=== PATIENT | female | born 1965 | race Caucasian/White ===

== ENCOUNTER → 2017-07-20 16:49 | Outpatient (CLI) | payer SELFPAY | PROVIDERS: Visit Provider Nurse Practitioner Gerontology | DX: K13.79 Other lesions of oral mucosa (principal) | CPT/HCPCS: 87070 ==

== ENCOUNTER → 2017-10-27 15:59 | Outpatient (CLI) | payer SELFPAY ==
[2017-10-27 17:48] LABS: Absolute Lymphocyte Count 2.68 X10^3/ul (0.83-4.51); Absolute Neutrophil Count 4.7 X10^3/uL (2.0-7.7); Basophil# 0.03 X10^3/uL; Basophil% 0.4 % (0-1); Eosinophil# 0.07 X10^3/uL; Eosinophils% 0.9 % (0-5); Hematocrit 38.4 % (37-47); Hemoglobin 11.6 g/dl (12.0-15.0); Lymphocyte # 2.68 X10^3/ul (4.0); Lymphocyte % 33.8 % (19-41); Mean Corp Hgb Conc 30.2 g/gl (32-36); Mean Corpuscular Hgb 23.1 pg (27.0-32.0); Mean Corpuscular Volume 76.5 fL (81-99); Mean Platelet Vol. 9.1 fl (6.2-12.0); Monocyte# 0.47 X10^3/uL; Monocyte% 5.9 % (0-10); Neutrophil # 4.66 X10^3/uL (2.7-7.7); Neutrophil % 58.9 % (47-70); Platelet Count 391 K/mm3 (150-450); RBC Distribution Width CV 15.9 % (11.6-14.6); Red Blood Count 5.02 M/mm3 (4.2-5.4); White Blood Count 7.9 K/mm3 (4.4-11.0)
[2017-10-27 17:50] LABS: POSITIVE COUNT NO; POSITIVE DIFFERENTIAL NO; POSITIVE MORPHOLOGY NO
[2017-10-27 18:02] LABS: Erythrocyte Sedimentation Rate 30 mm/hr (0-30)
[2017-10-27 18:10] LABS: AST(SGOT) 24 U/L (15-37); Alanine Aminotransfer ALT/SGPT 44 U/L (13-56); Albumin, Serum 3.9 g/dL (3.2-5.0); Alkaline Phosphatase 96 U/L (45-117); Anion Gap 8 (5-15); BUN 7 mg/dL (7-18); BUN/Creat Ratio 8.5 RATIO (10-20); CRP 8.61 mg/L (0.0-3.0); Chloride 104 mmol/L (98-107); Creatinine, Serum 0.82 mg/dL (0.55-1.02); EST Glomerular Filtration Rate 78 mL/min (>60); Est Glom Filt Rate - Afr Amer 94 mL/min (>60); Globulin 3.8 g/dL (2.2-4.2); Glucose 89 mg/dL (74-106); Potassium 3.6 mmol/L (3.5-5.1); Protein, Total 7.7 g/dL (6.4-8.2); Rheumatoid Factor < 10.0 IU/mL (<15); Sodium Level 142 mmol/L (136-145)
[2017-11-04 08:09] LABS: QNTFERON TB Ag Minus Nil Value 0.04 IU/mL (.); QNTFERON TB Ag Value 0.08 IU/mL (.); QNTFERON TB Mitogen Value > 10.00 IU/mL (.); QNTFERON TB Nil Value 0.04 IU/mL (.)
[2017-11-06 12:28] LABS: CCP IgG Antibodies 8 units (0-19); QNTIFERON TB Gold Negative (Negative)
== END ==
PROVIDERS: Family Provider Nurse Practitioner; PCP Nurse Practitioner; Visit Provider Internal Medicine Rheumatology
DX: M06.09 Rheumatoid arthritis without rheumatoid factor, multiple sites (principal); Z79.899 Other long term (current) drug therapy; M79.7 Fibromyalgia; K76.0 Fatty (change of) liver, not elsewhere classified; E83.119 Hemochromatosis, unspecified; Q66.7 Congenital pes cavus
CPT/HCPCS: 36415; 80053; 85025; 85652; 86140; 86200; 86431; 86480

== ENCOUNTER → 2018-01-19 07:45 | Outpatient (CLI) | payer BC, SELFPAY ==
--- NOTE | 2018-01-19 07:48 | US_ITS ---
STUDY: THYROID ULTRASOUND REASON FOR EXAM: Female, 52 years old. Follow-up nodules TECHNIQUE: Transverse and longitudinal ultrasound evaluation of the thyroid was performed with real-time and static stratton-scale imaging. COMPARISON: November 30, 2016 FINDINGS: RIGHT LOBE: The right lobe of the thyroid gland measures 5.8 x 2.0 x 2.0 cm. There is a heterogeneous echotexture. Cystic nodules are again seen in the right lobe. A heterogeneous mass is again seen in the lower pole measuring 15.5 x 14.5 x 17.0 mm. This previously measured 16.3 x 14.9 x 16.5 mm. LEFT LOBE: The left lobe of the thyroid gland measures 5.2 x 1.4 x 1.6 cm. There is a heterogeneous echotexture. Cystic nodules are again seen in the left lobe. The largest is seen in the lower pole measuring 10.1 x 7.6 x 7.8 mm. This previously measured 10.2 x 6.6 x 9.1 mm. ISTHMUS: The isthmus measures 4.0 mm. There is a small cystic nodule in the isthmus measuring 4.5 x 2.5 x 4.4 mm. The regional lymph nodes are unremarkable. US/Thyroid IMPRESSION: Bilateral thyroid nodules are again seen and are unchanged in appearance. Electronically Signed: Salena Chan MD at 22:58 EDT Tel Direct: [phone], Service support ,
== END ==
PROVIDERS: Family Provider Nurse Practitioner; PCP Nurse Practitioner; Referring Provider Nurse Practitioner; Visit Provider Nurse Practitioner
DX: E04.1 Nontoxic single thyroid nodule (principal)
CPT/HCPCS: 76536

== ENCOUNTER → 2018-01-31 16:41 | Outpatient (CLI) | payer BC, SELFPAY ==
[2018-01-31 17:39] LABS: Absolute Lymphocyte Count 3.95 X10^3/ul (0.83-4.51); Absolute Neutrophil Count 4.9 X10^3/uL (2.0-7.7); Basophil# 0.03 X10^3/uL; Basophil% 0.5 % (0-1); Eosinophil# 0.05 X10^3/uL; Eosinophils% 0.9 % (0-5); Hematocrit 36.4 % (37-47); Hemoglobin 11.1 g/dl (12.0-15.0); Lymphocyte # 3.95 X10^3/ul (4.0); Lymphocyte % 40.2 % (19-41); Mean Corp Hgb Conc 30.5 g/gl (32-36); Mean Corpuscular Hgb 22.2 pg (27.0-32.0); Mean Corpuscular Volume 73.9 fL (81-99); Mean Platelet Vol. 9.1 fl (6.2-12.0); Monocyte# 0.71 X10^3/uL; Monocyte% 9.5 % (0-10); Neutrophil % 49.5 % (47-70); Platelet Count 425 K/mm3 (150-450); RBC Distribution Width CV 15.6 % (11.6-14.6); Red Blood Count 4.91 M/mm3 (4.2-5.4); White Blood Count 9.9 K/mm3 (4.4-11.0)
[2018-01-31 17:40] LABS: Differential Indicated SCAN CRITERIA MET; POSITIVE COUNT NO; POSITIVE DIFFERENTIAL NO; POSITIVE MORPHOLOGY YES
[2018-01-31 17:50] LABS: ALB/GLOB Ratio 1.1 RATIO (0.9-2.4); AST(SGOT) 30 U/L (15-37); Alanine Aminotransfer ALT/SGPT 54 U/L (13-56); Alkaline Phosphatase 99 U/L (45-117); Anion Gap 8 (5-15); BUN 10 mg/dL (7-18); Calcium,Total 9.1 mg/dL (8.5-10.1); Chloride 102 mmol/L (98-107); Creatinine, Serum 0.91 mg/dL (0.55-1.02); EST Glomerular Filtration Rate 69 mL/min (>60); Est Glom Filt Rate - Afr Amer 84 mL/min (>60); Globulin 3.7 g/dL (2.2-4.2); Glucose 88 mg/dL (74-106); Protein, Total 7.7 g/dL (6.4-8.2); Sodium Level 139 mmol/L (136-145)
[2018-01-31 18:13] LABS: Platelet Estimate A (ADEQ); Red Cell Morphology N CHROM NORMAL (NORM C&C)
[2018-01-31 18:14] LABS: Anisocytosis 1+
== END ==
PROVIDERS: Family Provider Nurse Practitioner; PCP Nurse Practitioner; Referring Provider Internal Medicine Rheumatology; Visit Provider Internal Medicine Rheumatology
DX: M06.09 Rheumatoid arthritis without rheumatoid factor, multiple sites (principal); Z79.899 Other long term (current) drug therapy; M79.7 Fibromyalgia; K76.0 Fatty (change of) liver, not elsewhere classified; E83.119 Hemochromatosis, unspecified; Q66.7 Congenital pes cavus; K21.9 Gastro-esophageal reflux disease without esophagitis; I10 Essential (primary) hypertension; G43.909 Migraine, unspecified, not intractable, without status migrainosus; N80.9 Endometriosis, unspecified; I26.99 Other pulmonary embolism without acute cor pulmonale
CPT/HCPCS: 36415; 80053; 85025

== ENCOUNTER → 2018-02-28 13:49 | Outpatient (CLI) | payer BC, SELFPAY | PROVIDERS: Family Provider Nurse Practitioner; PCP Nurse Practitioner; Referring Provider Nurse Practitioner; Visit Provider Nurse Practitioner | DX: R00.2 Palpitations (principal) | CPT/HCPCS: 93225; 93226 ==

== ENCOUNTER 2018-06-01 16:30 | Outpatient (RCR) | payer BC, SELFPAY ==
[2018-06-01 18:09] LABS: AST(SGOT) 29 U/L (15-37); Alanine Aminotransfer ALT/SGPT 57 U/L (13-56); Alkaline Phosphatase 96 U/L (45-117); Bilirubin, Direct 0.07 mg/dL (0.00-0.30); Globulin 3.5 g/dL (2.2-4.2); Protein, Total 7.5 g/dL (6.4-8.2)
== END 2018-06-14 15:06 | disposition home or self-care (01) ==
LOC: MTLAB 16:30
PROVIDERS: Family Provider Nurse Practitioner; PCP Nurse Practitioner; Referring Provider Nurse Practitioner; Visit Provider Nurse Practitioner
DX: B35.1 Tinea unguium (principal)
CPT/HCPCS: 36415; 80076

== ENCOUNTER → 2018-07-27 10:59 | Outpatient (CLI) | payer BC, SELFPAY ==
[2018-07-27 12:25] LABS: Absolute Lymphocyte Count 2.76 X10^3/ul (0.83-4.51); Absolute Neutrophil Count 2.5 X10^3/uL (2.0-7.7); Basophil# 0.03 X10^3/uL; Basophil% 0.5 % (0-1); Eosinophil# 0.04 X10^3/uL; Eosinophils% 0.7 % (0-5); Hematocrit 38.1 % (37-47); Hemoglobin 11.5 g/dl (12.0-15.0); Lymphocyte # 2.76 X10^3/ul (4.0); Lymphocyte % 48.3 % (19-41); Mean Corp Hgb Conc 30.2 g/gl (32-36); Mean Corpuscular Hgb 22.4 pg (27.0-32.0); Mean Corpuscular Volume 74.1 fL (81-99); Mean Platelet Vol. 9.2 fl (6.2-12.0); Monocyte# 0.38 X10^3/uL; Monocyte% 6.7 % (0-10); Neutrophil % 43.8 % (47-70); Platelet Count 412 K/mm3 (150-450); RBC Distribution Width CV 16.5 % (11.6-14.6); Red Blood Count 5.14 M/mm3 (4.2-5.4); White Blood Count 5.7 K/mm3 (4.4-11.0)
[2018-07-27 12:30] LABS: ALB/GLOB Ratio 1.1 RATIO (0.9-2.4); AST(SGOT) 25 U/L (15-37); Alanine Aminotransfer ALT/SGPT 43 U/L (13-56); Albumin, Serum 4.1 g/dL (3.2-5.0); Alkaline Phosphatase 84 U/L (45-117); Anion Gap 5 (5-15); BUN 8 mg/dL (7-18); BUN/Creat Ratio 8.7 RATIO (10-20); Calcium,Total 9.1 mg/dL (8.5-10.1); Chloride 106 mmol/L (98-107); Creatinine, Serum 0.92 mg/dL (0.55-1.02); EST Glomerular Filtration Rate 69 mL/min (>60); Est Glom Filt Rate - Afr Amer 83 mL/min (>60); Globulin 3.6 g/dL (2.2-4.2); Glucose 88 mg/dL (74-106); Potassium 3.6 mmol/L (3.5-5.1); Protein, Total 7.7 g/dL (6.4-8.2); Sodium Level 139 mmol/L (136-145)
[2018-07-27 12:33] LABS: Differential Indicated SCAN CRITERIA MET; POSITIVE COUNT NO; POSITIVE DIFFERENTIAL NO; POSITIVE MORPHOLOGY YES
== END ==
PROVIDERS: Family Provider Nurse Practitioner; PCP Nurse Practitioner; Referring Provider Internal Medicine Rheumatology; Visit Provider Internal Medicine Rheumatology
DX: M06.09 Rheumatoid arthritis without rheumatoid factor, multiple sites (principal); M79.7 Fibromyalgia; K76.0 Fatty (change of) liver, not elsewhere classified; E83.119 Hemochromatosis, unspecified; Q66.7 Congenital pes cavus; K21.9 Gastro-esophageal reflux disease without esophagitis; I10 Essential (primary) hypertension; G43.909 Migraine, unspecified, not intractable, without status migrainosus; N80.9 Endometriosis, unspecified; I26.99 Other pulmonary embolism without acute cor pulmonale; Z79.899 Other long term (current) drug therapy
CPT/HCPCS: 36415; 80053; 85025

== ENCOUNTER → 2018-08-31 | Outpatient (CLI) | payer BC, SELFPAY ==
--- NOTE | 2018-08-31 12:03 | CT_ITS ---
STUDY: CT ABDOMEN AND PELVIS WITH CONTRAST REASON FOR EXAM: Female, 52 years old. Right upper quadrant pain. RADIATION DOSAGE (If Supplied By Facility): CTDIvol = ( 16.45 ) mGy, DLP = ( 1188.53 ) mGycm TECHNIQUE: Transaxial images were obtained from the dome of the diaphragm to the symphysis pubis with oral contrast. 100 IV/Oral Isovue 300 was administered. Sagittal and coronal images were reconstructed. Individualized dose optimization techniques were used for this CT. COMPARISON: None. FINDINGS: The visualized lung bases are unremarkable. The visualized portions of the heart are within normal limits. There is decreased attenuation of the liver consistent with steatosis. There are surgical clips in the gallbladder fossa consistent with a prior cholecystectomy. Normal spleen. Normal pancreas. Normal bilateral adrenal glands. There is a 3.2 cm x 2.1 cm x 2.7 cm complex cyst in the anterior lower aspect of the right kidney. Dense peripheral calcification is seen. A 6 month follow-up examination is suggested for further evaluation. Normal left kidney. There is a small hiatal hernia. Normal small intestine. Normal colon. The appendix is visualized and appears normal. Normal abdominal aorta. Normal inferior vena cava. Normal retroperitoneum. Normal urinary bladder. There is absence of the uterus consistent with a prior hysterectomy. Small benign-appearing bilateral inguinal lymph nodes. Normal abdominal wall. Moderate degree of disc space narrowing and disc degeneration at the L5-S1 level. CT/Abdomen/Pelvis WITH Contrast IMPRESSION: Fatty infiltration of the liver. Complex right renal cyst as described. A 6 month follow-up examination is recommended. Electronically Signed: Mario Alberto Sesay, at 14:40 EDT , Service support ,
[2018-08-31 12:32] LABS: Absolute Lymphocyte Count 2.62 X10^3/ul (0.83-4.51); Absolute Neutrophil Count 3.6 X10^3/uL (2.0-7.7); Basophil# 0.03 X10^3/uL; Basophil% 0.4 % (0-1); Eosinophil# 0.04 X10^3/uL; Eosinophils% 0.6 % (0-5); Hematocrit 35.8 % (37-47); Hemoglobin 11.1 g/dl (12.0-15.0); Lymphocyte # 2.62 X10^3/ul (4.0); Mean Corpuscular Hgb 22.7 pg (27.0-32.0); Mean Corpuscular Volume 73.2 fL (81-99); Mean Platelet Vol. 9.3 fl (6.2-12.0); Monocyte# 0.56 X10^3/uL; Monocyte% 8.1 % (0-10); Neutrophil # 3.64 X10^3/uL (2.7-7.7); Neutrophil % 52.8 % (47-70); Platelet Count 384 K/mm3 (150-450); RBC Distribution Width CV 17.1 % (11.6-14.6); RBC Distribution Width SD 45.8 fl (35.1-43.9); Red Blood Count 4.89 M/mm3 (4.2-5.4); White Blood Count 6.9 K/mm3 (4.4-11.0)
[2018-08-31 12:34] LABS: POSITIVE COUNT NO; POSITIVE DIFFERENTIAL NO; POSITIVE MORPHOLOGY NO
[2018-08-31 12:46] LABS: ALB/GLOB Ratio 1.3 RATIO (0.9-2.4); AST(SGOT) 19 U/L (15-37); Alanine Aminotransfer ALT/SGPT 29 U/L (13-56); Alkaline Phosphatase 88 U/L (45-117); Anion Gap 6 (5-15); BUN 13 mg/dL (7-18); BUN/Creat Ratio 17.2 RATIO (10-20); Calcium,Total 9.1 mg/dL (8.5-10.1); Chloride 107 mmol/L (98-107); Creatinine, Serum 0.76 mg/dL (0.55-1.02); EST Glomerular Filtration Rate 86 mL/min (>60); Est Glom Filt Rate - Afr Amer 104 mL/min (>60); Globulin 3.1 g/dL (2.2-4.2); Glucose 85 mg/dL (74-106); Potassium 3.9 mmol/L (3.5-5.1); Protein, Total 7.1 g/dL (6.4-8.2); Sodium Level 140 mmol/L (136-145)
== END | disposition home or self-care (01) ==
PROVIDERS: Family Provider Nurse Practitioner; PCP Nurse Practitioner; Referring Provider Nurse Practitioner; Visit Provider Nurse Practitioner
DX: K62.5 Hemorrhage of anus and rectum (principal); R10.84 Generalized abdominal pain
CPT/HCPCS: 74177; 80053; 85025; Q9967

== ENCOUNTER → 2018-09-01 | Outpatient (CLI) | payer BC, SELFPAY ==
--- NOTE | 2018-09-01 07:59 | BI_ITS ---
MAMMOGRAPHY - BILATERAL SCREENING REASON FOR EXAM: Female, 52 years old. Routine annual screening examination. PERTINENT HISTORY: Non-contributory. TECHNIQUE: Digital bilateral breast cheli (3D mammographic acquisition) in the CC and MLO projections. 2-D mediolateral oblique (MLO) and craniocaudad (CC) views of both breasts were obtained. CAD: Full Field Digital Mammography with Computer Added Detection was performed. COMPARISON: Comparison is made with prior study dated December 05, 2016. FINDINGS: Breast Composition: There are scattered areas of fibroglandular density. There are no dominant masses or suspicious calcifications. Stable appearance of the small bilateral axillary lymph nodes. No other significant abnormalities are identified. There has been no significant change since the prior study. BI/SCREENING MAMM (CAD), BILAT IMPRESSION: Stable bilateral screening mammogram. Yearly follow-up mammogram recommended. (A) ASSESSMENT CATEGORY: BIRADS Category 2: Benign. A letter regarding these results will be sent to the patient by the facility within 30 days. Approximately 10% of breast cancers are not detected by mammography. A normal mammogram should not delay biopsy of a clinically suspicious abnormality. [id number] Electronically Signed: Mario Alberto Sesay, at 8:34 EDT , Service support ,
== END | disposition home or self-care (01) ==
LOC: OPBI 07:58
PROVIDERS: Family Provider Nurse Practitioner; PCP Nurse Practitioner; Referring Provider Nurse Practitioner; Visit Provider Nurse Practitioner
DX: Z12.31 Encounter for screening mammogram for malignant neoplasm of breast (principal)
CPT/HCPCS: 77063; 77067

== ENCOUNTER → 2018-10-30 | Outpatient (CLI) | payer BC, SELFPAY ==
[2018-10-30 11:01] LABS: AST(SGOT) 17 U/L (15-37); Alanine Aminotransfer ALT/SGPT 23 U/L (13-56); Albumin, Serum 3.9 g/dL (3.2-5.0); Alkaline Phosphatase 90 U/L (45-117); Bilirubin, Direct < 0.05 mg/dL (0.00-0.30); Globulin 3.6 g/dL (2.2-4.2); Protein, Total 7.5 g/dL (6.4-8.2)
== END | disposition home or self-care (01) ==
LOC: MTLAB 09:20
PROVIDERS: Family Provider Nurse Practitioner; PCP Nurse Practitioner; Referring Provider Nurse Practitioner; Visit Provider Nurse Practitioner
DX: N28.1 Cyst of kidney, acquired (principal)
CPT/HCPCS: 36415; 80076

== ENCOUNTER → 2018-11-06 | Outpatient (CLI) | payer BC, SELFPAY ==
--- NOTE | 2018-11-06 08:47 | RAD_ITS ---
STUDY: BARIUM ESOPHAGRAM REASON FOR EXAM: Female, 53 years old. Dysphagia RADIATION DOSAGE (If Supplied By Facility): CTDIvol = ( ) mGy, DLP = ( ) mGycm. Individualized dose optimization techniques were used for this CT.? FLUOROSCOPY TIME (if supplied): (1:00) minutes/seconds TECHNIQUE: Air-contrast COMPARISON: None. FINDINGS: Swallowing was initiated normally. No nasopharyngeal reflux or aspiration. No Zenker's diverticulum noted. There is however prominent anterior spurring at C5-6 which is impinging upon the posterior esophagus and may be a cause of things getting stuck in patient's throat. Normal peristaltic activity noted in the proximal and mid esophagus. Tertiary contractions noted in the distal esophagus consistent with presbyesophagus. No evidence of intraesophageal reflux or GE reflux. A 13 mm barium pill passed through the esophagus without difficulty RAD/Esophagus Only IMPRESSION: Presbyesophagus Prominent anterior spurring at C5-6 which is impinging upon the posterior esophagus and could be responsible for the patient's sensation of choking or things getting stuck in throat. Electronically Signed: Philipp Antonio MD at 9:30 EDT , Service support ,
[2018-11-06 10:10] LABS: Absolute Lymphocyte Count 2.51 X10^3/uL (0.83-4.51); Absolute Neutrophil Count 3.7 X10^3/uL (2.0-7.7); Basophil# 0.04 X10^3/uL; Basophil% 0.6 % (0-1); Eosinophil# 0.08 X10^3/uL; Eosinophils% 1.2 % (0-5); Hematocrit 37.5 % (37-47); Hemoglobin 11.3 g/dL (12.0-15.0); Lymphocyte # 2.51 X10^3/ul (4.0); Lymphocyte % 36.3 % (19-41); Mean Corp Hgb Conc 30.1 g/dL (32-36); Mean Corpuscular Hgb 23.1 pg (27.0-32.0); Mean Corpuscular Volume 76.7 fL (81-99); Mean Platelet Vol. 8.9 fl (6.2-12.0); Monocyte# 0.62 X10^3/uL; NRBC Flagged by Analyzer 0 % (0-5); Neutrophil # 3.66 X10^3/uL (2.7-7.7); Neutrophil % 52.8 % (47-70); Platelet Count 411 K/mm3 (150-450); RBC Distribution Width CV 18.8 % (11.6-14.6); RBC Distribution Width SD 51.9 fl (35.1-43.9); Red Blood Count 4.89 M/mm3 (4.2-5.4); White Blood Count 6.9 K/mm3 (4.4-11.0)
[2018-11-06 10:21] LABS: ALB/GLOB Ratio 1.1 RATIO (0.9-2.4); AST(SGOT) 15 U/L (15-37); Alanine Aminotransfer ALT/SGPT 26 U/L (13-56); Albumin, Serum 3.9 g/dL (3.2-5.0); Alkaline Phosphatase 93 U/L (45-117); Anion Gap 4 (5-15); BUN 10 mg/dL (7-18); Calcium,Total 8.9 mg/dL (8.5-10.1); Chloride 105 mmol/L (98-107); Creatinine, Serum 0.83 mg/dL (0.55-1.02); EST Glomerular Filtration Rate 77 mL/min (>60); Est Glom Filt Rate - Afr Amer 93 mL/min (>60); Globulin 3.6 g/dL (2.2-4.2); Glucose 90 mg/dL (74-106); Potassium 3.8 mmol/L (3.5-5.1); Protein, Total 7.5 g/dL (6.4-8.2); Sodium Level 138 mmol/L (136-145)
== END | disposition home or self-care (01) ==
PROVIDERS: Internal Medicine Rheumatology; Family Provider Nurse Practitioner; PCP Nurse Practitioner; Referring Provider Nurse Practitioner; Visit Provider Nurse Practitioner
DX: M06.09 Rheumatoid arthritis without rheumatoid factor, multiple sites (principal); Z79.899 Other long term (current) drug therapy; M79.7 Fibromyalgia; K76.0 Fatty (change of) liver, not elsewhere classified; E83.119 Hemochromatosis, unspecified; Q66.7 Congenital pes cavus; K21.9 Gastro-esophageal reflux disease without esophagitis; I10 Essential (primary) hypertension; G43.909 Migraine, unspecified, not intractable, without status migrainosus; N80.9 Endometriosis, unspecified; I26.99 Other pulmonary embolism without acute cor pulmonale
CPT/HCPCS: 36415; 74220; 80053; 85025

== ENCOUNTER → 2018-11-07 | Outpatient (CLI) | payer BC, SELFPAY ==
--- NOTE | 2018-11-07 15:53 | RAD_ITS ---
STUDY: X-RAY - RIGHT HAND REASON FOR EXAM: Female, 53 years old. Pain. TECHNIQUE: 3 view(s) of the hand. COMPARISON: None. FINDINGS: Normal radiocarpal articulation. Normal distal radioulnar joint. Normal visualized carpal bones. Normal carpal articulations Normal carpometacarpal articulation of the thumb. Normal second through fifth carpometacarpal joints. Normal metacarpi. Normal metacarpophalangeal joint of the thumb. Normal interphalangeal joint of the thumb. Normal proximal and distal phalanges of the thumb. Normal metacarpophalangeal joints of the second through fifth fingers. Normal proximal and distal interphalangeal joints of the second through fifth fingers. Normal phalanges of the second through fifth fingers. The soft tissue structures are unremarkable. RAD/Hand Min 3 Views IMPRESSION: Normal x-ray examination of the hand. Electronically Signed: Joe Calderón MD at 16:24 EDT , Service support ,
--- NOTE | 2018-11-07 15:53 | RAD_ITS ---
STUDY: X-RAY - LEFT HAND REASON FOR EXAM: Female, 53 years old. Pain. TECHNIQUE: 3 view(s) of the hand. COMPARISON: None. FINDINGS: Normal radiocarpal articulation. Normal distal radioulnar joint. Normal visualized carpal bones. Normal carpal articulations Normal carpometacarpal articulation of the thumb. Normal second through fifth carpometacarpal joints. Normal metacarpi. Normal metacarpophalangeal joint of the thumb. Normal interphalangeal joint of the thumb. Normal proximal and distal phalanges of the thumb. Normal metacarpophalangeal joints of the second through fifth fingers. Normal proximal and distal interphalangeal joints of the second through fifth fingers. Normal phalanges of the second through fifth fingers. The soft tissue structures are unremarkable. RAD/Hand Min 3 Views IMPRESSION: Normal x-ray examination of the hand. Electronically Signed: Joe Calderón MD at 16:11 EDT , Service support ,
== END | disposition home or self-care (01) ==
LOC: HPRAD 15:49
PROVIDERS: Family Provider Nurse Practitioner; PCP Nurse Practitioner; Referring Provider Nurse Practitioner; Visit Provider Nurse Practitioner
DX: M79.641 Pain in right hand (principal); M79.642 Pain in left hand
CPT/HCPCS: 73130

== ENCOUNTER 2018-11-14 19:41 | Emergency (ER) | payer BC, SELFPAY ==
[2018-11-14 19:42] VITALS: BP 150/73; BP 150/79; PULSE 80; PULSE 81; RESP 19; TEMP 36.4; O2SAT 99; BMI 34.4
[2018-11-14 21:07] LABS: Bacteria 0 SEEN /hpf (None Seen); Mucous, Urine 0 SEEN /hpf (<or=2+); Red Blood Cells-Urine 0 SEEN /hpf (0-5)
[2018-11-14] MEDS: Morphine 4 MG/ML Syringe IV (21:10)
[2018-11-14] MEDS: Ondansetron 4 MG/2 ML Vial IV (21:10)
[2018-11-14] MEDS: 0.9% Normal Saline 1,000 ML 1000 ML IV (21:10)
[2018-11-14 21:16] LABS: Absolute Lymphocyte Count 3.72 X10^3/uL (0.83-4.51); Absolute Neutrophil Count 6.3 X10^3/uL (2.0-7.7); Basophil# 0.06 X10^3/uL; Basophil% 0.5 % (0-1); Eosinophil# 0.09 X10^3/uL; Eosinophils% 0.8 % (0-5); Hematocrit 34.9 % (37-47); Hemoglobin 10.9 g/dL (12.0-15.0); Lymphocyte # 3.72 X10^3/ul (4.0); Mean Corp Hgb Conc 31.2 g/dL (32-36); Mean Corpuscular Hgb 23.6 pg (27.0-32.0); Mean Corpuscular Volume 75.7 fL (81-99); Mean Platelet Vol. 8.7 fl (6.2-12.0); Monocyte# 1.07 X10^3/uL; Monocyte% 9.5 % (0-10); NRBC Flagged by Analyzer 0 % (0-5); Neutrophil # 6.32 X10^3/uL (2.7-7.7); Platelet Count 359 K/mm3 (150-450); RBC Distribution Width CV 18.6 % (11.6-14.6); RBC Distribution Width SD 50.6 fl (35.1-43.9); Red Blood Count 4.61 M/mm3 (4.2-5.4); White Blood Count 11.3 K/mm3 (4.4-11.0)
[2018-11-14 21:19] LABS: Color, Urine Yellow (Yellow); Glucose, Dipstick Normal (Normal); Ketone-Dipstick Negative (Negative); Leukocyte Esterase-Dipstick 100 /ul (Negative); Nitrite-Dipstick Negative (Negative); Occult Blood-Urine Negative /ul (Negative); Protein-Dipstick Negative (Negative); Specific Gravity, Urine 1.005 (1.002-1.030); Urine Bilirubin Dipstick Negative (Negative); Urine Clarity Sl. Cloudy (Clear); Urine Urobilinogen Normal (Normal); Urine pH 6.5 (5.0 - 8.0)
[2018-11-14 21:25] LABS: Squamous Epithelial Cells - UA 0-5 SEEN /hpf (5-10); White Blood Cells 5-10 SEEN /hpf (0-5)
[2018-11-14 21:27] LABS: International Normalized Ratio 1.1; Partial Thromboplast Time 33.3 Seconds (24.1-36.2); Prothrombin Time (Protime)PT. 14.2 SECONDS (11.7-14.9)
[2018-11-14 21:30] LABS: D-Dimer Quantitative (DVT/PE) < 0.27 FEU/ug/m (0.27-0.49)
[2018-11-14 21:39] LABS: ALB/GLOB Ratio 1.1 RATIO (0.9-2.4); AST(SGOT) 16 U/L (15-37); Alanine Aminotransfer ALT/SGPT 22 U/L (13-56); Albumin, Serum 3.8 g/dL (3.2-5.0); Alkaline Phosphatase 86 U/L (45-117); Anion Gap 2 (5-15); BUN 12 mg/dL (7-18); BUN/Creat Ratio 15.5 RATIO (10-20); Calcium,Total 8.9 mg/dL (8.5-10.1); Chloride 105 mmol/L (98-107); Creatinine, Serum 0.77 mg/dL (0.55-1.02); EST Glomerular Filtration Rate 84 mL/min (>60); Est Glom Filt Rate - Afr Amer 101 mL/min (>60); Estimated Creatinine Clearance 80.92 ml/min; Globulin 3.6 g/dL (2.2-4.2); Glucose 77 mg/dL (74-106); Lipase 143 U/L (73-393); Potassium 3.3 mmol/L (3.5-5.1); Protein, Total 7.4 g/dL (6.4-8.2); Sodium Level 138 mmol/L (136-145)
[2018-11-14 21:53] VITALS: RESP 16
--- NOTE | 2018-11-14 22:25 | ED.VISSUMM ---
- ER Visit Summary Date of Service: 11/14/18 Chief Complaint: Abdominal pain History of Present Illness: The patient is a 53 F who presents with abdominal pain that has been getting worse over the past month. Patient describes it as aching and stabbing. Patient states the pain is over the right upper quadrant. Patient states she has had similar episodes in the past and has never been diagnosed with anything definitive. Patient states she has a fatty liver. Patient admits to some nausea but denies any vomiting. Patient admits to some diarrhea but denies any melena or hematochezia. Patient denies any urinary complaints. Patient does admit to some subjective chills. Physical Examination: Vital signs are stable. Patient is afebrile. Patient is in no acute distress. Oral mucosa is pink and moist. Neck is supple. Trachea is midline. There is no JVD noted. Heart was regular rate and rhythm. Lungs are clear and equal bilaterally. Abdomen is soft. Bowel sounds are normal. There is right upper quadrant tenderness. There is no rebound or guarding noted. There is no Kellogg sign noted. Cranial nerves II through XII are intact. There are no focal motor or sensory deficits noted. Test Results: CBC shows a mild leukocytosis of 11.3. Hemoglobin is 10.9 hematocrit 34.9. Conference of metabolic profile showed a mild hypokalemia 3.3. Anion gap was normal. Lipase was normal. INR is 1.1. PTT was 33.3. Urinalysis shows leukocyte esterase of 100 with 5-10 white blood cells. D-dimer was normal. Emergency Department Course and Treatment: Patient was given IV fluids, morphine, and Zofran. Patient feeling better on reevaluation. Patient was instructed to follow-up with her primary care physician in 5 to 7 days. Patient states she has also seen Dr. Vargas in the past and would like to follow-up with him for further evaluation of her fatty liver. Patient understood and was agreeable with the plan. All questions were answered. Disposition: Discharge home Impression: Right upper quadrant abdominal pain This note was generated with [employer] dictation software. It may contain incorrect words, spelling, and punctuation that were not noted in review of the chart prior to signing ED Disposition - Plan for ED Patient: Disposition: Home or Assisted Living Diagnosis: Right upper quadrant abdominal pain of unknown etiology Instructions: ABDOMINAL PAIN, Unknown Cause, (Female) Referrals: Aissatou Cm, PHONE COUNSELOR-C [Primary Care Provider] - 5-7 Days
[2018-11-14 22:42] VITALS: BP 129/59; PULSE 79; RESP 16; O2SAT 100
== END 2018-11-14 22:43 | disposition home or self-care (01) ==
PROVIDERS: Emergency Provider Emergency Medicine; Family Provider Nurse Practitioner; PCP Nurse Practitioner
DX: R10.11 Right upper quadrant pain (principal); R11.0 Nausea; R19.7 Diarrhea, unspecified; R68.83 Chills (without fever); E87.6 Hypokalemia; M54.2 Cervicalgia; G89.29 Other chronic pain; M54.9 Dorsalgia, unspecified; R51 Headache; K76.0 Fatty (change of) liver, not elsewhere classified; Z90.49 Acquired absence of other specified parts of digestive tract; Z79.01 Long term (current) use of anticoagulants; Z79.899 Other long term (current) drug therapy
CPT/HCPCS: 80053; 81001; 83690; 85025; 85379; 85610; 85730; 96361; 96374; 96375; 99284; J7030; J2405

== ENCOUNTER 2018-11-16 17:08 | Inpatient (IN) | payer BC, SELFPAY ==
[2018-11-16 17:09] VITALS: BP 142/64; PULSE 98; RESP 16; TEMP 36.7; O2SAT 99; BMI 34.3
--- NOTE | 2018-11-16 18:05 | EKG12_ITS ---
Test Reason : Blood Pressure : / mmHG Vent. Rate : 087 BPM Atrial Rate : 087 BPM P-R Int : 132 ms QRS Dur : 074 ms QT Int : 356 ms P-R-T Axes : 073 019 049 degrees QTc Int : 428 ms Normal sinus rhythm Possible Left atrial enlargement Borderline ECG Confirmed by ANTHONY FRIAS, MAHESH ([id number]), assistant film editor ALLYN HOWELL ([id number]) on 11/19/2018 11:48:11 AM Referred By: Humberto Hinson Confirmed By:MAHESH CRUZ MD
--- NOTE | 2018-11-16 18:05 | CT_ITS ---
STUDY: CT ABDOMEN AND PELVIS WITH CONTRAST REASON FOR EXAM: Female, 53 years old. Pain RADIATION DOSAGE (If Supplied By Facility): DLP = ( 1794.49 ) mGycm TECHNIQUE: Transaxial images were obtained from the dome of the diaphragm to the symphysis pubis with oral contrast. 100 ml of Isovue 370 contrast was administered. Sagittal and coronal images were reconstructed. Individualized dose optimization techniques were used for this CT. COMPARISON: CT abdomen and pelvis August 31, 2018 FINDINGS: The visualized lung bases are clear. The visualized portions of the heart and pericardium are within normal limits. The gallbladder has been removed. The liver is within normal limits. There are no suspicious hepatic lesions. The spleen is normal in size. The pancreas is within normal limits. The adrenal glands are within normal limits. There are no obstructing renal stones. There is no hydronephrosis. There is a stable right renal midpole 3.8 x 1.8 cm septated cyst with calcification. The kidneys are otherwise unremarkable in appearance. Normal visualized stomach. There is no bowel obstruction or inflammation. The appendix is normal. The aorta is normal in caliber. There is no abdominal or pelvic free air, free fluid, fluid collection or lymphadenopathy. There are no destructive osseous lesions. CT/Abdomen/Pelvis W IV Cont ONLY IMPRESSION: No acute abdominal or pelvic pathology. Stable right renal lower pole septated cyst with calcification. Electronically Signed: Nj Martinez, at 19:44 EDT Tel , Service support ,
--- NOTE | 2018-11-16 18:06 | CT_ITS ---
STUDY: CTA CHEST REASON FOR EXAM: Female, [address] chest November 28, 2016 RADIATION DOSAGE (If Supplied By Facility): CTDIvol = ( 16.41 ) mGy, DLP = ( 1794.49 ) mGycm TECHNIQUE: The examination was performed with the intravenous administration of 100 IV Isovue 370. Post-processing of the angiographic images was performed, with multiplanar reformation and 3D reconstruction. Individualized dose optimization techniques were used for this CT. COMPARISON: None. FINDINGS: Stable thyroid nodules noted Normal enhancement of the main pulmonary artery and right and left pulmonary arteries. Normal enhancement of the bilateral peripheral pulmonary arteries. There is no demonstrated pulmonary embolism. Normal thoracic aorta and visualized great vessels. There is no demonstrated aortic dissection. Normal heart and pericardium. Normal mediastinum. Normal hilar regions. Normal visualized trachea and bronchi. The lungs are well expanded. There is a large right upper lobe consolidation. The left lung and pleural space are clear. Normal pleura. Normal chest wall structures. Normal osseous structures. Normal visualized upper abdomen. CT/CTA Chest W/WO Contrast IMPRESSION: No evidence of pulmonary embolus. Large right upper lobe consolidation. Likely pneumonia although underlying lesion is not excluded. Short-term follow-up is recommended to confirm full resolution. Electronically Signed: Nj Martinez, at 19:35 EDT Tel , Service support ,
--- NOTE | 2018-11-16 18:07 | ED.DCSUM_ITS ---
- ER Visit Summary Date of Service: 11/16/18 Chief Complaint: Abdominal pain, pain all over History of Present Illness: The patient is a 53 F presenting with abdominal pain, pain all over. She states her symptoms started approximately one month ago. She started having more abdominal pain on Monday and was seen in the ED at that time. She had blood work and was sent home. She was advised to follow- up with her primary care physician and she has an appointment on Monday. She states she has had nausea, vomiting, diarrhea. She complains of diffuse myalgias. She has had constant chest pain since yesterday. She has a history of MTHFR and takes Xarelto. Denies other complaints. Physical Examination: Vitals are stable. Temperature 102. Alert no acute distress. HEENT exam is unremarkable. Neck is supple. No meningismus Lungs are clear and equal bilaterally. Heart is regular rate and rhythm. Abdomen is soft diffuse tenderness with no rebound or guarding Extremities are unremarkable. Skin is warm and dry. No focal neurologic deficit. Remainder of exam is unremarkable. Emergency Department Course and Treatment: She was given IV fluids, morphine, Zofran. CTA chest shows no evidence of pulmonary embolus. Large right upper lobe consolidation. Likely pneumonia although underlying lesion is not excluded. Short-term follow-up is recommended to confirm full resolution. CT abdomen shows No acute abdominal or pelvic pathology. Stable right renal lower pole septated cyst with calcification. CBC shows white count 16.6, hemoglobin 11.5. Chemistries unremarkable. Liver lipase are normal. Urinalysis unremarkable. EKG is sinus rate of 87 with no acute ischemic changes. Patient was given Levaquin IV. Discussed the hospitalist for admission. Disposition: Admission Impression: Community acquired pneumonia, leukocytosis This note was generated with [employer] dictation software. It may contain incorrect words, spelling, and punctuation that were not noted in review of the chart prior to signing ED Disposition - Plan for ED Patient: Referrals: Aissatou Cm, MICHELLE-C [Primary Care Provider] -
[2018-11-16] MEDS: Ondansetron 4 MG/2 ML Vial IV (18:22)
[2018-11-16] MEDS: 0.9% Normal Saline 1,000 ML 1000 ML IV (18:22)
[2018-11-16] MEDS: Morphine 4 MG/ML Syringe IV (18:23)
[2018-11-16 18:28] VITALS: TEMP 39.4
[2018-11-16] MEDS: Acetaminophen 500 MG Tablet 1000 MG PO (18:33)
[2018-11-16 18:35] LABS: Absolute Lymphocyte Count 2.06 X10^3/uL (0.83-4.51); Absolute Neutrophil Count 12.7 X10^3/uL (2.0-7.7); Basophil# 0.04 X10^3/uL; Basophil% 0.2 % (0-1); Hematocrit 36.6 % (37-47); Hemoglobin 11.5 g/dL (12.0-15.0); Lymphocyte # 2.06 X10^3/ul (4.0); Lymphocyte % 12.4 % (19-41); Mean Corp Hgb Conc 31.4 g/dL (32-36); Mean Corpuscular Volume 76.4 fL (81-99); Mean Platelet Vol. 8.5 fl (6.2-12.0); Monocyte# 1.81 X10^3/uL; Monocyte% 10.9 % (0-10); NRBC Flagged by Analyzer 0 % (0-5); Neutrophil # 12.65 X10^3/uL (2.7-7.7); POSITIVE DIFFERENTIAL YES; Platelet Count 334 K/mm3 (150-450); RBC Distribution Width CV 18.4 % (11.6-14.6); RBC Distribution Width SD 50.7 fl (35.1-43.9); Red Blood Count 4.79 M/mm3 (4.2-5.4); White Blood Count 16.6 K/mm3 (4.4-11.0)
[2018-11-16 18:37] LABS: Differential Indicated SCAN CRITERIA MET
[2018-11-16 18:46] LABS: AST(SGOT) 11 U/L (15-37); Alanine Aminotransfer ALT/SGPT 21 U/L (13-56); Albumin, Serum 3.5 g/dL (3.2-5.0); Alkaline Phosphatase 83 U/L (45-117); Anion Gap 8 (5-15); BUN 10 mg/dL (7-18); Calcium,Total 8.7 mg/dL (8.5-10.1); Chloride 101 mmol/L (98-107); Creatinine, Serum 0.91 mg/dL (0.55-1.02); EST Glomerular Filtration Rate 69 mL/min (>60); Est Glom Filt Rate - Afr Amer 84 mL/min (>60); Estimated Creatinine Clearance 68.47 ml/min; Globulin 3.9 g/dL (2.2-4.2); Glucose 98 mg/dL (74-106); Lipase 102 U/L (73-393); Potassium 3.5 mmol/L (3.5-5.1); Protein, Total 7.4 g/dL (6.4-8.2); Sodium Level 136 mmol/L (136-145)
[2018-11-16 18:56] LABS: Differential Comment SCANNED
[2018-11-16 20:00] VITALS: BP 138/70; PULSE 90; RESP 17; TEMP 37.4; O2SAT 97
[2018-11-16 20:07] LABS: Bacteria 0 SEEN /hpf (None Seen); Mucous, Urine 0 SEEN /hpf (<or=2+); Red Blood Cells-Urine 0 SEEN /hpf (0-5)
[2018-11-16 20:09] LABS: Color, Urine Yellow (Yellow); Glucose, Dipstick Normal (Normal); Ketone-Dipstick Negative (Negative); Leukocyte Esterase-Dipstick 25 /ul (Negative); Nitrite-Dipstick Negative (Negative); Occult Blood-Urine Negative /ul (Negative); Protein-Dipstick 15 mg/dl (Negative); Urine Bilirubin Dipstick Negative (Negative); Urine Clarity Clear (Clear); Urine Urobilinogen Normal (Normal)
[2018-11-16 20:14] LABS: Squamous Epithelial Cells - UA 0-5 SEEN /hpf (5-10); White Blood Cells 0-5 SEEN /hpf (0-5)
[2018-11-16] MEDS: levoFLOXacin IV 750 MG/150 ML BAG 100 MG IV (21:38)
[2018-11-16] MEDS: Ibuprofen 600 MG Tablet PO (21:42)
[2018-11-16 22:00] VITALS: BP 135/76; PULSE 90; RESP 16; TEMP 37.6; O2SAT 95
[2018-11-16 22:51] VITALS: O2SAT 97
--- NOTE | 2018-11-16 23:15 | PCM.HP.STD ---
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 This got worse on 11/14 and she came to ER and was sent home after blood work. Patient denies any other GI symptoms including nausea, vomiting and diarrhea. On further history, she complained of getting easily tired and short of breath on prolonged walking. Occasionally she had cough. She also complained of feeling fever and chills. In ED she was noted to have temperature 102.9 ?F. In ED, she had CT abdomen and CTA chest done. CT abdomen was negative for acute intra-abdominal process. CTA chest shows large right upper lobe consolidation. No PE. Patient denies history of chest pain, sputum production, wheezing or history of chronic lung disease. [] Past Medical History Past Medical History (Chronic Problems): Chronic Problems Rheumatoid arthritis (Chronic) Compound heterozygous MTHFR mutation [id number] (Chronic) Pulmonary emboli (Chronic) Hemochromatosis (Chronic) Allergies No Known Allergies Allergy (Verified 11/16/18 17:37) Home Medications: Ambulatory Orders Medication Instructions Recorded Amitriptyline HCl [Elavil] 100 mg PO QHS 08/31/16 Lisinopril [Zestril] 40 mg PO DAILY 08/31/16 Omeprazole Magnesium 20 mg PO DAILY 08/31/16 Rivaroxaban [Xarelto] 20 mg PO DAILY 12/05/16 Adalimumab [Humira] 40 mg SUBCUT X1 11/14/18 L.acidoph,Paracasei, B.lactis 2 ea PO DAILY 11/14/18 [Probiotic] Terbinafine HCl [Terbinafine] 15 gm TP DAILY 11/14/18 Smoking Status: Former smoker - Quit 2 years ago. Smoking 1 pack/day since her teenage. - *Family History Paternal History Items: No pertinent history Review of Systems Constitutional: Reports: Chills, Fever. Denies: Weight Change HEENT: Denies: Head Aches, Sinus Congestion, Sinus Drainage Cardiovascular: Denies: Chest Pain, Palpitations Respiratory: Denies: Cough, Shortness of breath at rest, Sputum production Gastrointestinal: Denies: Abdominal Pain, Nausea, Vomiting Genitourinary: Denies: Dysuria Musculoskeletal: Denies: Joint Pain, Joint Tenderness Skin: Denies: Rash, Wounds Neurological: Denies: Numbness, Tingling, Focal weakness Psychiatric: Denies: Anxiety, Depression, Homicidal Ideations, Suicidal Ideations Hematologic/ Lymphatic: Denies: Easy Bruising, Easy Bleeding VTE Information - Inpt Only VTE Present on Admission: No VTE Mechan Device Prophylaxis: None VTE Pharm Prophylaxis ordered?: Yes Patient Problems: Active and Suspected Problems Right upper lobe pneumonia (Acute) - Physical Exam General: Alert, Oriented x3, Cooperative HEENT: Atraumatic, PERRLA, EOMI, Normocephalic Neck: Supple, No JVD, Negative Carotid Bruits Lungs: Clear to auscultation, Normal air movement, No rhonchi, No wheeze, No rales Cardiovascular: Regular rate, Regular Rhythm, Normal S1, Normal S2, No murmurs Abdomen: Bowel Sounds Present, Soft, Non Tender, Non-Distended Extremities: No edema, Capillary Refill Less than 3 Seconds Skin: No rashes, No breakdown Musculoskeletal: No Tenderness to Palpation of Joints or Extremities, Arthritic Changes Neurological: Cranial nerves II-XII grossly intact Psych/Mental Status: Normal Affect, Appropriate Vital Signs Temp Pulse Resp BP Pulse Ox 99.6 F H 90 16 135/76 H 95 11/16/18 22:00 11/16/18 22:00 11/16/18 22:00 11/16/18 22:00 11/16/18 22:00 Oxygen Delivery Method Room Air Weight: 213 lb Body Mass Index (BMI) 34.3 Laboratory Tests Past 24 Hrs 11/16/18 11/16/18 11/16/18 18:25 18:25 19:55 WBC 16.6 H RBC 4.79 Hgb 11.5 L Hct 36.6 L MCV 76.4 L MCH 24.0 L MCHC 31.4 L RDW Std Deviation 50.7 H RDW Coeff of Ember 18.4 H Plt Count 334 MPV 8.5 Immature Gran % (Auto) 0.500 Neut % (Auto) 76.0 H Lymph % (Auto) 12.4 L Ida % (Auto) 10.9 H Eos % (Auto) 0.0 Baso % (Auto) 0.2 Absolute Neuts (auto) 12.7 H Absolute Lymphs (auto) 2.06 Nucleated RBC % 0 Differential Comment SCANNED Diff Path Review August Sodium 136 Potassium 3.5 Chloride 101 Carbon Dioxide 27.0 Anion Gap 8 BUN 10 Creatinine 0.91 Estim Creat Clear Calc 68.47 Est GFR (MDRD) Af Amer 84 Est GFR (MDRD) Non-Af 69 BUN/Creatinine Ratio 11.0 Glucose 98 Calcium 8.7 Total Bilirubin 0.30 Direct Bilirubin 0.10 AST 11 L ALT 21 Alkaline Phosphatase 83 Total Protein 7.4 Albumin 3.5 Globulin 3.9 Lipase 102 Urine Color Yellow Urine Clarity Clear Urine pH 8.0 Ur Specific [place] 1.010 Urine Protein 15 H Urine Glucose (UA) Normal Urine Ketones Negative Urine Occult Blood Negative Urine Nitrite Negative Urine Bilirubin Negative Urine Urobilinogen Normal Ur Leukocyte Esterase 25 H Urine RBC 0 SEEN Urine WBC 0-5 SEEN Ur Squamous Epith Cells 0-5 SEEN Urine Bacteria 0 SEEN Urine Mucus 0 SEEN Assessment/Plan All Active Problems Right upper lobe pneumonia (Acute) Heterozygous MTHFR mutation C677T (Acute) Heterozygous MTHFR mutation [id number] (Acute) The patient is a 53 year old F with history of hypercoagulable disorder came to ED with diffuse abdominal pain, gradually ongoing for about 1 month and fever with chills with occasional cough came to ED. In ED she was noted to have temperature 102.9 ?F. In ED, she had CT abdomen and CTA chest done. CT abdomen was negative for acute intra-abdominal process. CTA chest shows large right upper lobe consolidation. No PE. Patient denies history of chest pain, sputum production, wheezing or history of chronic lung disease. EKG was done and reported as normal sinus rhythm at 87 bpm 1. Right upper lobe consolidation community-acquired pneumonia and patient is being admitted on MedSurg floor. Pneumonia work-up ordered including sputum culture, urinary antigens, blood cultures x2, respiratory panel and MRSA nasal screen. Patient got Levaquin 750 mg IV in ED. Will start on Rocephin and Zithromax. Albuterol as needed for shortness of breath. 2. Abdominal pain most probably referred from pneumonia: Abdomen is soft, nontender and benign. No other GI symptoms of nausea, vomiting or diarrhea. CT abdomen does not show acute internal process. 3. Hypercoagulable disorder, heterozygous MTHFR mutation with history of pulmonary emboli and hemochromatosis: Patient is on Xarelto 20 mg daily. 4. Other comorbidities include hypertension and rheumatoid arthritis on Humira: It has already of small joints of fingers and wrist. Probably Humira, immunosuppression might be responsible for origin of atypical pneumonia as patient did not had much chest symptoms. Hold Humira. Home medication reconciliation done DVT prophylaxis: Already on Xarelto 20 mg daily. Laboratory Results 11/16/18 18:25: WBC 16.6 H, RBC 4.79, Hgb 11.5 L, Hct 36.6 L, MCV 76.4 L, MCH 24.0 L, MCHC 31.4 L, RDW Std Deviation 50.7 H, RDW Coeff of Ember 18.4 H, Plt Count 334, MPV 8.5, Immature Gran % (Auto) 0.500, Neut % (Auto) 76.0 H, Lymph % (Auto) 12.4 L, Ida % (Auto) 10.9 H, Eos % (Auto) 0.0, Baso % (Auto) 0.2, Absolute Neuts (auto) 12.7 H, Absolute Lymphs (auto) 2.06, Nucleated RBC % 0, Differential Comment SCANNED, Diff Path Review August foll 11/16/18 18:25: Sodium 136, Potassium 3.5, Chloride 101, Carbon Dioxide 27.0, Anion Gap 8, BUN 10, Creatinine 0.91, Estim Creat Clear Calc 68.47, Est GFR (MDRD) Af Amer 84, Est GFR (MDRD) Non-Af 69, BUN/Creatinine Ratio 11.0, Glucose 98, Calcium 8.7, Total Bilirubin 0.30, Direct Bilirubin 0.10, AST 11 L, ALT 21, Alkaline Phosphatase 83, Total Protein 7.4, Albumin 3.5, Globulin 3.9, Lipase 102 11/16/18 19:55: Urine Color Yellow, Urine Clarity Clear, Urine pH 8.0, Ur Specific [place] 1.010, Urine Protein 15 H, Urine Glucose (UA) Normal, Urine Ketones Negative, Urine Occult Blood Negative, Urine Nitrite Negative, Urine Bilirubin Negative, Urine Urobilinogen Normal, Ur Leukocyte Esterase 25 H, Urine RBC 0 SEEN, Urine WBC 0-5 SEEN, Ur Squamous Epith Cells 0-5 SEEN, Urine Bacteria 0 SEEN, Urine Mucus 0 SEEN Clinical Impression(s) from Imaging Studies Abdomen/Pelvis CT 11/16/18 18:05 IMPRESSION: No acute abdominal or pelvic pathology. Stable right renal lower pole septated cyst with calcification. Electronically Signed: Nj Martinez, at 19:44 EDT Tel , Service support , Chest CTA 11/16/18 18:06 IMPRESSION: No evidence of pulmonary embolus. Large right upper lobe consolidation. Likely pneumonia although underlying lesion is not excluded. Short-term follow-up is recommended to confirm full resolution. Electronically Signed: Nj Martinez, at 19:35 EDT Tel , Service support , Code Visit Inpatient E&M: 56109 Init Hosp L3
[2018-11-16 23:39] VITALS: BMI 34.3; BMI 34.4
[2018-11-16 23:40] VITALS: BP 92/48; PULSE 66; RESP 16; TEMP 36.6; O2SAT 100
[2018-11-17] MEDS: 0.9% Normal Saline 1,000 ML 100 ML IV (02:17)
[2018-11-17] MEDS: Ceftriaxone 1 GM/50 ML BAG IV ×2 (02:17→21:46)
[2018-11-17] MEDS: 0.9% NaCl Peripheral Flush Adult/Peds IV ×3 (02:18→21:46)
[2018-11-17 05:26] VITALS: BP 116/63; PULSE 81; RESP 16; TEMP 37.4; O2SAT 99
--- NOTE | 2018-11-17 05:30 | NURSING ---
Pt passed with dysphagia screen at this time.
[2018-11-17] MEDS: Acetaminophen 325 MG Tablet 650 MG PO ×3 (05:33→18:29)
[2018-11-17] MEDS: oxyCODONE 5 MG Tablet PO ×4 (06:33→23:01)
--- NOTE | 2018-11-17 06:40 | PCM.PROGNOTE ---
Patient Problems: Active and Suspected Problems Right upper lobe pneumonia (Acute) Subjective: Day #2 antibiotics-Rocephin Ms. Borges is a 53-year-old female with a past medical history of hypercoagulable disorder, rheumatoid arthritis, pulmonary emboli, heterozygous MTHFR for mutations and obesity who presented to the emergency department at [facility] on 11/17/2018 complaining of abdominal pain for the preceding 1 month. The pain escalated on 11/14 and she presented to the emergency room but was sent home following blood work. She denied nausea, vomiting and diarrhea. She complained of being easily fatigued and having shortness of breath with walking. She complained of subjective fever and chills. Vital signs at presentation to the emergency room were temperature 102.9, pulse rate 98, blood pressure 142/64, respiratory rate 16 and oxygen saturation was 99%. CBC was remarkable for a white blood cell count of 16.6 with 76% neutrophils. Hemoglobin was 11.5 and platelets were 334,000. CMP was unremarkable. UA revealed no evidence of infection. A CT scan of the abdomen and pelvis showed no acute abdominal or pelvic pathology. There was a stable right renal cyst. CTA of the chest showed no evidence of pulmonary embolus. There was a large fairly well-circumscribed right upper lobe consolidation. Legionella and streptococcal antigens in the urine were negative. Blood cultures were sent from the emergency department. She was admitted to the hospital and started on Rocephin 1 g every 24 hours and azithromycin. She received Levaquin 750 mg in the emergency department. All events of the past 24 hours of been reviewed. T-max is 102.9 and the current temp is 99.3. Blood pressures have ranged from 92/48-140 2/64. Current blood pressure is 116/63. Pulse ox has ranged from 95 to 100% on room air. All lab was personally reviewed. Potassium is low at 3.5 today. Lactic acid is 0.7. She tells me that she feels very tired but her breathing is better than last evening. She continues to complain of right side lower chest pain and pain in her right upper quadrant of the abdomen. This pain comes and goes and increases with deep breathing. She has had prior cholecystectomy. Has not been able to produce a sputum. Rare cough. Denies nausea/vomiting/diarrhea/constipation. No history of peptic ulcer disease. She does admit alternating diarrhea and constipation and sometimes abdominal cramping. She suspects she has irritable bowel syndrome. She had a colonoscopy 1 year ago that was unremarkable. - Physical Exam General: Alert, Oriented x3, Cooperative, No apparent distress, Well developed, Well nourished, - - Looks fatigued HEENT: Atraumatic, PERRLA, EOMI, Normocephalic Oral: Moist Mucosa Neck: Supple, No JVD, Negative Carotid Bruits, No Nodes, Trachea Midline Lungs: Clear to auscultation - Anterior, posterior and bilateral., No rhonchi, No wheeze, No rales, - - Tachypneic, no conversational dyspnea, no accessory muscle use Cardiovascular: Regular rate, Regular Rhythm, Normal S1, Normal S2, No murmurs, No rub noted, No Gallop Abdomen: Bowel Sounds Present, Soft, Non Tender, Non-Distended Extremities: No clubbing, No cyanosis, No edema Neurological: Cranial nerves II-XII grossly intact, Neuro grossly intact Psych/Mental Status: Normal Affect, Appropriate Vital Signs Temp Pulse Resp BP Pulse Ox 99.3 F H 81 16 116/63 99 11/17/18 05:26 11/17/18 05:26 11/17/18 05:26 11/17/18 05:26 11/17/18 05:26 Oxygen Delivery Method Room Air Weight: 212 lb 15.994 oz Body Mass Index (BMI) 34.3 Intake and Output for Last 24 Hours 11/15/18 11/16/18 11/17/18 23:59 23:59 23:59 Intake Total 1096 / 1096 Balance 1096 / 1096 Microbiology Past 72 Hours 11/16/18 19:56 Streptococcus pneumoniae Antigen (M - Final Urine, Clean Catch 11/16/18 19:56 Legionella Antigen - Final Urine, Clean Catch Laboratory Tests Past 24 Hrs 11/16/18 11/16/18 11/16/18 18:25 18:25 19:55 WBC 16.6 H RBC 4.79 Hgb 11.5 L Hct 36.6 L MCV 76.4 L MCH 24.0 L MCHC 31.4 L RDW Std Deviation 50.7 H RDW Coeff of Ember 18.4 H Plt Count 334 MPV 8.5 Immature Gran % (Auto) 0.500 Neut % (Auto) 76.0 H Lymph % (Auto) 12.4 L [place] % (Auto) 10.9 H Eos % (Auto) 0.0 Baso % (Auto) 0.2 Absolute Neuts (auto) 12.7 H Absolute Lymphs (auto) 2.06 Nucleated RBC % 0 Differential Comment SCANNED Diff Path Review May foll Sodium 136 Potassium 3.5 Chloride 101 Carbon Dioxide 27.0 Anion Gap 8 BUN 10 Creatinine 0.91 Estim Creat Clear Calc 68.47 Est GFR (MDRD) Af Amer 84 Est GFR (MDRD) Non-Af 69 BUN/Creatinine Ratio 11.0 Glucose 98 Calcium 8.7 Total Bilirubin 0.30 Direct Bilirubin 0.10 AST 11 L ALT 21 Alkaline Phosphatase 83 Total Protein 7.4 Albumin 3.5 Globulin 3.9 Lipase 102 Urine Color Yellow Urine Clarity Clear Urine pH 8.0 Ur Specific [place] 1.010 Urine Protein 15 H Urine Glucose (UA) Normal Urine Ketones Negative Urine Occult Blood Negative Urine Nitrite Negative Urine Bilirubin Negative Urine Urobilinogen Normal Ur Leukocyte Esterase 25 H Urine RBC 0 SEEN Urine WBC 0-5 SEEN Ur Squamous Epith Cells 0-5 SEEN Urine Bacteria 0 SEEN Urine Mucus 0 SEEN Medical Necessity - Tobacco Use Smoking Status: Former smoker - Quit 2 years ago. Smoking 1 pack/day since her teenage. Assessment/Plan All Active Problems Right upper lobe pneumonia (Acute) Heterozygous MTHFR mutation C677T (Acute) Heterozygous MTHFR mutation [id number] (Acute) Impressions 1. Sepsis secondary to right upper lobe community-acquired pneumonia 2. Hypercoagulable disorder 3. Chronic anticoagulation with Xarelto 4. Rheumatoid arthritis 5. History of pulmonary emboli 6. Right upper quadrant abdominal pain associated with intermittent and alternating diarrhea and constipation with a unremarkable CT scan of the abdomen and pelvis and colonoscopy within the past year which was within normal limits. She has had a colonoscopy in the past and I suspect this pain may be secondary to irritable bowel syndrome or possible adhesions related to prior cholecystectomy. 7. Microcytic anemia-on Xarelto, possible GI blood loss 8. Hyponatremia Check magnesium and phosphorus Respiratory panel Blood cultures x2 are pending Serum iron, TIBC, ferritin Hemoccult stool Recheck lab in the a.m. Continue Rocephin and azithromycin Code Visit Inpatient E&M: [id number] Subs Hosp L2
[2018-11-17 07:14] LABS: Absolute Lymphocyte Count 1.53 X10^3/uL (0.83-4.51); Absolute Neutrophil Count 9.3 X10^3/uL (2.0-7.7); Basophil# 0.03 X10^3/uL; Basophil% 0.2 % (0-1); Hematocrit 33.1 % (37-47); Hemoglobin 10.4 g/dL (12.0-15.0); Lymphocyte # 1.53 X10^3/ul (4.0); Lymphocyte % 12.2 % (19-41); Mean Corp Hgb Conc 31.4 g/dL (32-36); Mean Corpuscular Hgb 24.1 pg (27.0-32.0); Mean Corpuscular Volume 76.6 fL (81-99); Mean Platelet Vol. 8.7 fl (6.2-12.0); Monocyte# 1.65 X10^3/uL; Monocyte% 13.2 % (0-10); NRBC Flagged by Analyzer 0 % (0-5); Neutrophil # 9.28 X10^3/uL (2.7-7.7); POSITIVE DIFFERENTIAL YES; Platelet Count 286 K/mm3 (150-450); RBC Distribution Width CV 18.4 % (11.6-14.6); RBC Distribution Width SD 51.5 fl (35.1-43.9); Red Blood Count 4.32 M/mm3 (4.2-5.4); White Blood Count 12.5 K/mm3 (4.4-11.0)
[2018-11-17 07:19] LABS: Differential Indicated SCAN CRITERIA MET
[2018-11-17 07:23] VITALS: O2SAT 95
[2018-11-17 07:32] LABS: Anion Gap 8 (5-15); BUN 9 mg/dL (7-18); BUN/Creat Ratio 13.1 RATIO (10-20); Calcium,Total 7.9 mg/dL (8.5-10.1); Chloride 104 mmol/L (98-107); Creatinine, Serum 0.69 mg/dL (0.55-1.02); EST Glomerular Filtration Rate 96 mL/min (>60); Est Glom Filt Rate - Afr Amer 116 mL/min (>60); Glucose 108 mg/dL (74-106); Potassium 3.3 mmol/L (3.5-5.1); Sodium Level 136 mmol/L (136-145)
[2018-11-17 07:35] LABS: Lactic Acid 0.7 mmol/L (0.4-2.0)
[2018-11-17 07:55] LABS: Hypochromasia 1+; Microcytosis 1+; Platelet Estimate ADEQUATE (ADEQ)
[2018-11-17 08:00] VITALS: BP 121/58; PULSE 79; RESP 16; TEMP 36.8; O2SAT 99
[2018-11-17] MEDS: Rivaroxaban 20 MG Tablet PO (08:35)
[2018-11-17] MEDS: guaiFENesin 1,200 MG Tablet 1200 MG PO ×2 (08:35→21:46)
[2018-11-17] MEDS: Pantoprazole Sodium 20 MG Tablet PO (08:35)
[2018-11-17] MEDS: Lisinopril 40 MG Tablet PO (08:36)
[2018-11-17 11:42] LABS: Ferritin 49 ng/mL (8-252); Iron 11 ug/dL (50-170); Iron Binding Capacity,Total 277 ug/dL (250-450)
[2018-11-17 12:08] LABS: Magnesium 1.9 mg/dL (1.6-2.6)
--- NOTE | 2018-11-17 15:47 | CM.UR ---
RN CM Assessment Introduced role of RN CM to patient. Patient is alert and able to participate in RN CM Assessment. Care providers, pharmacy, and demographics verified. No family at bedside. Presentation: Abd pain Admit Dx: RUL pneumonia Re-Admit: no Barriers/Issues: Chronic disease/pain PCP: MICHELLE Culver Specialists: Dr. Wilkerson (Rheum); Dr. Villatoro (for hemochromatosis), Seferino (AARON), Alicia (fatty liver). Preferred Pharmacy: [facility] Insurance: [employer] Benefit: yes, no problems with copays. LW/HPOA: None, declines additional information. Living Arrangements: 2 story single family home. ADL?s: Independent. Denies any assistance. Transportation: drives self, no transportation concerns. DME: CPAP. States hasn't been wearing d/t not liking mask. Recommended she see provider and go over different options. DME co: no preference. States unsure where CPAP is from--got it at Seferino's office. HHC: None SNF: None Goal: Home DC PLAN: Home. No needs anticipated. Kamryn Seaman RN, CCM.
[2018-11-17 16:10] VITALS: BP 103/62; PULSE 76; RESP 18; TEMP 37.4; O2SAT 99
[2018-11-17] MEDS: Senna/Docusate Sodium 1 Tablet 2 TABLET PO (16:12)
[2018-11-17 18:30] VITALS: TEMP 38.1
[2018-11-17 21:45] VITALS: BP 118/61; PULSE 83; RESP 18; TEMP 37.2; O2SAT 98
[2018-11-17] MEDS: Amitriptyline 100 MG Tablet PO (21:46)
[2018-11-18 03:45] VITALS: BP 115/68; PULSE 85; RESP 16; TEMP 37.1; O2SAT 96
[2018-11-18] MEDS: Acetaminophen 325 MG Tablet 650 MG PO (06:25)
[2018-11-18] MEDS: Senna/Docusate Sodium 1 Tablet 2 TABLET PO (06:31)
[2018-11-18 07:56] LABS: Absolute Lymphocyte Count 1.48 X10^3/uL (0.83-4.51); Absolute Neutrophil Count 6.4 X10^3/uL (2.0-7.7); Basophil# 0.03 X10^3/uL; Basophil% 0.3 % (0-1); Eosinophil# 0.04 X10^3/uL; Eosinophils% 0.4 % (0-5); Hematocrit 35.2 % (37-47); Hemoglobin 10.7 g/dL (12.0-15.0); Lymphocyte # 1.48 X10^3/ul (4.0); Lymphocyte % 16.4 % (19-41); Mean Corp Hgb Conc 30.4 g/dL (32-36); Mean Corpuscular Hgb 23.6 pg (27.0-32.0); Mean Corpuscular Volume 77.5 fL (81-99); Mean Platelet Vol. 9.3 fl (6.2-12.0); Monocyte# 1.09 X10^3/uL; NRBC Flagged by Analyzer 0 % (0-5); Neutrophil # 6.38 X10^3/uL (2.7-7.7); Neutrophil % 70.6 % (47-70); Platelet Count 333 K/mm3 (150-450); RBC Distribution Width CV 18.6 % (11.6-14.6); RBC Distribution Width SD 52.2 fl (35.1-43.9); Red Blood Count 4.54 M/mm3 (4.2-5.4); White Blood Count 9.1 K/mm3 (4.4-11.0)
[2018-11-18 08:13] LABS: Anion Gap 8 (5-15); BUN 7 mg/dL (7-18); BUN/Creat Ratio 9.8 RATIO (10-20); Calcium,Total 8.4 mg/dL (8.5-10.1); Chloride 104 mmol/L (98-107); Cholesterol 124 mg/dL (200); Creatinine, Serum 0.71 mg/dL (0.55-1.02); EST Glomerular Filtration Rate 92 mL/min (>60); Est Glom Filt Rate - Afr Amer 111 mL/min (>60); Estimated Creatinine Clearance 87.76 ml/min; Glucose 100 mg/dL (74-106); High Density Lipoprotein 46 mg/dL; Potassium 3.8 mmol/L (3.5-5.1); Sodium Level 138 mmol/L (136-145); Triglycerides 56 mg/dL; Very Low Density Lipoprotein 11 mg/dL (5-40)
[2018-11-18] MEDS: Pantoprazole Sodium 20 MG Tablet PO (09:12)
[2018-11-18] MEDS: Rivaroxaban 20 MG Tablet PO (09:12)
[2018-11-18] MEDS: Polyethylene Glycol 3350 17 GM PACKET PO (09:12)
[2018-11-18] MEDS: Lisinopril 40 MG Tablet PO (09:12)
[2018-11-18] MEDS: guaiFENesin 1,200 MG Tablet 1200 MG PO (09:12)
[2018-11-18] MEDS: 0.9% NaCl Peripheral Flush Adult/Peds IV (09:22)
[2018-11-18 09:25] VITALS: O2SAT 95
--- NOTE | 2018-11-18 11:02 | DCINST_ITS ---
- Discharge Diagnoses Current Active Problems: Current Active and Chronic Problems Right upper lobe pneumonia (Acute) Rheumatoid arthritis (Chronic) You will use the following diet at home:: Other - Resume previous diet Your food should be the consistency of: Regular Your liquids should be the consistency of: Regular/Thin Discharge Activity: May not drive while taking narcotic pain medications., - - Gradually increase activity as tolerated. Return to work on:: 11/19/18 May resume sexual activity in: No Restrictions Call your doctor if you observe: Fever of 101 or Higher, Shortness of breath, Dizziness, Fainting spells, Chest pain - increasing chest pain, - - Call your PCP if severe diarrhea ( > 5 stools a day), painful sores in the mouth, painful swallowing, rash or itching. Taking a probiotic such as Lactobacillus or Kefir can help with loose stools while taking antibiotics. Instructions: What Is IBS? Additional Instructions: You will need to have a follow up chest XRAY in 4 - 6 weeks to make sure the pneumonia has cleared. Aissatou Cm can order this for you. Make sure to take all of the antibiotics as prescribed. I think the abdominal pain may be due to adhsesions ( scar tissue from the previous gall bladder surgery) or to irritable bowel S. I am going to give you some literature to read about things you can do to control the IBS. Nice to meet you......take care. I am happy to care for you if you are ever in the hospital again. Allergies/Adverse Reactions: Allergies No Known Allergies Allergy (Verified 11/16/18 17:37) Medications to take at Discharge Amitriptyline HCl [Elavil] 100 mg PO QHS 08/31/16 Lisinopril [Zestril] 40 mg PO DAILY 08/31/16 Omeprazole Magnesium 20 mg PO DAILY 08/31/16 Rivaroxaban [Xarelto] 20 mg PO DAILY 12/05/16 Adalimumab [Humira] 40 mg SUBCUT X1 11/14/18 L.acidoph,Paracasei, B.lactis [Probiotic] 2 ea PO DAILY 11/14/18 Terbinafine HCl [Terbinafine] 15 gm TP DAILY 11/14/18 Amox/Clavulanate Tablet [Augmentin Tablet] 875 mg PO Q12H #14 tab 11/18/18 Guaifenesin [Mucinex] 1,200 mg PO BID #20 tab 11/18/18 Oxycodone [Oxyir] 5 mg PO Q4H PRN PRN 7 Days #20 tab 11/18/18 The following prescriptions were given: Amox/Clavulanate Tablet [Augmentin Tablet] 875 mg PO Q12H #14 tab Prescription Printed Guaifenesin [Mucinex] 1,200 mg PO BID #20 tab Prescription Printed Oxycodone [Oxyir] 5 mg PO Q4H PRN PRN 7 Days #20 tab PRN Reason: Moderate Pain (4-6/10) Prescription Printed Primary Care Physician: Aissatou Cm NP-C [Primary Care Provider] - Please follow up with your Primary Care Physician in: end of the week Test Results: Test results from this visit will be discussed in further detail at your follow- up appointment, if applicable. Proposed Discharge Date: 11/18/18
--- NOTE | 2018-11-18 11:10 | DS.PCM_ITS ---
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 Stable right renal lower pole septated cyst with calcification. Electronically Signed: Nj Martinez, at 19:44 EDT Tel , Service support , Chest CTA 11/16/18 18:06 IMPRESSION: No evidence of pulmonary embolus. Large right upper lobe consolidation. Likely pneumonia although underlying lesion is not excluded. Short-term follow-up is recommended to confirm full resolution. Electronically Signed: Nj Martinez, at 19:35 EDT Tel , Service support , Microbiology 11/16/18 21:34 Blood Culture (Wb) - Anticubital Left Blood Culture - Preliminary No growth in 48 hours. 11/16/18 21:34 Blood Culture (Wb) - Right Hand Blood Culture - Preliminary No growth in 48 hours. 11/17/18 13:40 Mucosa - Nasopharyngeal Respiratory Panel (PCR) - Final 11/16/18 19:56 Urine, Clean Catch Streptococcus pneumoniae Antigen (M - Final 11/16/18 19:56 Urine, Clean Catch Legionella Antigen - Final none Operations: None Procedures: None Summary of Care Provided: Ms. Borges is a 53-year-old female with a past medical history of hypercoagulable disorder, rheumatoid arthritis, pulmonary emboli, heterozygous MTHFR for mutations and obesity who presented to the emergency department at [facility] on 11/17/2018 complaining of abdominal pain for the preceding 1 month. The pain escalated on 11/14 and she presented to the emerg ency room but was sent home following unremarkable blood work. She denied nausea, vomiting and diarrhea. She complained of being easily fatigued and having shortness of breath with walking. She denied cough. She complained of subjective fever and chills. Vital signs at presentation to the emergency room were temperature 102.9, pulse rate 98, blood pressure 142/64, respiratory rate 16 and oxygen saturation was 99%. CBC was remarkable for a white blood cell count of 16.6 with 76% neutrophils. Hemoglobin was 11.5 and platelets were 334,000. CMP was unremarkable. UA revealed no evidence of infection. A CT scan of the abdomen and pelvis showed no acute abdominal or pelvic pathology. There was a stable right renal cyst. She has had cholecystectomy in the past. CTA of the chest showed no evidence of pulmonary embolus. There was a large fairly well-circumscribed right upper lobe consolidation. Legionella and streptococcal antigens in the urine were negative. Blood cultures were sent from the emergency department and had no growth in 48 hours. Respiratory panel was negative. She was admitted to the hospital and started on Rocephin 1 g every 24 hours and azithromycin. She received Levaquin 750 mg in the emergency department. On 11/18/2018 she felt well enough to go home. Pulse ox at rest on room air was 99% and was 97% with ambulation. Her lungs were clear to auscultation and she had no tachypnea, no accessory muscle use and no conversational dyspnea. She had no cough. Vital signs were stable. She was discharged home on Augmentin 875 mg every 12 hours to complete 10 days of treatment for community- acquired pneumonia. She will resume her home medications. She was given a prescription for OxyIR 5 mg, #20 and instructed to take 1-2 every 4-6 hours as needed for chest pain secondary to pneumonia. She will follow-up with Aissatou Cm in the office at the end of the week. I advised her to stay off work until she is seen by Aissatou and cleared to return to work. This note was generated with [employer] dictation software. It may contain incorrect words, spelling, and punctuation that were not noted in checking the note before signing. - Physical Exam Vital Signs Temp Pulse Resp BP Pulse Ox 98.7 F 85 16 115/68 95 11/18/18 03:45 11/18/18 03:45 11/18/18 03:45 11/18/18 03:45 11/18/18 09:25 Oxygen Delivery Method Room Air Weight: 212 lb 15.994 oz Body Mass Index (BMI) 34.3 Intake and Output for Last 24 Hours 11/16/18 11/17/18 11/18/18 23:59 23:59 23:59 Intake Total 3481 / 5160 2078 Balance 3481 / 5160 2078 Microbiology Past 72 Hours 11/17/18 13:40 Respiratory Panel (PCR) - Final Mucosa - Nasopharyngeal 11/16/18 19:56 Streptococcus pneumoniae Antigen (M - Final Urine, Clean Catch 11/16/18 19:56 Legionella Antigen - Final Urine, Clean Catch Laboratory Tests Past 24 Hrs 11/17/18 11/17/18 11/18/18 07:02 07:02 06:20 WBC 9.1 RBC 4.54 Hgb 10.7 L Hct 35.2 L MCV 77.5 L MCH 23.6 L MCHC 30.4 L RDW Std Deviation 52.2 H RDW Coeff of Ember 18.6 H Plt Count 333 MPV 9.3 Immature Gran % (Auto) 0.300 Neut % (Auto) 70.6 H Lymph % (Auto) 16.4 L Leake % (Auto) 12.0 H Eos % (Auto) 0.4 Baso % (Auto) 0.3 Absolute Neuts (auto) 6.4 Absolute Lymphs (auto) 1.48 Nucleated RBC % 0 Sodium Potassium Chloride Carbon Dioxide Anion Gap BUN Creatinine Estim Creat Clear Calc Est GFR (MDRD) Af Amer Est GFR (MDRD) Non-Af BUN/Creatinine Ratio Glucose Calcium Phosphorus 2.0 L Magnesium 1.9 Iron 11 L TIBC 277 Iron Saturation 4.0 L Ferritin 49 Triglycerides Cholesterol LDL Cholesterol VLDL Cholesterol HDL Cholesterol 11/18/18 06:20 WBC RBC Hgb Hct MCV MCH MCHC RDW Std Deviation RDW Coeff of Ember Plt Count MPV Immature Gran % (Auto) Neut % (Auto) Lymph % (Auto) Leake % (Auto) Eos % (Auto) Baso % (Auto) Absolute Neuts (auto) Absolute Lymphs (auto) Nucleated RBC % Sodium 138 Potassium 3.8 Chloride 104 Carbon Dioxide 26.0 Anion Gap 8 BUN 7 Creatinine 0.71 Estim Creat Clear Calc 87.76 Est GFR (MDRD) Af Amer 111 Est GFR (MDRD) Non-Af 92 BUN/Creatinine Ratio 9.8 L Glucose 100 Calcium 8.4 L Phosphorus Magnesium Iron TIBC Iron Saturation Ferritin Triglycerides 56 Cholesterol 124 LDL Cholesterol 67 VLDL Cholesterol 11 HDL Cholesterol 46 Discharge Activity: May not drive while taking narcotic pain medications., - - Gradually increase activity as tolerated. Return to work on:: 11/19/18 May resume sexual activity in: No Restrictions Call your doctor if you observe: Fever of 101 or Higher, Shortness of breath, Dizziness, Fainting spells, Chest pain - increasing chest pain, - - Call your PCP if severe diarrhea ( > 5 stools a day), painful sores in the mouth, painful swallowing, rash or itching. Taking a probiotic such as Lactobacillus or Kefir can help with loose stools while taking antibiotics. Home Medications: Medications to take at Discharge Amitriptyline HCl [Elavil] 100 mg PO QHS 08/31/16 Lisinopril [Zestril] 40 mg PO DAILY 08/31/16 Omeprazole Magnesium 20 mg PO DAILY 08/31/16 Rivaroxaban [Xarelto] 20 mg PO DAILY 12/05/16 Adalimumab [Humira] 40 mg SUBCUT X1 11/14/18 L.acidoph,Paracasei, B.lactis [Probiotic] 2 ea PO DAILY 11/14/18 Terbinafine HCl [Terbinafine] 15 gm TP DAILY 11/14/18 Amox/Clavulanate Tablet [Augmentin Tablet] 875 mg PO Q12H #14 tab 11/18/18 Guaifenesin [Mucinex] 1,200 mg PO BID #20 tab 11/18/18 Oxycodone [Oxyir] 5 mg PO Q4H PRN PRN 7 Days #20 tab 11/18/18 Following Prescrptions Were Given to Patient: Amox/Clavulanate Tablet [Augmentin Tablet] 875 mg PO Q12H #14 tab Prescription Printed Guaifenesin [Mucinex] 1,200 mg PO BID #20 tab Prescription Printed Oxycodone [Oxyir] 5 mg PO Q4H PRN PRN 7 Days #20 tab PRN Reason: Moderate Pain (4-6/10) Prescription Printed Primary Care Physician: Aissatou Cm NP-C [Primary Care Provider] - Please follow up with your Primary Care Physician in: end of the week Patient Instructions: What Is IBS? Disposition: Home Minutes spent on discharge:: 30 Patient Condition:: Good Medical Necessity - Tobacco Use Smoking Status: Former smoker - Quit 2 years ago. Smoking 1 pack/day since her teenage. Tobacco Use: Non-smoker Meaningful Use Info Meaningful Use Diagnoses (Choose all that apply): None applicable Code Visit Inpatient E&M: 31796 Disch Hosp
[2018-11-18 11:35] VITALS: BP 101/68; PULSE 71; RESP 16; TEMP 37.3; O2SAT 99
[2018-11-18 13:26] VITALS: BP 113/56; PULSE 74; RESP 16; TEMP 37.1; O2SAT 96; O2SAT 97
[2018-11-19 11:08] LABS: Pathologist Review Reviewed
--- NOTE | 2018-11-19 15:16 | CASEMGMT ---
CLAIRE CM DC PHONE CALL DC DATE: 11/18/18 DC Disposition: Home Diagnosis on Discharge: Pneumonia LACE/STRATA: 02/17 jAttempted call to patient's phone. No answer and machine did not have name identifier Breanna CHOUDHARY RN AC
== END 2018-11-18 11:50 | disposition home or self-care (01) | DRG 194 ==
LOC: ED 17:52 → MS3 23:09
PROVIDERS: Admitting Provider Internal Medicine; Emergency Provider Emergency Medicine; Family Provider Nurse Practitioner; PCP Nurse Practitioner; Referring Provider Internal Medicine; Visit Provider Internal Medicine
DX: J18.9 Pneumonia, unspecified organism (principal); E72.12 Methylenetetrahydrofolate reductase deficiency; E87.6 Hypokalemia; M06.9 Rheumatoid arthritis, unspecified; I10 Essential (primary) hypertension; Z79.899 Other long term (current) drug therapy; Z79.01 Long term (current) use of anticoagulants; Z86.711 Personal history of pulmonary embolism; Z87.891 Personal history of nicotine dependence; E83.119 Hemochromatosis, unspecified
CPT/HCPCS: 36415; 71275; 74177; 80048; 80061; 80076; 81001; 82728; 83540; 83550; 83605; 83690; 83735; 84100; 85025; 87040; 87449; 87633; 93005; 94667; 94668; 99284; J7030; J7050; Q9967; A4216; J2405

== ENCOUNTER → 2018-12-20 11:22 | Outpatient (CLI) | payer BC, SELFPAY ==
[2018-11-16 23:39] VITALS: BMI 34.3
--- NOTE | 2018-12-20 11:26 | RAD_ITS ---
STUDY: X-RAY CHEST REASON FOR EXAM: Female, 53 years old. Chest pain TECHNIQUE: PA and lateral views of the chest COMPARISON: X-ray chest December 21, 2016 FINDINGS: The lungs are clear. There are no pleural effusions. There is no pneumothorax. The heart is normal in size. The visualized osseous structures are within normal limits. RAD/Chest PA and Lateral IMPRESSION: No acute thoracic pathology. Electronically Signed: Nj Martinez, at 20:13 EDT Tel , Service support ,
== END ==
PROVIDERS: Family Provider Nurse Practitioner; PCP Nurse Practitioner; Referring Provider Nurse Practitioner; Visit Provider Nurse Practitioner
DX: J18.9 Pneumonia, unspecified organism (principal)
CPT/HCPCS: 71046

== ENCOUNTER → 2018-12-26 12:26 | Outpatient (CLI) | payer BC, SELFPAY ==
[2018-11-16 23:39] VITALS: BMI 34.3
--- NOTE | 2018-12-26 14:15 | NEURO ---
NCS and/or EMG Patient Report Ordering Doctor: Aissatou Cm DATE OF SERVICE: 12/26/18 María Borges is a 53-year-old female presents for electrodiagnostic testing of the upper limbs. She reports diffuse numbness in both hands, with weakness and pain. Electrodiagnostic findings: Median motor nerve demonstrates normal distal latency, amplitude and conduction velocity bilaterally. Normal right and left ulnar motor response, including conduction across the elbow. Normal median and ulnar F waves. Prolonged right median sensory latency at the wrist is noted. Normal median palmar response bilaterally. Ulnar and radial sensory responses are normal. Electrodiagnostic impression: This is an abnormal study in the upper limbs. 1. There is mild prolongation of the right median sensory latency at the wrist, which may be suggestive of a very mild right carpal tunnel syndrome. However, patient reports diffuse numbness in both hands radiating up to both arms and shoulders. Therefore, it is unclear if this finding is a reason for her clinical symptoms. 2. No electrodiagnostic evidence is noted for ulnar neuropathy, including cubital tunnel syndrome. 3. There is no electrodiagnostic evidence for cervical radiculopathy.
== END ==
PROVIDERS: Family Provider Nurse Practitioner; PCP Nurse Practitioner; Referring Provider Nurse Practitioner; Visit Provider Nurse Practitioner
DX: M79.641 Pain in right hand (principal); M79.642 Pain in left hand
CPT/HCPCS: 95886; 95913

== ENCOUNTER → 2019-03-04 12:40 | Outpatient (CLI) | payer BC, SELFPAY ==
[2018-11-16 23:39] VITALS: BMI 34.3
--- NOTE | 2019-03-04 12:42 | US_ITS ---
STUDY: THYROID ULTRASOUND REASON FOR EXAM: Female, 53 years old. Multinodular goiter. TECHNIQUE: Ultrasound evaluation of the thyroid was performed with real-time and static stratton-scale imaging. COMPARISON: 01/19/2018. FINDINGS: RIGHT LOBE: The right lobe of the thyroid gland measures 5.2 x 2.0 x 2.2 cm. There is a heterogeneous echotexture. Within the right thyroid lobe there are multiple anechoic nodules compatible with cysts in largest measuring 0.8 x 0.6 cm. There are several solid/hypoechoic to isoechoic nodule within the right thyroid lobe, largest being seen within the lower pole and measuring 1.6 x 1.6 x 1.5 cm. This reveals a hypoechoic rim with regular margins and internal color flow. LEFT LOBE: The left lobe of the thyroid gland measures 4.6 x 1.8 x 1.4 cm. There is a heterogeneous echotexture. Within the left thyroid lobe there are multiple hypoechoic nodules with some combination of cystic and solid component in largest measuring approximately 0.7 x 0.4. Several nodules with hypoechoic pattern and hypoechoic rim along with internal color flow and regular margins, largest measuring 1.0 x 0.9 x 0.8 cm. This peripheral internal color flow. ISTHMUS: The isthmus measures 4.0 mm. Within the isthmus there is a small hypoechoic structure measuring 0.6 x 0.5 x 0.2 cm. This is stable in the interval. The regional lymph nodes are normal. US/Thyroid IMPRESSION: Bilateral thyroid lobe nodules with mixed morphology of cystic and cystic/soft tissue as described above and most compatible with benign etiology. These findings are consistent with known multinodular goiter. Note to be made that benign versus malignant process cannot be adequately determined without microscopic evaluation or documentation of stability. If indicated, follow-up ultrasound in 6-12 months recommended. Electronically Signed: Leonila Reed MD at 5:25 EST , Service support ,
--- NOTE | 2019-03-04 12:42 | CT_ITS ---
STUDY: CT ABDOMEN AND PELVIS WITH CONTRAST REASON FOR EXAM: Female, 53 years old. Complex renal cyst. RADIATION DOSAGE (If Supplied By Facility): CTDIvol = ( 18.26 ) mGy, DLP = ( 2296.88 ) mGycm TECHNIQUE: Transaxial images were obtained from the dome of the diaphragm to the symphysis pubis without oral contrast. IV Isovue 300 100 was administered. Sagittal and coronal images were reconstructed. Individualized dose optimization techniques were used for this CT. COMPARISON: Comparison is made with prior examination dated November 16, 2018. FINDINGS: The visualized lung bases are unremarkable. The visualized portions of the heart are within normal limits. There is decreased attenuation of the liver consistent with steatosis. There are surgical clips in the gallbladder fossa consistent with a prior cholecystectomy. Normal spleen. Normal pancreas. Normal bilateral adrenal glands. Stable 1.9 cm x 3.3 cm septated cyst with a peripheral calcification along the anterior midportion of the right kidney. Normal left kidney. There is a small hiatal hernia. Normal small intestine. Normal colon. The appendix is visualized and appears normal. Normal abdominal aorta. Normal inferior vena cava. Normal retroperitoneum. Normal urinary bladder. There is absence of the uterus consistent with a prior hysterectomy. There is a small umbilical hernia containing fat. Normal osseous structures. CT/Abdomen/Pelvis WITH Contrast IMPRESSION: Stable appearance of the cystic structure with calcification in the anterior midportion of the right kidney. Fatty infiltration of the liver. Electronically Signed: Mario Alberto Sesay, at 13:19 EST , Service support ,
== END ==
PROVIDERS: Family Provider Nurse Practitioner; PCP Nurse Practitioner; Referring Provider Nurse Practitioner; Visit Provider Nurse Practitioner
DX: N28.1 Cyst of kidney, acquired (principal); E04.1 Nontoxic single thyroid nodule
CPT/HCPCS: 74177; 76536; Q9967

== ENCOUNTER → 2019-03-07 08:28 | Outpatient (CLI) | payer BC, SELFPAY ==
[2018-11-16 23:39] VITALS: BMI 34.3
[2019-03-07 09:59] LABS: Absolute Lymphocyte Count 2.32 X10^3/uL (0.83-4.51); Absolute Neutrophil Count 3.7 X10^3/uL (2.0-7.7); Basophil# 0.06 X10^3/uL; Basophil% 0.9 % (0-1); Eosinophils% 1.4 % (0-5); Hematocrit 40.7 % (37-47); Hemoglobin 12.4 g/dL (12.0-15.0); Lymphocyte # 2.32 X10^3/ul (4.0); Lymphocyte % 33.5 % (19-41); Mean Corp Hgb Conc 30.5 g/dL (32-36); Mean Corpuscular Hgb 24.8 pg (27.0-32.0); Mean Corpuscular Volume 81.2 fL (81-99); Mean Platelet Vol. 8.9 fl (6.2-12.0); Monocyte% 10.1 % (0-10); NRBC Flagged by Analyzer 0 % (0-5); Neutrophil # 3.74 X10^3/uL (2.7-7.7); Platelet Count 400 K/mm3 (150-450); RBC Distribution Width CV 16.7 % (11.6-14.6); RBC Distribution Width SD 49.4 fl (35.1-43.9); Red Blood Count 5.01 M/mm3 (4.2-5.4); White Blood Count 6.9 K/mm3 (4.4-11.0)
[2019-03-07 10:59] LABS: AST(SGOT) 18 U/L (15-37); Alanine Aminotransfer ALT/SGPT 29 U/L (13-56); Albumin, Serum 3.8 g/dL (3.2-5.0); Alkaline Phosphatase 82 U/L (45-117); Anion Gap 5 (5-15); BUN 11 mg/dL (7-18); Calcium,Total 9.2 mg/dL (8.5-10.1); Chloride 106 mmol/L (98-107); Creatinine, Serum 0.78 mg/dL (0.55-1.02); EST Glomerular Filtration Rate 82 mL/min (>60); Est Glom Filt Rate - Afr Amer 99 mL/min (>60); Globulin 3.7 g/dL (2.2-4.2); Glucose 84 mg/dL (74-106); Potassium 3.9 mmol/L (3.5-5.1); Protein, Total 7.5 g/dL (6.4-8.2); Sodium Level 141 mmol/L (136-145)
== END ==
PROVIDERS: Family Provider Nurse Practitioner; PCP Nurse Practitioner; Referring Provider Internal Medicine Rheumatology; Visit Provider Internal Medicine Rheumatology
DX: M06.041 Rheumatoid arthritis without rheumatoid factor, right hand (principal); Z79.899 Other long term (current) drug therapy; M79.7 Fibromyalgia; M18.11 Unilateral primary osteoarthritis of first carpometacarpal joint, right hand; K76.0 Fatty (change of) liver, not elsewhere classified; E83.119 Hemochromatosis, unspecified; Q66.70 Congenital pes cavus, unspecified foot
CPT/HCPCS: 36415; 80053; 85025

== ENCOUNTER → 2019-06-11 09:21 | Outpatient (CLI) | payer BC, SELFPAY ==
[2018-11-16 23:39] VITALS: BMI 34.3
[2019-06-11 12:18] LABS: Absolute Lymphocyte Count 2.53 X10^3/uL (0.83-4.51); Absolute Neutrophil Count 3.2 X10^3/uL (2.0-7.7); Basophil# 0.03 X10^3/uL; Basophil% 0.5 % (0-1); Eosinophil# 0.07 X10^3/uL; Eosinophils% 1.1 % (0-5); Hematocrit 38.7 % (37-47); Hemoglobin 11.6 g/dL (12.0-15.0); Lymphocyte # 2.53 X10^3/ul (4.0); Lymphocyte % 38.8 % (19-41); Mean Corpuscular Hgb 24.1 pg (27.0-32.0); Mean Corpuscular Volume 80.5 fL (81-99); Mean Platelet Vol. 9.2 fl (6.2-12.0); Monocyte# 0.68 X10^3/uL; Monocyte% 10.4 % (0-10); NRBC Flagged by Analyzer 0 % (0-5); Platelet Count 410 K/mm3 (150-450); RBC Distribution Width CV 14.3 % (11.6-14.6); RBC Distribution Width SD 41.4 fl (35.1-43.9); Red Blood Count 4.81 M/mm3 (4.2-5.4); White Blood Count 6.5 K/mm3 (4.4-11.0)
[2019-06-11 12:31] LABS: Vitamin D,25 Hydroxy 17.6 ng/mL
[2019-06-11 12:47] LABS: AST(SGOT) 26 U/L (15-37); Alanine Aminotransfer ALT/SGPT 40 U/L (13-56); Albumin, Serum 3.8 g/dL (3.2-5.0); Alkaline Phosphatase 75 U/L (45-117); Anion Gap 7 (5-15); BUN 10 mg/dL (7-18); BUN/Creat Ratio 11.4 RATIO (10-20); Chloride 105 mmol/L (98-107); Cholesterol 212 mg/dL (200); Creatinine, Serum 0.87 mg/dL (0.55-1.02); EST Glomerular Filtration Rate 72 mL/min (>60); Est Glom Filt Rate - Afr Amer 88 mL/min (>60); Globulin 3.8 g/dL (2.2-4.2); Glucose 87 mg/dL (74-106); High Density Lipoprotein 45 mg/dL; Potassium 3.6 mmol/L (3.5-5.1); Protein, Total 7.6 g/dL (6.4-8.2); Sodium Level 139 mmol/L (136-145); Triglycerides 88 mg/dL; Very Low Density Lipoprotein 18 mg/dL (5-40)
== END ==
PROVIDERS: PCP Nurse Practitioner; Referring Provider Nurse Practitioner; Visit Provider Nurse Practitioner
DX: K76.0 Fatty (change of) liver, not elsewhere classified (principal); E55.9 Vitamin D deficiency, unspecified
CPT/HCPCS: 36415; 80053; 80061; 82306; 84443; 85025

== ENCOUNTER 2019-06-26 09:00 | Outpatient (RCR) | payer BC, SELFPAY ==
[2018-11-16 23:39] VITALS: BMI 34.3
--- NOTE | 2019-05-15 08:42 | HP.OTEVAL_ITS ---
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 Date of Evaluation: 05/13/19 Occupational Therapist: Sangita Mayorga, REGINO/Jeanne, CHT - Subjective Subjective: This 53 year old female was seen for OT eval with dx of right 1st CMC arthritis. pt had sx on 04/22/2019 of a right thumb first dorsal compartment release with tenosynovectomy; right thumb trapezium excision; right thumb suture suspension arthroplasty wutg wrust rosa ortizesperanza. Pt arrives with orthosis on with no concerns with fit or comfort. Pt reports limited IND. with all ADLS and IADLS at this time. pt is right handed and works at [employer], states she is on the computer most of the time. pt return to work is . pt would like to return to her PLOF with ADls and IADLs - ADLs Dressing: Pants Fasteners: Zippers Eating: Use silverware Miscellaneous: Handle money (change), Use computer keyboard - Pain right hand 0 Pain Intensity Range: 0, 5 - ROM Forearm: right/ left WNL Wrist: right 40/20 left 50/55 CMC: right 0 left 15 MP: right 15 left45 IP: right 20 left 65 - Strength Strength Comments: will test later date - Edema Wrist: right 19cm left 17cm PIP: right Proximal Phalanx: right 20.2cm left 19.5cm - Sensation Thumb: right 3.68 left 2.83 Index: right 2.83 left 2.83 Middle: right 2.83 left 2.83 Ring: right 2.83 left 2.83 Little: right 2.83 left 2.83 Sensation Comments: pt reports a one time surge of zingers in tips of fingers and this happens about two times a day. - Quick DASH-Disab of Arm,Shoulder& Hand Quick DASH Score: 73.3325 - Goals Goal:100% adherence to protocol: Yes Comment: Dr. Avila 1ST CMC arthroplasty protocol Goal:Daily scar massage when approriate: Yes Goal:ROM equal to unaffected hand: Yes Goal:Doughnut Machine Operator/Pinch strength at least 75% of unaffected hand: Yes Goal:No pain with affected hand use: Yes Goal:PIP Circumferences equal to unaffected hand: Yes Goal:Full use of affected hand in daily activities including: Yes Goal:Improvement in sensation documented by [place]-Cem: Yes Goal:Decrease scar hypersensitivity: Yes - Rehabilitation General Assessment: Pt S/P 3 weeks right thumb first dorsal compartment release with tenosynovectomy; right thumb trapezium excision, rigth thumb sutre suspension arthroplasty with wrist level capsulodesis. Pt demo with limited ROM, edema and pain uincreasing need of assist with ADLs and IADLS. Pt would benefit from skilled OT services 1x week for 12weeks to ensure pt returns to a IND level with ADLS and IADLs. As pt is week three Therapist review week 1-2 edema control, ROM of uninvolved digits, shoulder and elbow. Therapist ed. pt on short arc wrist ROM, scar mtg pt recived handout and demo understanding of instructions. pt agree to POC. Rehabilitation Potential: Good - Anticipated Interventions Anticipated Interventions: A/AAROM/PROM, Strengthening, Edema Control, Scar Care, Triggerpoint Release, Desensitization, Sensory Retraining, Modalities, Orthoses, Joint Protection/Energy Conservation, Ergonomic Education - Visit Plan Frequency: 1-2x /Week Duration: 3 Months General Plan: follow Dr. Avila's 1st CMC arthroplasty protocol. WEEK 2-3 gental AROM of wrist (short arch wrist if any pain then hold motion till week 4- 5). initiate scar mtg. WEEK 4-5 full wrist AROM to comfort. begin thumb AROM of MP flex with CMC suported NO MP hyperextenson. begin thumb cmc AROM. all exercies pain free. continue orthosis, previous ex, scar mtg and edema control. WEEK 6-7 continue orthosis, previous ex, scar mtg,. Being PROM wrist if limited. PROM thumb IP joint for flexion with MP/CMC supported. If thumb MP flexion no more than 20* active than can start passive MP flexion with CMC supported. Dr. Avila will always advise if any arthrodesis was performed at the MP level for hyperextension prior to pts starting therapy. WEEK 8 Wean out of orthosis, comfort cool or deanne pee orthosis if needed. Initiate car seat coverer strength if NO pain. WEEK 9-12 increase daily activities as long as pain free. week 10 initiate pinch strengthening as long as no pain. Patient able to maintain a stable thumb and is progressing with finger and wrist ROM. Week 12-14 Progress to full use as tolerated TEXT: Thank you for the opportunity to evaluate your patient. For Medicare and Medicare HMO plans, please review the plan of care and approve it. It will need to be FAXED BACK to us at [phone] for Medicare purposes. Please let me know if there are questions or concerns regarding this plan of care. Physician Signature: Date:
--- NOTE | 2019-06-12 14:43 | HP.OTREVAL ---
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 Please see the progress note below for an update on the occupational therapy plan of care! Subjective: pt states she is doing fine- pt is s/p 6 weeks, states she ordered her [place] cool cmc brace. pt reports she is out of orthosis for 70% of the time during the day. Objective/Function: wrist ROM 40/35. cmc 5* flex. MP 30* flex. IP 45 * flex. opposition to RF. pt doing well- therapist ed.pt on use of scar gel, cont. with wrist ROM and thumb ROM- pt will have comfort cool cmc thumb brace next visit. pt progressing well. Plan Frequency: 1-2x /Week Duration: 6 Weeks Plan: cont with cmc arthroplasty protocol week 6 Anticipated Interventions Anticipated Interventions: A/AAROM/PROM, Strengthening, Edema Control, Scar Care, Triggerpoint Release, Desensitization, Sensory Retraining, Modalities, Orthoses, Joint Protection/Energy Conservation, Ergonomic Education Please do not hesitate to contact me at [phone] by phone or if you have questions or concerns regarding this new plan of care! Sincerely, Sangita Mayorga, OTR/L, CHT
--- NOTE | 2019-08-24 09:30 | HP.OTDCNRP_ITS ---
SCOTT ODEN was seen in my office for initial evaluation on 05/13/19. The following Plan of Care was established for this patient: Initial Frequency: 1-2x /Week Initial Duration: 6 Weeks Plan: cont with cmc arthroplasty protocol week 8 Anticipated Interventions: A/AAROM/PROM, Strengthening, Edema Control, Scar Care, Triggerpoint Release, Desensitization, Sensory Retraining, Modalities, Orthoses, Joint Protection/Energy Conservation, Ergonomic Education This patient was last seen in our office 06/26/19. Pertinent comments regarding their Occupational therapy will appear below: pt was seen for 7 OT visits following a CMC arthroplasty pt was making good prog ress with her ROM and performing her ADLs and IADLs. wrist ROM 40/35 cmc 5* flex MP 30* flex IP 45 * flex opposition to RF pt doing well- therapist ed.pt on use of scar gel, cont. with wrist ROM and thumb ROM- pt will have comfort cool cmc thumb brace next visit. pt progressing well. pt has not returnd for further services and is D/C at this time due to time lapse in services. [ End ] At this point I will be discontinuing this patient from occupational therapy. I would be happy to see this patient again in the future if found appropriate by the physician. Thank you! Sangita Mayorga, OTR/L, CHT
== END 2019-06-26 19:00 | disposition home or self-care (01) ==
LOC: OT 09:00
PROVIDERS: PCP Nurse Practitioner
DX: M18.11 Unilateral primary osteoarthritis of first carpometacarpal joint, right hand (principal)
CPT/HCPCS: 97110; 97140; 97166; 97167; 97530

== ENCOUNTER 2019-10-08 11:22 | Emergency (ER) | payer BC, SELFPAY ==
[2019-09-21 10:07] VITALS: BMI 34.3
[2019-10-08 11:24] VITALS: BP 152/87; PULSE 92; RESP 17; TEMP 36.3; O2SAT 97; BMI 38.2
--- NOTE | 2019-10-08 11:49 | ED.DCSUM_ITS ---
History of Present Illness Chief Complaint: GI Bleed Informant: Patient Narrative: Patient presents the emergency department rectal bleeding and anal itching. Symptoms have been present for 7 weeks. She states whenever she has a formed bowel movement there is some bright red blood but it typically goes away. She saw her doctor for it recently was prescribed a cream and she is also tried numerous [id number] treatments. She is on Eliquis for clotting disorder and pulmonary embolism. Patient states that today she had a bowel movement and not only blood at the time of the bowel movement but also noticed some bleeding in her underwear shortly thereafter. She denies any rectal pain. She notes the stool is of normal color and caliber. She has not been taking any stool softener. She is currently working from home and spends about 10 days hours a day sitting. Past Medical History - Allergies and Home Meds Allergies/Adverse Reactions: Allergies No Known Allergies Allergy (Verified 10/08/19 11:54) Primary Care Physician: Ibrahima Vargas MD [NON-STAFF] - Keep [facility] appointment Smoking Status: Former smoker - Family History Paternal Family History: Family History (Last Updated 09/21/19 @ 10:07 by Italia Delgadillo) Mother Cancer Father Cancer Family History: Reports: No pertinent history Review of Systems General: Denies: Chills, Fever, Sweats Eyes: Denies: Visual changes - bilaterally, Diplopia ENT: Denies: Rhinorrhea, Sore throat Cardiovascular: Denies: Chest pain, Palpitations Respiratory: Denies: Dyspnea, Cough, Dyspnea on exertion Gastrointestinal: Reports: Hematochezia. Denies: Abdominal pain, Nausea, Vomiti ng, Diarrhea, Melena Genitourinary: Denies: Dysuria, Hematuria, Frequency Musculoskeletal: Denies: Back pain, Extremity Pain Skin: Denies: Rash, Wounds Neurological: Denies: Headache, Weakness, Numbness Physical Exam Vital Signs/Narrative: Vital Signs Temp Pulse Resp BP Pulse Ox 10/08/19 11:24 97.3 F L 92 17 152/87 H 97 Inital Vital Signs reviewed: Yes General: Well nourished, Well developed, No Acute Distress Head: Normocephalic, Atraumatic Eyes: Perrl, EOMI ENT: Moist mucous membranes, No rhinorrhea Neck: Supple, Nontender Cardiovascular: Regular rate, Regular rhythm, No murmurs Respiratory: No distress, CTA bilaterally, Chest nontender Abdomen: Soft, Nontender, Nondistended, Normal bowel sounds Rectal: Tenderness, - - Upon rectal examination there is a few areas of excoriation of the perianal mucosa. There is an old skin tag. There is no stool in the rectal vault. There are no blood on my glove. 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 H&H is stable. I will write for Proctofoam HC as well as daily Colace. She is to try to limit how much time she spends sitting. She is to keep her appointment next week with him. ED Disposition - Plan for ED Patient: Disposition: Home or Assisted Living Diagnosis: Lower GI bleeding Instructions: ED Hemorrhoids Prescriptions: Docusate Sodium [Colace] 100 mg PO DAILY #20 cap Transmission Status: Received by [facility] #[id number] Hydrocortisone/Pramoxine [Proctofoam-Hc Foam] 10 gm [place] 4X/DAY #1 foam Transmission Status: Received by [facility] #[id number] Referrals: Ibrahima Vargas MD [NON-STAFF] - Keep [facility] appointment
[2019-10-08 12:32] LABS: Hematocrit 40.8 % (37-47); Hemoglobin 12.6 g/dL (12.0-15.0)
== END 2019-10-08 13:20 | disposition home or self-care (01) ==
LOC: ED 12:16
PROVIDERS: Emergency Provider Emergency Medicine; PCP Nurse Practitioner
DX: K92.2 Gastrointestinal hemorrhage, unspecified (principal); K64.4 Residual hemorrhoidal skin tags; Z79.01 Long term (current) use of anticoagulants; Z79.899 Other long term (current) drug therapy; Z86.711 Personal history of pulmonary embolism; Z87.891 Personal history of nicotine dependence
CPT/HCPCS: 36415; 85014; 85018; 99282

== ENCOUNTER → 2019-12-31 08:18 | Outpatient (CLI) | payer BC, SELFPAY ==
--- NOTE | 2019-12-31 08:20 | US_ITS ---
STUDY: RENAL ULTRASOUND - COMPLETE REASON FOR EXAM: Female, 54 years old. Complex renal cyst TECHNIQUE: Ultrasound evaluation of the kidneys was performed with real-time and static butt-scale imaging. COMPARISON: None. FINDINGS: RIGHT KIDNEY: Normal location of the right kidney, which is normal in size. The right kidney measures 13.2 cm x 5.2 cm x 6.6 cm. There is a normal cortex of the right kidney. The renal cortex measures 1.6 cm. 2 cysts are seen. The larger measures 2.1 cm x 2.2 cm x 2 cm. There are no right renal calculi. There is no right hydronephrosis. DISTAL RIGHT URETER: There is non-visualization of the distal right ureter. There is no demonstrated right ureterovesical junction calculus. There is a visualized right ureteral jet. LEFT KIDNEY: Normal location of the left kidney, which is normal in size. The left kidney measures 11.9 cm x 4.8 cm x 5.7 cm. There is a normal cortex of the left kidney. The renal cortex measures 1.5 cm. There is no left renal mass or cyst. There are no left renal calculi. There is no left hydronephrosis. DISTAL LEFT URETER: There is non-visualization of the distal left ureter. There is no demonstrated left ureterovesical junction calculus. There is no demonstrated left ureteral jet. BLADDER: The distended urinary bladder has a volume of 430 ml. There is a normal wall thickness of the distended urinary bladder. There is no demonstrated mass within the urinary bladder. There are no demonstrated bladder calculi. US/Kidney and Bladder IMPRESSION: 2 cysts are seen in the right kidney. The largest cyst measures 2.2 cm x 2.1 cm x 2 cm. Electronically Signed: Mario Alberto Sesay, at 10:41 EDT , Service support ,
== END ==
PROVIDERS: PCP Nurse Practitioner; Referring Provider Nurse Practitioner; Visit Provider Nurse Practitioner
DX: N28.1 Cyst of kidney, acquired (principal); E04.1 Nontoxic single thyroid nodule
CPT/HCPCS: 76770

== ENCOUNTER → 2020-01-30 07:38 | Outpatient (CLI) | payer BC, SELFPAY ==
--- NOTE | 2020-01-30 07:41 | US_ITS ---
STUDY: ABDOMINAL ULTRASOUND - RIGHT UPPER QUADRANT REASON FOR VISIT: Female, 54 years old fatty liver TECHNIQUE: Ultrasound evaluation of the right upper quadrant was performed with real-time and static stratton-scale imaging. TECHNICAL QUALITY: Adequate. COMPARISON: Comparison is made with prior CT scan of the abdomen dated 03/04/2019. FINDINGS: Liver: The liver is enlarged and measures 19 cm. There is increased echogenicity consistent with fatty infiltration. The bile ducts are within normal limits. There is hepatic color flow. The direction of portal flow is hepatopetal. There is no demonstrated mass lesion. Gallbladder: The patient is status post cholecystectomy. Common Bile Duct (C.B.D.): The common bile duct measures 5.7 mm. Pancreas: Normal size of the head, body and tail of the pancreas. There is normal echogenicity of the pancreas. There is no demonstrated pancreatic mass or cyst. Right Kidney: Normal size of the right kidney. The right kidney measures 13.2 cm x 6.4 cm x 7 cm. Normal renal cortex. The right cortex measures 2.2 cm. There is a 2.6 cm x 1.8 cm x 1.9 cm cyst. Calcifications are seen within it. There is also evidence of a 1.2 cm x 1.2 cm x 0.5 cm renal cysts. There is no right hydronephrosis. US/Liver IMPRESSION: Mild hepatomegaly and fatty infiltration of the liver. Septated cyst in the midportion of the right kidney with linear calcification. Electronically Signed: Mario Alberto Sesay, at 14:22 EDT , Service support ,
--- NOTE | 2020-01-30 07:41 | US_ITS ---
STUDY: THYROID ULTRASOUND REASON FOR EXAM: Female, 54 years old. nodules TECHNIQUE: Ultrasound evaluation of the thyroid was performed with real-time and static stratton-scale imaging. COMPARISON: 03/04/2019 FINDINGS: RIGHT LOBE: The right lobe of the thyroid gland measures 5.9 x 1.8 x 1.6 cm. There is a homogeneous echotexture. Stable round heterogeneous nodule in the right lateral thyroid lobe measuring 18 x 16 x 15 mm. Mild vascularity and no echogenic foci. Stable cyst with mural nodule in the more medial right thyroid lobe measuring 9 x 9 x 8 mm, unchanged. Heterogeneous hyperechoic nodule in the inferior right thyroid lobe measuring 10 x 6 x 7 mm, without vascularity or echogenic foci, not clearly visible on prior study. LEFT LOBE: The left lobe of the thyroid gland measures 5.8 x 1.8 x 1.3 cm. There is a homogeneous echotexture. Cystic and solid nodule in the lateral left thyroid lobe, not seen on prior study, measuring 11 x 10 x 7 mm. Heterogeneous nodule with echogenic central portion in the central left thyroid lobe, unchanged, measuring 8 x 3 x 7 mm, without echogenic foci but with mild peripheral vascularity. Stable cystic nodule in the medial left thyroid lobe measuring 6 x 4 x 5 mm. ISTHMUS: The isthmus measures 2.5 mm . Stable hypoechoic ovoid isthmus nodule measuring 5 x 2 x 5 mm without vascularity or echogenic foci. US/Thyroid IMPRESSION: Multiple bilateral thyroid nodules as described above. Most are unchanged. 2 are not clearly visible on prior study, but no significant suspicious secondary features are identified. Continued ultrasound follow-up is recommended. This could be obtained in 12 months. Electronically Signed: Dereck Bai MD at 22:20 EDT Tel , Service support ,
== END ==
PROVIDERS: PCP Nurse Practitioner; Referring Provider Nurse Practitioner; Visit Provider Nurse Practitioner
DX: E04.1 Nontoxic single thyroid nodule (principal); K76.0 Fatty (change of) liver, not elsewhere classified
CPT/HCPCS: 76536; 76705

== ENCOUNTER → 2020-05-15 07:10 | Outpatient (CLI) | payer BC, SELFPAY ==
--- NOTE | 2020-05-15 07:12 | BI_ITS ---
MAMMOGRAPHY - BILATERAL SCREENING REASON FOR EXAM: Female, 54 years old. Routine annual screening examination. PERTINENT HISTORY: Non-contributory. TECHNIQUE: Digital bilateral breast toya (3D mammographic acquisition) in the CC and MLO projections. 2-D mediolateral oblique (MLO) and craniocaudad (CC) views of both breasts were obtained. CAD: Full Field Digital Mammography with Computer Added Detection was performed. COMPARISON: Comparison is made with prior study dated 09/01/2018 and 12/05/2016. FINDINGS: Breast Composition: There are scattered areas of fibroglandular density. There are no dominant masses or suspicious calcifications. Stable benign appearing bilateral axillary lymph nodes. No other significant abnormalities are identified. There has been no significant change since the prior study. BI/SCRN MAMM (CAD)W/TOYA BILAT IMPRESSION: Stable bilateral screening mammogram. Yearly follow-up mammogram recommended. (A) ASSESSMENT CATEGORY: BIRADS Category 2: Benign. A letter regarding these results will be sent to the patient by the facility within 30 days. Approximately 10% of breast cancers are not detected by mammography. A normal mammogram should not delay biopsy of a clinically suspicious abnormality. [id number] Electronically Signed: Mario Alberto Sesay MD at 8:40 EST , Service support ,
== END ==
PROVIDERS: PCP Nurse Practitioner; Referring Provider Nurse Practitioner; Visit Provider Nurse Practitioner
DX: Z12.31 Encounter for screening mammogram for malignant neoplasm of breast (principal)
CPT/HCPCS: 77063; 77067

== ENCOUNTER 2020-12-07 15:56 | Emergency (ER) | payer BC, SELFPAY ==
[2020-12-07 15:57] VITALS: BP 157/97; PULSE 80; RESP 18; TEMP 36.8; O2SAT 98; BMI 36.1
[2020-12-07 16:18] LABS: Absolute Lymphocyte Count 2.75 X10^3/uL (0.83-4.51); Absolute Neutrophil Count 4.8 X10^3/uL (2.0-7.7); Basophil# 0.05 X10^3/uL; Basophil% 0.6 % (0-1); Eosinophil# 0.13 X10^3/uL; Eosinophils% 1.5 % (0-5); Hematocrit 35.1 % (37-47); Hemoglobin 10.2 g/dL (12.0-15.0); Lymphocyte # 2.75 X10^3/ul (0.83-4.51); Lymphocyte % 32.4 % (19-41); Mean Corp Hgb Conc 29.1 g/dL (32-36); Mean Corpuscular Hgb 20.9 pg (27.0-32.0); Mean Corpuscular Volume 71.8 fL (81-99); Mean Platelet Vol. 9.1 fl (6.2-12.0); Monocyte# 0.69 X10^3/uL; Monocyte% 8.1 % (0-10); NRBC Flagged by Analyzer 0 % (0-5); Neutrophil # 4.83 X10^3/uL (2.7-7.7); Platelet Count 483 K/mm3 (150-450); RBC Distribution Width CV 17.3 % (11.6-14.6); RBC Distribution Width SD 43.9 fl (35.1-43.9); Red Blood Count 4.89 M/mm3 (4.2-5.4); White Blood Count 8.5 K/mm3 (4.4-11.0)
[2020-12-07 16:33] LABS: Anion Gap 5 (5-15); BUN 5 mg/dL (7-18); BUN/Creat Ratio 6.6 RATIO (10-20); Chloride 105 mmol/L (98-107); Creatinine, Serum 0.76 mg/dL (0.55-1.02); EST Glomerular Filtration Rate 84 mL/min (>60); Est Glom Filt Rate - Afr Amer 102 mL/min (>60); Estimated Creatinine Clearance 80.14 ml/min; Glucose 113 mg/dL (74-106); Potassium 3.3 mmol/L (3.5-5.1); Sodium Level 139 mmol/L (136-145)
--- NOTE | 2020-12-07 17:12 | CT_ITS ---
INDICATION: Right lower quadrant pain, peritoneal findings, fe EXAMINATION: CT Abdomen And Pelvis W/ Contrast Injection TECHNIQUE: Helically acquired images were obtained of the abdomen and pelvis after IV contrast. A radiation dose optimization technique was used for this scan. IV Contrast dosage and agent: IV 100mL [id number]-370 Oral contrast: None. COMPARISON: None. FINDINGS: Visualized lung bases: Unremarkable Liver: Diffusely hypodense consistent with fatty liver. Gallbladder: Unremarkable Spleen: Unremarkable Pancreas: Unremarkable Adrenal Glands: Unremarkable Kidneys: Stable 1.9 cm x 3.6 cm septated cyst with a peripheral calcification along the anterior midportion of the right kidney. Vasculature: Unremarkable GI Tract: Unremarkable Lymphadenopathy: None Peritoneum: No ascites. Bladder: Unremarkable Reproductive organs: Unremarkable Bones/Soft tissues: Mild scattered degenerative changes of the visualized spine. CT/Abdomen/Pelvis W IV Cont ONLY IMPRESSION: No acute abnormalities in the abdomen or pelvis. Stable appearance of the cystic structure with calcification in the anterior midportion of the right kidney. Fatty liver. Electronically Signed: Carlos Rivera MD at 18:01 EDT Tel , Service support ,
--- NOTE | 2020-12-07 17:16 | ED.VIS.GI ---
HPI HPI - GI History of Present Illness Chief Complaint: Abd Pain Informant: patient Abdominal Pain/Flank Pain Onset: Weeks Context: Gradual Onset Timing: Intermittent (Initially pain was intermittent. The pain has been continuous for the past several days.) Quality: Aching Current Severity: Mild Maximum Severity: Moderate Worsened by: Car ride and Movement Relieved by: Nothing Nausea/Vomiting/Emesis GI Symptom: Positive for Nausea Onset: Weeks Diarrhea/Melena/Hematochezia GI Symptom: Positive for Diarrhea (Patient reports diarrhea this morning. No blood or mucus.) Onset: Today Stool Quality: Positive for Loose and Watery Severity: Mild Associated Symptoms Associated Symptoms: Negative for Dysuria, Frequency and Hematuria Narrative Narrative: Patient is a 55-year-old woman who presents with intermittent abdominal pain started a month ago. She states for the past several days the pain has been constant localized in the proximity McBurney's point. She reports nausea, decreased appetite. This morning she had loose stool. She did not notice any blood or mucus in her stool. She is status post cholecystectomy, hysterectomy with bilateral salpingo-oophorectomy. She denies dysuria, or hematuria. She does report frequency. She denies history of ureteral/renal lithiasis. She denies back pain. There is no history of trauma. She denies any other complaints Prior similar symptoms: No Recent Illness/Hospitalization: No PFSH PFSH Medical History Arthritis Back pain HTN (hypertension) Knee pain Liver disease Severe headache Shoulder pain Home Medications lisinopril 40 mg PO DAILY 08/31/16 [History Last Taken 11/16/18 05:30] omeprazole 20 mg PO DAILY 08/31/16 [History Last Taken 11/16/18 05:30] rivaroxaban 20 mg PO DAILY 12/05/16 [History Last Taken 11/16/18 05:30] cholecalciferol (vitamin D3) 1,250 mcg (50,000 unit) capsule 1,250 mcg PO QMONTH 09/21/19 [History Last Taken Unknown] amitriptyline 100 mg PO QHS 12/07/20 [History Last Taken Unknown] dicyclomine 20 mg PO TIDAC #20 capsule 12/07/20 [Rx Last Taken Unknown] Allergy/AdvReac Type Severity Reaction Status Date / Time No Known Allergies Allergy Verified 12/07/20 15:58 Family History Mother Cancer Father Cancer Surgical History History of cholecystectomy History of hand surgery History of hysterectomy Social History (Updated 12/07/20 @ 17:[address] Bart Robbins MD) household members: none Smoking Status: Former smoker alcohol intake: never substance use type: does not use ROS ROS ED Constitutional Constitutional ED: Denies chills, fever(s), subjective, sweats or weight loss ENT ENT ED: Denies ear pain, rhinorrhea or sore throat Cardiovascular Cardiovascular: Denies chest pain, orthopnea, palpitations or racing heartbeat Respiratory/Chest Respiratory/Chest: Denies cough, dyspnea, dyspnea on exertion or orthopnea Gastrointestinal Gastrointestinal: Reports abdominal pain, diarrhea and nausea; Denies constipation, melena or vomiting Genitourinary Genitourinary ED: Reports urinary frequency; Denies dysuria or hematuria Musculoskeletal Musculoskeletal: Denies arthralgias, back pain, myalgias or neck pain Integumentary Denies abscess or rash Neurologic Neurologic: Denies headache(s) or weakness Endocrine Endocrinology: Denies polydipsia, polyphagia or polyuria Hematologic/Lymphatic Hematologic/Lymphatic: Reports easy bruising EXAM Physical Exam Const Vital Signs: 12/07/20 15:57 Temperature 98.2 F Temperature Source Temporal Pulse Rate 80 Respiratory Rate 18 Blood Pressure 157/97 H Blood Pressure Mean 117 Pulse Ox 98 Oxygen Delivery Method Room Air Positive well nourished, well developed and obese General Appearance ED: well developed and other Patient does not look well. She does not look toxic. ; Negative for pallor Nutritional Appearance: obese HEENT Reports TM's clear and dry mucous membranes normocephalic and atraumatic Tympanic Membrane ED: Yes TM's clear Mouth ED: Yes dry mucous membranes Mouth: dry mucous membranes Eyes PERRL General Eye ED: Negative for pale conjunctiva or scleral icterus Neck no lymphadenopathy, supple and no JVD Resp normal respiratory effort and clear to auscultation bilaterally Cardio regular rate, regular rhythm, S1 normal heart sound, S2 normal heart sound and no murmurs GI non-distended GI Narrative: There is pain to the patient at McBurney's point. She has an equivocal Rovsing sign. Auscultation: hypoactive bowel sounds; Negative for normoactive bowel sounds Palpation: soft, tender and guarding; Negative for hepatomegaly, splenomegaly or pulsatile mass Back/Spine General Back: CVA tenderness right (Equivocal right-sided CVA tenderness.) Cervical Spine: Negative for cervical spine tenderness Thoracic Spine / Upper Back: Negative for thoracic spinal tenderness Extremity full ROM General Extremety ED: Negative for edema or tenderness General Extremity: Negative for edema Neuro CN's II-XII intact bilaterally and no sensory deficits noted Sensorium / Orientation: alert, oriented to person, oriented to place and oriented to time Motor Exam: strength 5/5 throughout Psych mental status grossly normal and thought process normal Skin no wounds General Skin Exam: Negative for jaundice or pallor Lesions: no lesions Rashes: no rashes MDM MDM MDM Narrative Medical decision making narrative: Frontal diagnosis would include Crohn's disease, appendicitis, ureterolithiasis, urinary tract infection with pyelonephritis. CBC, electrolyte panel, UA were ordered. Because patient has tenderness in the proximity McBurney's point with loss of appetite and equivocal Rovsing sign CT of the abdomen and pelvis with IV contrast was ordered to evaluate for appendicitis. With a normal CT, blood work will discharge to home as abdominal pain of unknown etiology. Since she has no allergies will treat with Bentyl have her follow-up with her primary care doctor. Lab Data Attestation: I reviewed the patient's lab results. Lab results narrative: Laboratory studies are essentially unremarkable. Labs: Laboratory Results - last 24 hr 12/07/20 12/07/20 12/07/20 16:05 16:05 16:05 WBC 8.5 RBC 4.89 Hgb 10.2 L Hct 35.1 L MCV 71.8 L MCH 20.9 L MCHC 29.1 L RDW Std Deviation 43.9 RDW Coeff of Ember 17.3 H Plt Count 483 H MPV 9.1 Immature Gran % (Auto) 0.400 Neut % (Auto) 57.0 Lymph % (Auto) 32.4 [place] % (Auto) 8.1 Eos % (Auto) 1.5 Baso % (Auto) 0.6 Absolute Neuts (auto) 4.8 Absolute Lymphs (auto) 2.75 Nucleated RBC % 0 Sodium 139 Potassium 3.3 L Chloride 105 Carbon Dioxide 29.0 Anion Gap 5 BUN 5 L Creatinine 0.76 Estim Creat Clear Calc 80.14 Est GFR (MDRD) Af Amer 102 Est GFR (MDRD) Non-Af 84 BUN/Creatinine Ratio 6.6 L Glucose 113 H Lactic Acid Calcium 9.0 Serum , Qual Cancelled Urine Color Urine Clarity Urine pH Ur Specific [place] Urine Protein Urine Glucose (UA) Urine Ketones Urine Occult Blood Urine Nitrite Urine Bilirubin Urine Urobilinogen Ur Leukocyte Esterase Urine RBC Urine WBC Ur Squamous Epith Cells Urine Bacteria Urine Mucus 12/07/20 12/07/20 17:37 17:40 WBC RBC Hgb Hct MCV MCH MCHC RDW Std Deviation RDW Coeff of Ember Plt Count MPV Immature Gran % (Auto) Neut % (Auto) Lymph % (Auto) [place] % (Auto) Eos % (Auto) Baso % (Auto) Absolute Neuts (auto) Absolute Lymphs (auto) Nucleated RBC % Sodium Potassium Chloride Carbon Dioxide Anion Gap BUN Creatinine Estim Creat Clear Calc Est GFR (MDRD) Af Amer Est GFR (MDRD) Non-Af BUN/Creatinine Ratio Glucose Lactic Acid 1.6 Calcium Serum , Qual Urine Color Yellow Urine Clarity Clear Urine pH 7.0 Ur Specific [place] 1.005 Urine Protein Negative Urine Glucose (UA) Normal Urine Ketones Negative Urine Occult Blood Negative Urine Nitrite Negative Urine Bilirubin Negative Urine Urobilinogen Normal Ur Leukocyte Esterase 25 H Urine RBC 0 SEEN Urine WBC 0 SEEN Ur Squamous Epith Cells 0-5 SEEN Urine Bacteria 0 SEEN Urine Mucus 0 SEEN Radiography Diagnostic Testing: Radiology Impression Abdomen/Pelvis CT 12/07/20 17:12 IMPRESSION: No acute abnormalities in the abdomen or pelvis. Stable appearance of the cystic structure with calcification in the anterior midportion of the right kidney. Fatty liver. Electronically Signed: Carlos Rivera MD at 18:01 EDT Tel , Service support , Discharge Plan Triage Chief Complaint: Abd Pain ED Provider: Bart Robbins Dx/Rx/DC Orders Clinical Impression: Right lower quadrant abdominal pain of unknown etiology Instructions: ED Abdominal Pain Unkn Cause Fem Prescriptions: New dicyclomine 10 MG capsule 20 mg PO TIDAC Qty: 20 RF: 0 No Action cholecalciferol (vitamin D3) 1,250 mcg (50,000 unit) capsule 1,250 mcg PO QMONTH RF: 0 rivaroxaban 15 MG tablet 20 mg PO DAILY RF: 0 amitriptyline 100 mg tablet 100 mg PO QHS RF: 0 lisinopril 40 MG tablet 40 mg PO DAILY RF: 0 omeprazole 20 MG tablet,delayed release (DR/EC) 20 mg PO DAILY RF: 0 Primary Care Provider: Aissatou Cm NP Referrals: Aissatou Cm NP, [facility] [Primary Care Provider] - 3-5 Days if not improving Disposition Disposition: Home, Self Care
[2020-12-07] MEDS: Ondansetron 4 MG/2 ML Vial IV (17:33)
[2020-12-07] MEDS: Morphine 4 MG/ML Syringe IV (17:34)
[2020-12-07] MEDS: 0.9% Normal Saline 1,000 ML 1000 ML IV (17:36)
[2020-12-07 17:48] LABS: Bacteria 0 SEEN /hpf (None Seen); Mucous, Urine 0 SEEN /hpf (<or=2+); Red Blood Cells-Urine 0 SEEN /hpf (0-5); White Blood Cells 0 SEEN /hpf (0-5)
[2020-12-07 17:51] LABS: Color, Urine Yellow (Yellow); Glucose, Dipstick Normal (Normal); Ketone-Dipstick Negative (Negative); Leukocyte Esterase-Dipstick 25 /ul (Negative); Nitrite-Dipstick Negative (Negative); Occult Blood-Urine Negative /ul (Negative); Protein-Dipstick Negative (Negative); Specific Gravity, Urine 1.005 (1.002-1.030); Urine Bilirubin Dipstick Negative (Negative); Urine Clarity Clear (Clear); Urine Urobilinogen Normal (Normal)
[2020-12-07 17:56] LABS: Squamous Epithelial Cells - UA 0-5 SEEN /hpf (5-10)
[2020-12-07 18:08] LABS: Lactic Acid 1.6 mmol/L (0.4-1.9)
[2020-12-07 19:10] VITALS: BP 137/74; PULSE 71; RESP 16; O2SAT 98
== END 2020-12-07 19:11 | disposition home or self-care (01) ==
PROVIDERS: Emergency Provider Emergency Medicine; PCP Nurse Practitioner
DX: R10.31 Right lower quadrant pain (principal); R19.7 Diarrhea, unspecified; R11.0 Nausea; I10 Essential (primary) hypertension; M19.90 Unspecified osteoarthritis, unspecified site; E66.9 Obesity, unspecified; Z79.01 Long term (current) use of anticoagulants; Z79.899 Other long term (current) drug therapy; Z87.891 Personal history of nicotine dependence; Z90.49 Acquired absence of other specified parts of digestive tract
CPT/HCPCS: 74177; 80048; 81001; 83605; 85025; 96361; 96365; 96375; 99283; J7030; Q9967; A4216; J2405

== ENCOUNTER 2021-03-19 13:00 | Outpatient (RCR) | payer BC, SELFPAY ==
--- NOTE | 2021-02-19 15:08 | HP.PTEVAL_ITS ---
Patient's Visit Information SCOTT ODEN is a 55 year old F referred to Physical Therapy by FRANNIE Samuel with a diagnosis of CERVICAL SPONDYLOSIS, RADICULOPATHY, ARTHROPATHY AND DDD.. Date of Evaluation: 02/19/21 Physical Therapist: Christina Mcrae, PT, Cert MDT - Visit Plan Frequency: 2-3x /Week Duration: 4-6 Weeks Plan: CONSIDER US AND ELECTRICAL STIM WITH CP OR MH. POSTURE CORRECTION/STRENGTHENING, INSTRUCTION IN APPROPRIATE BODY MECHANICS AND ACTIVITY MODIFICATIONS. GOLDIE UE ROM, STRETCHING AND STRENGTHENING. HEP INSTRUCTION. 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 NOT CURRENTLY OFF WORK. 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 Disability: NO. Present symptoms: GOLDIE NECK PAIN L > RIGHT DOWN TO SHLD'S. INTERMITTENT RIGHT HAND TINGLING. INTERMITTENT TINGLING LEFT HAND TOO. INTERMITTENT HEADACHES ABOUT ONCE A WEEK. GOLDIE SHLD BLADE TINGLING. Present since: YEARS AGO. Pain Scale: Worst - 9/10 Least - 3/10. Currently: 10. Commenced as a result of: NO APPARENT REASON. Symptoms at onset: LEFT NECK PAIN. Worse: DRIVING, PROLONGED SITTING, SITTING AT COMPUTER, READING, LOOKING AT CELL PHONE, LIFTING PUPPY, DRYING UPPER BACK OFF. Better: OTC PAIN PATCH, STRETCHING (L SHLD HORIZ ADD STRETCH DEMO'D), LYING DOWN WITH HEAD SUPPORTED WITH SMALL PILLOW. Disturbed sleep: YES. Previous history/Previous treatment: STARTED HAVING SWOLLOWING PROBLEMS ABOUT 3-4 YEARS AGO AND SWOLLOWING STUDY. WAS THEN REFERRED TO DR. MADDEN. NO SURGERY RECOMMENDED. PATIENT ALSO CONSULTED SUKHI ANAND AND THEN REFERRED TO DR. JONES. CARMELA'S 2018 AND SEPTEMBER 2019 - THE FIRST SHOT H ELPED THE SECOND ONE DID NOT. TRAMADOL - DIDN'T HELP. NO NECK SURGERY. NO CHIROPRACTOR. NO PHYSICAL THERAPY. This Episode: PT CONSULT. PAIN MGMT PROCEEDURE PENDING WITH DR. JONES 03/03/21. Dizziness: NO. Tinnitis: CHRONIC. Nausea: YES - IN THE MORNINGS. Shortness of Breath: NO. Difficulty Swollowing: YES - STARTED ABOUT [address] JONES IS AWARE. 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 Gait: NORMAL. Accidents: NO. Unexplained weight loss: NO. Imaging: NO MRI. NECK X-RAYS A FEW YEARS AGO. NONE RECENT. PMH/Recent major surgery: RIGHT THUMB SURGERY AT [facility]. HTN. ACID REFLUX, VITAMIN D, H/O PULMONARY EMBOLISM SO TAKING BLOOD THINNER. H/O MIGRAINES AND ON MEDICATION. RHEUMATOID ARTHRITIS. GOLDIE KNEE PAIN. RIGHT LOW BACK PAIN. GOLDIE HAND PAIN. - Objective Sitting Posture/Standing Posture: POOR. FH. RS'S. Active Correction of posture: WORSE. Other Observations: INDEP GAIT AND TRANSFERS. Motor deficit: GOLDIE UE'S GROSSLY 4/5 WITH MMT'ING AND TESTING CAREFULLY PROVOKED C/O INCREASED NECK PAIN AND GOLDIE SHLD BLADE TINGLING. Sensory deficit: GOLDIE UE LIGHT TOUCH SENSATION GROSSLY INTACT AND SYMMETRICAL. ROM deficit: GOLDIE SHLD TIGHTNESS ESPECIALLY INTO GOLDIE ER AND IR. Reflexes: GOLDIE UE DTR'S. Dural Signs: POSITIVE GOLDIE UE'S. Cervical Mvmt Loss: Flex: MOD TO DHRUV. Pro: NIL. Ext: MOD TO DHRUV. Ret: DHRUV. RSB: MOD. LSB: DHRUV. R Rot: MOD TO DHRUV. L Rot: PATIENT REFUSED TESTING. PATIENT C/O INCREASED PAIN WITH CERVICAL ROM TESTING ALL PLANES. Postural strength: POOR. Palpation: TENDERNESS AND INCREASED MUSCEL TONE WITH GOLDIE POSTERIOR CERVICAL AND THORACIC SPINE AND MUSCULATURE. TREATMENT: NEUROMUSCULAR REEDUCATION - RETRAINING OF MVMT AND POSTURE FOR SITTING, LYING AND STANDING ACTIVITIES. INSTRUCTION IN PROPER WORK STATION SET UP/ERGONOMICS. - Balance/Special Test Scores Oswestry Neck Score: 19 - Goals Goal 1:: DECREASE C/O NECK AND GOLDIE UE SX'S. Goal Time Frame: 4-6 Weeks Goal 2:: IMPROVE PERSONAL CARE, LIFTING, READING, SLEEP, WORK, DRIVING, AND RECREATIONAL FUNCTION. Goal Time Frame: 4-6 Weeks Goal 3:: INSTRUCT IN PROPHYLAXIS Goal Time Frame: 4-6 Weeks - Anticipated Interventions Patient/Client Instruction: Educate patient on: Condition, Plan of Care, Risk Factors For the Purpose of:: To improve self management Therapeutic Exercise to Include: Strength training, Body mechanics, Postural training, Flexibilty training, Neuromotor development, Scapular Strength/Stabilization For the Purpose of:: To decrease pain, To improve muscle performance and motor function, To increase tolerance to activity/condition/position, To improve ability of physical actions for home/community/work/leisure TENS: Yes IF ES: Yes Cryotherapy (ice pack, ice massage): Yes Thermo therapy (hot pack): Yes Ultrasound (thermal/non thermal): Yes For the Purpose of:: To decrease pain, To improve nutrient delivery to tissue Thank you for the opportunity to evaluate your patient. For Medicare and Medicare HMO plans, please review the plan of care and approve it. It will need to be FAXED BACK to us at [phone] for Medicare purposes. For Medicare only, by signing this I certify the plan of care. Please let me know if there are questions or concerns regarding this plan of care. Physician Signature: Date:
--- NOTE | 2021-04-01 14:06 | HP.PT.NRP ---
SCOTT ODEN was seen in my office for initial evaluation on 02/19/21. The following Plan of Care was established for this patient: Initial Frequency: 2-3x /Week Initial Duration: 4-6 Weeks Patient/Client Instruction: Educate patient on: Condition, Plan of Care, Risk Factors For the Purpose of:: To improve self management Therapeutic Exercise to Include: Strength training, Body mechanics, Postural training, Flexibilty training, Neuromotor development, Scapular Strength/Stabilization For the Purpose of:: To decrease pain, To improve muscle performance and motor function, To increase tolerance to activity/condition/position, To improve ability of physical actions for home/community/work/leisure TENS: Yes IF ES: Yes Cryotherapy (ice pack, ice massage): Yes Thermo therapy (hot pack): Yes Ultrasound (thermal/non thermal): Yes For the Purpose of:: To decrease pain, To improve nutrient delivery to tissue This patient was last seen in our office . Pertinent comments regarding their Physical therapy will appear below: This patient has not returned to Physical Therapy and is appropriate to return to MD for further follow-up as needed. At this point I will be discontinuing this patient from physical therapy. I would be happy to see this patient again in the future if found appropriate by the physician. Thank you! Christina Mcrae, PT, Cert MDT Balance/Gait/Functional tests - Balance/Special Test Scores Oswestry Neck Score: 19
== END 2021-03-19 19:00 | disposition home or self-care (01) ==
LOC: PT 13:00
PROVIDERS: PCP Nurse Practitioner; Referring Provider Nurse Practitioner Family; Visit Provider Nurse Practitioner Family
DX: M47.812 Spondylosis without myelopathy or radiculopathy, cervical region (principal); M54.12 Radiculopathy, cervical region; M48.9 Spondylopathy, unspecified; M50.30 Other cervical disc degeneration, unspecified cervical region
CPT/HCPCS: 97014; 97112; 97162; 97530; G0283

== ENCOUNTER 2021-07-01 16:10 | Outpatient (CLI) | payer BC, SELFPAY ==
--- NOTE | 2021-07-01 16:18 | RAD_ITS ---
INDICATION: ARTHROPATHY OF C/S FACET JOINT EXAMINATION/TECHNIQUE: X-RAY - XR Spine Cervical 4 or 5 Views COMPARISON: None. FINDINGS/ RAD/Cerv Spine 4 or 5 Views IMPRESSION: VERTEBRAE: Minimal vertebral body height loss due to degenerative changes. No fracture. No spondylolisthesis. Alignment is preserved. Moderate multilevel facet arthropathy most prominent from the C2-C7 levels. DISCS: Mild multilevel degenerative disc disease with anterior osteophytic spurring most prominent at the C5-C6 and C6-C7 levels. There is mild to moderate associated disc height loss at the C6-C7 level. NECK SOFT TISSUES: No prevertebral soft tissue widening. LUNG APICES: Clear. Electronically Signed: Matteo Choi, at 8:02 EDT ,
== END 2021-07-01 23:59 | disposition home or self-care (01) ==
LOC: RAD 16:13
PROVIDERS: PCP Nurse Practitioner; Referring Provider Anesthesiology Pain Medicine; Visit Provider Anesthesiology Pain Medicine
DX: M47.22 Other spondylosis with radiculopathy, cervical region (principal); M50.30 Other cervical disc degeneration, unspecified cervical region
CPT/HCPCS: 72050

== ENCOUNTER → 2021-09-07 | Outpatient (CLI) | payer BC, SELFPAY ==
--- NOTE | 2021-09-07 07:54 | CT_ITS ---
EXAM: CT CHEST, LUNG CANCER SCREENING WITHOUT INTRAVENOUS CONTRAST CLINICAL INDICATION: SCREENING TECHNIQUE: Helically acquired images were obtained of the chest without intravenous contrast using low dose (LDCT) lung cancer screening protocol. This CT exam was performed using one or more of the following dose reduction techniques: automated exposure control, adjustment of the mA and/or kV according to patient size, and/or use of iterative reconstruction technique. This report was created using Loop report generation technology. COMPARISON: 11/16/2018 FINDINGS: LUNGS AND PLEURAL SPACES: Unremarkable. No mass. No consolidation or edema. No pleural effusion or thickening. No pneumothorax. HEART: Unremarkable. Heart size is normal. No pericardial effusion. No significant coronary artery calcifications. MEDIASTINUM: Unremarkable. No mediastinal or hilar adenopathy. Esophagus is unremarkable. No hiatal hernia. THYROID: Unremarkable. No thyroid lesions. BONES/JOINTS: Unremarkable. No suspicious lytic or blastic abnormality. VASCULATURE: Unremarkable. Thoracic aorta is non-dilated. LYMPH NODES: Unremarkable. No enlarged lymph nodes. CT/Low Dose CT Lung Screening IMPRESSION: 1. No acute cardiopulmonary abnormality. 2. No evidence of lung mass or nodule. 3. ACR Lung CT Screening Reporting T Data System (Lung-RADS) score: 1 - Recommend continued annual screening with low-dose CT (LDCT) in 12 months. } Electronically Signed: Osvaldo Manjarrez MD at 17:07 EDT ,
== END | disposition home or self-care (01) ==
LOC: CT 07:53
PROVIDERS: PCP Family Medicine; Visit Provider Family Medicine
DX: Z85.118 Personal history of other malignant neoplasm of bronchus and lung (principal)
CPT/HCPCS: 71271

== ENCOUNTER 2021-09-08 17:34 | Emergency (ER) | payer BC, SELFPAY ==
[2021-09-08] VITALS (8 sets, daily range): BP systolic 98–166; BP diastolic 71–79; PULSE 84–94; RESP 15–24; TEMP 36.7; O2SAT 97–99; BMI 38.5
--- NOTE | 2021-09-08 17:41 | EKG12_ITS ---
Test Reason : CP Blood Pressure : / mmHG Vent. Rate : 091 BPM Atrial Rate : 091 BPM P-R Int : 148 ms QRS Dur : 078 ms QT Int : 366 ms P-R-T Axes : 068 -07 036 degrees QTc Int : 450 ms Normal sinus rhythm Normal ECG Confirmed by YULIYA FRIAS, STORMY ([id number]), electronic news gathering editor BRANDON MAYES ([id number]) on 09/09/2021 11:23:48 AM Referred By: JENN Confirmed By:STORMY DWYER MD
--- NOTE | 2021-09-08 17:42 | EDS_ITS ---
HPI History of Present Illness Chief Complaint: Chest Pain Narrative Narrative: With past medical history of hypertension presents with chest pain that began approximately an hour ago. She states that it feels more esophageal. It is improved when she presses on the center of her chest. States she is had some nausea with it but no vomiting. No dysuria or hematuria. No diaphoresis. She states she feels short of breath at times with it. She denies any DVT or PE risk factors. No fevers or chills. She has an allergy cough. She states she had a chicken wrap for lunch at around noon and then began having the spasm and feeling in the center of her chest about an hour ago. [facility] Medical History (Updated 09/08/21 @ 20:34 by Devan Del Cid MD) Arthritis Back pain Hemochromatosis HTN (hypertension) Knee pain Liver disease Pulmonary embolism Severe headache Shoulder pain Home Medications lisinopril 40 mg PO DAILY 08/31/16 [History Last Taken 11/16/18 05:30] omeprazole 20 mg PO DAILY 08/31/16 [History Last Taken 11/16/18 05:30] cholecalciferol (vitamin D3) 1,250 mcg (50,000 unit) capsule 1,250 mcg PO QMONTH 09/21/19 [History Last Taken Unknown] amitriptyline 100 mg PO QHS 12/07/20 [History Last Taken Unknown] dicyclomine 10 mg capsule 20 mg PO TIDAC capsule 03/26/21 [History Last Taken Unknown] rivaroxaban 15 mg tablet 20 mg PO DAILY 03/26/21 [History Last Taken Unknown] Allergy/AdvReac Type Severity Reaction Status Date / Time No Known Allergies Allergy Verified 09/08/21 17:38 Family History Mother Cancer Father Cancer Surgical History History of cholecystectomy History of hand surgery History of hysterectomy Social History household members: none Smoking Status: Former smoker alcohol intake: never substance use type: does not use ROS ROS ED ROS Narrative Constitutional: No fever, no chills. HEENT: No sore throat. No neck pain. No loss of vision. No rhinorrhea. Cardiovascular: Positive midsternal chest pain/spasming. No palpitations. No pedal edema. Respiratory: No cough, positive shortness of breath. Abdominal: No abdominal pain. Positive nausea. No vomiting. Genitourinary: No dysuria. No hematuria. Musculoskeletal: No myalgias. No arthralgias. Neurologic: No headaches. No dizziness. No lightheadedness. Skin: No rash. No change in color. Psychiatric: No depression. No anxiety. EXAM Physical Exam Narrative Exam Narrative: Afebrile. Vital signs noted. HEENT: Normocephalic. Atraumatic. PERRL, EOMI. Neck soft and supple. No point tenderness or step off. Cardiovascular: Regular rate and rhythm. No murmurs, rubs, or gallops appreciated. Respiratory: No tachypnea. Lungs clear to auscultation bilaterally. Gastrointestinal: Abdomen soft, nontender, with normoactive bowel sounds. No rebound or guarding. Neurological: Awake. Alert. Nonfocal, nonlateralizing. Skin: No rash. Normal color. No pallor. Musculoskeletal: No pedal edema. Full range of motion extremities. Const Vital Signs: 09/08/21 17:35 09/08/21 17:41 09/08/21 17:54 Temperature 98.1 F Temperature Source Temporal Pulse Rate 88 84 Respiratory Rate 18 16 Respiratory Effort Normal Non-Labored Respiratory Pattern Normal Blood Pressure 166/74 H 138/77 H Blood Pressure Mean 104 97 Pulse Ox 99 98 Oxygen Delivery Method Room Air Room Air 09/08/21 18:33 09/08/21 19:00 09/08/21 19:39 Temperature Temperature Source Pulse Rate 88 86 94 Respiratory Rate 15 16 17 Respiratory Effort Respiratory Pattern Blood Pressure 117/79 114/75 Blood Pressure Mean 91 88 Pulse Ox 97 Oxygen Delivery Method Room Air Room Air 09/08/21 20:00 09/08/21 21:00 Temperature Temperature Source Pulse Rate 89 85 Respiratory Rate 24 H 16 Respiratory Effort Respiratory Pattern Blood Pressure 124/73 H Blood Pressure Mean 90 Pulse Ox Oxygen Delivery Method Room Air Room Air Heart Score History: Slightly/Non-Suspicious ECG: Normal Age: >45 - <65 years Risk Factors: 1 or 2 Risk Factors Troponin: </= Normal Limit Score: 2 MDM MDM MDM Narrative Medical decision making narrative: Chest pain work-up was pursued. Her EKG demonstrates normal sinus rhythm at 91 bpm without ectopy or acute ST changes. No STEMI. CBC is grossly normal except for hemoglobin 11.3, slightly low. Platelet count normal at 388. Normal white count 9.8. CMP is grossly normal except for glucose appropriately elevated at 113 with a normal anion gap of 5. Her initial high-sensitivity troponin is negative at less than 3. After GI cocktail, she is resting comfortably, sitting on the cot, using her cellular telephone. She states she feels improved. I do feel that she is probably having more of an esophageal spasm. She will follow-up with her primary care physician for possible referral to gastroenterology. 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 Friend. Chest x-ray interpreted by myself shows no acute process. Her repeat troponin is normal at 4. Her delta troponin is less than 7, and hence I feel she has been ruled out by biomarkers. I feel she be discharged safely home with follow-up. Return instructions to the emergency department were reviewed. Disposition is discharged home in stable condition. Lab Data Attestation: I reviewed the patient's lab results. Labs: Laboratory Results - last 24 hr 09/08/21 09/08/21 09/08/21 17:50 17:50 20:09 WBC 9.8 RBC 5.12 Hgb 11.3 L Hct 38.5 MCV 75.2 L MCH 22.1 L MCHC 29.4 L RDW Std Deviation 61.3 H RDW Coeff of Ember 23.2 H Plt Count 388 MPV 8.5 Immature Gran % (Auto) 0.400 Neut % (Auto) 58.6 Lymph % (Auto) 30.6 [place] % (Auto) 9.2 Eos % (Auto) 0.6 Baso % (Auto) 0.6 Absolute Neuts (auto) 5.8 Absolute Lymphs (auto) 3.01 Nucleated RBC % 0 Differential Comment SCANNED Anisocytosis 2+ Microcytosis 1+ Sodium 139 Potassium 3.7 Chloride 105 Carbon Dioxide 29.0 Anion Gap 5 BUN 10 Creatinine 0.87 Estim Creat Clear Calc 70.01 Est GFR (MDRD) Af Amer 87 Est GFR (MDRD) Non-Af 72 BUN/Creatinine Ratio 11.5 Glucose 113 H Calcium 8.7 Total Bilirubin 0.10 L AST 25 ALT 46 Alkaline Phosphatase 95 Troponin I High Sens < 3 L 4 Total Protein 7.4 Albumin 3.6 Globulin 3.8 Albumin/Globulin Ratio 0.9 Lipase 127 Radiography Diagnostic Testing: Clinical Impression(s) from Imaging Studies Chest X-Ray 09/08/21 18:08 IMPRESSION: No acute cardiopulmonary process. Electronically Signed: Raciel Byrd MD at 18:24 EDT Reading Location ID and State: [facility] / [place] Tel , Service support , Discharge Plan Triage Chief Complaint: Chest Pain ED Provider: Devan Del Cid Dx/Rx/DC Orders Clinical Impression: Chest pain, Esophageal spasm Instructions: ED Chest Pain, Noncardiac, ED Esophageal Spasm Prescriptions: No Action cholecalciferol (vitamin D3) 1,250 mcg (50,000 unit) capsule 1,250 mcg PO QMONTH RF: 0 dicyclomine 10 mg capsule 20 mg PO TIDAC RF: 0 rivaroxaban 15 mg tablet 20 mg PO DAILY RF: 0 amitriptyline 100 mg tablet 100 mg PO QHS RF: 0 lisinopril 40 MG tablet 40 mg PO DAILY RF: 0 omeprazole 20 MG tablet,delayed release (DR/EC) 20 mg PO DAILY RF: 0 Primary Care Provider: Noel Snell Referrals: Noel Snell MD [Primary Care Provider] - 3-5 Days if not improving Friend,Ricki, [STAFF PHYSICIAN] - As soon as possible Disposition Disposition: Home, Self Care
[2021-09-08 18:04] LABS: Absolute Lymphocyte Count 3.01 X10^3/uL (0.83-4.51); Absolute Neutrophil Count 5.8 X10^3/uL (2.0-7.7); Basophil# 0.06 X10^3/uL; Basophil% 0.6 % (0-1); Eosinophil# 0.06 X10^3/uL; Eosinophils% 0.6 % (0-5); Hematocrit 38.5 % (37-47); Hemoglobin 11.3 g/dL (12.0-15.0); Lymphocyte # 3.01 X10^3/ul (0.83-4.51); Lymphocyte % 30.6 % (19-41); Mean Corp Hgb Conc 29.4 g/dL (32-36); Mean Corpuscular Hgb 22.1 pg (27.0-32.0); Mean Corpuscular Volume 75.2 fL (81-99); Mean Platelet Vol. 8.5 fl (6.2-12.0); Monocyte% 9.2 % (0-10); NRBC Flagged by Analyzer 0 % (0-5); Neutrophil # 5.76 X10^3/uL (2.7-7.7); Neutrophil % 58.6 % (47-70); POSITIVE MORPHOLOGY YES; Platelet Count 388 K/mm3 (150-450); RBC Distribution Width CV 23.2 % (11.6-14.6); RBC Distribution Width SD 61.3 fl (35.1-43.9); Red Blood Count 5.12 M/mm3 (4.2-5.4); White Blood Count 9.8 K/mm3 (4.4-11.0)
--- NOTE | 2021-09-08 18:08 | RAD_ITS ---
STUDY: X-RAY CHEST REASON FOR EXAM: Female, 55 years old. chest pain TECHNIQUE: 1 view COMPARISON: 12/20/2018 FINDINGS: Cardiomediastinal silhouette is unremarkable. Costophrenic angles are sharp. Lungs are clear. The trachea is midline. There is no pneumothorax. The bones are grossly intact. RAD/Chest 1 View (Portable) IMPRESSION: No acute cardiopulmonary process. Electronically Signed: Raciel Byrd MD at 18:24 EDT ,
[2021-09-08 18:11] LABS: Differential Indicated SCAN CRITERIA MET
[2021-09-08] MEDS: 0.9% Normal Saline 1,000 ML 250 ML IV (18:12)
[2021-09-08] MEDS: Mag Hydrox/Al Hydrox/Simeth 30 ML UDC PO (18:13)
[2021-09-08 18:22] LABS: ALB/GLOB Ratio 0.9 RATIO (0.9-2.4); AST(SGOT) 25 U/L (15-37); Alanine Aminotransfer ALT/SGPT 46 U/L (13-56); Albumin, Serum 3.6 g/dL (3.2-5.0); Alkaline Phosphatase 95 U/L (45-117); Anion Gap 5 (5-15); BUN 10 mg/dL (7-18); BUN/Creat Ratio 11.5 RATIO (10-20); Calcium,Total 8.7 mg/dL (8.5-10.1); Chloride 105 mmol/L (98-107); Creatinine, Serum 0.87 mg/dL (0.55-1.02); EST Glomerular Filtration Rate 72 mL/min (>60); Est Glom Filt Rate - Afr Amer 87 mL/min (>60); Estimated Creatinine Clearance 70.01 ml/min; Globulin 3.8 g/dL (2.2-4.2); Glucose 113 mg/dL (74-106); Lipase 127 U/L (73-393); Potassium 3.7 mmol/L (3.5-5.1); Protein, Total 7.4 g/dL (6.4-8.2); Sodium Level 139 mmol/L (136-145); Troponin-I HS (w/2H Reflex) < 3 pg/mL (3.0-54.0)
[2021-09-08 19:30] LABS: Anisocytosis 2+; Differential Comment SCANNED; Microcytosis 1+
[2021-09-08 20:01] LABS: Reflex Troponin-HS? (from REC) Y
[2021-09-08 21:47] LABS: Troponin-I HS 4 pg/mL (3.0-54.0)
== END 2021-09-08 22:02 | disposition home or self-care (01) ==
PROVIDERS: Emergency Provider Emergency Medicine; PCP Family Medicine; Visit Provider Emergency Medicine
DX: R07.9 Chest pain, unspecified (principal); K22.4 Dyskinesia of esophagus; I10 Essential (primary) hypertension; Z79.01 Long term (current) use of anticoagulants; Z79.899 Other long term (current) drug therapy; Z87.891 Personal history of nicotine dependence
CPT/HCPCS: 71045; 80053; 83690; 84484; 85025; 93005; 96360; 96361; 99285; J7030; A4216

== ENCOUNTER → 2021-09-10 | Outpatient (CLI) | payer BC, SELFPAY ==
--- NOTE | 2021-09-10 13:47 | ECHOCS_ITS ---
Reason For Study: Murmur Procedure This was a 2D Doppler, Color Flow transthoracic echocardiogram. Contrast injection was performed. Exam performed in department. Left Ventricle Normal LV size. Left ventricular systolic function is normal. The estimated ejection fraction is 65 %. Stage 1 diastolic dysfunction. No regional wall motion abnormalities noted. Right Ventricle Normal RV size. Normal systolic function. Atria Normal left atrium. Normal right atrium. Mitral Valve Normal mitral valve. Tricuspid Valve Normal tricuspid valve. Mild (1+) tricuspid valve insufficiency. Pulmonary artery systolic pressure is 36 mmHg. Aortic Valve Normal aortic valve. Trisinus/trileaflet aortic valve. Pulmonic Valve Normal pulmonic valve. Great Vessels Normal aortic root. The pulmonary artery is normal size. Normal inferior vena cava. Pericardium/Pleural No pericardial effusion. Medication Diluted definity 1ml given slow IV push to enhance endocardial definition. MMode/2D Measurements & Calculations LVIDd: 5.0 cm IVSd: 1.0 cm Ao root diam: 3.1 cm LVIDs: 2.6 cm LVPWd: 1.0 cm RVDd: 3.8 cm FS: 48.2 % LAV(MOD-bp): 29.5 ml LVAd ap4: 27.5 cm2 SV(MOD-sp4): 58.8 ml LAV(MOD-bp) Indexed: 13.7 ml/m2 LVLd ap4: 7.9 cm LAV(MOD-sp2): 31.9 ml EDV(MOD-sp4): 79.4 ml LAV(MOD-sp4): 26.4 ml EDV(sp4-el): 81.3 ml LVAs ap4: 12.2 cm2 LVLs ap4: 6.0 cm ESV(MOD-sp4): 20.7 ml ESV(sp4-el): 20.9 ml EF(MOD-sp4): 74.0 % EF(sp4-el): 74.3 % SV(sp4-el): 60.4 ml LA A4 area: 14.2 cm2 LA dimension(2D): 3.5 cm RA A4 area: 11.4 cm2 Doppler Measurements & Calculations MV E max angel: 81.4 cm/sec Lat Peak E' Angel: 10.3 cm/sec Med Peak E' Angel: 6.1 cm/sec MV A max angel: 93.1 cm/sec E/E' lat: 7.9 E/E' med: 13.3 MV E/A: 0.87 Ao V2 max: 182.8 cm/sec LV V1 max: 157.0 cm/sec PA V2 max: 105.9 cm/sec Ao max P.4 mmHg LV V1 max P.9 mmHg Ao V2 mean: 127.4 cm/sec Ao mean P.2 mmHg Ao V2 VTI: 34.5 cm TR max angel: 278.8 cm/sec TR max P.1 mmHg ECHO/Echo Complete W/ Contrast Interpretation Summary Normal LV size. Left ventricular systolic function is normal. The estimated ejection fraction is 65 %. Stage 1 diastolic dysfunction. Pulmonary artery systolic pressure is 36 mmHg. Contrast injection was performed. Ordering Physician: Noel Snell Referring Physician: Noel Snell Performed By: Katty Giron, KELSIE, RVT
== END | disposition home or self-care (01) ==
LOC: CVS 13:46
PROVIDERS: PCP Family Medicine; Referring Provider Family Medicine; Visit Provider Family Medicine
DX: R01.1 Cardiac murmur, unspecified (principal)
CPT/HCPCS: 93306; Q9957; A4216; C8929

== ENCOUNTER → 2021-10-19 | Outpatient (CLI) | payer BC, SELFPAY ==
[2021-10-19 08:50] LABS: Bacteria 0 SEEN /hpf (None Seen); Mucous, Urine 0 SEEN /hpf (<or=2+); Red Blood Cells-Urine 0 SEEN /hpf (0-5); Squamous Epithelial Cells - UA 0 SEEN /hpf (5-10); White Blood Cells 0 SEEN /hpf (0-5)
[2021-10-19 10:11] LABS: Absolute Lymphocyte Count 2.31 X10^3/uL (0.83-4.51); Absolute Neutrophil Count 4.5 X10^3/uL (2.0-7.7); Basophil# 0.04 X10^3/uL; Basophil% 0.5 % (0-1); Eosinophil# 0.07 X10^3/uL; Eosinophils% 0.9 % (0-5); Hematocrit 43.1 % (37-47); Lymphocyte # 2.31 X10^3/ul (0.83-4.51); Lymphocyte % 30.5 % (19-41); Mean Corp Hgb Conc 30.2 g/dL (32-36); Mean Corpuscular Hgb 24.3 pg (27.0-32.0); Mean Corpuscular Volume 80.7 fL (81-99); Mean Platelet Vol. 8.6 fl (6.2-12.0); Monocyte# 0.61 X10^3/uL; Monocyte% 8.1 % (0-10); NRBC Flagged by Analyzer 0 % (0-5); Neutrophil # 4.52 X10^3/uL (2.7-7.7); Neutrophil % 59.7 % (47-70); POSITIVE MORPHOLOGY YES; Platelet Count 345 K/mm3 (150-450); RBC Distribution Width CV 23.4 % (11.6-14.6); RBC Distribution Width SD 66.2 fl (35.1-43.9); Red Blood Count 5.34 M/mm3 (4.2-5.4); White Blood Count 7.6 K/mm3 (4.4-11.0)
[2021-10-19 10:12] LABS: Color, Urine Yellow (Yellow); Glucose, Dipstick Normal (Normal); Ketone-Dipstick Negative (Negative); Leukocyte Esterase-Dipstick Negative /ul (Negative); Nitrite-Dipstick Negative (Negative); Occult Blood-Urine Negative /ul (Negative); Protein-Dipstick Negative (Negative); Specific Gravity, Urine 1.015 (1.002-1.030); Urine Bilirubin Dipstick Negative (Negative); Urine Clarity Sl. Cloudy (Clear); Urine Urobilinogen Normal (Normal)
[2021-10-19 10:13] LABS: Differential Indicated SCAN CRITERIA MET
[2021-10-19 10:23] LABS: Hemoglobin A1c 5.2 % (3.8-5.6)
[2021-10-19 10:25] LABS: AST(SGOT) 35 U/L (15-37); Alanine Aminotransfer ALT/SGPT 65 U/L (13-56); Albumin, Serum 3.5 g/dL (3.2-5.0); Alkaline Phosphatase 93 U/L (45-117); Anion Gap 4 (5-15); BUN 13 mg/dL (7-18); Calcium,Total 8.8 mg/dL (8.5-10.1); Chloride 108 mmol/L (98-107); Cholesterol 200 mg/dL (200); Creatinine, Serum 0.76 mg/dL (0.55-1.02); EST Glomerular Filtration Rate 84 mL/min (>60); Est Glom Filt Rate - Afr Amer 101 mL/min (>60); Globulin 3.6 g/dL (2.2-4.2); Glucose 104 mg/dL (74-106); High Density Lipoprotein 39 mg/dL; Potassium 3.9 mmol/L (3.5-5.1); Protein, Total 7.1 g/dL (6.4-8.2); Sodium Level 140 mmol/L (136-145); Thyroid Stim Hormone (TSH) 1.24 uIU/mL (0.358-3.74); Triglycerides 129 mg/dL; Very Low Density Lipoprotein 26 mg/dL (5-40)
[2021-10-19 10:36] LABS: Differential Comment SCANNED
[2021-10-21 12:44] LABS: Hepatitis B Surface Antibody Reactive; Hepatitis B Surface Antigen Non-Reactive (Nonreactive); Hepatitis C Antibody Non-Reactive (Nonreactive)
== END | disposition home or self-care (01) ==
LOC: MTLAB 08:42
PROVIDERS: PCP Family Medicine; Referring Provider Family Medicine; Visit Provider Family Medicine
DX: I10 Essential (primary) hypertension (principal); E55.9 Vitamin D deficiency, unspecified; R73.02 Impaired glucose tolerance (oral)
CPT/HCPCS: 36415; 80053; 80061; 81001; 82306; 83036; 84443; 85025; 86706; 86803; 87340

== ENCOUNTER → 2021-10-21 | Outpatient (CLI) | payer BC, SELFPAY ==
--- NOTE | 2021-10-21 08:30 | RAD_ITS ---
STUDY: X-RAY - ESOPHAGUS (BARIUM SWALLOW) WITH FLUOROSCOPY REASON FOR EXAM: Female, 56 years old. DYSKINESIA OF ESOPHAGUS TECHNIQUE: 22 view(s) of the esophagus were obtained following swallowing of barium. FLUOROSCOPY TIME (if supplied): (28) minutes/seconds COMPARISON: Comparison is made with prior study dated 11/06/2018. FINDINGS: There is no demonstrated esophageal foreign body. There is no demonstrated stricture or mucosal abnormality. Normal gastroesophageal junction, without a demonstrated hiatal hernia. The patient ingested a 12 mm tablet of barium without any difficulty. Normal visualized aortic arch and descending thoracic aorta. Normal visualized pulmonary parenchyma. Normal visualized osseous structures of the thorax. RAD/Esophagus Dual Contrast IMPRESSION: Normal plain film x-ray examination (barium swallow) of the esophagus. Electronically Signed: Mario Alberto Sesay MD at 9:38 EDT ,
== END | disposition home or self-care (01) ==
PROVIDERS: PCP Family Medicine; Referring Provider Family Medicine; Visit Provider Family Medicine
DX: K22.4 Dyskinesia of esophagus (principal)
CPT/HCPCS: 74221

== ENCOUNTER → 2021-12-10 | Outpatient (CLI) | payer BC, SELFPAY ==
[2021-12-10 10:32] LABS: International Normalized Ratio 1.1; Prothrombin Time (Protime)PT. 14.1 SECONDS (11.7-14.9)
[2021-12-10 10:43] LABS: Hemoglobin A1c 5.7 % (3.8-5.6)
[2021-12-10 10:52] LABS: ALB/GLOB Ratio 0.9 RATIO (0.9-2.4); AST(SGOT) 52 U/L (15-37); Alanine Aminotransfer ALT/SGPT 97 U/L (13-56); Albumin, Serum 3.6 g/dL (3.2-5.0); Alkaline Phosphatase 103 U/L (45-117); Anion Gap 5 (5-15); BUN 8 mg/dL (7-18); CRP 8.94 mg/L (0.0-3.0); Chloride 109 mmol/L (98-107); EST Glomerular Filtration Rate 79 mL/min (>60); Est Glom Filt Rate - Afr Amer 96 mL/min (>60); Globulin 3.8 g/dL (2.2-4.2); Glucose 114 mg/dL (74-106); LDH 315 U/L (84-246); Protein, Total 7.4 g/dL (6.4-8.2); Sodium Level 140 mmol/L (136-145)
[2021-12-10 10:54] LABS: Erythrocyte Sedimentation Rate 21 mm/hr (0-30)
[2021-12-10 11:13] LABS: HIV - WCH Non-Reactive (Nonreactive)
[2021-12-11 15:07] LABS: Anti-Centromere B Ab <0.2 AI (0.0-0.9); Anti-Chromatin <0.2 AI (0.0-0.9); Anti-Jo <0.2 AI (0.0-0.9); Anti-Scleroderma-70 AB 0.3 AI (0.0-0.9); RNP Ab <0.2 AI (0.0-0.9); SJOGREN'S Anti-SS-A test < 0.2 AI (0.0-0.9); SJOGREN'S Anti-SS-B test < 0.2 AI (0.0-0.9); Smith Ab <0.2 AI (0.0-0.9)
[2021-12-12 08:55] LABS: Anti-Mitochondrial AB <20.0 Units (0.0-20.0); Anti-dsDNA Ab 1 IU/mL (0-9)
[2021-12-14 08:09] LABS: Angiotensin Convert Enzyme 23 U/L (14-82); Ceruloplasmin 23.8 mg/dL (19.0-39.0); Cytoplasmic Ab (C-ANCA) <1:20 titer (Neg:<1:20); HEPATITIS B SURFACE AG Negative (Negative); Hep C Antibodies <0.1 s/co ratio (0.0-0.9); Hepatitis A IgM Antibody Negative (Negative)
[2021-12-15 13:37] LABS: AFP, Tumor Marker 2.4 ng/mL (0.0-9.2); Anti-Smooth Muscle ABS 9 Units (0-19); Copper, Serum or Plasma 95 ug/dL (80-158); Haptoglobin 125 mg/dL (33-346); Perinuclear Ab (P-ANCA) <1:20 titer (Neg:<1:20)
[2021-12-15 13:38] LABS: Hepatitis B Core AB IgM Positive (Negative)
== END | disposition home or self-care (01) ==
PROVIDERS: Nurse Practitioner Adult Health; PCP Family Medicine; Referring Provider Internal Medicine Gastroenterology; Visit Provider Internal Medicine Gastroenterology
DX: K76.0 Fatty (change of) liver, not elsewhere classified (principal)
CPT/HCPCS: 36415; 80053; 80074; 82105; 82140; 82164; 82390; 82525; 83010; 83036; 83516; 83615; 85610; 85652; 86140; 86225; 86235; 86256; 86703

== ENCOUNTER → 2021-12-13 | Outpatient (CLI) | payer BC, SELFPAY ==
--- NOTE | 2021-12-13 07:39 | US_ITS ---
STUDY: ABDOMINAL ULTRASOUND - ELASTOGRAPHY REASON FOR VISIT: Female, 56 years old. Fatty infiltration of the liver. TECHNIQUE: Liver stiffness measurements were obtained on a Hydra Dx RS 85 ultrasound machine using a CA 1-7 probe following the SRU guidelines. 3 measurements were obtained using a 2-D-SWE method. The IQR/M was 19% suggesting a quality data set. TECHNICAL QUALITY: Adequate. COMPARISON: Comparison is made with prior examination done earlier today. FINDINGS: Liver: Fatty infiltration of the liver. Hepatomegaly. Median liver stiffness measured 7.8 kPa. US/Elastography Parenchyma/Organ IMPRESSION: Liver stiffness measures 7.8 kPa compatible with F2-F3 (Mild to moderate liver fibrosis) Metavir score. Electronically Signed: Mario Alberto Sesay MD at 13:10 EDT ,
--- NOTE | 2021-12-13 07:39 | US_ITS ---
STUDY: ABDOMINAL ULTRASOUND - RIGHT UPPER QUADRANT REASON FOR VISIT: Female, 56 years old fatty liver TECHNIQUE: Ultrasound evaluation of the right upper quadrant was performed with real-time and static stratton-scale imaging. TECHNICAL QUALITY: Adequate. COMPARISON: Comparison is made with prior study 01/30/2020 FINDINGS: Liver: The liver is enlarged and measures 21.4 cm. There is increased echogenicity consistent with fatty infiltration. The bile ducts are within normal limits. There is hepatic color flow. The direction of portal flow is hepatopetal. There is no demonstrated mass lesion. Gallbladder: The patient is status post cholecystectomy. Common Bile Duct (C.B.D.): The common bile duct measures 7.3 mm. Pancreas: Normal size of the head, body of the pancreas. The tail portion is obscured due to overlying bowel gas. There is normal echogenicity of the pancreas. There is no demonstrated pancreatic mass or cyst. Right Kidney: Normal size of the right kidney. The right kidney measures 13.9 cm x 6 cm x 7.9 cm. Normal renal cortex. The right cortex measures 2.2 cm. There is no demonstrated renal mass or cyst. There is no right hydronephrosis. US/Abdomen Limited IMPRESSION: Hepatomegaly and fatty infiltration of the liver. Electronically Signed: Mario Alberto Sesay MD at 12:58 EDT ,
== END | disposition home or self-care (01) ==
LOC: US 07:38
PROVIDERS: PCP Family Medicine; Visit Provider Nurse Practitioner Adult Health
DX: K76.0 Fatty (change of) liver, not elsewhere classified (principal)
CPT/HCPCS: 76705; 76981

== ENCOUNTER 2021-12-23 07:47 | Day surgery (SDC) | payer BC, SELFPAY ==
[2021-12-23 13:11] VITALS: BP 142/89; PULSE 88; RESP 16; TEMP 36.5; O2SAT 100
[2021-12-23] MEDS: Lidocaine Jelly 2% 20 ML Syringe (URO-JET) 1 APPLIC (13:11)
== END 2021-12-23 13:37 | disposition home or self-care (01) ==
LOC: EN 07:48
PROVIDERS: PCP Family Medicine; Referring Provider Family Medicine; Visit Provider Internal Medicine Gastroenterology
PROC: F00ZJWZ Instrumental Swallowing and Oral Function Assessment using Swallowing Equipment (ICD-10-PCS; CPT 43235; principal; 2021-12-23 07:55)
DX: K22.4 Dyskinesia of esophagus (principal)
CPT/HCPCS: 91010

== ENCOUNTER → 2021-12-29 | Outpatient (CLI) | payer BC, MEDICAID, SELFPAY ==
[2021-12-29 12:34] LABS: CPK Total, Creatine Kinase 165 U/L (26-192); Uric Acid 7.7 mg/dL (2.6-6.0)
[2022-01-04 08:08] LABS: Albumin 3.8 g/dL (2.9-4.4); Alpha-1-Globulins 0.3 g/dL (0.0-0.4); Alpha-2-Globulins 0.7 g/dL (0.4-1.0); Gamma Globulin 1.2 g/dL (0.4-1.8); Immunoglobulin A 182 mg/dL (87-352); Immunoglobulin G 1119 mg/dL (586-1602); Immunoglobulin M 93 mg/dL (26-217); PROEL- TOTAL PROTEIN 7.1 g/dL (6.0-8.5)
[2022-01-04 14:47] LABS: Immunoglobulin E 2 IU/mL (6-495)
== END | disposition home or self-care (01) ==
PROVIDERS: PCP Family Medicine; Referring Provider Nurse Practitioner Adult Health; Visit Provider Nurse Practitioner Adult Health
DX: E72.20 Disorder of urea cycle metabolism, unspecified (principal); R74.02 Elevation of levels of lactic acid dehydrogenase [LDH]; R76.8 Other specified abnormal immunological findings in serum
CPT/HCPCS: 82140; 82550; 82784; 82785; 84165; 84550; 86334

== ENCOUNTER 2022-01-18 14:26 | Day surgery (SDC) | payer BC, SELFPAY ==
[2022-01-18 14:44] VITALS: BP 156/76; PULSE 96; RESP 16; TEMP 36.8; O2SAT 97; BMI 39.4
[2022-01-18] MEDS: Lactated Ringers 1,000 ML 15 ML IV (14:53)
--- NOTE | 2022-01-18 14:53 | HP.PCM_ITS ---
History and Physical Date of Admission: 01/18/22 SCOTT ODEN, is a 56 F who presents to the office today for esophageal spasms. Occurs about 3x per week. Not as severe as when she went to the ED 09/08/21 for chest pain. The spasms started in 08/2021. Not related to eating. Seems more likely to occur when she hasn't eaten for 6 hours. Can have difficulty swallowing at the level of the mian's apple, usually bread or pretzels but can be liquid too. No food or pills have gotten stuck, no ED visits for dysphagia. Dysphagia began about 5 yrs ago, not getting worse, it is staying the same. Hasn't seen ENT. Takes omeprazole 40 mg for GERD; without the PPI she has heartburn, acid refluxes if she bends over. EGD and colonoscopy in 12/[address] Laws. At that time she had anal itch and a dripping sensation in the rectum/anus (nothing came out); no longer has itch, less often has the dripping feeling, feels it at least 4-5x per week--she places qtip in anus and that resolved the issue, sometimes there is a brown gel on the qtip. She had presented to ED in 09/2019 for rectal bleed. No recent hematochezia or melena. She tends to alternate constipation and diarrhea x yrs. Followed by advice clerk Dr Villatoro at [facility] for hereditary hemochromatosis (q3mos labs, if ferritin is 50 or higher she gets phlebotomy) and hx PEs for which she takes xarelto. Has a diagnosis of fatty liver, that was diagnosed more than 6 yrs ago when she lived in [place], no treatment. For years she has had right sided pain, constant ache. After having a?hysterectomy for endometriosis she was diagnosed with heptatitis B, but when evaluated by GI at [facility] they felt that she didn't truly have hep B (that another virus caused false positive). They diagnosed her fatty liver and recommended keeping an eye on it. She takes amitriptyline 100 mg for migraines and insomnia, plan is to try to taper off, she has taken it for at least 15 yrs She has seronegative rheumatoid arthritis, has appt to see [facility] soon. Used to take Humira, she stopped it when Covid pandemic started. Also has OA. 12/08/21 RBC 5.36 high, RDW 16.4 high, otherwise CBC unremarkable; iron 123, ferritin 72 10/21/21 Esophagus Dual Contrast IMPRESSION: Normal plain film x-ray examination (barium swallow) of the esophagus ROS Const Constitutional: Positive for fatigue and headache(s) ENT ENT: Positive for headache(s) and difficulty swallowing Gastro GI: Positive for abdominal pain, constipation, diarrhea, heartburn and difficulty swallowing; No belching, bloating, change in bowel habits, change in stool character, coffee ground emesis, cramping, feeling full early, excessive flatus, incontinent of stools, Vomiting blood/hematemesis, Blood in stool, loose stools, Black,tarry stools, nausea/dyspepsia, pain with swallowing, vomiting or other Musc Musculoskeletal: Positive for joint pain, back pain, joint swelling, muscle cramps, muscle weakness, stiffness and Arthritis Skin Skin: No yellowing of the eye or itchy eyes Neuro Neurology: Positive for headache(s) Psych Psychiatric: No anxiety and No depression Endo Endocrine: Positive for fatigue Aller/Imm Allergy/Immunologic: No itchy eyes Cameron/Lymp Hematologic/Lymphatic: No easy bleeding or easy bruising Exam Const General: cooperative, comfortable and no acute distress Nutritional Appearance: obese Orientation: alert, awake and oriented x3 HENMT Head: normal to inspection Eyes General: appearance normal, both eyes and all related structures Resp Effort & Inspection: normal respiratory effort Skin General: no jaundice Neuro Gait: normal gait Psych Mood: euthymic mood Affect: normal affect Quality Reporting Tobacco Screening ([facility] 138) Smoking Status: Former smoker Assessment and Plan Assessment and Plan (1) Esophageal spasm: ?Status:?Acute ?Plan: 56 yr old female with chest pains that feel like esophageal spasms. Esophagram is normal. She takes omeprazole 40 mg for GERD. Last EGD was 12/2019, no esophageal abnormalities per pt recollection. Plan is esophageal manometry, will contact pt with result. We will also schedule her for EGD since the spasms began since her last EGD. We'll contact her with lab/test results, and then will see her back for f/u 2 wks after EGD. (2) Fatty liver: ?Status:?Acute ?Plan: Discussed fatty liver disease, the biochemical w/u and US/elastography, briefly discussed treatment (3) GERD (gastroesophageal reflux disease): ?Status:?Acute ?Plan: Continue omeprazole 40 mg daily ? ? ? Orders: Orders HIV - [facility] Today K76.0 - Fatty (change of) liver, not elsewhere classified ? Comprehensive Metabolic Profil Today K76.0 - Fatty (change of) liver, not elsewhere classified ? CRP Today K76.0 - Fatty (change of) liver, not elsewhere classified ? LDH Today K76.0 - Fatty (change of) liver, not elsewhere classified ? Hemoglobin A1c Today K76.0 - Fatty (change of) liver, not elsewhere classified ? Prothrombin Time w/INR Today K76.0 - Fatty (change of) liver, not elsewhere classified ? Erythrocyte Sed Rate Today K76.0 - Fatty (change of) liver, not elsewhere classified ? Anti-Mitochondrial AB Today K76.0 - Fatty (change of) liver, not elsewhere classified ? WILD Comprehensive Panel Today K76.0 - Fatty (change of) liver, not elsewhere classified ? Hepatitis Panel Acute Today K76.0 - Fatty (change of) liver, not elsewhere classified ? Angiotensin Convert Enzyme Today K76.0 - Fatty (change of) liver, not elsewhere classified ? AFP, Tumor Marker Today K76.0 - Fatty (change of) liver, not elsewhere classified ? ANCA Today K76.0 - Fatty (change of) liver, not elsewhere classified ? Anti-Smooth Muscle ABS Today K76.0 - Fatty (change of) liver, not elsewhere classified ? Ceruloplasmin Today K76.0 - Fatty (change of) liver, not elsewhere classified ? Copper, Serum or Plasma Today K76.0 - Fatty (change of) liver, not elsewhere classified ? Haptoglobin Today K76.0 - Fatty (change of) liver, not elsewhere classified ? Ammonia Today K76.0 - Fatty (change of) liver, not elsewhere classified ? Abdomen Limited Today K76.0 - Fatty (change of) liver, not elsewhere classified ? Elastography Parenchyma/Organ Today K76.0 - Fatty (change of) liver, not e lsewhere classified ? Medications: Discontinued dicyclomine ?? Discontinued Reason:? Pt no longer taking 20 mg? PO TIDAC ? ? I have re-examined the patient. There are no clinical changes since date of exam.
--- NOTE | 2022-01-18 15:30 | EGD_PTH ---
PATIENT: SCOTT PALOMINO LOC: EN U#:[id number] AGE/SX: 56/F ROOM: RE01/18/[address]: Dr. Ricki Sanchez DO : 1965 BED: DIS: 01/18/2022 SPEC #: [id number] RECD: 01/18/22 16:00 STATUS: NEAL ABDULAZIZ #: [id number] KEVIN: 01/18/22 15:[address]: Ricki Sanchez DEPT: SURGICAL PATHOLOGY RECD BY: Eugenia Barlow ENTERED: 01/19/22 07:58 SP TYPE: EGD BIOPSY WOODY DR: Dr. Noel Snell MD Tissues: Esophagus, NOS Procedures: Special Stain Group II Surgery Specimen Level IV Alcian Blue/PAS (control) HEADER OPERATION: EGD ([facility] [place]), biopsy PRE-OP DIAGNOSIS: Esophageal spasm, GERD TISSUE SUBMITTED: Distal esophagus biopsy MICROSCOPIC DIAGNOSIS Distal esophagus, biopsy: Fragments of gastroesophageal mucosa with mild to moderate chronic inflammation and minimal acute inflammation. Intestinal metaplasia (goblet cell metaplasia) not identified. See comment. JACQUELYN:yany 01/20/2022 COMMENT Alcian blue/PAS stain with matched control is used in the evaluation of the specimen. MICROSCOPIC DESCRIPTION Slides are reviewed. GROSS DESCRIPTION Received in fixative is one container labeled with the patient's name and designated distal esophagus biopsy. The specimen consists of multiple irregular fragments of light oropeza soft tissue that in aggregate measure 1 x 1 x 0.1 cm. The specimen is totally submitted in one cassette. / JACQUELYN:yany 01/19/2022 TC:3 CPT: 96868, 85969
[2022-01-18 16:42] VITALS: BP 156/76; PULSE 94; RESP 18; TEMP 36.8; O2SAT 94
[2022-01-18 16:45] VITALS: BP 135/77; BP 156/76; PULSE 92; RESP 16; O2SAT 94
--- NOTE | 2022-01-18 16:46 | OP.CCLET_ITS ---
01/18/2022 Noel Snell [address] [place] [address] Re : Upper GI endoscopy procedure for María Borges Dear Dr. Snell This procedure was performed on Tuesday, January 18, 2022. My impressions and recommendations are as follows: Impressions : - LA Grade A reflux esophagitis. Biopsied. - Small hiatal hernia. - Normal stomach. - No gross lesions in the second portion of the duodenum. Recommendations : - Discharge patient to home. - Resume previous diet. - Continue present medications. - Await pathology results. My findings are described in the full procedure note, which is enclosed. If I can be of further assistance, please feel free to contact me at . Sincerely, Ricki Sanchez, 01/18/2022 4:46:08 PM This report has been signed electronically.
--- NOTE | 2022-01-18 16:46 | OP.EGD_ITS ---
Patient Name: María Borges Procedure Date: 01/18/2022 4:25 PM Date of : 1965 Age: 56 Procedure: Upper GI endoscopy Indications: Dysphagia, Failure to respond to medical treatment Providers: Ricki Sanchez DO Medicines: Monitored Anesthesia Care Patient Profile: This is a 56 year old female. Refer to note in patient chart for documentation of history and physical. Patient has symptoms of dysphagia with both liquids and solids. Complications: No immediate complications. Procedure: Pre-Anesthesia Assessment: - Prior to the procedure, a History and Physical was performed, and patient medications and allergies were reviewed. The risks and benefits of the procedure and the sedation options and risks were discussed with the patient. All questions were answered and informed consent was obtained. Patient identification and proposed procedure were verified by the physician in the pre-procedure area. Mental Status Examination: alert and oriented. Airway Examination: normal oropharyngeal airway and neck mobility. Respiratory Examination: clear to auscultation. CV Examination: normal. Prophylactic Antibiotics: The patient does not require prophylactic antibiotics. Prior Anticoagulants: The patient has taken no previous anticoagulant or antiplatelet agents. ASA Grade Assessment: II - A patient with mild systemic disease. After reviewing the risks and benefits, the patient was deemed in satisfactory condition to undergo the procedure. The anesthesia plan was to use monitored anesthesia care (MAC). Immediately prior to administration of medications, the patient was re-assessed for adequacy to receive sedatives. The heart rate, respiratory rate, oxygen saturations, blood pressure, adequacy of pulmonary ventilation, and response to care were monitored throughout the procedure. The physical status of the patient was re-assessed after the procedure. After obtaining informed consent, the endoscope was passed under direct vision. Throughout the procedure, the patient's blood pressure, pulse, and oxygen saturations were monitored continuously. The gastroscope was introduced through the mouth, and advanced to the second part of duodenum. The upper GI endoscopy was accomplished without difficulty. The patient tolerated the procedure well. Scope In: 4:34:58 PM Scope Out: 4:38:11 PM Total Procedure Duration Time 0 hours 3 minutes 13 seconds Findings: LA Grade A (one or more mucosal breaks less than 5 mm, not extending between tops of 2 mucosal folds) esophagitis with no bleeding was found 36 to 37 cm from the incisors. Biopsies were taken with a cold forceps for histology. Verification of patient identification for the specimen was done. Estimated blood loss was minimal. A small hiatal hernia was present. The entire examined stomach was normal. No gross lesions were noted in the second portion of the duodenum. Impression: - LA Grade A reflux esophagitis. Biopsied. - Small hiatal hernia. - Normal stomach. - No gross lesions in the second portion of the duodenum. Recommendation: - Discharge patient to home. - Resume previous diet. - Continue present medications. - Await pathology results. Procedure Code(s): --- Professional --- 88923, Esophagogastroduodenoscopy, flexible, transoral; with biopsy, single or multiple CPT copyright 2017 [employer] [place] [employer]. All rights reserved. The codes documented in this report are preliminary and upon hvac lead review may be revised to meet current compliance requirements. Ricki Sanchez DO 01/18/2022 4:46:08 PM This report has been signed electronically. Number of Addenda: 0 Note Initiated On: 01/18/2022 4:25 PM
[2022-01-18 16:50] VITALS: BP 133/70; BP 156/76; PULSE 89; RESP 16; O2SAT 95
[2022-01-18 16:56] VITALS: BP 132/79; BP 156/76; PULSE 86; RESP 16; TEMP 36.3; O2SAT 98
[2022-01-18 17:21] VITALS: BP 156/76
== END 2022-01-18 17:26 | disposition home or self-care (01) ==
LOC: EN 14:26 → AC 14:28
PROVIDERS: PCP Family Medicine; Referring Provider Family Medicine; Visit Provider Internal Medicine Gastroenterology
PROC: 0DJ08ZZ Inspection of Upper Intestinal Tract, Via Natural or Artificial Opening Endoscopic (ICD-10-PCS; CPT 43235; principal; 2022-01-18 15:25)
DX: K21.00 Gastro-esophageal reflux disease with esophagitis, without bleeding (principal); E83.110 Hereditary hemochromatosis; K44.9 Diaphragmatic hernia without obstruction or gangrene; M19.90 Unspecified osteoarthritis, unspecified site; I10 Essential (primary) hypertension; G43.909 Migraine, unspecified, not intractable, without status migrainosus; Z86.711 Personal history of pulmonary embolism; G25.81 Restless legs syndrome; E55.9 Vitamin D deficiency, unspecified; Z79.899 Other long term (current) drug therapy; K76.0 Fatty (change of) liver, not elsewhere classified
CPT/HCPCS: 43239; 88305; 88313

== ENCOUNTER → 2022-01-26 | Outpatient (CLI) | payer BC, SELFPAY ==
[2022-01-26 11:11] LABS: Bacteria 0 SEEN /hpf (None Seen); Mucous, Urine 0 SEEN /hpf (<or=2+); Red Blood Cells-Urine 0 SEEN /hpf (0-5)
[2022-01-26 12:14] LABS: Color, Urine Yellow (Yellow); Glucose, Dipstick Normal (Normal); Ketone-Dipstick Negative (Negative); Leukocyte Esterase-Dipstick 25 /ul (Negative); Nitrite-Dipstick Negative (Negative); Occult Blood-Urine Negative /ul (Negative); Protein-Dipstick Negative (Negative); Urine Bilirubin Dipstick Negative (Negative); Urine Clarity Sl. Cloudy (Clear); Urine Urobilinogen Normal (Normal)
[2022-01-26 12:26] LABS: Absolute Lymphocyte Count 2.44 X10^3/uL (0.83-4.51); Basophil# 0.06 X10^3/uL; Basophil% 0.7 % (0-1); Eosinophil# 0.08 X10^3/uL; Eosinophils% 0.9 % (0-5); Hematocrit 44.2 % (37-47); Hemoglobin 14.1 g/dL (12.0-15.0); Lymphocyte # 2.44 X10^3/ul (0.83-4.51); Lymphocyte % 28.8 % (19-41); Mean Corp Hgb Conc 31.9 g/dL (32-36); Mean Corpuscular Hgb 28.1 pg (27.0-32.0); Mean Corpuscular Volume 88.2 fL (81-99); Mean Platelet Vol. 9.3 fl (6.2-12.0); Monocyte# 0.86 X10^3/uL; Monocyte% 10.1 % (0-10); NRBC Flagged by Analyzer 0 % (0-5); Neutrophil # 5.01 X10^3/uL (2.7-7.7); Neutrophil % 59.1 % (47-70); Platelet Count 393 K/mm3 (150-450); RBC Distribution Width CV 13.7 % (11.6-14.6); RBC Distribution Width SD 43.6 fl (35.1-43.9); Red Blood Count 5.01 M/mm3 (4.2-5.4); White Blood Count 8.5 K/mm3 (4.4-11.0)
[2022-01-26 12:34] LABS: Squamous Epithelial Cells - UA 0-5 SEEN /hpf (5-10); White Blood Cells 0-5 SEEN /hpf (0-5)
[2022-01-26 12:48] LABS: ALB/GLOB Ratio 0.9 RATIO (0.9-2.4); AST(SGOT) 38 U/L (15-37); Alanine Aminotransfer ALT/SGPT 67 U/L (13-56); Albumin, Serum 3.6 g/dL (3.2-5.0); Alkaline Phosphatase 109 U/L (45-117); Anion Gap 4 (5-15); BUN 11 mg/dL (7-18); BUN/Creat Ratio 14.8 RATIO (10-20); Calcium,Total 9.1 mg/dL (8.5-10.1); Chloride 105 mmol/L (98-107); Creatinine, Serum 0.74 mg/dL (0.55-1.02); EST Glomerular Filtration Rate 87 mL/min (>60); Est Glom Filt Rate - Afr Amer 105 mL/min (>60); Glucose 88 mg/dL (74-106); Potassium 3.8 mmol/L (3.5-5.1); Protein, Total 7.6 g/dL (6.4-8.2); Sodium Level 137 mmol/L (136-145)
[2022-01-26 12:49] LABS: Vitamin D,25 Hydroxy 51.3 ng/mL
[2022-01-26 13:15] LABS: Hemoglobin A1c 5.6 % (3.8-5.6)
== END | disposition home or self-care (01) ==
LOC: MFPLAB 11:08
PROVIDERS: PCP Family Medicine; Referring Provider Family Medicine; Visit Provider Family Medicine
DX: I10 Essential (primary) hypertension (principal); R73.02 Impaired glucose tolerance (oral); E55.9 Vitamin D deficiency, unspecified
CPT/HCPCS: 36415; 80053; 81001; 82306; 83036; 85025

== ENCOUNTER → 2022-02-14 | Outpatient (CLI) | payer BC, SELFPAY ==
[2022-02-14 16:15] LABS: CPK Total, Creatine Kinase 169 U/L (26-192)
--- NOTE | 2022-02-14 18:42 | CT_ITS ---
STUDY: CT ABDOMEN AND PELVIS WITH CONTRAST REASON FOR EXAM: Female, 56 years old. Known right renal mass. RADIATION DOSAGE (If Supplied By Facility): CTDIvol = ( 16.64 ) mGy, DLP = ( 1312.78 ) mGycm TECHNIQUE: Transaxial images were obtained from the dome of the diaphragm to the symphysis pubis with oral contrast. Oral and IV Readi-CAT and 100mL Isovue-300 was administered. Sagittal and coronal images were reconstructed. Individualized dose optimization techniques were used for this CT. November COMPARISON: Comparison is made with prior study date 12/07/2020. FINDINGS: The visualized lung bases are unremarkable. The visualized portions of the heart are within normal limits. There is decreased attenuation of the liver consistent with steatosis. The patient is status post cholecystectomy. Normal spleen. Normal pancreas. Normal bilateral adrenal glands. Stable 3.1 cm x 2 cm septated cyst with peripheral calcification along the anterior midportion of the right kidney. Normal left kidney. Normal visualized stomach. Normal small intestine. There are scattered colonic diverticula consistent with diverticulosis. The appendix is visualized and appears normal. Normal abdominal aorta. Normal inferior vena cava. Normal retroperitoneum. Normal urinary bladder. There is absence of the uterus consistent with a prior hysterectomy. Normal abdominal wall. There are mild degenerative changes of the visualized lumbar spine. CT/Abdomen/Pelvis WITH Contrast IMPRESSION: Fatty infiltration of the liver. Stable septated cyst in the right kidney with peripheral calcification. Status post cholecystectomy and hysterectomy. Electronically Signed: Mario Alberto Sesay MD at 12:55 EDT ,
[2022-02-16 16:29] LABS: Aldolase 9.9 U/L (3.3-10.3)
== END | disposition home or self-care (01) ==
LOC: CT 18:40
PROVIDERS: Nurse Practitioner Adult Health; PCP Family Medicine; Referring Provider Family Medicine; Visit Provider Family Medicine
DX: N28.89 Other specified disorders of kidney and ureter (principal); E72.20 Disorder of urea cycle metabolism, unspecified
CPT/HCPCS: 36415; 74177; 82085; 82140; 82550; Q9967

== ENCOUNTER → 2022-03-04 | Outpatient (CLI) | payer BC, SELFPAY ==
--- NOTE | 2022-03-04 16:54 | MRI_ITS ---
INDICATION: hyperammonemia -- EXAMINATION: MR MRCP W/O Contrast TECHNIQUE: Multiplanar and multisequence MR images of the abdomen were obtained with MRCP sequence. Three-dimensional post-processing reconstructions were performed. IV Contrast Dosage and Agent: None. COMPARISON: None. FINDINGS: LIVER: No mass. Normal morphology. GALLBLADDER AND BILIARY TREE: Status post cholecystectomy. The CBD measures 7 mm. Mild extrahepatic biliary ductal dilatation. No choledochal filling defect. PANCREAS: No mass. No pancreatic duct dilation. SPLEEN: Non-enlarged. ADRENAL GLANDS: No nodules. KIDNEYS: Normal renal size and position. No hydronephrosis. Complex cystic lesion in the right upper renal pole, stable in size when compared to most recent CT on 02/14/2022. LYMPH NODES: No enlarged periportal or retroperitoneal lymph nodes. PERITONEUM: No ascites or fluid collection. VESSELS: Aorta is non-dilated. LOWER CHEST: No pleural effusion. MRI/MRCP Abdomen without Contrast IMPRESSION: Mild extrahepatic biliary duct dilatation most likely secondary to reservoir effect status post cholecystectomy. No visualized filling defect or stricture. Stable complex cystic lesion in the right upper renal pole. Electronically Signed: Carlos Rivera MD at 20:10 EST ,
== END | disposition home or self-care (01) ==
LOC: MRI 16:54
PROVIDERS: PCP Family Medicine; Visit Provider Nurse Practitioner Adult Health
DX: E72.20 Disorder of urea cycle metabolism, unspecified (principal); K76.0 Fatty (change of) liver, not elsewhere classified; R76.8 Other specified abnormal immunological findings in serum; E83.119 Hemochromatosis, unspecified
CPT/HCPCS: 74181

== ENCOUNTER → 2022-06-07 | Outpatient (CLI) | payer BC, SELFPAY ==
[2022-06-07 13:44] LABS: Bacteria 0 SEEN /hpf (None Seen); Mucous, Urine 0 SEEN /hpf (<or=2+); Red Blood Cells-Urine 0 SEEN /hpf (0-5); White Blood Cells 0 SEEN /hpf (0-5)
[2022-06-07 15:11] LABS: Absolute Lymphocyte Count 2.63 X10^3/uL (0.83-4.51); Absolute Neutrophil Count 3.6 X10^3/uL (2.0-7.7); Basophil# 0.05 X10^3/uL; Basophil% 0.7 % (0-1); Color, Urine Yellow (Yellow); Eosinophil# 0.06 X10^3/uL; Eosinophils% 0.9 % (0-5); Glucose, Dipstick Normal (Normal); Hematocrit 42.1 % (37-47); Hemoglobin 13.8 g/dL (12.0-15.0); Ketone-Dipstick Negative (Negative); Leukocyte Esterase-Dipstick Negative /ul (Negative); Lymphocyte # 2.63 X10^3/ul (0.83-4.51); Lymphocyte % 37.5 % (19-41); Mean Corp Hgb Conc 32.8 g/dL (32-36); Mean Corpuscular Hgb 28.5 pg (27.0-32.0); Mean Corpuscular Volume 86.8 fL (81-99); Mean Platelet Vol. 9.4 fl (6.2-12.0); Monocyte# 0.61 X10^3/uL; Monocyte% 8.7 % (0-10); NRBC Flagged by Analyzer 0 % (0-5); Neutrophil # 3.64 X10^3/uL (2.7-7.7); Neutrophil % 51.9 % (47-70); Nitrite-Dipstick Negative (Negative); Occult Blood-Urine Negative /ul (Negative); POSITIVE MORPHOLOGY YES; Platelet Count 355 K/mm3 (150-450); Protein-Dipstick Negative (Negative); RBC Distribution Width CV 15.3 % (11.6-14.6); RBC Distribution Width SD 48.7 fl (35.1-43.9); Red Blood Count 4.85 M/mm3 (4.2-5.4); Urine Bilirubin Dipstick Negative (Negative); Urine Clarity Sl. Cloudy (Clear); Urine Urobilinogen Normal (Normal)
[2022-06-07 15:12] LABS: Differential Indicated SCAN CRITERIA MET
[2022-06-07 15:22] LABS: ALB/GLOB Ratio 1.2 RATIO (0.9-2.4); AST(SGOT) 54 U/L (15-37); Alanine Aminotransfer ALT/SGPT 75 U/L (13-56); Albumin, Serum 3.7 g/dL (3.2-5.0); Alkaline Phosphatase 74 U/L (45-117); Anion Gap 8 (5-15); BUN 6 mg/dL (7-18); BUN/Creat Ratio 8.7 RATIO (10-20); Calcium,Total 9.2 mg/dL (8.5-10.1); Chloride 106 mmol/L (98-107); Cholesterol 132 mg/dL (200); Creatinine, Serum 0.69 mg/dL (0.55-1.02); EST Glomerular Filtration Rate 94 mL/min (>60); Est Glom Filt Rate - Afr Amer 113 mL/min (>60); Globulin 3.2 g/dL (2.2-4.2); Glucose 78 mg/dL (74-106); High Density Lipoprotein 32 mg/dL; Potassium 2.9 mmol/L (3.5-5.1); Protein, Total 6.9 g/dL (6.4-8.2); Sodium Level 142 mmol/L (136-145); Triglycerides 81 mg/dL; Very Low Density Lipoprotein 16 mg/dL (5-40)
[2022-06-07 15:24] LABS: Vitamin D,25 Hydroxy 69.4 ng/mL
[2022-06-07 15:25] LABS: Squamous Epithelial Cells - UA 0-5 SEEN /hpf (5-10)
[2022-06-07 15:28] LABS: Hemoglobin A1c 5.1 % (3.8-5.6)
[2022-06-07 15:45] LABS: Differential Comment SCANNED; Reactive Lymphocyte 1+
== END | disposition home or self-care (01) ==
LOC: MFPLAB 13:41
PROVIDERS: PCP Family Medicine; Referring Provider Family Medicine; Visit Provider Family Medicine
DX: I10 Essential (primary) hypertension (principal); R73.02 Impaired glucose tolerance (oral); E55.9 Vitamin D deficiency, unspecified
CPT/HCPCS: 36415; 80053; 80061; 81001; 82306; 83036; 85025

== ENCOUNTER → 2022-06-20 | Outpatient (CLI) | payer BC, SELFPAY ==
[2022-06-20 09:11] LABS: Bacteria 0 SEEN /hpf (None Seen); Mucous, Urine 0 SEEN /hpf (<or=2+); Red Blood Cells-Urine 0 SEEN /hpf (0-5); Squamous Epithelial Cells - UA 0 SEEN /hpf (5-10); White Blood Cells 0 SEEN /hpf (0-5)
[2022-06-20 12:40] LABS: Color, Urine Yellow (Yellow); Glucose, Dipstick Normal (Normal); Ketone-Dipstick Negative (Negative); Leukocyte Esterase-Dipstick Negative /ul (Negative); Nitrite-Dipstick Negative (Negative); Occult Blood-Urine Negative /ul (Negative); Protein-Dipstick Negative (Negative); Urine Bilirubin Dipstick Negative (Negative); Urine Clarity Sl. Cloudy (Clear); Urine Urobilinogen Normal (Normal); Urine pH 6.5 (5.0 - 8.0)
[2022-06-20 12:43] LABS: Absolute Lymphocyte Count 1.76 X10^3/uL (0.83-4.51); Absolute Neutrophil Count 2.8 X10^3/uL (2.0-7.7); Basophil# 0.05 X10^3/uL; Eosinophil# 0.04 X10^3/uL; Eosinophils% 0.8 % (0-5); Hematocrit 45.7 % (37-47); Lymphocyte # 1.76 X10^3/ul (0.83-4.51); Lymphocyte % 33.7 % (19-41); Mean Corp Hgb Conc 32.8 g/dL (32-36); Mean Corpuscular Hgb 29.6 pg (27.0-32.0); Mean Corpuscular Volume 90.1 fL (81-99); Mean Platelet Vol. 10.1 fl (6.2-12.0); Monocyte# 0.55 X10^3/uL; Monocyte% 10.5 % (0-10); NRBC Flagged by Analyzer 0 % (0-5); Neutrophil # 2.81 X10^3/uL (2.7-7.7); Neutrophil % 53.8 % (47-70); Platelet Count 315 K/mm3 (150-450); RBC Distribution Width CV 15.7 % (11.6-14.6); RBC Distribution Width SD 52.1 fl (35.1-43.9); Red Blood Count 5.07 M/mm3 (4.2-5.4); White Blood Count 5.2 K/mm3 (4.4-11.0)
[2022-06-20 13:31] LABS: Vitamin D,25 Hydroxy 66.9 ng/mL
[2022-06-20 13:41] LABS: ALB/GLOB Ratio 1.2 RATIO (0.9-2.4); AST(SGOT) 36 U/L (15-37); Alanine Aminotransfer ALT/SGPT 55 U/L (13-56); Albumin, Serum 3.8 g/dL (3.2-5.0); Alkaline Phosphatase 82 U/L (45-117); Anion Gap 9 (5-15); BUN 8 mg/dL (7-18); BUN/Creat Ratio 10.2 RATIO (10-20); Calcium,Total 9.9 mg/dL (8.5-10.1); Chloride 104 mmol/L (98-107); Creatinine, Serum 0.79 mg/dL (0.55-1.02); EST Glomerular Filtration Rate 81 mL/min (>60); Est Glom Filt Rate - Afr Amer 98 mL/min (>60); Globulin 3.3 g/dL (2.2-4.2); Glucose 96 mg/dL (74-106); Protein, Total 7.1 g/dL (6.4-8.2); Sodium Level 140 mmol/L (136-145)
== END | disposition home or self-care (01) ==
LOC: MFPLAB 09:09
PROVIDERS: PCP Family Medicine; Visit Provider Family Medicine
DX: I10 Essential (primary) hypertension (principal); R73.02 Impaired glucose tolerance (oral); E87.6 Hypokalemia; E55.9 Vitamin D deficiency, unspecified
CPT/HCPCS: 36415; 80053; 81001; 82306; 83036; 85025

== ENCOUNTER → 2022-07-13 | Outpatient (CLI) | payer BC, SELFPAY ==
--- NOTE | 2022-07-13 07:43 | US_ITS ---
STUDY: ABDOMINAL ULTRASOUND - RIGHT UPPER QUADRANT REASON FOR VISIT: Female, 56 years old fatty liver TECHNIQUE: Ultrasound evaluation of the right upper quadrant was performed with real-time and static stratton-scale imaging. TECHNICAL QUALITY: Adequate. COMPARISON: Comparison is made with prior study dated December 13, 2021. FINDINGS: Liver: The liver measures 15.6 cm. There is increased echogenicity consistent with fatty infiltration. The bile ducts are within normal limits. There is hepatic color flow. The direction of portal flow is hepatopetal. There is no demonstrated mass lesion. Gallbladder: The patient is status post cholecystectomy. Common Bile Duct (C.B.D.): The common bile duct measures 8.5 mm. Pancreas: Normal size of the head, body of the pancreas. The tail portion is obscured due to overlying bowel gas. There is normal echogenicity of the pancreas. There is no demonstrated pancreatic mass or cyst. Right Kidney: Normal size of the right kidney. The right kidney measures 13.9 cm x 5.8 cm x 7.2 cm. Normal renal cortex. The right cortex measures 2.2 cm. Stable 3.1 cm x 2.3 cm x 2.1 cm cyst with a rim calcification. There is no right hydronephrosis. US/Abdomen Limited IMPRESSION: Fatty infiltration of the liver. 3.1 cm x 2.3 cm x 2.1 cm right renal cyst with rim calcification. Electronically Signed: Mario Alberto Sesay MD at 15:09 EDT ,
--- NOTE | 2022-07-13 07:43 | US_ITS ---
STUDY: ABDOMINAL ULTRASOUND - ELASTOGRAPHY REASON FOR VISIT: Female, 56 years old. Fatty infiltration of the liver. TECHNIQUE: Liver stiffness measurements were obtained on a [employer] ([place] IT RS 85 ultrasound machine using a CA 1-7 probe following the SRU guidelines. 3 measurements were obtained using a 2-D-SWE method. TheIQR/M was 24 % suggesting a quality data set. TECHNICAL QUALITY: Adequate. COMPARISON: Comparison is made with prior study dated December 13, 2021. FINDINGS: Liver: Fatty infiltration of the liver. Median liver stiffness measured 6.9 kPa. US/Elastography Parenchyma/Organ IMPRESSION: Liver stiffness measures 6.9 kPa compatible with F2-F3 (Mild to moderate liver fibrosis) Metavir score. Electronically Signed: Mario Alberto Sesay MD at 15:21 EDT ,
== END | disposition home or self-care (01) ==
PROVIDERS: PCP Family Medicine; Visit Provider Nurse Practitioner Adult Health
DX: K76.0 Fatty (change of) liver, not elsewhere classified (principal)
CPT/HCPCS: 76705; 76981

== ENCOUNTER → 2022-09-06 | Outpatient (CLI) | payer BC, SELFPAY | END | disposition home or self-care (01) | LOC: SL 11:46 | PROVIDERS: PCP Family Medicine; Visit Provider Nurse Practitioner Acute Care | DX: G47.33 Obstructive sleep apnea (adult) (pediatric) (principal) ==

== ENCOUNTER 2022-09-09 07:39 | Outpatient (CLI) | payer BC, SELFPAY ==
--- NOTE | 2022-09-09 07:44 | CT_ITS ---
STUDY: LOW DOSE CT LUNG CANCER SCREENING REASON FOR EXAM: Female, 56 years old. Greater than 20 pack-year history of smoking, quit 11/13/16 RADIATION DOSAGE (If Supplied By Facility): CTDIvol = ( 4.02 ) mGy, DLP = ( 134.91 ) mGycm TECHNIQUE: No contrast was administered. Low dose technique was utilized (average mAS-38 and kVp 120). 1.25 mm axial source images with a slice interval of 1.25-mm were reconstructed in lung windows. 2.5 mm axial source images with a slice interval of 2.5-mm were reconstructed in lung windows. 5.0 mm axial source images with a slice interval of 5.0-mm were reconstructed in soft tissue windows. COMPARISON: 09/07/2021 Findings: Lung windows show the lungs to be normally expanded. No organized infiltrate, effusion, or suspicious noncalcified mass or nodule is noted. No interval change since the previous study. Soft tissue windows show normal-appearing thyroid. No suspicious axillary, mediastinal, or perihilar adenopathy. No aneurysmal dilatation of the thoracic aorta. Calcified coronary vessels noted. Limited cuts through the upper abdomen do not show a suspicious abnormality. Bony structures show degenerative change CT/Low Dose CT Lung Screening IMPRESSION: Lung-RADS category 1 - Continue annual screening with LDCT in 12 months. IMPORTANT NOTES FOR USE: ACR Lung-RADS Version 1.1 Assessment Categories Release Date: 2018 Category: Coded 0-4 bases on nodule(s) with highest degree of suspicion. Negative screen is defined as categories 1 and 2; a positive screen is defined as categories 3 and 4. Category 3 and 4A nodules that are unchanged on interval CT should be coded as category 2, and individuals returned to screening in 12 months. Category 4X: Category 3 or 4 nodules with additional imaging findings that increase the suspicion of lung cancer, such as spiculation, GGN that doubles in size in 1 year, enlarged lymph notes, etc. Category Modifiers: S (significant finding unrelated to lung cancer) Electronically Signed: Philipp Antonio MD at 8:30 EDT ,
== END 2022-09-09 23:59 | disposition home or self-care (01) ==
LOC: CT 07:41
PROVIDERS: PCP Family Medicine; Referring Provider Nurse Practitioner Acute Care; Visit Provider Nurse Practitioner Acute Care
DX: Z12.2 Encounter for screening for malignant neoplasm of respiratory organs (principal); F17.210 Nicotine dependence, cigarettes, uncomplicated
CPT/HCPCS: 71271

== ENCOUNTER → 2022-10-06 | Outpatient (CLI) | payer BC, SELFPAY ==
[2022-10-06 09:55] LABS: Bacteria 0 SEEN /hpf (None Seen); Mucous, Urine 0 SEEN /hpf (<or=2+); Red Blood Cells-Urine 0 SEEN /hpf (0-5); Squamous Epithelial Cells - UA 0 SEEN /hpf (5-10); White Blood Cells 0 SEEN /hpf (0-5)
[2022-10-06 12:17] LABS: Color, Urine Yellow (Yellow); Glucose, Dipstick Normal (Normal); Ketone-Dipstick Negative (Negative); Leukocyte Esterase-Dipstick Negative /ul (Negative); Nitrite-Dipstick Negative (Negative); Occult Blood-Urine Negative /ul (Negative); Protein-Dipstick Negative (Negative); Urine Bilirubin Dipstick Negative (Negative); Urine Clarity Clear (Clear); Urine Urobilinogen Normal (Normal)
[2022-10-06 12:33] LABS: Vitamin D,25 Hydroxy 69.6 ng/mL
[2022-10-06 12:37] LABS: Hemoglobin A1c 4.7 % (3.8-5.6)
[2022-10-06 12:44] LABS: Absolute Lymphocyte Count 1.92 X10^3/uL (0.83-4.51); Absolute Neutrophil Count 3.8 X10^3/uL (2.0-7.7); Basophil# 0.05 X10^3/uL; Basophil% 0.8 % (0-1); Eosinophil# 0.06 X10^3/uL; Eosinophils% 0.9 % (0-5); Hemoglobin 15.1 g/dL (12.0-15.0); Lymphocyte # 1.92 X10^3/ul (0.83-4.51); Lymphocyte % 29.1 % (19-41); Mean Corp Hgb Conc 32.8 g/dL (32-36); Mean Corpuscular Hgb 30.6 pg (27.0-32.0); Mean Corpuscular Volume 93.1 fL (81-99); Mean Platelet Vol. 9.6 fl (6.2-12.0); Monocyte# 0.69 X10^3/uL; Monocyte% 10.5 % (0-10); NRBC Flagged by Analyzer 0 % (0-5); Neutrophil # 3.84 X10^3/uL (2.7-7.7); Neutrophil % 58.2 % (47-70); Platelet Count 302 K/mm3 (150-450); RBC Distribution Width CV 13.4 % (11.6-14.6); RBC Distribution Width SD 45.6 fl (35.1-43.9); Red Blood Count 4.94 M/mm3 (4.2-5.4); White Blood Count 6.6 K/mm3 (4.4-11.0)
[2022-10-06 12:58] LABS: ALB/GLOB Ratio 1.2 RATIO (0.9-2.4); AST(SGOT) 22 U/L (15-37); Alanine Aminotransfer ALT/SGPT 31 U/L (13-56); Albumin, Serum 3.8 g/dL (3.2-5.0); Alkaline Phosphatase 83 U/L (45-117); Anion Gap 5 (5-15); BUN 13 mg/dL (7-18); BUN/Creat Ratio 18.1 RATIO (10-20); Chloride 107 mmol/L (98-107); Cholesterol 166 mg/dL (200); Creatinine, Serum 0.72 mg/dL (0.55-1.02); EST Glomerular Filtration Rate 90 mL/min (>60); Est Glom Filt Rate - Afr Amer 108 mL/min (>60); Globulin 3.2 g/dL (2.2-4.2); Glucose 89 mg/dL (74-106); High Density Lipoprotein 38 mg/dL; Sodium Level 140 mmol/L (136-145); Thyroid Stim Hormone (TSH) 1.04 uIU/mL (0.358-3.74); Triglycerides 154 mg/dL; Very Low Density Lipoprotein 31 mg/dL (5-40)
== END | disposition home or self-care (01) ==
LOC: MFPLAB 09:51
PROVIDERS: PCP Family Medicine; Visit Provider Family Medicine
DX: I10 Essential (primary) hypertension (principal); R73.02 Impaired glucose tolerance (oral); E55.9 Vitamin D deficiency, unspecified
CPT/HCPCS: 36415; 80053; 80061; 81001; 82306; 83036; 84443; 85025

== ENCOUNTER → 2022-11-01 | Outpatient (CLI) | payer BC, SELFPAY ==
--- NOTE | 2022-11-01 10:46 | STRESSREP_ITS ---
Stress Test Report Date: 11/01/2022 Procedure: Exercise tolerance test/imaging study Indications: Chest pain Consent: Per the patient Procedure: The patient exercised on a Haris protocol for 6 minutes and 31 seconds achieving a peak heart rate of 144 bpm (87% predicted maximal heart rate) with a peak blood pressure 190/78 mmHg and a peak MET capacity of 8.5 METs. The baseline ECG demonstrated normal sinus rhythm. The peak exercise ECG demonstrated no ischemic changes. There were no cardiac dysrhythmias pretest, during exercise, or recovery. The functional capacity was considered average. There was no complaint of chest discomfort during exercise or recovery. The examination was discontinued secondary to target heart rate being achieved and dyspnea. The patient was injected with 13.9 mCi of technetium 99m Cardiolite and subsequently rest SPECT Cardiolite nuclear imaging was obtained in the horizontal long, vertical long, and short axis views. Post-exercise, the patient was injected with 42.0 mCi of technetium 99m Cardiolite and subsequently stress SPECT Cardiolite nuclear imaging was obtained in the horizontal long, vertical long, and short axis views. A gated Cardiolite study at peak stress was obtained. Rest and stress SPECT Cardiolite nuclear imaging status post realignment, normalization, and attenuation correction, demonstrates the appearance of relative uniform tracer uptake and myocardial perfusion appearing within normal limits. There is end systolic thickening and brightening. The gated Cardiolite study demonstrates myocardial thickening and inward wall motion. The reported LVEF is 78%. Impression: 1. Technically adequate (percent predicted maximal heart rate greater than 85%) exercise tolerance test 2. Peak exercise ECG with no ischemic changes 3. There were no cardiac dysrhythmias pretest, during exercise, or recovery 4. Rest and stress SPECT Cardiolite nuclear imaging demonstrate relative uniform tracer uptake and myocardial perfusion appearing within normal limits. 5. The gated Cardiolite study reports an LVEF of 78%. This note was generated with [employer] software. It may contain incorrect words, spelling, and punctuation that were not noted in checking the note before signing.
== END | disposition home or self-care (01) ==
LOC: CVS 06:57
PROVIDERS: PCP Family Medicine; Referring Provider Family Medicine; Visit Provider Family Medicine
DX: I25.10 Atherosclerotic heart disease of native coronary artery without angina pectoris (principal)
CPT/HCPCS: 78452; 93017; A9500; A4216

== ENCOUNTER → 2023-02-14 | Outpatient (CLI) | payer BC, SELFPAY ==
[2023-02-14 10:58] LABS: Erythrocyte Sedimentation Rate 7 mm/hr (0-30)
[2023-02-14 11:17] LABS: CRP < 2.90 mg/L (0.0-3.0); Ferritin 14 ng/mL (8-252); LDH 238 U/L (84-246)
[2023-02-14 11:45] LABS: HIV - WCH Non-Reactive (Nonreactive); Hepatitis B Surface Antibody Reactive; Hepatitis B Surface Antigen Non-Reactive (Nonreactive)
[2023-02-15 12:08] LABS: Anti-Centromere B Ab <0.2 AI (0.0-0.9); Anti-Chromatin <0.2 AI (0.0-0.9); Anti-Jo <0.2 AI (0.0-0.9); Anti-Scleroderma-70 AB 0.2 AI (0.0-0.9); Anti-dsDNA Ab <1 IU/mL (0-9); RNP Ab <0.2 AI (0.0-0.9); SJOGREN'S Anti-SS-A test < 0.2 AI (0.0-0.9); SJOGREN'S Anti-SS-B test < 0.2 AI (0.0-0.9); Smith Ab <0.2 AI (0.0-0.9)
[2023-02-17 17:07] LABS: Cytoplasmic Ab (C-ANCA) <1:20 titer (Neg:<1:20); Endomysial Antibody IgA Negative (Negative); HEPATITIS B SURFACE AG Negative (Negative); Hep C Antibodies Non Reactive (Non Reactive); Hepatitis A IgM Antibody Negative (Negative); Hepatitis B Core AB IgM Positive (Negative); Hepatitis Be Ab Positive (Negative); Hepatitis Be Ag Negative (Negative); Immunoglobulin A 107 mg/dL (87-352); Immunoglobulin E < 2 IU/mL (6-495); Immunoglobulin G 863 mg/dL (586-1602); Immunoglobulin M 45 mg/dL (26-217); Perinuclear Ab (P-ANCA) <1:20 titer (Neg:<1:20); t-Transglutaminase IgA <2 U/mL (0-3)
== END | disposition home or self-care (01) ==
PROVIDERS: PCP Family Medicine; Referring Provider Internal Medicine Gastroenterology; Visit Provider Internal Medicine Gastroenterology
DX: B18.1 Chronic viral hepatitis B without delta-agent (principal)
CPT/HCPCS: 36415; 80074; 82728; 82784; 82785; 83516; 83615; 85652; 86140; 86225; 86235; 86255; 86256; 86703; 86706; 86707; 87340; 87350

== ENCOUNTER → 2023-02-23 | Outpatient (CLI) | payer BC, SELFPAY ==
--- NOTE | 2023-02-23 12:31 | BI_ITS ---
MAMMOGRAPHY - BILATERAL SCREENING REASON FOR EXAM: Female, 57 years old. Routine annual screening examination. PERTINENT HISTORY: Non-contributory. Progressive anteversion of the right alveolar region. TECHNIQUE: Digital bilateral breast toya (3D mammographic acquisition) in the CC and MLO projections. 2-D mediolateral oblique (MLO) and craniocaudad (CC) views of both breasts were obtained. CAD: Full Field Digital Mammography with Computer Added Detection was performed. COMPARISON: Comparison is made with prior study dated November 12, 2020 and September 01, 2018. FINDINGS: Breast Composition: There are scattered areas of fibroglandular density. There is a new 1.3 cm x 1.5 cm spiculated nodule in the retroareolar region of the right breast causing inversion of the right periareolar complex. Correlation with ultrasound is recommended. No other significant abnormalities are identified. BI/SCRN MAMM (CAD)W/TOYA BILAT IMPRESSION: There is a new 1.3 cm x 1.5 cm spiculated nodule in the retroareolar region of the right breast with inversion of the right shoulder complex. Correlation with ultrasound is recommended. ASSESSMENT CATEGORY: BIRADS Category 0: Incomplete. Need additional imaging evaluation. A letter regarding these results will be sent to the patient by the facility within 30 days. Approximately 10% of breast cancers are not detected by mammography. A normal mammogram should not delay biopsy of a clinically suspicious abnormality. [id number] Electronically Signed: Mario Alberto Sesay MD at 13:34 EST ,
== END | disposition home or self-care (01) ==
LOC: OPBI 12:30
PROVIDERS: PCP Family Medicine; Referring Provider Family Medicine; Visit Provider Family Medicine
DX: Z12.31 Encounter for screening mammogram for malignant neoplasm of breast (principal)
CPT/HCPCS: 77063; 77067

== ENCOUNTER → 2023-02-24 | Outpatient (CLI) | payer BC, SELFPAY ==
--- NOTE | 2023-02-24 10:15 | US_ITS ---
STUDY: ULTRASOUND BREAST - RIGHT REASON FOR EXAM: Female, 57 years old. Abnormal screening mammogram. TECHNIQUE: Axial and longitudinal images of the RIGHT breast were performed with a high resolution ultrasound transducer. # OF IMAGES: 57 COMPARISON: Comparison is made with prior mammogram dated February 23, 2023. FINDINGS: RIGHT Breast: In the retroareolar region, there is a 1 cm x 1.3 cm x 0.9 cm irregular hypoechoic nodular density with posterior acoustical shadowing and increased vascularity. This causes inversion of the nipple. This corresponds to the mammographic findings. There is a second 4 mm x 8 mm x 6 mm ill-defined hypoechoic nodule at the 9:00 position breast at 4 cm from the nipple with increased vascularity. Biopsy of both lesions recommended for further evaluation. US/Breast Limited Unilateral IMPRESSION: Biopsy recommended of the previously mentioned nodules in the right breast. ASSESSMENT CATEGORY: BIRADS Category 4: Suspicious - Biopsy Should Be Considered. A letter regarding these results will be sent to the patient by the facility within 30 days. Electronically Signed: Mario Alberto Sesay MD at 15:11 EST ,
== END | disposition home or self-care (01) ==
LOC: OPUS 10:14
PROVIDERS: PCP Family Medicine; Referring Provider Family Medicine; Visit Provider Family Medicine
DX: R92.8 Other abnormal and inconclusive findings on diagnostic imaging of breast (principal)
CPT/HCPCS: 76642

== ENCOUNTER → 2023-03-02 | Outpatient (CLI) | payer BC, SELFPAY ==
--- NOTE | 2023-03-02 | IMM_PTH ---
PATIENT: SCOTT PALOMINO LOC: [facility]#:[id number] AGE/SX: 57/F ROOM: RE03/02/[address]: Dr. Shaina Weston MD : 1965 BED: DIS: 03/02/2023 SPEC #: [id number] RECD: 03/03/23 15:00 STATUS: NEAL REQ #: [id number] KEVIN: 03/02/23 00:[address]: Shaina Weston DEPT: IMMUNOHISTOCHEMISTRY RECD BY: Armida Freed ENTERED: 03/03/23 15:02 SP TYPE: IMMUNO OTHR DR: Dr. Noel Snell MD Tissues: A - Right breast, NOS B - Right breast, NOS Procedures: CALPONIN-1 (add) CK5-6 (add) CK8 (add) E-CAD (add) HER2 LISHA (add) KI-67 (add) P53 (add) ID (add) P40 (add) MOC-31 (add) ER (initial) PHYSICIAN & [address] [address] SPECIMEN INFORMATION: Tissue Source: A - Right breast at 6 o'clock, B - Right breast at 9 o'clock Clinical Info: Right breast mass x2 Specimen Number: [id number] A & B CPT code: 91114 x2, 38276 x14, 35215 x6 METHODOLOGY: Deparaffinized sections of prefer/formalin-fixed tissue or PAP/DQ stained slides are incubated with monoclonal/polyclonal antibodies/oligonucleotide probes. Localization is made via biotin free immunoperoxidase method. Appropriate controls are performed and reacted as expected. Results on target cell population are indicated in the following table: RESULTS: ANTIBODY / CLONE RESULT Block A P53 (DO-7) negative, null pattern Ki-67 (30-9) positive, 15% CK8 (09xtfuP55) positive CK5-6 (D5 & 1684) negative Calponin-1 (GB586F) negative P40 (BC28) negative E-Cad (ECH-6) positive MOC-31 (4561) positive, dim MORPHOMETRIC ANALYSIS ER (clone 6F11) 25%, dim staining intensity ID (clone 16/1E2) 65%, dim staining intensity Her-2Neu (clone CB11) 3+ Block B P53 (DO-7) negative, null pattern Ki-67 (30-9) positive CK8 (09sifpM93) positive CK5-6 (D5 & 1684) negative Calponin-1 (RV774U) negative P40 (BC28) negative E-Cad (ECH-6) positive MOC-31 (4561) positive, rare, dim MORPHOMETRIC ANALYSIS ER (clone 6F11) 15%, dim staining intensity ID (clone 16/1E2) 2%, dim staining intensity Her-2Neu (clone CB11) 3+ The prognostic test for HER2 is performed on formalin-fixed paraffin embedded tissue. A 3+ (positive) staining pattern is defined as intense, homogeneous, complete, circumferential membranous staining in >10% of contiguous tumor cells. A similar weak (2+) staining pattern is interpreted as equivocal. TERRENCE follow-up testing is recommended for all equivocal cases. Positivity/negativity for ER/ID is reported if > or < 1% of the tumor cells are immuno- reactive, respectively. The ASCO/CAP criteria is used for scoring. Reference: Journal of Clinical Oncology, 2013; 31:3052-9486 & 2010; 16:1589-4021. Ischemic time: Less than one hour. Duration of fixation: 6.5 Hrs; Sample Adequate: Yes. These assays have not been validated on decalcified tissues. Results should be interpreted with caution given the likelihood of false negativity on decalcified specimens or fixation greater than 72 hours. Alternative testing methods (FISH/dualISH for Her2; gene expression for ER) are recommended, if applicable. Please notify the laboratory if additional testing is required. These tests were developed and their performance characteristics determined by [facility]. They may not have been cleared or approved by the U.S. Food and Drug Administration. The FDA has determined that such clearance or approval is not necessary. The above immunohistochemical/dualISH markers are ordered and reviewed by the Pathologist. INTERPRETATION: A. Right breast at 6 o'clock, needle core biopsy: Invasive ductal carcinoma, grade 3. Positive for estrogen receptors (favorable prognostic indicator). Positive for progesterone receptors (favorable prognostic indicator). Positive for overexpression of VZT7zsa. B. Right breast at 9 o'clock, needle core biopsy: Invasive ductal carcinoma, grade 3. Positive for estrogen receptors (favorable prognostic indicator). Positive for progesterone receptors (favorable prognostic indicator). Positive for overexpression of MLE3phw. AM:yany 03/06/2023
--- NOTE | 2023-03-02 | BRBX_PTH ---
PATIENT: SCOTT PALOMINO LOC: [facility] [[email or web address]]#:[id number] AGE/SX: 57/F ROOM: RE03/02/[address]: Dr. Shaina Weston MD : 1965 BED: DIS: 03/02/2023 SPEC #: [id number] RECD: 03/02/23 13:10 STATUS: NEAL REMirna #: [id number] KEVIN: 03/02/23 00:[address]: Shaina Weston DEPT: SURGICAL PATHOLOGY RECD BY: Carol Ann Rubi ENTERED: 03/02/23 13:11 SP TYPE: BREAST BX OTHR DR: Dr. Noel Snell MD Tissues: A - Right breast, NOS B - Right breast, NOS Procedures: Surgery Specimen Level IV HEADER OPERATION: Ultrasound-guided right breast biopsy PRE-OP DIAGNOSIS: Right breast mass x2 TISSUE SUBMITTED: A - Right breast 6 o'clock, 1.0 cm from nipple, B - Right breast 9 o'clock, 4.0 cm from nipple MICROSCOPIC DIAGNOSIS A. Right breast at 6 o'clock, needle core biopsy: Invasive ductal carcinoma with the following characteristics: Nuclear grade - 3/3 Maximal length - 13 millimeters See comment. B. Right breast at 9 o'clock, needle core biopsy: Invasive ductal carcinoma with the following characteristics: Nuclear grade - 3/3 Maximal length - 9 millimeters See comment. AM:yany 03/03/2023 COMMENT A & B. Immunohistochemistry ([id number]) supports the above diagnosis. This case was discussed with Dr. Weston on 03/03/2023. MICROSCOPIC DESCRIPTION Slides are reviewed. GROSS DESCRIPTION A - Received in fixative is one container labeled with the patient's name and designated right breast mass #1. The specimen consists of two cores. Each core has an average length of 1.6 cm and maximal diameter of 0.2 cm. The specimen is totally submitted in one cassette. B - Received in fixative is one container labeled with the patient's name and designated right breast mass #2. The specimen consists of two cores. Each core has an average length of 1.6 cm and maximal diameter of 0.2 cm. The specimen is totally submitted in one cassette. / AM:yany 03/02/2023 TC:0 Ischemic Time: 30 seconds Fixation Time: 6.5 hours CPT: 46953 x2
--- NOTE | 2023-03-02 11:45 | US_ITS ---
STUDY: ULTRASOUND BREAST - RIGHT REASON FOR EXAM: Female, 57 years old. Ultrasound-guided right breast biopsy. TECHNIQUE: Axial and longitudinal images of the RIGHT breast were performed with a high resolution ultrasound transducer. # OF IMAGES: 26 COMPARISON: Comparison is made with prior sonogram dated February 24, 2023. FINDINGS: RIGHT Breast: Under direct sonographic guidance, the surgeon performed core biopsies of the nodule situated at the 6:00 position of the breast at 1 cm from the nipple as well as at the 9:00 position of the breast at 4 cm from the nipple. US/US Breast Biopsy 1st Lesion IMPRESSION: Successful ultrasound-guided breast biopsies. ASSESSMENT CATEGORY: BIRADS Category 2: Benign. A letter regarding these results will be sent to the patient by the facility within 30 days. Electronically Signed: Mario Alberto Sesay MD at 14:20 EST ,
--- NOTE | 2023-03-02 12:44 | PCM.OPRPT ---
Report of Operation Date of Procedure: 03/02/23 Pre-Operative Diagnosis: Right breast mass x2 Post-Operative Diagnosis: Same Surgery/Procedure Performed:: Ultrasound-guided right breast biopsy x2 Surgeon: Shaina Weston Type of Anesthesia: Local Specimen's removed: 1. Right breast mass 9:00 4 cm from the nipple, 2. Right breast mass 6:00 1 cm from the nipple Estimated Blood Loss (mL): < 10 cc Description of Procedure: Procedure: Right ultrasound-guided core biopsy x2 Indications: 57year-old female with irregular hypoechoic nodules at 9:00 4 cm from nipple and 6:00 1 cm from the nipple in the right breast. Patient is on Xarelto which she has held and will continue to hold until least tomorrow. Risk benefits were discussed the patient and she elected to proceed with ultrasound guided core biopsy with clip placement Description of procedure: Patient was brought into the ultrasound room in the right breast was marked. A timeout was completed verifying correct patient, procedure, site, specially, prior to beginning procedure. Both lesions were done similarly. The right breast was prepped and draped in usual sterile fashion and using local anesthesia was obtained with 1% lidocaine with epi. The lesion was located with the ultrasound. Small incision was made with 11 blade to introduced the BARD MaxCore through the skin. Under ultrasound guidance multiple core samples were obtained using then 14-gauge BARD MaxCore and sent in formalin for pathology. The Bard dual ultra-(9:00 coil and 6:00 ribbon) clip was then deployed into the biopsy cavity under ultrasound guidance and a picture was taken. Upon completion procedure hemostasis was obtained and a Steri-Strip and OpSite were placed. Patient was then taken to the mammography suite for clip verification. The clip was verified. The patient tolerated the procedure well and was discharged from the breast imaging department good condition. Complications none Procedures Integumentary 16xxx-193xx: [id number] Bx breast 1st lesion us imag (x 2)
== END | disposition home or self-care (01) ==
PROVIDERS: PCP Family Medicine; Referring Provider Surgery; Visit Provider Surgery
DX: C50.811 Malignant neoplasm of overlapping sites of right female breast (principal); Z79.01 Long term (current) use of anticoagulants
CPT/HCPCS: 19083; 19084; 81002; 88305; 88341; 88342

== ENCOUNTER → 2023-03-14 | Outpatient (CLI) | payer BC, MEDICAID, SELFPAY ==
--- NOTE | 2023-03-14 09:54 | MRI_ITS ---
STUDY: BILATERAL BREAST MR WITHOUT AND WITH CONTRAST REASON FOR EXAM: Female, 57 years old. Right breast mass. TECHNIQUE: Multi-sequence multi-echo imaging of both breasts was performed with a dedicated breast coil. T1-weighted and T2-weighted images were performed before the administration of contrast. T1-weighted images were also performed after the intravenous administration of 19ml of Clariscan contrast. COMPARISON: Bilateral mammograms dated August 2018, April 2020, February 2023 and right breast ultrasound dated February 24, 2023. FINDINGS: RIGHT BREAST: Predominantly fatty breast tissue with minimal background enhancement. Thickening and retraction of the right nipple with an irregular enhancing mass in the retroareolar region measuring 3.3 cm x 2.3 cm. Enhancing linear enhancing lesion posterior to this retroareolar mass extending into the upper aspect of the breast with extensive linear non-mass enhancement in the upper outer quadrant measuring approximately 4.7 cm x 1.3 cm. This area of non-mass enhancement contiguous to and connecting with the index lesion is highly suspicious for multicentric tumor involvement. Multiple enlarged right axillary lymph nodes highly suspicious for involvement with tumor, the largest measuring 1.6 cm x 1.3 centimeters. LEFT BREAST: Predominantly fatty replaced breast tissue with minimal background enhancement. No abnormal enhancing masses or areas of non-mass enhancement in the left breast. No enlarged or abnormal left axillary lymph nodes. No abnormality in the visualized regions of the chest or liver. MRI/Breast Bilateral W/O and W IMPRESSION: No pleural thickening and retraction with a large enhancing irregular mass adjacent to the nipple, linear enhancement extending into the upper outer quadrant of the right breast and multiple enlarged right axillary lymph nodes, all of which are highly suspicious for multicentric tumor involvement in these areas in the right breast. Multiple enlarged enhancing right axillary lymph nodes highly suspicious for axillary tumor involvement. No abnormality in the left breast. CATEGORY: BIRADS Category 6: Known Biopsy-Proven Malignancy - Appropriate Action Should Be Taken. A letter regarding these results will be sent to the patient by the facility within 30 days. Electronically Signed: Inderjit Avendano MD at 15:26 EST ,
== END | disposition home or self-care (01) ==
PROVIDERS: PCP Family Medicine; Visit Provider Surgery
DX: R92.8 Other abnormal and inconclusive findings on diagnostic imaging of breast (principal); N63.10 Unspecified lump in the right breast, unspecified quadrant
CPT/HCPCS: 77049; A9575; A4216; C8908

== ENCOUNTER 2023-03-21 05:51 | Day surgery (SDC) | payer BC, SELFPAY ==
--- NOTE | 2023-03-21 | IMM_PTH ---
PATIENT: SCOTT PALOMINO LOC: [facility] [place] U#:[id number] AGE/SX: 57/F ROOM: RE03/21/[address]: Dr. Shaina Weston MD : 1965 BED: DIS: 03/21/2023 SPEC #: [id number] RECD: 03/22/23 14:22 STATUS: SOUMorris REQ #: [id number] KEVIN: 03/21/23 00:[address]: Shaina Weston DEPT: IMMUNOHISTOCHEMISTRY RECD BY: Armida Freed ENTERED: 03/22/23 14:24 SP TYPE: IMMUNO OTHR DR: Dr. Noel Snell MD Tissues: Axillary lymph node, NOS Procedures: CK8 (add) E-CAD (add) KI-67 (add) MAMM (add) TN (add) Pankeratin (add) GATA3 (add) ER (initial) PHYSICIAN & INSTITUTION [place] [address] SPECIMEN INFORMATION: Tissue Source: Right axillary lymph node Clinical Info: Invasive ductal carcinoma of breast Specimen Number: [id number] CPT code: 29083, 64571 x7 METHODOLOGY: Deparaffinized sections of prefer/formalin-fixed tissue or PAP/DQ stained slides are incubated with monoclonal/polyclonal antibodies/oligonucleotide probes. Localization is made via biotin free immunoperoxidase method. Appropriate controls are performed and reacted as expected. Results on target cell population are indicated in the following table: RESULTS: ANTIBODY / CLONE RESULT ER (6F11) positive, dim, focal TN (1E2) positive, dim, focal E-Cad (ECH-6) positive Mammaglobin (31A5) positive GATA3 (L50-823) positive AE1-3 (AE1/AE3/PCK26) positive CK8 (38rtumJ81) positive Ki-67 (30-9) positive, 85% These tests were developed and their performance characteristics determined by [facility]. They may not have been cleared or approved by the U.S. Food and Drug Administration. The FDA has determined that such clearance or approval is not necessary. The above immunohistochemical/dualISH markers are ordered and reviewed by the Pathologist. INTERPRETATION: Right axillary lymph node, biopsy: Metastatic poorly differentiated ductal carcinoma of breast origin. AM:yany 03/23/2023
[2023-03-21] MEDS: Lactated Ringers 1,000 ML 15 ML IV (06:36)
[2023-03-21 06:40] VITALS: BP 128/68; PULSE 69; RESP 16; TEMP 36.7; O2SAT 96; BMI 34.1
--- NOTE | 2023-03-21 06:57 | HP.PCM_ITS ---
History and Physical Date of Admission: 03/21/23 Date of Service: 03/14/23 MR#: [id number] Acct: [id number] Name: SCOTT ODEN Rep #: [id number] : 1965 Provider: Dr. Shaina Weston MD Age/Sex: 57/F Location: [facility] Status: Signed Intake Vital Signs 03/01/2313:04 03/14/2309:09 Height 5 ft 6 in 5 ft 6 in Weight: 213 lb BMI 34.3 BP 129/85 H Blood Pressure Location Lt brachial Position Sitting Respiration 17 Pulse 73 Pulse Source Monitor Pulse Oximetry (%) 96 Oxygen Delivery Method room air Intake Visit Reasons: PORT PLACEMENT Chief Complaint: port placement Is patient in pain?: No Allergies No Known Allergies Allergy (Verified 03/14/23 09:10) Medications lisinopril 40 mg tablet 40 mg PO DAILY hypertension 08/31/16 [History Confirmed 03/14/23] omeprazole 20 mg tablet,delayed release 40 mg PO DAILY gerd 08/31/16 [History Confirmed 03/14/23] rivaroxaban 15 mg tablet 20 mg PO DAILY blood thinner 03/26/21 [History Confirmed 03/14/23] ursodiol 300 mg capsule 300 mg PO BID #180 caps 12/16/21 [Rx Confirmed 03/14/23] cholecalciferol (vitamin D3) 125 mcg (5,000 unit) tablet (Vitamin D3) 125 mcg PO DAILY 01/14/22 [History Confirmed 03/14/23] melatonin 12 mg tablet 12 mg PO QHS 01/14/22 [History Confirmed 03/14/23] kbdtkmtq-yyzt-rzil 8 mg-folic 400 mcg-K 50 mcg-lutein 300 mcg tablet (Centrum Silver Women) 1 tab PO DAILY 01/14/22 [History Confirmed 03/14/23] sulfasalazine 500 mg tablet 1.5 g PO BID 01/14/22 [History Confirmed 03/14/23] vitamin E 800 unit capsule 800 unit PO DAILY 01/14/22 [History Confirmed 03/14/23] amitriptyline 100 mg tablet 100 mg PO QHS #90 tabs 02/07/22 [Rx Confirmed 03/14/23] lorazepam 1 mg tablet See Rx Instructions PO .COMPLEX #2 tabs 10/31/22 [Rx Confirmed 03/14/23] pregabalin 75 mg capsule (Lyrica) 75 mg PO QHS 07/14/22 [History Confirmed 03/14/23] PFSH Medical History (Updated 03/14/23 @ 09:[address] Shaina Weston MD) Anxiety Arthritis Back pain Cancer CPAP (continuous positive airway pressure) dependence Difficulty swallowing Epigastric pain Fatty liver Former smoker Gastric reflux History of echocardiogram History of hiatal hernia History of stress test History of thyroid nodule Hypertension Injury of head and neck Insomnia Iron overload Jackhammer esophagus Knee pain Leg cramps Migraine headache Normal Holter exam Pulmonary embolism Seronegative rheumatoid arthritis Shortness of breath on exertion Shoulder pain Vitamin D deficiency Wears glasses Surgical History (Updated 03/07/23 @ 11:48 by Hermila Prater) History of cholecystectomy History of hand surgery History of hysterectomy Hx of breast biopsy Hx of colonoscopy Hx of esophagogastroduodenoscopy Family History Mother Cancer HypertensionFather Cancer Social History household members: none Smoking Status: Former smoker alcohol intake: never substance use type: does not use HPI HPI HPI: 57-year-old female presents for discussion of port placement. Patient recently diagnosed with invasive ductal carcinoma of the right breast mild-moderate ER/SC positive, HER2/kristin positive patient is seen Dr. Villatoro. Plan for neoadjuvant chemotherapy. ROS General General: Yes weight change and breast cancer; No appetite, fatigue or colon cancer HEENT HEENT: Yes difficulty swallowing; No eye injury, eye surgery, swollen glands or hoarseness Endo Endocrine: No thyroid disease, diabetes mellitus, thyroid cancer, Hair loss, heat intolerance or cold intolerance Skin Skin: No rash or changing moles Musc Musculoskeletal: Yes back problems, arthritis and rheumatoid arthritis; No gout or joint pain Cardio Cardiovascular: Yes high blood pressure; No murmur, pacemaker, heart disease, atrial fibrillation, heart attack, heart stent, palpitations, shortness of breat with exertion or chest pain Psych Psychiatric: No depression, anxiety or hearing voices Resp Respiratory: No shortness of breath, Yes sleep apnea, No cough, No COPD, No asthma, No emphysema and No wheezing Gastro Gastrointestinal: Yes abdominal pain, No nausea or vomiting, No diarrhea, No constipation, No blood in stool, Yes acid reflux, Yes hemorrhoids, No ulcers, No gallbladder problem and No black,tarry stools Cameron Hematologic: Yes blood thinners, Yes blood disorders, No bleeding, No anemia and Yes blood clots Neuro Neurologic: No numbness and No tingling Exam Const General: cooperative, healthy appearing and no acute distress [facility] Head: normal to inspection Neck Neck: supple Chest Other: Right breast biopsy sites healing well, resolving ecchymosis to the right nipple area, inverted right nipple Palpation bilateral upper chest normal Resp Effort & Inspection: normal respiratory effort Cardio Rate: regular rate GI Palpation: soft Skin General: no rashes or lesions noted Neuro General: patient oriented x3 Extrem General: no clubbing, cyanosis or edema Psych Affect: normal affect Assessment and Plan Assessment and Plan (1) Encounter for insertion of venous access port: Status: Acute (2) Invasive ductal carcinoma of breast: Status: Acute Plan Patient has continue to hold her Xarelto. Port placement planned for March 21. Patient may start chemotherapy on March 22 or . I have discussed above with the patient- Port-a-Cath placement. Left IJ possible right Patient has been counseled as to the risks/benefits of the procedure. I have explained the risks of the surgery, including but not limited to: infection, bleeding, injury to any blood vessels/nerves, injury to lungs (such as pneumothorax or hemothorax and need for chest tube), not having any access, nonfunctioning of port due to thrombosis, infection of port, etc. the patient understands and agrees to proceed. I have answered all the patient's questions to the patient?s satisfaction and the patient has no further questions. Shaina Weston M.D. Pager: [phone] [facility] [address] [place] [address], [address] [place] [address] Office: [phone] Coding Level of Care Code Off vis,est,level 3 Diagnoses Encounter for insertion of venous access port Z45.2 Invasive ductal carcinoma of breast C50.919 03/14/23 0929 <Electronically signed by Shaina Weston MD> Date Shaina Weston MD
[2023-03-21] MEDS: Cefazolin 2 GM in 0.9% Normal Saline (100mL Bag) 100 ML IV (07:28)
--- NOTE | 2023-03-21 07:30 | AXNB_PTH ---
PATIENT: SCOTT PALOMINO [place]: [facility] [place]#:[id number] AGE/SX: 57/F ROOM: RE03/21/[address]: Dr. Shaina Weston MD : 1965 BED: DIS: 03/21/2023 SPEC #: [id number] RECD: 03/21/23 10:48 STATUS: NEAL REMirna #: [id number] KEVIN: 03/21/23 07:[address]: Shaina Weston DEPT: SURGICAL PATHOLOGY RECD BY: Maribel Candelaria ENTERED: 03/21/23 11:53 SP TYPE: AX NODE BX OTHR DR: Dr. Noel Snell MD Tissues: Axillary lymph node, NOS Procedures: Surgery Specimen Level IV HEADER OPERATION: Left insertion, vascular port, axillary node biopsy PRE-OP DIAGNOSIS: Invasive ductal carcinoma of breast TISSUE SUBMITTED: Right axillary node biopsy MICROSCOPIC DIAGNOSIS Right axillary lymph node, core biopsy: Metastatic carcinoma consistent with breast primary. See comment. AM:yany 03/22/2023 COMMENT Immunohistochemistry ([id number]) supports the above diagnosis. Reference is made to the patient's previous right breast needle core biopsies ([id number]) in which invasive ductal carcinoma was identified. Case has been reviewed in consultation with Dr. Cote who concurs with the above diagnosis. IDC:SJ MICROSCOPIC DESCRIPTION Slides are reviewed. GROSS DESCRIPTION Received in fixative is one container labeled with the patient's name and designated right axillary node biopsy. The specimen consists of two cores of oropeza tissue. Each core has an average length of 1.0 cm and maximal diameter of 0.1 cm. The specimen is totally submitted in one cassette. / AM:yany 03/21/2023 TC:0 CPT: 93656
[2023-03-21] MEDS: Bupivacaine Mpf 0.5% 30 ML VIAL OPERA.SITE (08:15)
[2023-03-21] MEDS: Lidocaine 1% /Epi 1:100 (50ml) 50 ML VIAL OPERA.SITE (08:15)
--- NOTE | 2023-03-21 08:27 | RAD_ITS ---
STUDY: X-RAY CHEST REASON FOR EXAM: Female, 57 years old. port -- pacu TECHNIQUE: Single AP portable view of the chest. COMPARISON: Comparison is made with prior study of September 08, 2021. FINDINGS: A left-sided dimitri catheter has been placed. The tip is at the junction of the superior vena cava and right atrium. Increased linear markings are seen at the left base suggestive of atelectasis. There is no demonstrated pleural abnormality. There is borderline cardiomegaly. Normal mediastinum and kash. Normal visualized pulmonary arteries. Normal visualized aortic arch and descending thoracic aorta. Normal visualized thoracic spine. Normal visualized ribs, clavicles, and shoulders. There is no demonstrated abnormality of the visualized soft tissue structures of the upper abdomen. RAD/Chest 1 View (Portable) IMPRESSION: The tip of the left dimitri catheter is at the junction of the superior vena cava and right atrium. Findings suggestive of early atelectasis at the left lung base. Electronically Signed: Mario Alberto Sesay MD at 9:03 EST ,
--- NOTE | 2023-03-21 08:28 | OP.PCM_ITS ---
Report of Operation Date of Procedure: 03/21/23 Pre-Operative Diagnosis: Z45.2, right breast cancer, right axillary lymphadenop athy Post-Operative Diagnosis: Same Surgery/Procedure Performed:: 1. Placement of left IJ Port-A-Cath 2. Use of ultrasound 3. Use of fluoroscopy 4. Right axillary lymph node ultrasound-guided core biopsy Surgeon: Shaina Weston Type of Anesthesia: Local MAC Anesthesiologist: Good Steiner Special Medications: Ancef 2 g IV x 1 Specimen's removed: 1. Right axillary lymph node Estimated Blood Loss (mL): < 10 cc Description of Procedure: After informed consent was given, the patient was brought to the operating room and placed in the supine position. Appropriate time out protocol was followed. Patient was then given IV conscious sedation for anesthesia. The patient's upper chest and neck were then prepped with a surgical skin preparation and sterile surgical drapes were placed. After proper landmarks were ascertained, the skin at the upper left chest area was then infiltrated with 1:1 mixture of 1% lidocaine with epinephrine and 0.5% marcaine. A needle trocar was then inserted into the left internal jugular vein with ultrasound guidance-multiple vessels were viewed with u/s and the left IJ was chosen-- and there was good aspiration of venous blood. A wire was then threaded into the needle trocar and this was visualized under fluoroscopy to ensure that the wire was in the superior vena cava. Once this was done, then the needle trocar was removed. A small skin garfield was made with an 11 blade knife at the wire entrance site. The dilator with the introducer sheath attached was then placed over the wire into the left internal jugular vein via the Seldinger technique and this was visualized under fluoroscopy. The dilator and sheath were in proper position as visualized by fluoroscopy. A subcutaneous pocket was then created caudad to the catheter insertion site. A transverse skin incision was made after the skin and subcutaneous tissues were infiltrated with local anesthetic. Blunt dissection was then used to create a space large enough for placement of the subcutaneous port. The catheter was then tunneled into the subcutaneous pocket. The wire and dilator were then removed. The catheter was then threaded into the introducer sheath and was positioned with its tip at the junction of the superior vena cava and the right atrium as visualized under fluoroscopy. The excess catheter was transected. The catheter was then attached to the subcutaneous port using manufacturers guidelines. The catheter was flushed with a heparin saline mixture prior to placement. Hemostasis was carefully controlled with electrocautery. The port was sutured to the subcutaneous fascia using 2-0 Vicryl suture at two sites. The port was then placed in the subcutaneous pocket. The incision were reapproximated with interrupted subdermal 3-0 vicryl sutures. The skin was reapproximated with 3-0 nylon suture in a interrupted fashion. Steristrips were used for reinforcement of the skin closure at IJ insertion site and a sterile opsite dressings were applied. The patient tolerated the procedure well. Procedure: Right axillary lymph node ultrasound-guided core biopsy Indications: 57 year-old female with known right breast cancer and right axillary lymphadenopathy on MRI. Description of procedure: The right axilla was marked. A timeout was completed verifying correct patient, procedure, site, specially, prior to beginning procedure. The right axilla was prepped and draped in usual sterile fashion and using local anesthesia was obtained with 1% lidocaine with epi. The an enlarged lymph node was located with the ultrasound. Small incision was made with 11 blade to introduced the BARD MaxCore through the skin. Under ultrasound guidance multiple core samples were obtained using then 14-gauge BARD MaxCore and sent in formalin for pathology. The Bard dual ultra ribbon clip was then deployed into the biopsy cavity under ultrasound guidance and a picture was taken. Upon completion procedure hemostasis was obtained and a Steri-Strip and OpSite were placed. The patient tolerated the procedure well and was discharged from the breast imaging department good condition. Grafts/Implants Used: Bard PowerPort isp M.R.I. 6Fr Lot [id number], Bard-ribbon clip in R LN Complications none
--- NOTE | 2023-03-21 08:33 | DCINST_ITS ---
Discharge Instructions Procedure Port-A-Cath Diet Discharge Diet: Light diet - advance as tolerated Activity May shower in (days): 5 (Keep port site clean and dry x5 days. Neck incision okay to get wet after 1 day. Okay to lower shower and upper sponge bath. OR okay to taper off port site with a Ziploc bag to shower) Lifting Restrictions: No lifting > 15 pounds for 3 days with the arm on the side of the port Dressing / Incision Call your doctor if your incision/area has: Continuous Slow Oozing, Sudden Increased Bleeding, Increased Pain/ Swelling, Increased Redness, Foul Smelling Discharge and Swelling at the incision site Call your doctor if you observe: Fever of 101 or Higher Change Dressing in: 2 days (2-3 days- port site; ok to remove neck opsite in 1 day) Follow Up Care Please Follow Up With: Shaina Weston MD When: In 10 days for permanent suture removal?call office for appointment Test Results: Test results from this visit will be discussed in further detail at your follow- up appointment, if applicable. Discharge Plan Admission Attending Provider: Shaina Weston Primary Care Provider: Noel Snell Discharge Orders/Prescriptions Prescriptions: New tramadol 50 mg tablet 50 mg PO Q6H PRN (Reason: pain) Qty: 3 0RF Continued pregabalin [Lyrica] 75 mg capsule 75 mg PO QHS sulfasalazine 500 mg Tablet 1.5 g PO BID Rx Instructions: give with food (meal/snack) vitamin E 800 unit Capsule 800 unit PO DAILY cholecalciferol (vitamin D3) [Vitamin D3] 125 mcg (5,000 unit) Tablet 125 mcg PO DAILY melatonin 12 mg Tablet 12 mg PO QHS lisinopril 40 MG tablet 40 mg PO DAILY omeprazole 20 MG tablet,delayed release (DR/EC) 40 mg PO DAILY amitriptyline 100 mg tablet 100 mg PO QHS Qty: 90 3RF ursodiol 300 mg capsule 300 mg PO BID Qty: 180 3RF Held rivaroxaban 15 mg tablet 20 mg PO DAILY Hold Instructions: Per Dr. Villatoro Referrals / Follow Up: Noel Snell MD [Primary Care Provider] - Disposition Disposition (needs filled in before D/C Order can be placed): Home, Self Care
[2023-03-21 08:37] VITALS: BP 125/80; BP 128/68; PULSE 89; TEMP 36.4; O2SAT 100
[2023-03-21 08:40] VITALS: BP 128/68; BP 133/82; PULSE 87; RESP 18; O2SAT 97
[2023-03-21 08:48] VITALS: BP 128/68; BP 131/78; PULSE 81; RESP 18; O2SAT 99
[2023-03-21 08:50] VITALS: BP 128/68; BP 134/93; PULSE 81; RESP 18; TEMP 36.1; O2SAT 98
[2023-03-21 09:53] VITALS: BP 128/68
== END 2023-03-21 10:00 | disposition home or self-care (01) ==
LOC: SDC 05:52 → AC 05:53
PROVIDERS: PCP Family Medicine; Referring Provider Surgery; Visit Provider Surgery
PROC: (CPT 36561; principal; 2023-03-21 07:15)
DX: Z45.2 Encounter for adjustment and management of vascular access device (principal); C77.3 Secondary and unspecified malignant neoplasm of axilla and upper limb lymph nodes; C50.911 Malignant neoplasm of unspecified site of right female breast; I10 Essential (primary) hypertension; Z87.891 Personal history of nicotine dependence; R59.0 Localized enlarged lymph nodes; Z79.899 Other long term (current) drug therapy; Z17.0 Estrogen receptor positive status [ER+]; Z79.01 Long term (current) use of anticoagulants
CPT/HCPCS: 36561; 38505; 00532; 71045; 77001; 88305; 88341; 88342; J7120; J2405

== ENCOUNTER 2023-04-03 17:26 | Emergency (ER) | payer BC, SELFPAY ==
[2023-04-03] VITALS (16 sets, daily range): BP systolic 109–140; BP diastolic 60–99; PULSE 87–132; RESP 12–24; TEMP 35.9–36.7; O2SAT 95–100; BMI 33.5
--- NOTE | 2023-04-03 17:49 | EDS_ITS ---
HPI History of Present Illness Chief Complaint: Abd Pain Detail of Chief Complaint: Abdominal pain with nausea and diarrhea. Informant: patient Onset/Context/Timing Onset: Yesterday (Abdominal pain started yesterday and localized to the right lower quadrant.) and Weeks (Onset of diarrhea approximately 1 week ago.) Context: Sudden Onset Timing: Waxes and wanes Quality: Pain Location: Right lower quadrant Current Severity: Moderate Maximum Severity: Severe Worsened by: Possibly walking Relieved by: Nothing Associated Symptoms Associated Symptoms: Thirst, dry mouth, diarrhea with blood and mucus Narrative Narrative: Patient has history of stage Ib breast cancer who was sent in because of abdominal pain, nausea and diarrhea. Diarrhea started last Monday. She states she is had 5 loose stools per day. She has noted blood and mucus. There is no history of inflammatory bowel disorder. She does endorse nausea without vomiting. She has not been on an antibiotic in the past month. There is no history of pseudomembranous enterocolitis. She does endorse thirst, dry mouth and decreased urination. She is status postcholecystectomy. There is no history of renal ureterolithiasis. Patient denies fever or chills. Patient denies headache. Patient denies visual, ocular auditory symptoms. Patient denies chest pain, pressure or tightness. She denies shortness of breath. She denies dyspnea on exertion. Patient does have a port left subclavian region. It is functional. She has not noticed any redness or drainage. 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 Knee pain Leg cramps Migraine headache Normal Holter exam Pulmonary embolism Seronegative rheumatoid arthritis Shortness of breath on exertion Shoulder pain Vitamin D deficiency Wears glasses Home Medications lisinopril 40 mg tablet 40 mg PO DAILY hypertension 08/31/16 [History Last Taken 03/21/23] omeprazole 20 mg tablet,delayed release 40 mg PO DAILY gerd 08/31/16 [History Last Taken 03/21/23] rivaroxaban 15 mg tablet 20 mg PO DAILY blood thinner 03/26/21 [History Last Taken 02/25/23] cholecalciferol (vitamin D3) 125 mcg (5,000 unit) tablet (Vitamin D3) 125 mcg PO DAILY 01/14/22 [History Last Taken Unknown] melatonin 12 mg tablet 12 mg PO QHS 01/14/22 [History Last Taken Unknown] sulfasalazine 500 mg tablet 1.5 g PO BID 01/14/22 [History Last Taken Unknown] vitamin E 800 unit capsule 800 unit PO DAILY 01/14/22 [History Last Taken Unknown] amitriptyline 100 mg tablet 100 mg PO QHS #90 tabs 02/07/22 [Rx Last Taken Unknown] pregabalin 75 mg capsule (Lyrica) 75 mg PO QHS 07/14/22 [History Last Taken Unknown] ursodiol 300 mg capsule 300 mg PO BID #180 caps 03/17/23 [Rx Last Taken Unknown] tramadol 50 mg tablet 50 mg PO Q6H PRN pain #3 tabs 03/21/23 [Rx Last Taken Unknown] ciprofloxacin HCl 500 mg tablet 500 mg PO BID #14 TABLETS 04/03/23 [Rx Last Taken Unknown] metronidazole 500 mg tablet 500 mg PO Q8H #21 tabs 04/03/23 [Rx Last Taken Unknown] Allergy/AdvReac Type Severity Reaction Status Date / Time No Known Allergies Allergy Verified 04/03/23 17:26 Family History Mother Cancer Hypertension Father Cancer Surgical History History of cholecystectomy History of hand surgery History of hysterectomy History of laparoscopy Hx of breast biopsy Hx of colonoscopy Hx of esophagogastroduodenoscopy Social History household members: none Smoking Status: Former smoker alcohol intake: never substance use type: does not use ROS ROS ED Constitutional Constitutional ED: Reports chills, fever(s) and subjective; Denies sweats or weight loss Eyes Eyes: Denies blurry vision, change in vision or diplopia ENT ENT ED: Denies ear pain, rhinorrhea or sore throat Cardiovascular Cardiovascular: Denies chest pain or palpitations Respiratory/Chest Respiratory/Chest: Denies cough, dyspnea or dyspnea on exertion Gastrointestinal Gastrointestinal: Reports abdominal pain, diarrhea, nausea and other Details: hematochezia ; Denies constipation, melena or vomiting Genitourinary Genitourinary ED: Denies dysuria Musculoskeletal Musculoskeletal: Denies arthralgias or myalgias Integumentary Denies rash Neurologic Neurologic: Reports weakness; Denies headache(s) or paresthesias Endocrine Endocrinology: Reports cold intolerance; Denies heat intolerance Hematologic/Lymphatic Hematologic/Lymphatic: Reports systems reviewed and no addt'l complaints, except as documented EXAM Physical Exam Const Vital Signs: 04/03/23 17:27 04/03/23 17:35 04/03/23 18:35 Temperature 96.6 F L 97.6 F L 98.0 F Temperature Source Temporal Temporal Temporal Pulse Rate 89 113 H 132 H Respiratory Rate 18 16 12 Blood Pressure 135/80 H 140/90 H 132/99 H Blood Pressure Mean 98 106 110 Pulse Ox 100 99 100 Oxygen Delivery Method Room Air Room Air Room Air Positive well nourished, well developed and obese Constitutional Narrative: Appears ill. She is pale. Does not appear toxic. General Appearance ED: well developed and pallor; Negative for cyanotic, diaphoretic or NAD Nutritional Appearance: obese HEENT Reports dry mucous membranes HEENT Narrative: Head is atraumatic and normocephalic. Ears are normal. Nares are patent. Posterior pharynx without erythema or exudate. Uvula is midline. Mouth ED: Yes dry mucous membranes Mouth: dry mucous membranes Eyes PERRL and EOMs intact bilaterally General Eye ED: Negative for pale conjunctiva or scleral icterus Neck no lymphadenopathy, supple and no JVD Chest Wall inspection of chest normal and palpation of chest normal Resp normal respiratory effort and clear to auscultation bilaterally Cardio regular rate, regular rhythm, S1 normal heart sound, S2 normal heart sound and no murmurs GI normal to inspection, nondistended, normoactive bowel sounds, non-tender, non- distended and no masses; Negative for hepatosplenomegaly Back/Spine no CVA tenderness Extremity normal to inspection General Extremety ED: Negative for edema or tenderness General Extremity: Negative for edema Neuro oriented x3 and CN's II-XII intact bilaterally Sensorium / Orientation: alert Psych mental status grossly normal Skin no rashes or lesions noted, no wounds and No skin turgor normal General Skin Exam: pallor; Negative for jaundice MDM MDM MDM Narrative Medical decision making narrative: Diagnosis would include adverse reaction to chemotherapy, viral illness. This may represent COVID. Because patient had diarrhea for 1 week with blood and mucus stool was sent for enteric pathogens. CBC was obtained to assess white count differential and H&H. Clinically she does not appear anemic. BMP to assess renal function. Clinically she appears dehydrated. Fluids were ordered. Use of [facility] revealed blood work from the seventh. Blood work that was obtained to date is not available on [facility] at this time. History & Record Review Additional record(s) reviewed:: Prior outpatient record and Prior labs Lab Data Attestation: I reviewed the patient's lab results. Lab results narrative: White count is elevated 14.9 thousand with slight shift. H&H is normal. Comprehensive metabolic panel is normal. UA is negative. Labs: Laboratory Results - last 24 hr 04/03/23 04/03/23 17:59 18:45 WBC 14.9 H RBC 4.66 Hgb 14.0 Hct 42.0 MCV 90.1 MCH 30.0 MCHC 33.3 RDW Std Deviation 42.1 RDW Coeff of Ember 13.0 Plt Count 235 MPV 9.2 Immature Gran % (Auto) 2.500 H Neut % (Auto) 74.5 H Lymph % (Auto) 15.2 L Storey % (Auto) 7.3 Eos % (Auto) 0.0 Baso % (Auto) 0.5 Absolute Neuts (auto) 11.1 H Absolute Lymphs (auto) 2.26 Nucleated RBC % 0 Sodium 138 Potassium 3.5 Chloride 104 Carbon Dioxide 29.0 Anion Gap 5 BUN 16 Creatinine 1.02 Estim Creat Clear Calc 58.34 Est GFR (MDRD) Af Amer 72 Est GFR (MDRD) Non-Af 60 BUN/Creatinine Ratio 15.7 Glucose 101 Calcium 9.6 Total Bilirubin 0.20 AST 22 ALT 23 Alkaline Phosphatase 132 H Total Protein 7.2 Albumin 3.6 Globulin 3.6 Albumin/Globulin Ratio 1.0 Urine Color Yellow Urine Clarity Clear Urine pH 7.0 Ur Specific [place] 1.010 Urine Protein Negative Urine Glucose (UA) Normal Urine Ketones Negative Urine Occult Blood Negative Urine Nitrite Negative Urine Bilirubin Negative Urine Urobilinogen Normal Ur Leukocyte Esterase Negative Urine RBC 0 SEEN Urine WBC 0 SEEN Ur Squamous Epith Cells 0 SEEN Urine Bacteria 0 SEEN Urine Mucus 0 SEEN Radiography Diagnostic Testing: Clinical Impression(s) from Imaging Studies Abdomen/Pelvis CT 04/03/23 18:58 IMPRESSION: 1. Wall thickening suggesting short segment proctocolitis involving the rectum and sigmoid colon. No complications. 2. No other acute or inflammatory disease or bowel obstruction. 3. Complex cystic lesion with nodular calcifications involving the anterior aspect of the lower pole of the right kidney measures up to 3.4 x 1.8 cm. Follow-up or further investigation may be needed to exclude cystic neoplasm. Electronically Signed: Pedro Funez MD at 20:14 EST , CT was reviewed by me. Report was read. Patient reports feeling much better. CAT scan reveals evidence of acute proctocolitis involving the rectum and sigmoid colon. Since patient has improved markedly after fluids will discuss case with her oncologist and suggest outpatient therapy with p.o. ciprofloxacin and metronidazole. Treatment and Re-Evaluation :: Because patient has right lower quadrant abdominal pain in the proximity McBurney's point with elevated white count CT of the abdomen was obtained. CT of the abdomen per my review reveals a large right kidney stone. There is no evidence of appendicitis or inflammatory changes. Awaiting formal read by radiologist, 1942 Comments:: Case was discussed with Dr. Bk Villatoro. Patient was informed of plan. She received first dose of ciprofloxacin metronidazole. Prescription was prescribed for both. She is to call Dr. Arora's office tomorrow morning. Her present heart rate is 86 on the monitor and sinus. Discharge Plan Triage Chief Complaint: Abd Pain ED Provider: Bart Robbins Dx/Rx/DC Orders Clinical Impression: Stage I breast cancer in female, Acute dehydration, Bloody diarrhea, Proctocolitis with rectal bleeding, Leukocytosis Instructions: ED Understanding Colitis Prescriptions: New metronidazole [metronidazole] 500 mg tablet 500 mg PO Q8H Qty: 21 0RF ciprofloxacin HCl [ciprofloxacin HCl] 500 mg tablet 500 mg PO BID Qty: 14 0RF No Action pregabalin [Lyrica] 75 mg capsule 75 mg PO QHS rivaroxaban 15 mg tablet 20 mg PO DAILY Hold Instructions: Per Dr. Villatoro sulfasalazine 500 mg Tablet 1.5 g PO BID Rx Instructions: give with food (meal/snack) vitamin E 800 unit Capsule 800 unit PO DAILY cholecalciferol (vitamin D3) [Vitamin D3] 125 mcg (5,000 unit) Tablet 125 mcg PO DAILY melatonin 12 mg Tablet 12 mg PO QHS tramadol 50 mg tablet 50 mg PO Q6H PRN (Reason: pain) Qty: 3 0RF lisinopril 40 MG tablet 40 mg PO DAILY omeprazole 20 MG tablet,delayed release (DR/EC) 40 mg PO DAILY amitriptyline 100 mg tablet 100 mg PO QHS Qty: 90 3RF ursodiol 300 mg capsule 300 mg PO BID Qty: 180 3RF Primary Care Provider: Noel Snell Referrals: Noel Snell MD [Primary Care Provider] - Bk Villatoro DO [Med Staff - Active Staff] - As soon as possible Disposition Disposition: Home, Self Care
[2023-04-03] MEDS: 0.9% Normal Saline (1000mL) 1,000 ML 1000 ML IV (17:54)
[2023-04-03] MEDS: Ondansetron 4 MG/2 ML Vial IV (17:54)
[2023-04-03] MEDS: Morphine 4 MG/ML Syringe IV (17:54)
[2023-04-03 18:08] LABS: Absolute Lymphocyte Count 2.26 X10^3/uL (0.83-4.51); Absolute Neutrophil Count 11.1 X10^3/uL (2.0-7.7); Basophil# 0.08 X10^3/uL; Basophil% 0.5 % (0-1); Lymphocyte # 2.26 X10^3/ul (0.83-4.51); Lymphocyte % 15.2 % (19-41); Mean Corp Hgb Conc 33.3 g/dL (32-36); Mean Corpuscular Volume 90.1 fL (81-99); Mean Platelet Vol. 9.2 fl (6.2-12.0); Monocyte# 1.09 X10^3/uL; Monocyte% 7.3 % (0-10); NRBC Flagged by Analyzer 0 % (0-5); Neutrophil # 11.07 X10^3/uL (2.7-7.7); Neutrophil % 74.5 % (47-70); Platelet Count 235 K/mm3 (150-450); RBC Distribution Width SD 42.1 fl (35.1-43.9); Red Blood Count 4.66 M/mm3 (4.2-5.4); White Blood Count 14.9 K/mm3 (4.4-11.0)
[2023-04-03 18:29] LABS: AST(SGOT) 22 U/L (15-37); Alanine Aminotransfer ALT/SGPT 23 U/L (13-56); Albumin, Serum 3.6 g/dL (3.2-5.0); Alkaline Phosphatase 132 U/L (45-117); Anion Gap 5 (5-15); BUN 16 mg/dL (7-18); BUN/Creat Ratio 15.7 RATIO (10-20); Calcium,Total 9.6 mg/dL (8.5-10.1); Chloride 104 mmol/L (98-107); Creatinine, Serum 1.02 mg/dL (0.55-1.02); EST Glomerular Filtration Rate 60 mL/min (>60); Est Glom Filt Rate - Afr Amer 72 mL/min (>60); Estimated Creatinine Clearance 58.34 ml/min; Globulin 3.6 g/dL (2.2-4.2); Glucose 101 mg/dL (74-106); Potassium 3.5 mmol/L (3.5-5.1); Protein, Total 7.2 g/dL (6.4-8.2); Sodium Level 138 mmol/L (136-145)
[2023-04-03 18:55] LABS: Bacteria 0 SEEN /hpf (None Seen); Mucous, Urine 0 SEEN /hpf (<or=2+); Red Blood Cells-Urine 0 SEEN /hpf (0-5); Squamous Epithelial Cells - UA 0 SEEN /hpf (5-10); White Blood Cells 0 SEEN /hpf (0-5)
[2023-04-03 18:56] LABS: Color, Urine Yellow (Yellow); Glucose, Dipstick Normal (Normal); Ketone-Dipstick Negative (Negative); Leukocyte Esterase-Dipstick Negative /ul (Negative); Nitrite-Dipstick Negative (Negative); Occult Blood-Urine Negative /ul (Negative); Protein-Dipstick Negative (Negative); Urine Bilirubin Dipstick Negative (Negative); Urine Clarity Clear (Clear); Urine Urobilinogen Normal (Normal)
--- NOTE | 2023-04-03 18:58 | CT_ITS ---
EXAM: CT ABDOMEN AND PELVIS WITH INTRAVENOUS CONTRAST CLINICAL INDICATION: RLQ, bloody diarrhea, on chemo TECHNIQUE: Helically acquired images were obtained of the abdomen and pelvis with intravenous contrast. CTDIvol = ( 17.75 ) mGy, DLP = ( 1176.27 ) mGycm This CT exam was performed using one or more of the following dose reduction techniques: automated exposure control, adjustment of the mA and/or kV according to patient size, and/or use of iterative reconstruction technique. CONTRAST: IV 100mL Isovue-370 COMPARISON: No relevant prior studies available. FINDINGS: LOWER THORAX: Unremarkable. Lung bases are clear. No cardiomegaly. No significant pericardial effusion. ABDOMEN: LIVER: Unremarkable. Homogeneous. No focal mass. GALLBLADDER AND BILE DUCTS: Prior cholecystectomy. No intra- or extrahepatic biliary ductal dilation. PANCREAS: Unremarkable. No focal cystic or solid mass. SPLEEN: Unremarkable. Normal size without focal cystic or solid mass. ADRENALS: Unremarkable. No nodules. KIDNEYS AND URETERS: Complex cystic lesion with nodular calcifications involving the anterior aspect of the lower pole of the right kidney measures up to 3.4 x 1.8 cm. No other renal abnormalities. No hydronephrosis. STOMACH AND BOWEL: Wall thickening suggesting short segment proctocolitis involving the rectum and sigmoid colon. No complications. No stomach or bowel distention. PELVIS: APPENDIX: No evidence of acute appendicitis. BLADDER: Unremarkable. REPRODUCTIVE: Unremarkable as visualized. No mass. ABDOMEN and PELVIS: INTRAPERITONEAL SPACE: Unremarkable. No ascites or other fluid collection. No free air. BONES/JOINTS: Moderate degenerative disc disease at L5-S1 with moderate degenerative neural foraminal stenosis bilaterally. No suspicious lytic or blastic abnormality. SOFT TISSUES: Unremarkable. No discrete abdominal or pelvic wall hernia. VASCULATURE: Unremarkable. Abdominal aorta is non-dilated. LYMPH NODES: Unremarkable. No enlarged lymph nodes. CT/Abdomen/Pelvis W IV Cont ONLY IMPRESSION: 1. Wall thickening suggesting short segment proctocolitis involving the rectum and sigmoid colon. No complications. 2. No other acute or inflammatory disease or bowel obstruction. 3. Complex cystic lesion with nodular calcifications involving the anterior aspect of the lower pole of the right kidney measures up to 3.4 x 1.8 cm. Follow-up or further investigation may be needed to exclude cystic neoplasm. Electronically Signed: Pedro Funez MD at 20:14 EST ,
[2023-04-03] MEDS: metroNIDAZOLE 500 MG Tablet PO (20:46)
[2023-04-03] MEDS: Ciprofloxacin 500 MG Tablet PO (20:46)
== END 2023-04-03 20:50 | disposition home or self-care (01) ==
PROVIDERS: Emergency Provider Emergency Medicine; PCP Family Medicine; Visit Provider Emergency Medicine
DX: K51.311 Ulcerative (chronic) rectosigmoiditis with rectal bleeding (principal); M06.00 Rheumatoid arthritis without rheumatoid factor, unspecified site; C50.919 Malignant neoplasm of unspecified site of unspecified female breast; D72.829 Elevated white blood cell count, unspecified; I10 Essential (primary) hypertension; E86.0 Dehydration; F41.9 Anxiety disorder, unspecified; M19.90 Unspecified osteoarthritis, unspecified site; K21.9 Gastro-esophageal reflux disease without esophagitis; E55.9 Vitamin D deficiency, unspecified; Z79.899 Other long term (current) drug therapy; Z86.711 Personal history of pulmonary embolism; Z87.891 Personal history of nicotine dependence
CPT/HCPCS: 74177; 80053; 81001; 85025; 87811; 96361; 96374; 96375; 99285; J7030; J2405

== ENCOUNTER 2023-04-21 19:16 | Emergency (ER) | payer BC, SELFPAY ==
[2023-04-21 19:16] VITALS: BP 114/69; PULSE 127; RESP 16; TEMP 36.6; O2SAT 98; BMI 32.9
--- NOTE | 2023-04-21 19:49 | EX.ED.DYSGE1 ---
HPI History of Present Illness Chief Complaint: Diarrhea Informant: patient Narrative Narrative: Patient presents with generalized weakness tachycardia and diarrhea. Patient has breast cancer. She is started with chemotherapy back in early March. She had diarrhea with that. She had her last chemotherapy couple weeks ago. They gave her some medicine to decrease diarrhea which helped for 2 days. But she is back to having watery diarrhea. She is on Xarelto for history of pulmonary emboli but she is not having bleeding. When she first had diarrhea she had some cramping but she is not having any pain or cramping now. She is drinking plain water trying to keep up. She is also on potassium supplements. She has tried other meds [id number] and prescription to slow the diarrhea nothing is working. She was admitted to [facility] couple weeks ago for this. She states no matter how much she tries to drink she falls behind she is getting lightheaded again and her heart rate is going up so she knows she is getting dehydrated. [facility] Medical History Anxiety Arthritis Back pain Cancer CPAP (continuous positive airway pressure) dependence Difficulty swallowing Epigastric pain Fatty liver Former smoker Gastric reflux History of echocardiogram History of hiatal hernia History of stress test History of thyroid nodule Hypertension Injury of head and neck Insomnia Iron overload Jackhammer esophagus Knee pain Leg cramps Migraine headache Normal Holter exam Pulmonary embolism Seronegative rheumatoid arthritis Shortness of breath on exertion Shoulder pain Vitamin D deficiency Wears glasses Home Medications lisinopril 40 mg tablet 40 mg PO DAILY hypertension 08/31/16 [History Last Taken 03/21/23] omeprazole 20 mg tablet,delayed release 40 mg PO DAILY gerd 08/31/16 [History Last Taken 03/21/23] rivaroxaban 15 mg tablet 20 mg PO DAILY blood thinner 03/26/21 [History Last Taken 02/25/23] cholecalciferol (vitamin D3) 125 mcg (5,000 unit) tablet (Vitamin D3) 125 mcg PO DAILY 01/14/22 [History Last Taken Unknown] melatonin 12 mg tablet 12 mg PO QHS 01/14/22 [History Last Taken Unknown] sulfasalazine 500 mg tablet 1.5 g PO BID 01/14/22 [History Last Taken Unknown] vitamin E 800 unit capsule 800 unit PO DAILY 01/14/22 [History Last Taken Unknown] amitriptyline 100 mg tablet 100 mg PO QHS #90 tabs 02/07/22 [Rx Last Taken Unknown] pregabalin 75 mg capsule (Lyrica) 75 mg PO QHS 07/14/22 [History Last Taken Unknown] ursodiol 300 mg capsule 300 mg PO BID #180 caps 03/17/23 [Rx Last Taken Unknown] diphenoxylate-atropine 2.5 mg-0.025 mg tablet 2 tab PO Q6H PRN diarrhea 04/21/23 [History Last Taken Unknown] potassium chloride 20 mEq tablet,extended release 20 meq PO BID 04/21/23 [History Last Taken Unknown] prochlorperazine maleate 10 mg tablet 10 mg PO Q6H PRN nausea and vomiting 04/21/23 [History Last Taken Unknown] Allergy/AdvReac Type Severity Reaction Status Date / Time No Known Allergies Allergy Verified 04/21/23 19:20 Family History Mother Cancer Hypertension Father Cancer Surgical History History of cholecystectomy History of hand surgery History of hysterectomy History of laparoscopy Hx of breast biopsy Hx of colonoscopy Hx of esophagogastroduodenoscopy Social History household members: none Smoking Status: Former smoker alcohol intake: never substance use type: does not use ROS ROS ED Constitutional Constitutional ED: Denies chills or fever(s) Eyes Eyes: Denies change in vision ENT ENT ED: Denies rhinorrhea or sore throat Cardiovascular Cardiovascular: Denies chest pain or palpitations Respiratory/Chest Respiratory/Chest: Denies cough or dyspnea Gastrointestinal Gastrointestinal: Reports diarrhea and nausea; Denies abdominal pain or vomiting Genitourinary Genitourinary ED: Denies dysuria Musculoskeletal Musculoskeletal: Denies myalgias Integumentary Denies rash Neurologic Neurologic: Denies headache(s) Hematologic/Lymphatic Hematologic/Lymphatic: Reports easy bleeding and easy bruising Allergic/Immunologic Allergic/Immunologic ED: Denies urticaria EXAM Physical Exam Narrative Exam Narrative: CONSTITUTIONAL: Patient is nontoxic in appearance. The patient looks comfortable. HEENT: No notable trauma. Mucous membranes do look dry. EYES: No conjunctival injection. No pallor. CARDIOVASCULAR: Tachycardic rate. Regular rhythm. No notable murmur. No JVD. She has a med port in the left upper chest. This was placed early March. It looks good and does not look infected. RESPIRATORY: No respiratory distress. Breathing is unlabored. No wheezes. No rhonchi. No rales. No pain with a deep breath. Saturations are normal at 98% on room air showing no hypoxia. GASTROINTESTINAL: Not distended. Bowel sounds are normal to slightly increased.. No tenderness. No guarding. No rebound. No palpable mass. No bruit. Overall benign abdomen. But I do not doubt her significant diarrhea. GENITOURINARY: No tenderness over the bladder. No CVA tenderness. MUSCULOSKELETAL: Atraumatic. No peripheral edema. No tenderness. NEUROLOGICAL: Patient is alert and appropriate. No focal deficit noted. SKIN: No noted rashes. No diaphoresis. PSYCHIATRIC: Patient is calm. Mood is appropriate. Const Vital Signs: 04/21/23 19:16 Temperature 97.9 F Temperature Source Temporal Pulse Rate 127 H Respiratory Rate 16 Blood Pressure 114/69 Blood Pressure Mean 84 Pulse Ox 98 Oxygen Delivery Method Room Air MDM MDM MDM Narrative Medical decision making narrative: My independent interpretation of the patient's single view chest x-ray shows no sign of acute process. Raft and CBC shows elevated white count at 23.9. But the patient got Neulasta with her chemotherapy treatment. Platelets and hemoglobin are normal. Despite this white count I do not think we need to do a CAT scan. She states she has absolutely no pain whatsoever. I think this white count is due to the Neulasta. Electrolytes show to a bump in her BUN and creatinine creatinine was 1.5. But she has gotten a couple liters of fluid. Her heart rate is down to about 92 now. She states she feels better. Lactic acid was normal at 1. Magnesium was a bit low at 1.4. I am not can replace this because of I give her oral magnesium I am likely to induce more diarrhea which is the source of her issues. She agrees and does not want to replace. Liver test no marked maladies. Urine shows no sign of infection. Patient will finish her IV fluids. She will go home. She has meeting with a student financial aid manager on Monday. She will contact her oncologist also. This note was generated with [employer] dictation software. It may contain incorrect words, spelling, and punctuation that were not noted in review of the chart prior to signing. Also, today, the computer system is making markedly more errors than normal. 100s of errors are being corrected but many may be missed per chart. Lab Data Attestation: I reviewed the patient's lab results. Labs: Laboratory Results - last 24 hr 04/21/23 04/21/23 20:08 21:20 WBC 23.9 H RBC 4.08 L Hgb 12.6 Hct 37.0 MCV 90.7 MCH 30.9 MCHC 34.1 RDW Std Deviation 46.0 H RDW Coeff of Ember 14.1 Plt Count 255 MPV 9.3 Immature Gran % (Auto) 2.800 H Neut % (Auto) 72.6 H Lymph % (Auto) 14.8 L [place] % (Auto) 9.5 Eos % (Auto) 0.1 Baso % (Auto) 0.2 Absolute Neuts (auto) 17.3 H Absolute Lymphs (auto) 3.54 Nucleated RBC % 0.1 Differential Comment SCANNED Diff Path Review May foll Sodium 136 Potassium 4.3 Chloride 107 Carbon Dioxide 23.0 Anion Gap 6 BUN 24 H Creatinine 1.52 H Estim Creat Clear Calc 39.15 Est GFR (MDRD) Af Amer 46 L Est GFR (MDRD) Non-Af 38 L BUN/Creatinine Ratio 15.8 Glucose 108 H Lactic Acid 1.0 Calcium 8.3 L Magnesium 1.4 L Total Bilirubin 0.10 L AST 16 ALT 21 Alkaline Phosphatase 124 H Total Protein 6.4 Albumin 3.3 Globulin 3.1 Albumin/Globulin Ratio 1.1 Urine Color Yellow Urine Clarity Clear Urine pH 5.0 Ur Specific [place] 1.015 Urine Protein 15 H Urine Glucose (UA) Normal Urine Ketones Negative Urine Occult Blood Negative Urine Nitrite Negative Urine Bilirubin Negative Urine Urobilinogen Normal Ur Leukocyte Esterase 100 H Urine RBC 0 SEEN Urine WBC 0-5 SEEN Ur Squamous Epith Cells 0-5 SEEN Urine Bacteria 0 SEEN Hyaline Casts 5-10 SEEN Urine Mucus 0 SEEN Radiography Diagnostic Testing: Clinical Impression(s) from Imaging Studies Chest X-Ray 04/21/23 20:35 IMPRESSION: 1. No evidence of acute cardiopulmonary process Electronically Signed: Juan Mancera MD at 21:11 EST , EKG Initial EKG: Comments: My independent interpretation of the patient's EKG shows a normal sinus rhythm with overall rate at 95. This is while she is laying down. No ventricular ectopy. No acute ST elevation or depression. AR interval, QRS duration and QTc are normal. Discharge Plan Triage Chief Complaint: Diarrhea ED Provider: Eris Marley Dx/Rx/DC Orders Clinical Impression: Diarrhea, Breast cancer, Dehydration, Hypomagnesemia Instructions: ED Dehydration (Adult) Prescriptions: No Action pregabalin [Lyrica] 75 mg capsule 75 mg PO QHS rivaroxaban 15 mg tablet 20 mg PO DAILY Hold Instructions: Per Dr. Villatoro sulfasalazine 500 mg Tablet 1.5 g PO BID Rx Instructions: give with food (meal/snack) vitamin E 800 unit Capsule 800 unit PO DAILY cholecalciferol (vitamin D3) [Vitamin D3] 125 mcg (5,000 unit) Tablet 125 mcg PO DAILY melatonin 12 mg Tablet 12 mg PO QHS diphenoxylate-atropine 2.5-0.025 mg tablet 2 tab PO Q6H PRN (Reason: diarrhea) Patient Comments: TAKE 2 TABLETS BY MOUTH EVERY 6 HOURS NEEDED FOR UP TO 14 DAYS potassium chloride 20 mEq tablet extended release 20 meq PO BID Patient Comments: TAKE 1 TABLET BY MOUTH EVERY DAY prochlorperazine maleate 10 mg tablet 10 mg PO Q6H PRN (Reason: nausea and vomiting) Patient Comments: TAKE 1 TABLET BY MOUTH EVERY 6 HOURS NEEDED (FOR CHEMOTHERAPY INDUCED NAUSEA AND VOMITING). lisinopril 40 MG tablet 40 mg PO DAILY omeprazole 20 MG tablet,delayed release (DR/EC) 40 mg PO DAILY amitriptyline 100 mg tablet 100 mg PO QHS Qty: 90 3RF ursodiol 300 mg capsule 300 mg PO BID Qty: 180 3RF Primary Care Provider: Noel Snell Referrals: Noel Snell MD [Primary Care Provider] - Bk Villatoro DO [Med Staff - Active Staff] - As soon as possible Disposition Disposition: Home, Self Care
[2023-04-21 20:15] LABS: Absolute Lymphocyte Count 3.54 X10^3/uL (0.83-4.51); Absolute Neutrophil Count 17.3 X10^3/uL (2.0-7.7); Basophil# 0.05 X10^3/uL; Basophil% 0.2 % (0-1); Eosinophil# 0.02 X10^3/uL; Eosinophils% 0.1 % (0-5); Hemoglobin 12.6 g/dL (12.0-15.0); Lymphocyte # 3.54 X10^3/ul (0.83-4.51); Lymphocyte % 14.8 % (19-41); Mean Corp Hgb Conc 34.1 g/dL (32-36); Mean Corpuscular Hgb 30.9 pg (27.0-32.0); Mean Corpuscular Volume 90.7 fL (81-99); Mean Platelet Vol. 9.3 fl (6.2-12.0); Monocyte# 2.26 X10^3/uL; Monocyte% 9.5 % (0-10); NRBC Flagged by Analyzer 0.1 % (0-5); Neutrophil # 17.31 X10^3/uL (2.7-7.7); Neutrophil % 72.6 % (47-70); POSITIVE DIFFERENTIAL YES; POSITIVE MORPHOLOGY YES; Platelet Count 255 K/mm3 (150-450); RBC Distribution Width CV 14.1 % (11.6-14.6); Red Blood Count 4.08 M/mm3 (4.2-5.4); White Blood Count 23.9 K/mm3 (4.4-11.0)
[2023-04-21] MEDS: Ondansetron 4 MG/2 ML Vial IV (20:16)
[2023-04-21] MEDS: 0.9% Normal Saline (1000mL) 1,000 ML 1000 ML IV (20:16)
[2023-04-21 20:17] LABS: Differential Indicated SCAN CRITERIA MET
[2023-04-21 20:35] LABS: Differential Comment SCANNED
--- NOTE | 2023-04-21 20:35 | RAD_ITS ---
INDICATION: lightheaded EXAMINATION/TECHNIQUE: X-RAY - XR Chest 1 View COMPARISON: 03/21/2023 FINDINGS: LIFE-SUPPORT AND LINES: 1. Port-A-Cath without change. 2. No pneumothorax. HEART AND VESSELS: The cardiac silhouette, pulmonary vasculature have normal appearance. No evidence of congestive failure. LUNGS AND PLEURAL SPACES: Lungs are clear. No focal infiltrate, consolidation or effusions. No evidence of pneumothorax. No pulmonary mass is noted. MEDIASTINUM AND HILAR REGIONS: No masses adenopathy noted. No areas of calcification. Visualized upper airway is normal in position. BONY ELEMENTS: No acute bony changes noted. RAD/Chest 1 View (Portable) IMPRESSION: 1. No evidence of acute cardiopulmonary process Electronically Signed: Juan Mancera MD at 21:11 EST ,
[2023-04-21 20:36] LABS: ALB/GLOB Ratio 1.1 RATIO (0.9-2.4); AST(SGOT) 16 U/L (15-37); Alanine Aminotransfer ALT/SGPT 21 U/L (13-56); Albumin, Serum 3.3 g/dL (3.2-5.0); Alkaline Phosphatase 124 U/L (45-117); Anion Gap 6 (5-15); BUN 24 mg/dL (7-18); BUN/Creat Ratio 15.8 RATIO (10-20); Calcium,Total 8.3 mg/dL (8.5-10.1); Chloride 107 mmol/L (98-107); Creatinine, Serum 1.52 mg/dL (0.55-1.02); EST Glomerular Filtration Rate 38 mL/min (>60); Est Glom Filt Rate - Afr Amer 46 mL/min (>60); Estimated Creatinine Clearance 39.15 ml/min; Globulin 3.1 g/dL (2.2-4.2); Glucose 108 mg/dL (74-106); Magnesium 1.4 mg/dL (1.6-2.6); Potassium 4.3 mmol/L (3.5-5.1); Protein, Total 6.4 g/dL (6.4-8.2); Sodium Level 136 mmol/L (136-145)
[2023-04-21 21:24] LABS: Bacteria 0 SEEN /hpf (None Seen); Mucous, Urine 0 SEEN /hpf (<or=2+); Red Blood Cells-Urine 0 SEEN /hpf (0-5)
[2023-04-21 21:25] LABS: Color, Urine Yellow (Yellow); Glucose, Dipstick Normal (Normal); Ketone-Dipstick Negative (Negative); Leukocyte Esterase-Dipstick 100 /ul (Negative); Nitrite-Dipstick Negative (Negative); Occult Blood-Urine Negative /ul (Negative); Protein-Dipstick 15 mg/dl (Negative); Specific Gravity, Urine 1.015 (1.002-1.030); Urine Bilirubin Dipstick Negative (Negative); Urine Clarity Clear (Clear); Urine Urobilinogen Normal (Normal)
[2023-04-21 21:32] LABS: Hyaline Cast 5-10 SEEN /lpf (0-5); Squamous Epithelial Cells - UA 0-5 SEEN /hpf (5-10); White Blood Cells 0-5 SEEN /hpf (0-5)
[2023-04-21 22:25] VITALS: BP 116/64; PULSE 94; RESP 18; O2SAT 95
[2023-04-25 10:23] LABS: Pathologist Review Reviewed
== END 2023-04-21 22:26 | disposition home or self-care (01) ==
PROVIDERS: Emergency Provider Emergency Medicine; PCP Family Medicine; Visit Provider Emergency Medicine
DX: E86.0 Dehydration (principal); C50.919 Malignant neoplasm of unspecified site of unspecified female breast; R19.7 Diarrhea, unspecified; Z11.52 Encounter for screening for COVID-19; I10 Essential (primary) hypertension; E83.42 Hypomagnesemia; R00.0 Tachycardia, unspecified; R11.0 Nausea; Z79.01 Long term (current) use of anticoagulants; Z87.891 Personal history of nicotine dependence; Z86.711 Personal history of pulmonary embolism
CPT/HCPCS: 71045; 80053; 81001; 83605; 83735; 85025; 87631; 93005; 96361; 96374; 99284; J7030; A4216; J2405

== ENCOUNTER 2023-06-02 12:35 | Emergency (ER) | payer BC, SELFPAY ==
[2023-06-02 12:36] VITALS: BP 93/60; PULSE 110; RESP 16; TEMP 36.3; O2SAT 100
--- NOTE | 2023-06-02 12:53 | EX.ED.DYSGE1 ---
HPI History of Present Illness Chief Complaint: General Illness [facility] Medical History Anxiety Arthritis Back pain Cancer CPAP (continuous positive airway pressure) dependence Difficulty swallowing Epigastric pain Former smoker Gastric reflux History of echocardiogram History of hiatal hernia History of stress test History of thyroid nodule Hypertension Injury of head and neck Insomnia Iron overload Jackhammer esophagus Knee pain Leg cramps Migraine headache Normal Holter exam Pulmonary embolism Seronegative rheumatoid arthritis Shortness of breath on exertion Shoulder pain Vitamin D deficiency Wears glasses Home Medications lisinopril 40 mg tablet 40 mg PO DAILY hypertension 08/31/16 [History Last Taken 03/21/23] cholecalciferol (vitamin D3) 125 mcg (5,000 unit) tablet (Vitamin D3) 125 mcg PO DAILY 01/14/22 [History Last Taken Unknown] melatonin 12 mg tablet 12 mg PO QHS 01/14/22 [History Last Taken Unknown] sulfasalazine 500 mg tablet 1.5 g PO BID 01/14/22 [History Last Taken Unknown] vitamin E 800 unit capsule 800 unit PO DAILY 01/14/22 [History Last Taken Unknown] pregabalin 75 mg capsule (Lyrica) 75 mg PO QHS 07/14/22 [History Last Taken Unknown] ursodiol 300 mg capsule 300 mg PO BID #180 caps 03/17/23 [Rx Last Taken Unknown] diphenoxylate-atropine 2.5 mg-0.025 mg tablet 2 tab PO Q6H PRN diarrhea 04/21/23 [History Last Taken Unknown] potassium chloride 20 mEq tablet,extended release 20 meq PO BID 04/21/23 [History Last Taken Unknown] prochlorperazine maleate 10 mg tablet 10 mg PO Q6H PRN nausea and vomiting 04/21/23 [History Last Taken Unknown] amitriptyline 100 mg tablet 100 mg PO QHS #90 tabs 05/08/23 [Rx Last Taken Unknown] cholestyramine (with sugar) 4 gram powder for susp in a packet 1 ea PO DAILY 06/02/23 [History Last Taken Unknown] dexamethasone 4 mg tablet mg 06/02/23 [History Last Taken Unknown] olanzapine 5 mg tablet 5 mg PO QHS 06/02/23 [History Last Taken Unknown] omeprazole 40 mg capsule,delayed release 40 mg PO DAILY 06/02/23 [History Last Taken Unknown] rivaroxaban 20 mg tablet (Xarelto) 20 mg PO DAILY 06/02/23 [History Last Taken Unknown] Allergy/AdvReac Type Severity Reaction Status Date / Time No Known Allergies Allergy Verified 06/02/23 12:38 Family History Mother Cancer Hypertension Father Cancer Surgical History History of cholecystectomy History of hand surgery History of hysterectomy History of laparoscopy Hx of breast biopsy Hx of colonoscopy Hx of esophagogastroduodenoscopy Social History household members: none Smoking Status: Former smoker alcohol intake: never substance use type: does not use EXAM Physical Exam Const Vital Signs: 06/02/23 12:36 06/02/23 13:42 06/02/23 13:42 Temperature 97.4 F L Temperature Source Temporal Pulse Rate 110 H 96 Respiratory Rate 16 18 Respiratory Pattern Blood Pressure 93/60 104/72 Blood Pressure Mean 71 82 Pulse Ox 100 98 99 Oxygen Delivery Method Room Air Room Air Room Air 06/02/23 13:50 Temperature Temperature Source Pulse Rate Respiratory Rate Respiratory Pattern Normal Blood Pressure Blood Pressure Mean Pulse Ox Oxygen Delivery Method MDM MDM MDM Narrative Medical decision making narrative: No HISTORY OF PRESENT ILLNESS: 57-year-old female presents with nausea weakness lightheadedness. She endorses constant diarrhea. States after chemotherapy approximately day 5-8 she gets approximately 6 episodes of watery diarrhea. This has occurred after her most recent chemotherapy treatment 7 days ago. Notes she is history of breast cancer and received chemo 1 week ago ago. States when she gets up her heart races. She states she wears a Fitbit heart rate goes up to 150 bpm. States she feels like she is going to pass out. She denies any loss of consciousness. She denies any chest pain or shortness of breath at this time. Notes compliance with Xarelto. Notes history of PE. Denies any hemoptysis, estrogen use, recent surgery however she does note chemo 7 days ago. Denies any bleeding diathesis recently. Denies any cough. Denies any lower extremity edema. REVIEW OF SYSTEMS: Pertinent positives: Weakness, nausea, palpitations, diarrhea Pertinent negatives: Syncope, focal weakness, vomiting, fever, cough, dysuria, frequency urgency PHYSICAL EXAM: Nursing triage notes reviewed, Vital signs reviewed Constitutional: please see [facility] HENT: MMM Eyes: Pupils equal round and reactive to light, Extraocular muscles intact Neck: No stridor, no JVD, full neck ROM Lungs: Clear to auscultation, No wheezing or rales. No increased work of breathing, no conversational dyspnea, no accessory muscle use, no nasal flaring. No respiratory distress noted Heart: Regular rate and rhythm, No murmurs, No rubs and No gallops, 2+ distal pulses (radial, femoral, posterior tibial) in all extremities. PowerPort site noted in right chest clean dry intact with no fluctuant induration or erythema. Abdomen: Soft, there is no tenderness, rigidity, rebound or guarding, no obvious peritoneal signs, no palpable pulsatile abdominal masses, no auscultated abdominal bruit : No CVAT Extremities: No edema Neuro: No focal neurological deficits, cranial nerves II through XII intact, 5/5 strength in all extremities. Intact sensation to light touch in all extremities, 2+ reflexes bilateral patella tendons. Normal gait. No ataxia. Skin: No rash or lesions noted MEDICAL DECISION MAKING: Chief Complaint: weakness, nausea External records reviewed: Most recent ED visit in April 2023 for generalized weakness tachycardia Factors affecting care: Breast cancer on chemo, PE on Xarelto, hypertension, GERD Social determinants of health: none History obtained from others: The patient's friend Consults: none [facility] Narrative: The patient initially had soft blood pressures, tachycardic, she is afebrile and nontoxic-appearing. She is saturating well on room air. Initial exam showed no obvious focus of infection. She looked well-hydrated on exam. Abdomen soft and nontender without peritoneal signs. There is no focal cardiopulmonary normalities. I considered the following differential diagnosis: Dehydration, electrolyte disturbance, infection, COVID, pneumonia, anemia, PE, ACS ALL IMAGES (IF OBTAINED) HAVE BEEN PERSONALLY REVIEWED AND INTERPRETED BY MYSELF. I have personally reviewed the patient's chest x-ray. Chest x-ray is unremarkable for pulmonary edema, pneumothorax, pneumonia or focal cardiopulmonary abnormality. EKG was sinus tachycardia, normal axis, intervals, no STEMI CBC with leukocytosis (improving from baseline), mild anemia (slightly worse than baseline likely secondary to chemotherapy), no thrombocytopenia No evidence of coagulopathy on coagulation studies D-dimer borderline elevated consistent with increased clot breakdown and concern for VTE BMP without evidence of significant electrolyte abnormalities, no anion gap, no acute kidney injury. Lactate is wnl indicating no end-organ hypoperfusion and/or hypoxia. LFTs show no evidence of hepatobiliary pathology. I have personally reviewed the patient's chest x-ray. Chest x-ray is unremarkable for pulmonary edema, pneumothorax, pneumonia or focal cardiopulmonary abnormality. The synthesis of the patient's history, physical exam, labs images suggest no acute life or limb threatening etiology specifically signs of ACS, PE, anemia, pneumonia, COVID or laboratory dehydration. I suspect the patient is clinically dehydrated from report of diarrhea, lightheadedness upon standing. After 1 L fluid symptoms are better. Give a second liter. No indication for admission at this time. Encouraged increased p.o. intake and close oncology follow-up. The patient and/or family, caregivers express understanding. The patient and/or family, caregivers agrees with the plan. Shared decision making: I will have a discussion with the patient and or visitors regarding risk/benefits of further testing or admission. They will be made aware of of the risk/benefits inherent in this decision they will be given the opportunity to voice understanding. Total critical care time today provided was at least 0 minutes. This excludes separately billable procedures. Critical care time (if documented) is secondary to the patient having high probability of clinically significant/life threatening deterioration in the patient's condition which required my urgent intervention. Impression: 1. Dehydration 2. Orthostasis 3. History of breast cancer on chemotherapy Dispo: Discharge home This note was generated with [employer] dictation software. It may contain incorrect words, spelling, and punctuation that were not noted in review of the chart prior to signing. Lab Data Labs: Laboratory Results - last 24 hr 06/02/23 13:30 WBC 11.4 H RBC 2.81 L Hgb 9.3 L Hct 27.3 L MCV 97.2 MCH 33.1 H MCHC 34.1 RDW Std Deviation 57.2 H RDW Coeff of Ember 15.9 H Plt Count 345 MPV 9.3 Immature Gran % (Auto) 1.600 H Neut % (Auto) 61.5 Lymph % (Auto) 23.4 [place] % (Auto) 12.6 H Eos % (Auto) 0.1 Baso % (Auto) 0.8 Absolute Neuts (auto) 7.0 Absolute Lymphs (auto) 2.67 Nucleated RBC % 0 PT 14.9 INR 1.2 APTT 33.2 D-Dimer Quant (PE/DVT) 0.56 H* Sodium 138 Potassium 4.3 Chloride 108 H Carbon Dioxide 25.0 Anion Gap 5 BUN 25 H Creatinine 1.19 H Est GFR (MDRD) Af Amer 60 Est GFR (MDRD) Non-Af 50 L BUN/Creatinine Ratio 21.0 H Glucose 138 H Lactic Acid 1.1 Calcium 9.1 Total Bilirubin 0.20 AST 17 ALT 22 Alkaline Phosphatase 122 H Total Protein 6.6 Albumin 3.5 Globulin 3.1 Albumin/Globulin Ratio 1.1 Radiography Diagnostic Testing: Clinical Impression(s) from Imaging Studies Chest X-Ray 06/02/23 13:55 IMPRESSION: Stable examination. No acute abnormality is seen. Electronically Signed: Mario Alberto Sesay MD at 14:06 EST , Discharge Plan Triage Chief Complaint: General Illness ED Provider: Alex Fry Dx/Rx/DC Orders Prescriptions: No Action pregabalin [Lyrica] 75 mg capsule 75 mg PO QHS sulfasalazine 500 mg Tablet 1.5 g PO BID Rx Instructions: give with food (meal/snack) vitamin E 800 unit Capsule 800 unit PO DAILY cholecalciferol (vitamin D3) [Vitamin D3] 125 mcg (5,000 unit) Tablet 125 mcg PO DAILY melatonin 12 mg Tablet 12 mg PO QHS diphenoxylate-atropine 2.5-0.025 mg tablet 2 tab PO Q6H PRN (Reason: diarrhea) Patient Comments: TAKE 2 TABLETS BY MOUTH EVERY 6 HOURS NEEDED FOR UP TO 14 DAYS potassium chloride 20 mEq tablet extended release 20 meq PO BID Patient Comments: TAKE 1 TABLET BY MOUTH EVERY DAY prochlorperazine maleate 10 mg tablet 10 mg PO Q6H PRN (Reason: nausea and vomiting) Patient Comments: TAKE 1 TABLET BY MOUTH EVERY 6 HOURS NEEDED (FOR CHEMOTHERAPY INDUCED NAUSEA AND VOMITING). cholestyramine (with sugar) 4 gram powder in packet 1 ea PO DAILY olanzapine 5 mg tablet 5 mg PO QHS Patient Comments: TAKE 1 TABLET BY MOUTH DAILY AT BEDTIME. TAKE FOR 4 NIGHTS AFTER EACH CHEMOTHERAPY TREATMENT. dexamethasone 4 mg tablet omeprazole 40 mg capsule,delayed release(DR/EC) 40 mg PO DAILY Patient Comments: TAKE 1 (ONE) CAPSULE BY MOUTH 30-45 MINUTES BEFORE BREAKFAST Xarelto 20 mg tablet 20 mg PO DAILY Patient Comments: TAKE 1 TABLET BY MOUTH EVERY DAY WITH DINNER lisinopril 40 MG tablet 40 mg PO DAILY ursodiol 300 mg capsule 300 mg PO BID Qty: 180 3RF amitriptyline 100 mg tablet 100 mg PO QHS Qty: 90 1RF Primary Care Provider: Noel Snell Referrals: Noel Snell MD [Primary Care Provider] -
--- NOTE | 2023-06-02 12:54 | EKG12_ITS ---
Test Reason : Blood Pressure : / mmHG Vent. Rate : 101 BPM Atrial Rate : 101 BPM P-R Int : 128 ms QRS Dur : 074 ms QT Int : 348 ms P-R-T Axes : 059 013 061 degrees QTc Int : 451 ms Sinus tachycardia Otherwise normal ECG Confirmed by Jose Rivas ([id number]), newspaper managing editor BRANDON MAYES ([id number]) on 06/05/2023 9:43:50 AM Referred By: Confirmed By:Jose Rivas
[2023-06-02 13:42] VITALS: BP 104/72; PULSE 96; RESP 18; O2SAT 98; O2SAT 99
[2023-06-02] MEDS: 0.9% Normal Saline (1000mL) 1,000 ML 999 ML IV ×2 (13:45→16:06)
[2023-06-02] MEDS: Ondansetron 4 MG/2 ML Vial IV (13:46)
[2023-06-02 13:55] LABS: International Normalized Ratio 1.2; Prothrombin Time (Protime)PT. 14.9 SECONDS (11.7-14.9)
--- NOTE | 2023-06-02 13:55 | RAD_ITS ---
STUDY: X-RAY CHEST REASON FOR EXAM: Female, 57 years old. Weakness, TECHNIQUE: Single AP portable view of the chest. COMPARISON: Comparison is made with prior study dated April 21. FINDINGS: A left-sided portacatheter is seen with the tip at the junction of the superior vena cava and right atrium. EKG electrodes are seen. The lungs are clear and expanded. There is no demonstrated pleural abnormality. Normal size heart. Normal mediastinum and kash. Normal visualized pulmonary arteries. Normal visualized aortic arch and descending thoracic aorta. There are diffuse degenerative changes of the visualized thoracic spine. Normal visualized ribs, clavicles, and shoulders. There is no demonstrated abnormality of the visualized soft tissue structures of the upper abdomen. RAD/Chest 1 View (Portable) IMPRESSION: Stable examination. No acute abnormality is seen. Electronically Signed: Mario Alberto Sesay MD at 14:06 EST ,
[2023-06-02 13:56] LABS: Partial Thromboplast Time 33.2 Seconds (24.1-36.2)
[2023-06-02 13:58] LABS: ALB/GLOB Ratio 1.1 RATIO (0.9-2.4); AST(SGOT) 17 U/L (15-37); Alanine Aminotransfer ALT/SGPT 22 U/L (13-56); Albumin, Serum 3.5 g/dL (3.2-5.0); Alkaline Phosphatase 122 U/L (45-117); Anion Gap 5 (5-15); BUN 25 mg/dL (7-18); Calcium,Total 9.1 mg/dL (8.5-10.1); Chloride 108 mmol/L (98-107); Creatinine, Serum 1.19 mg/dL (0.55-1.02); EST Glomerular Filtration Rate 50 mL/min (>60); Est Glom Filt Rate - Afr Amer 60 mL/min (>60); Globulin 3.1 g/dL (2.2-4.2); Glucose 138 mg/dL (74-106); Potassium 4.3 mmol/L (3.5-5.1); Protein, Total 6.6 g/dL (6.4-8.2); Sodium Level 138 mmol/L (136-145)
[2023-06-02 14:07] LABS: Absolute Lymphocyte Count 2.67 X10^3/uL (0.83-4.51); Basophil# 0.09 X10^3/uL; Basophil% 0.8 % (0-1); Eosinophil# 0.01 X10^3/uL; Eosinophils% 0.1 % (0-5); Hematocrit 27.3 % (37-47); Hemoglobin 9.3 g/dL (12.0-15.0); Lymphocyte # 2.67 X10^3/ul (0.83-4.51); Lymphocyte % 23.4 % (19-41); Mean Corp Hgb Conc 34.1 g/dL (32-36); Mean Corpuscular Hgb 33.1 pg (27.0-32.0); Mean Corpuscular Volume 97.2 fL (81-99); Mean Platelet Vol. 9.3 fl (6.2-12.0); Monocyte# 1.44 X10^3/uL; Monocyte% 12.6 % (0-10); NRBC Flagged by Analyzer 0 % (0-5); Neutrophil # 7.02 X10^3/uL (2.7-7.7); Neutrophil % 61.5 % (47-70); POSITIVE MORPHOLOGY YES; Platelet Count 345 K/mm3 (150-450); RBC Distribution Width CV 15.9 % (11.6-14.6); RBC Distribution Width SD 57.2 fl (35.1-43.9); Red Blood Count 2.81 M/mm3 (4.2-5.4); White Blood Count 11.4 K/mm3 (4.4-11.0)
[2023-06-02 14:11] LABS: D-Dimer Quantitative (DVT/PE) 0.56 FEU/ug/m (0.27-0.49)
[2023-06-02 14:13] LABS: Lactic Acid 1.1 mmol/L (0.4-1.9)
[2023-06-02 14:17] LABS: Differential Indicated SCAN CRITERIA MET
--- NOTE | 2023-06-02 14:18 | CT_ITS ---
STUDY: CTA CHEST REASON FOR EXAM: Female, 57 years old. Tachycardia, near syncope, hx of PE, on chemo RADIATION DOSAGE (If Supplied By Facility): CTDIvol = ( 9.83 ) mGy, DLP = ( 532.17 ) mGycm TECHNIQUE: The examination was performed with the intravenous administration of IV 100mL Isovue-370. Post-processing of the angiographic images was performed, with multiplanar reformation and 3D reconstruction. Individualized dose optimization techniques were used for this CT. COMPARISON: Comparison is made with prior CTA of the chest dated November 16, 2018 and prior chest radiograph dated June 02, 2023. FINDINGS: Normal enhancement of the main pulmonary artery and right and left pulmonary arteries. Normal enhancement of the bilateral peripheral pulmonary arteries. There is no demonstrated pulmonary embolism. Normal thoracic aorta and visualized great vessels. There is no demonstrated aortic dissection. There are calcifications of the coronary arteries. Normal mediastinum. Normal hilar regions. Normal visualized trachea and bronchi. The lungs are well expanded. Normal pulmonary parenchyma. Normal pleura. Normal chest wall structures. There are degenerative changes of thoracic spine. Normal visualized upper abdomen. CT/CTA Chest W/WO Contrast IMPRESSION: No acute abnormality is seen. No evidence of pulmonary embolism. Electronically Signed: Mario Alberto Sesay MD at 14:56 EST ,
[2023-06-02 15:19] LABS: Bacteria 0 SEEN /hpf (None Seen); Mucous, Urine 0 SEEN /hpf (<or=2+); Red Blood Cells-Urine 0 SEEN /hpf (0-5)
[2023-06-02 15:37] LABS: Troponin-I HS 7 pg/mL (3.0-54.0)
[2023-06-02 15:41] LABS: Color, Urine Yellow (Yellow); Glucose, Dipstick Normal (Normal); Ketone-Dipstick Negative (Negative); Leukocyte Esterase-Dipstick 25 /ul (Negative); Nitrite-Dipstick Negative (Negative); Occult Blood-Urine Negative /ul (Negative); Protein-Dipstick 15 mg/dl (Negative); Urine Bilirubin Dipstick Negative (Negative); Urine Clarity Clear (Clear); Urine Urobilinogen Normal (Normal)
[2023-06-02 15:55] VITALS: BP 104/60; PULSE 103; RESP 17; O2SAT 99
[2023-06-02 16:03] LABS: Squamous Epithelial Cells - UA 0-5 SEEN /hpf (5-10); White Blood Cells 0-5 SEEN /hpf (0-5)
[2023-06-02 17:18] VITALS: BP 97/52; PULSE 98; RESP 16; TEMP 36.3; O2SAT 99
== END 2023-06-02 18:16 | disposition home or self-care (01) ==
PROVIDERS: Emergency Provider Emergency Medicine; PCP Family Medicine; Visit Provider Emergency Medicine
DX: E86.0 Dehydration (principal); C50.919 Malignant neoplasm of unspecified site of unspecified female breast; R19.7 Diarrhea, unspecified; I10 Essential (primary) hypertension; K21.9 Gastro-esophageal reflux disease without esophagitis; Z11.52 Encounter for screening for COVID-19; Z79.01 Long term (current) use of anticoagulants; Z79.899 Other long term (current) drug therapy; Z92.21 Personal history of antineoplastic chemotherapy; Z87.891 Personal history of nicotine dependence
CPT/HCPCS: 36591; 71045; 71275; 80053; 81001; 83605; 84484; 85025; 85379; 85610; 85730; 87631; 93005; 96361; 96374; 99283; J7030; Q9967; A4216; J2405

== ENCOUNTER 2023-06-07 13:14 | Emergency (ER) | payer BC, SELFPAY ==
[2023-06-07 13:15] VITALS: BP 139/98; PULSE 99; RESP 15; TEMP 36.2; O2SAT 99; BMI 34.2
--- NOTE | 2023-06-07 15:20 | EX.ED.DYSGE1 ---
HPI History of Present Illness Chief Complaint: Abn Labs Narrative Narrative: 57-year-old female past medical history of breast carcinoma, on chemotherapy last received 2 weeks ago, presents with need for infusion of magnesium. She relates history that over the last few days, total in the last week she was feeling a fast, pounding heart rate, and muscle and eye twitching. She was seen in the emergency department on Monday and administered 2 L of normal saline because she was dehydrated. She felt improved. She followed up with Dr. Bk Villatoro, her oncologist, who did blood work today. It was reported that her magnesium was low at 0.8. It had not been checked previously. She presents to the emergency department for infusion of magnesium. [facility] Medical History Anxiety Arthritis Back pain Cancer CPAP (continuous positive airway pressure) dependence Difficulty swallowing Epigastric pain Former smoker Gastric reflux History of echocardiogram History of hiatal hernia History of stress test History of thyroid nodule Hypertension Injury of head and neck Insomnia Iron overload Jackhammer esophagus Knee pain Leg cramps Migraine headache Normal Holter exam Pulmonary embolism Seronegative rheumatoid arthritis Shortness of breath on exertion Shoulder pain Vitamin D deficiency Wears glasses Home Medications lisinopril 40 mg tablet 40 mg PO DAILY hypertension 08/31/16 [History Last Taken 03/21/23] cholecalciferol (vitamin D3) 125 mcg (5,000 unit) tablet (Vitamin D3) 125 mcg PO DAILY 01/14/22 [History Last Taken Unknown] melatonin 12 mg tablet 12 mg PO QHS 01/14/22 [History Last Taken Unknown] sulfasalazine 500 mg tablet 1.5 g PO BID 01/14/22 [History Last Taken Unknown] vitamin E 800 unit capsule 800 unit PO DAILY 01/14/22 [History Last Taken Unknown] pregabalin 75 mg capsule (Lyrica) 75 mg PO QHS 07/14/22 [History Last Taken Unknown] ursodiol 300 mg capsule 300 mg PO BID #180 caps 03/17/23 [Rx Last Taken Unknown] diphenoxylate-atropine 2.5 mg-0.025 mg tablet 2 tab PO Q6H PRN diarrhea 04/21/23 [History Last Taken Unknown] potassium chloride 20 mEq tablet,extended release 20 meq PO BID 04/21/23 [History Last Taken Unknown] prochlorperazine maleate 10 mg tablet 10 mg PO Q6H PRN nausea and vomiting 04/21/23 [History Last Taken Unknown] amitriptyline 100 mg tablet 100 mg PO QHS #90 tabs 05/08/23 [Rx Last Taken Unknown] cholestyramine (with sugar) 4 gram powder for susp in a packet 1 ea PO DAILY 06/02/23 [History Last Taken Unknown] dexamethasone 4 mg tablet mg 06/02/23 [History Last Taken Unknown] olanzapine 5 mg tablet 5 mg PO QHS 06/02/23 [History Last Taken Unknown] omeprazole 40 mg capsule,delayed release 40 mg PO DAILY 06/02/23 [History Last Taken Unknown] rivaroxaban 20 mg tablet (Xarelto) 20 mg PO DAILY 06/02/23 [History Last Taken Unknown] Allergy/AdvReac Type Severity Reaction Status Date / Time No Known Allergies Allergy Verified 06/02/23 12:38 Family History Mother Cancer Hypertension Father Cancer Surgical History History of cholecystectomy History of hand surgery History of hysterectomy History of laparoscopy Hx of breast biopsy Hx of colonoscopy Hx of esophagogastroduodenoscopy Social History household members: none Smoking Status: Former smoker alcohol intake: never substance use type: does not use ROS ROS ED ROS Narrative Constitutional: No fever, no chills. Generalized weakness. HEENT: No sore throat. No neck pain. No loss of vision. No rhinorrhea. Cardiovascular: No chest pain. Positive palpitations-improved. No pedal edema. Respiratory: No cough, no shortness of breath. Abdominal: No abdominal pain. No nausea. No vomiting. Genitourinary: No dysuria. No hematuria. Musculoskeletal: Positive muscle twitching, myalgias. No arthralgias. Neurologic: No headaches. No dizziness. No lightheadedness. Skin: No rash. No change in color. Psychiatric: No depression. No anxiety. EXAM Physical Exam Narrative Exam Narrative: Afebrile. Vital signs noted. HEENT: Normocephalic. Atraumatic. PERRL, EOMI. Neck soft and supple. No point tenderness or step off. Cardiovascular: Regular rate and rhythm. No murmurs, rubs, or gallops appreciated. Respiratory: No tachypnea. Lungs clear to auscultation bilaterally. Gastrointestinal: Abdomen soft, nontender, with normoactive bowel sounds. No rebound or guarding. Neurological: Awake. Alert. Nonfocal, nonlateralizing. Skin: No rash. Normal color. No pallor. Musculoskeletal: No pedal edema. Full range of motion extremities. Const Vital Signs: 06/07/23 13:15 06/07/23 20:57 Temperature 97.2 F L 98 F Temperature Source Temporal Pulse Rate 99 75 Respiratory Rate 15 18 Blood Pressure 139/98 H 134/85 H Blood Pressure Mean 111 101 Pulse Ox 99 100 Oxygen Delivery Method Room Air MDM MDM MDM Narrative Medical decision making narrative: I reviewed the patient's prior ED visit. She reports that her magnesium was 0.8 . This will be repeated. RN will access her port and obtain a BMP and magnesium level. She will be placed on the electronic device monitor. Based on her lab results here, magnesium will be infused. I do not feel an EKG is warranted currently as she will be placed on the monitor, and she is not having palpitations any longer, and that was because she was dehydrated when she was seen on Monday and improved after 2 boluses. I reviewed her laboratory work from today and her BMP is grossly unremarkable except for calcium slightly low at 7.4. Her magnesium is low at 0.8. I discussed patient with the pharmacist and she will be given the 4 g bolus over 4 hours. At this point in time, I feel that she can be discharged and does not require observation after her infusion as this is the maximum dose that can be given at 1 time. She will follow-up with her oncologist for repeat magnesium. Disposition is discharged in stable condition. History & Record Review Discussion w/independent historian: Patient Additional record(s) reviewed:: Prior ED visit Lab Data Attestation: I reviewed the patient's lab results. Labs: Laboratory Results - last 24 hr 06/07/23 16:20 Sodium 138 Potassium 4.1 Chloride 105 Carbon Dioxide 28.0 Anion Gap 5 BUN 17 Creatinine 0.88 Estim Creat Clear Calc 84.43 Est GFR (MDRD) Af Amer 86 Est GFR (MDRD) Non-Af 71 BUN/Creatinine Ratio 19.4 Glucose 98 Calcium 7.4 L Magnesium 0.8 L* Management Discussion w/another healthcare provider: Pharmacist Discharge Plan Triage Chief Complaint: Abn Labs ED Provider: Devan Del Cid Dx/Rx/DC Orders Clinical Impression: Invasive ductal carcinoma of breast, Hypomagnesemia Instructions: Hypomagnesemia Dc Prescriptions: No Action pregabalin [Lyrica] 75 mg capsule 75 mg PO QHS sulfasalazine 500 mg Tablet 1.5 g PO BID Rx Instructions: give with food (meal/snack) vitamin E 800 unit Capsule 800 unit PO DAILY cholecalciferol (vitamin D3) [Vitamin D3] 125 mcg (5,000 unit) Tablet 125 mcg PO DAILY melatonin 12 mg Tablet 12 mg PO QHS diphenoxylate-atropine 2.5-0.025 mg tablet 2 tab PO Q6H PRN (Reason: diarrhea) Patient Comments: TAKE 2 TABLETS BY MOUTH EVERY 6 HOURS NEEDED FOR UP TO 14 DAYS potassium chloride 20 mEq tablet extended release 20 meq PO BID Patient Comments: TAKE 1 TABLET BY MOUTH EVERY DAY prochlorperazine maleate 10 mg tablet 10 mg PO Q6H PRN (Reason: nausea and vomiting) Patient Comments: TAKE 1 TABLET BY MOUTH EVERY 6 HOURS NEEDED (FOR CHEMOTHERAPY INDUCED NAUSEA AND VOMITING). cholestyramine (with sugar) 4 gram powder in packet 1 ea PO DAILY olanzapine 5 mg tablet 5 mg PO QHS Patient Comments: TAKE 1 TABLET BY MOUTH DAILY AT BEDTIME. TAKE FOR 4 NIGHTS AFTER EACH CHEMOTHERAPY TREATMENT. dexamethasone 4 mg tablet omeprazole 40 mg capsule,delayed release(DR/EC) 40 mg PO DAILY Patient Comments: TAKE 1 (ONE) CAPSULE BY MOUTH 30-45 MINUTES BEFORE BREAKFAST Xarelto 20 mg tablet 20 mg PO DAILY Patient Comments: TAKE 1 TABLET BY MOUTH EVERY DAY WITH DINNER lisinopril 40 MG tablet 40 mg PO DAILY ursodiol 300 mg capsule 300 mg PO BID Qty: 180 3RF amitriptyline 100 mg tablet 100 mg PO QHS Qty: 90 1RF Primary Care Provider: Noel Snell Referrals: Noel Snell MD [Primary Care Provider] - Bk Villatoro DO [Med Staff - Active Staff] - 2 Days Disposition Disposition: Home, Self Care
[2023-06-07] MEDS: Magnesium Sulfate 4gm/100mL 4 GM/100 ML IV.SOLN. IV (17:02)
[2023-06-07 17:12] LABS: Anion Gap 5 (5-15); BUN 17 mg/dL (7-18); BUN/Creat Ratio 19.4 RATIO (10-20); Calcium,Total 7.4 mg/dL (8.5-10.1); Chloride 105 mmol/L (98-107); Creatinine, Serum 0.88 mg/dL (0.55-1.02); EST Glomerular Filtration Rate 71 mL/min (>60); Est Glom Filt Rate - Afr Amer 86 mL/min (>60); Estimated Creatinine Clearance 84.43 ml/min; Glucose 98 mg/dL (74-106); Magnesium 0.8 mg/dL (1.6-2.6); Potassium 4.1 mmol/L (3.5-5.1); Sodium Level 138 mmol/L (136-145)
[2023-06-07 20:57] VITALS: BP 134/85; PULSE 75; RESP 18; TEMP 36.6; O2SAT 100
== END 2023-06-07 21:30 | disposition home or self-care (01) ==
PROVIDERS: Emergency Provider Emergency Medicine; PCP Family Medicine; Visit Provider Emergency Medicine
DX: E83.42 Hypomagnesemia (principal); C50.919 Malignant neoplasm of unspecified site of unspecified female breast; I10 Essential (primary) hypertension; K21.9 Gastro-esophageal reflux disease without esophagitis; Z87.891 Personal history of nicotine dependence
CPT/HCPCS: 80048; 83735; 96365; 96366; 99282; A4216

== ENCOUNTER 2023-06-23 13:05 | Emergency (ER) | payer BC, SELFPAY ==
[2023-06-23] VITALS (10 sets, daily range): BP systolic 82–124; BP diastolic 54–77; PULSE 64–99; RESP 12–18; TEMP 36.3–36.6; O2SAT 95–100
[2023-06-23] MEDS: 0.9% Normal Saline (1000mL) 1,000 ML 999 ML IV ×3 (13:30→17:27)
--- NOTE | 2023-06-23 13:39 | EKG12_ITS ---
Test Reason : HYPOTENSION Blood Pressure : / mmHG Vent. Rate : 090 BPM Atrial Rate : 090 BPM P-R Int : 144 ms QRS Dur : 078 ms QT Int : 366 ms P-R-T Axes : 062 -06 057 degrees QTc Int : 447 ms Normal sinus rhythm Confirmed by Jose Rivas [id number]), video tape editor RONALD JACKSON ([id number]) on 06/27/2023 7:09:25 AM Referred By: Confirmed By:Jose Rivas
--- NOTE | 2023-06-23 13:41 | EDS_ITS ---
HPI History of Present Illness Chief Complaint: Hypotension Informant: patient and friend Narrative Narrative: Presents from oncology office due to hypotension. History of HER2 positive breast cancer diagnosis past February. Finished chemo treatment 5 of 6, 8 days ago. Similar symptoms on the last chemo treatment. She had low mag and potassium on potassium mag placement. She was given magnesium prior to her treatment knowing was low. Her blood pressure also was low previously. She was given Neulasta also. She had no fevers. She has been having chronic diarrhea since March from start of treatment. Yesterday had 10-11 loose watery stools nonbloody. No vomiting. She is tolerating oral diet well. She is followed by oncologist Dr. Villatoro. She was standing she gets lightheaded heart rate would jump to 150s she was given fluids in the office, however called back from oncologist told to go to the ED. Denies cough. Denies urinary symptoms. Denies syncopal episodes. Prior similar symptoms: Yes PFSH PFSH Medical History Anxiety Arthritis Back pain Cancer CPAP (continuous positive airway pressure) dependence Difficulty swallowing Epigastric pain Former smoker Gastric reflux History of echocardiogram History of hiatal hernia History of stress test History of thyroid nodule Hypertension Injury of head and neck Insomnia Iron overload Jackhammer esophagus Knee pain Leg cramps Migraine headache Normal Holter exam Pulmonary embolism Seronegative rheumatoid arthritis Shortness of breath on exertion Shoulder pain Vitamin D deficiency Wears glasses Home Medications lisinopril 40 mg tablet 40 mg PO DAILY hypertension 08/31/16 [History Last Taken 03/21/23] cholecalciferol (vitamin D3) 125 mcg (5,000 unit) tablet (Vitamin D3) 125 mcg PO DAILY 01/14/22 [History Last Taken Unknown] melatonin 12 mg tablet 12 mg PO QHS 01/14/22 [History Last Taken Unknown] sulfasalazine 500 mg tablet 1.5 g PO BID 01/14/22 [History Last Taken Unknown] vitamin E 800 unit capsule 800 unit PO DAILY 01/14/22 [History Last Taken Unknown] pregabalin 75 mg capsule (Lyrica) 75 mg PO QHS 07/14/22 [History Last Taken Unknown] ursodiol 300 mg capsule 300 mg PO BID #180 caps 03/17/23 [Rx Last Taken Unknown] diphenoxylate-atropine 2.5 mg-0.025 mg tablet 2 tab PO Q6H PRN diarrhea 04/21/23 [History Last Taken Unknown] potassium chloride 20 mEq tablet,extended release 20 meq PO BID 04/21/23 [History Last Taken Unknown] prochlorperazine maleate 10 mg tablet 10 mg PO Q6H PRN nausea and vomiting 04/21/23 [History Last Taken Unknown] amitriptyline 100 mg tablet 100 mg PO QHS #90 tabs 05/08/23 [Rx Last Taken Unknown] cholestyramine (with sugar) 4 gram powder for susp in a packet 1 ea PO DAILY 06/02/23 [History Last Taken Unknown] dexamethasone 4 mg tablet mg 06/02/23 [History Last Taken Unknown] olanzapine 5 mg tablet 5 mg PO QHS 06/02/23 [History Last Taken Unknown] omeprazole 40 mg capsule,delayed release 40 mg PO DAILY 06/02/23 [History Last Taken Unknown] rivaroxaban 20 mg tablet (Xarelto) 20 mg PO DAILY 06/02/23 [History Last Taken Unknown] cephalexin 500 mg capsule 500 mg PO Q12 #10 CAPSULES 06/23/23 [Rx Last Taken Unknown] potassium chloride 20 mEq tablet,extended release(part/cryst) (Klor-Con M) 20 meq PO BID 06/23/23 [History Last Taken Unknown] Allergy/AdvReac Type Severity Reaction Status Date / Time No Known Allergies Allergy Verified 06/23/23 13:06 Family History Mother Cancer Hypertension Father Cancer Surgical History History of cholecystectomy History of hand surgery History of hysterectomy History of laparoscopy Hx of breast biopsy Hx of colonoscopy Hx of esophagogastroduodenoscopy Social History household members: none Smoking Status: Former smoker alcohol intake: never substance use type: does not use ROS ROS ED Constitutional Constitutional ED: Denies chills, fever(s) or sweats Eyes Eyes: Denies change in vision ENT ENT ED: Denies dysphagia or sore throat Cardiovascular Cardiovascular: Reports other Details: Lightheaded symptoms ; Denies chest pain, leg edema, palpitations or racing heartbeat Respiratory/Chest Respiratory/Chest: Denies cough, dyspnea or dyspnea on exertion Gastrointestinal Gastrointestinal: Reports diarrhea; Denies abdominal pain, nausea or vomiting Genitourinary Genitourinary ED: Denies dysuria, hematuria or urinary frequency Musculoskeletal Musculoskeletal: Denies back pain, extremity pain or neck pain Integumentary Denies rash or wounds Neurologic Neurologic: Denies headache(s), paresthesias or weakness EXAM Physical Exam Const Vital Signs: 06/23/23 13:16 06/23/23 13:18 06/23/23 13:06 Temperature 97.8 F 97.8 F Temperature Source Oral Oral Pulse Rate 91 91 Respiratory Rate 12 14 Respiratory Effort Normal Non-Labored Respiratory Pattern Normal Blood Pressure 82/55 L 82/55 L Blood Pressure Mean 64 64 Pulse Ox 100 98 Oxygen Delivery Method Room Air Room Air 06/23/23 13:39 06/23/23 13:39 06/23/23 14:20 Temperature Temperature Source Pulse Rate 90 90 Respiratory Rate 16 18 Respiratory Effort Respiratory Pattern Blood Pressure 100/54 L 98/72 Blood Pressure Mean 69 80 Pulse Ox 98 96 Oxygen Delivery Method Room Air Room Air Room Air 06/23/23 15:00 06/23/23 17:11 06/23/23 19:00 Temperature Temperature Source Pulse Rate 99 84 80 Respiratory Rate 17 14 14 Respiratory Effort Respiratory Pattern Blood Pressure 96/63 94/57 L 124/77 H Blood Pressure Mean 74 69 92 Pulse Ox 95 97 Oxygen Delivery Method Room Air Room Air 06/23/23 21:26 06/23/23 20:00 06/23/23 21:37 Temperature 97.6 F L 97.4 F L Temperature Source Temporal Pulse Rate 64 79 80 Respiratory Rate 18 16 Respiratory Effort Respiratory Pattern Blood Pressure 119/76 119/74 119/68 Blood Pressure Mean 90 89 85 Pulse Ox 99 Oxygen Delivery Method Positive well nourished and well developed General Appearance ED: well developed and NAD HEENT HEENT Narrative: Mild dry mucosal membranes normocephalic and atraumatic Eyes PERRL, EOMs intact bilaterally and conjunctivae normal General Eye ED: Yes normal appearance of both eyes Neck no lymphadenopathy and supple General: Negative for tenderness Chest Wall Chest: Negative for tenderness Resp normal respiratory effort and normal air movement Effort and Inspection: symmetric chest movement; Negative for respiratory distress Cardio regular rate, regular rhythm and no murmurs Peripheral Pulses: pulses 2+ throughout GI normal to inspection, nondistended, normoactive bowel sounds and non-tender Palpation: Negative for guarding or rebound tenderness present Back/Spine no CVA tenderness and no thoracic nor lumbar tenderness Extremity normal to inspection General Extremety ED: Negative for edema or tenderness General Extremity: Negative for edema Neuro oriented x3, CN's II-XII intact bilaterally and no sensory deficits noted Neuro Narrative: No focal deficits. Sensorium / Orientation: awake and alert Skin no rashes or lesions noted and no wounds MDM MDM MDM Narrative Medical decision making narrative: Interventions / MDM: Differential diagnosis: Dehydration, electrolyte abnormalities Diagnosis considered but do not suspect: N/A My EKG interpretation: Sinus rate of 90, no ST or T wave changes QTc 447. Imaging independently reviewed and interpreted by myself: N/A External documents reviewed: N/A Test considered but not ordered:N/A ED course: Systolic blood pressure 80s on arrival, systolic 90 during my evaluation. Slight dry mucosal membranes. Diarrhea for the past 3 months likely prerenal component. With her hypotension and sepsis labs were ordered, will give 2 L IV fluids, will order for stool studies. Patient afebrile. 1530: Patient urine returned positive for infection. White count normal 8.2. Creatinine 1.8 up from 0.9. 6 continue fluids. Discussed urine symptoms she is having dysuria and frequency over the last couple days. Urine culture pending. Rocephin IV antibiotics. Her magnesium returned at 1.3 IV magnesium ordered. Potassium is normal. Hemoglobin stable 8.7. Lactic acid 1.6. Blood pressure improving with IV fluids. Will reevaluate after fluids. 1720: 2 L of fluid in. Magnesium is back to run. Systolic blood pressure 94/57. She did ambulate to the restroom was told slightly lightheaded and felt her heart racing. Will give additional liter of fluids. Will reevaluate. 1944: Blood pressure now systolic 120s, stool panel returned negative. Clinically feeling much better there is 500 cc of fluid left at this time. Patient ambulating feeling better. Plan to discharge with antibiotics for her UTI. 2104: Feeling much better. Ambulating no return of symptoms. She is on magnesium supplements at home. She is on potassium supplements at home. She continue oral fluids. Prescription antibiotic sent to her pharmacy. Outpatient follow-up with her doctor. Return precautions. Re-evaluation: stable Disposition discussed with patient/family/significant other: Patient Case discussed with consulting clinician: N/A This note was generated with [employer] dictation software. It may contain incorrect words, spelling, and punctuation that were not noted in checking the note before signing. Lab Data Attestation: I reviewed the patient's lab results. Labs: Laboratory Results - last 24 hr 06/23/23 06/23/23 13:42 14:36 WBC 8.2 RBC 2.47 L Hgb 8.7 L Hct 25.8 L MCV 104.5 H MCH 35.2 H MCHC 33.7 RDW Std Deviation 57.3 H RDW Coeff of Ember 15.0 H Plt Count 477 H MPV 8.7 Immature Gran % (Auto) 1.100 H Neut % (Auto) 53.8 Lymph % (Auto) 33.3 [place] % (Auto) 11.6 H Eos % (Auto) 0.0 Baso % (Auto) 0.2 Absolute Neuts (auto) 4.4 Absolute Lymphs (auto) 2.72 Nucleated RBC % 0.5 PT 14.7 INR 1.2 APTT 26.4 Sodium 136 Potassium 4.0 Chloride 105 Carbon Dioxide 25.0 Anion Gap 6 BUN 27 H Creatinine 1.18 H Est GFR (MDRD) Af Amer 61 Est GFR (MDRD) Non-Af 50 L BUN/Creatinine Ratio 22.9 H Glucose 134 H Lactic Acid 1.6 Calcium 8.6 Magnesium 1.3 L Total Bilirubin 0.20 AST 19 ALT 27 Alkaline Phosphatase 88 Total Protein 6.1 L Albumin 3.4 Globulin 2.7 Albumin/Globulin Ratio 1.3 Urine Color Yellow Urine Clarity Sl. Cloudy Urine pH 5.0 Ur Specific [employer] 1.025 Urine Protein 30 H Urine Glucose (UA) Normal Urine Ketones Negative Urine Occult Blood 10 H Urine Nitrite Negative Urine Bilirubin Negative Urine Urobilinogen Normal Ur Leukocyte Esterase 500 H Urine RBC 0-5 SEEN Urine WBC 25-50 SEEN Ur Squamous Epith Cells 0 SEEN Urine Bacteria 2+ Urine Mucus 2+ Discharge Plan Triage Chief Complaint: Hypotension ED Provider: Jae Sweet Dx/Rx/DC Orders Clinical Impression: Chemotherapy induced diarrhea, UTI (urinary tract infection), Renal insufficiency, Dehydration, Hypomagnesemia Instructions: Cancer Care- Controlling Diarrhea, Dehydration, ED Dehydration (Adult), ED Renal Insufficiency Prescriptions: New cephalexin [cephalexin] 500 mg capsule 500 mg PO Q12 Qty: 10 0RF No Action pregabalin [Lyrica] 75 mg capsule 75 mg PO QHS sulfasalazine 500 mg Tablet 1.5 g PO BID Rx Instructions: give with food (meal/snack) vitamin E 800 unit Capsule 800 unit PO DAILY cholecalciferol (vitamin D3) [Vitamin D3] 125 mcg (5,000 unit) Tablet 125 mcg PO DAILY melatonin 12 mg Tablet 12 mg PO QHS diphenoxylate-atropine 2.5-0.025 mg tablet 2 tab PO Q6H PRN (Reason: diarrhea) Patient Comments: TAKE 2 TABLETS BY MOUTH EVERY 6 HOURS NEEDED FOR UP TO 14 DAYS potassium chloride 20 mEq tablet extended release 20 meq PO BID Patient Comments: TAKE 1 TABLET BY MOUTH EVERY DAY prochlorperazine maleate 10 mg tablet 10 mg PO Q6H PRN (Reason: nausea and vomiting) Patient Comments: TAKE 1 TABLET BY MOUTH EVERY 6 HOURS NEEDED (FOR CHEMOTHERAPY INDUCED NAUSEA AND VOMITING). cholestyramine (with sugar) 4 gram powder in packet 1 ea PO DAILY olanzapine 5 mg tablet 5 mg PO QHS Patient Comments: TAKE 1 TABLET BY MOUTH DAILY AT BEDTIME. TAKE FOR 4 NIGHTS AFTER EACH CHEMOTHERAPY TREATMENT. dexamethasone 4 mg tablet omeprazole 40 mg capsule,delayed release(DR/EC) 40 mg PO DAILY Patient Comments: TAKE 1 (ONE) CAPSULE BY MOUTH 30-45 MINUTES BEFORE BREAKFAST Xarelto 20 mg tablet 20 mg PO DAILY Patient Comments: TAKE 1 TABLET BY MOUTH EVERY DAY WITH DINNER potassium chloride [Klor-Con M20] 20 mEq tablet,ER particles/crystals 20 meq PO BID Patient Comments: TAKE 1 TABLET BY MOUTH TWICE A DAY lisinopril 40 MG tablet 40 mg PO DAILY ursodiol 300 mg capsule 300 mg PO BID Qty: 180 3RF amitriptyline 100 mg tablet 100 mg PO QHS Qty: 90 1RF Primary Care Provider: Noel Snell Referrals: Noel Snell MD [Primary Care Provider] - 1 Week Activity Restrictions/Additional Instructions: Creatinine 1.18 up from 0.9. You given total of 3 L normal saline. Magnesium 1.3. Your magnesium was replaced through the IV. Normal potassium. Stool studies with C. difficile and stool panel negative. Hemoglobin 8.7 stable from previous labs. Follow-up with your doctor recheck labs. If symptoms recur or worsens, return to the ED for reevaluation. Disposition Disposition: Home, Self Care Discharge Date/Time: 06/23/23 21:37
[2023-06-23 14:10] LABS: Absolute Lymphocyte Count 2.72 X10^3/uL (0.83-4.51); Absolute Neutrophil Count 4.4 X10^3/uL (2.0-7.7); Basophil# 0.02 X10^3/uL; Basophil% 0.2 % (0-1); Hematocrit 25.8 % (37-47); Hemoglobin 8.7 g/dL (12.0-15.0); Lymphocyte # 2.72 X10^3/ul (0.83-4.51); Lymphocyte % 33.3 % (19-41); Mean Corp Hgb Conc 33.7 g/dL (32-36); Mean Corpuscular Hgb 35.2 pg (27.0-32.0); Mean Corpuscular Volume 104.5 fL (81-99); Mean Platelet Vol. 8.7 fl (6.2-12.0); Monocyte# 0.95 X10^3/uL; Monocyte% 11.6 % (0-10); NRBC Flagged by Analyzer 0.5 % (0-5); Neutrophil % 53.8 % (47-70); Platelet Count 477 K/mm3 (150-450); RBC Distribution Width SD 57.3 fl (35.1-43.9); Red Blood Count 2.47 M/mm3 (4.2-5.4); White Blood Count 8.2 K/mm3 (4.4-11.0)
[2023-06-23 14:24] LABS: International Normalized Ratio 1.2; Prothrombin Time (Protime)PT. 14.7 SECONDS (11.7-14.9)
[2023-06-23 14:26] LABS: Partial Thromboplast Time 26.4 Seconds (24.1-36.2)
[2023-06-23 14:28] LABS: ALB/GLOB Ratio 1.3 RATIO (0.9-2.4); AST(SGOT) 19 U/L (15-37); Alanine Aminotransfer ALT/SGPT 27 U/L (13-56); Albumin, Serum 3.4 g/dL (3.2-5.0); Alkaline Phosphatase 88 U/L (45-117); Anion Gap 6 (5-15); BUN 27 mg/dL (7-18); BUN/Creat Ratio 22.9 RATIO (10-20); Calcium,Total 8.6 mg/dL (8.5-10.1); Chloride 105 mmol/L (98-107); Creatinine, Serum 1.18 mg/dL (0.55-1.02); EST Glomerular Filtration Rate 50 mL/min (>60); Est Glom Filt Rate - Afr Amer 61 mL/min (>60); Globulin 2.7 g/dL (2.2-4.2); Glucose 134 mg/dL (74-106); Magnesium 1.3 mg/dL (1.6-2.6); Protein, Total 6.1 g/dL (6.4-8.2); Sodium Level 136 mmol/L (136-145)
[2023-06-23 14:45] LABS: Squamous Epithelial Cells - UA 0 SEEN /hpf (5-10)
[2023-06-23 14:49] LABS: Color, Urine Yellow (Yellow); Glucose, Dipstick Normal (Normal); Ketone-Dipstick Negative (Negative); Leukocyte Esterase-Dipstick 500 /ul (Negative); Nitrite-Dipstick Negative (Negative); Occult Blood-Urine 10 /ul (Negative); Protein-Dipstick 30 mg/dl (Negative); Specific Gravity, Urine 1.025 (1.002-1.030); Urine Bilirubin Dipstick Negative (Negative); Urine Clarity Sl. Cloudy (Clear); Urine Urobilinogen Normal (Normal)
[2023-06-23 14:59] LABS: Lactic Acid 1.6 mmol/L (0.4-1.9)
[2023-06-23 15:01] LABS: Bacteria 2+ /hpf (None Seen); Mucous, Urine 2+ /hpf (<or=2+); Red Blood Cells-Urine 0-5 SEEN /hpf (0-5); White Blood Cells 25-50 SEEN /hpf (0-5)
[2023-06-23] MEDS: Ceftriaxone 1 GM/50 ML BAG IV (15:57)
[2023-06-23] MEDS: Magnesium Sulfate 2 GM in Dextrose 5%-Water (100mL Bag) 100 ML IV (17:22)
== END 2023-06-23 21:37 | disposition home or self-care (01) ==
PROVIDERS: Emergency Provider Emergency Medicine; PCP Family Medicine; Visit Provider Emergency Medicine
DX: I95.9 Hypotension, unspecified (principal); K52.1 Toxic gastroenteritis and colitis; N39.0 Urinary tract infection, site not specified; E83.42 Hypomagnesemia; T45.1X5A Adverse effect of antineoplastic and immunosuppressive drugs, initial encounter; E86.0 Dehydration; N28.9 Disorder of kidney and ureter, unspecified; Z79.01 Long term (current) use of anticoagulants; Z79.899 Other long term (current) drug therapy; Z87.891 Personal history of nicotine dependence
CPT/HCPCS: 36591; 80053; 81001; 83605; 83735; 85025; 85610; 85730; 87040; 87077; 87086; 87088; 87186; 87493; 87506; 93005; 96361; 96365; 96366; 96367; 99283; J7030; A4216

== ENCOUNTER → 2023-07-05 | Outpatient (CLI) | payer BC, SELFPAY ==
--- NOTE | 2023-07-05 13:43 | MRI_ITS ---
STUDY: BILATERAL BREAST MR WITHOUT AND WITH CONTRAST REASON FOR EXAM: Female, 57 years old. Rest cancer re-staging after chemotherapy. TECHNIQUE: Multi-sequence multi-echo imaging of both breasts was performed with a dedicated breast coil. T1-weighted and T2-weighted images were performed before the administration of contrast. T1-weighted images were also performed after the intravenous administration of 20 cc of Clariscan contrast. COMPARISON: Prior breast MRI with contrast dated 03/15/2023 and prior mammogram dated 02/23/2023. FINDINGS: RIGHT BREAST: Scattered fibroglandular densities with minimal background enhancement. Areas of enhancement on the prior MRI with contrast have resolved with no residual enhancing mass or non-mass enhancement. LEFT BREAST: Scattered fibroglandular densities with minimal background enhancement. No abnormal enhancing masses or areas of non-mass enhancement in the left breast. No enlarged or abnormal lymph nodes. No abnormality in the visualized regions of the chest or liver. MRI/Breast Bilateral W/O and W IMPRESSION: Resolution of previous enhancing mass and non-mass enhancement in the right breast. No enhancing masses or other abnormality of either breast is noted at this time. CATEGORY: BIRADS Category 6: Known Biopsy-Proven Malignancy - Appropriate Action Should Be Taken. A letter regarding these results will be sent to the patient by the facility within 30 days. Electronically Signed: Inderjit Avendano MD at 15:40 EDT ,
[2023-07-05] MEDS: 0.9% Saline Lock 10 ML Syringe IV (15:04)
== END | disposition home or self-care (01) ==
LOC: MRI 13:33
PROVIDERS: PCP Family Medicine; Referring Provider Internal Medicine Hematology & Oncology; Visit Provider Internal Medicine Hematology & Oncology
DX: C50.511 Malignant neoplasm of lower-outer quadrant of right female breast (principal); Z17.0 Estrogen receptor positive status [ER+]
CPT/HCPCS: 77049; A9575; A4216; C8908

== ENCOUNTER 2023-07-11 13:49 | Emergency (ER) | payer BC, SELFPAY ==
[2023-07-11 13:50] VITALS: BP 150/79; PULSE 100; RESP 14; TEMP 35.8; O2SAT 99; BMI 35.9
[2023-07-11 13:52] VITALS: BP 150/79; PULSE 97; RESP 14; O2SAT 100
--- NOTE | 2023-07-11 14:50 | VDUE_ITS ---
Reason For Study: Right arm swelling Right Proximal Right jugular vein is spontaneous, widely patent, phasic, with no intraluminal echogenicity noted. Right subclavian vein is spontaneous, widely patent, phasic, with no intraluminal echogenicity noted. Right Lower Arm Right radial vein is compressible. Right ulnar vein is compressible. Right Arm Right axillary vein is spontaneous, patent, phasic, competent, compressible and demonstrates augmentation. Right brachial vein is compressible. Right cephalic vein is compressible. Right basilic vein is compressible. Patient Safety Preliminary report given to Dr. Robbins. VL/Venous Duplex US, Unilateral Interpretation Summary No evidence for acute deep venous thrombosis[right] upper extremity with patent and compressible cephalic and basilic veins. Ordering Physician: Bart Robbins Referring Physician: Noel Snell Performed By: Mirta Lynn RVT ???
--- NOTE | 2023-07-11 14:52 | EX.ED.UPPERE ---
HPI History of Present Illness Chief Complaint: Edema Detail of Chief Complaint: Atraumatic pain swelling right upper extremity Informant: patient Occured/Mechanism Comment: Patient with history of stage Ib right breast cancer on chemotherapy. Port is on left side Onset/Context/Timing Onset: Days Context: Sudden Onset Timing: Continuous Location: Left upper extremity swelling and sense of fullness Current Severity: Mild Maximum Severity: Moderate Worsened by: Nothing specific Relieved by: Nothing Associated Symptoms Associated Symptoms: Negative for Parasthesia, Weakness or Loss of Funtion Narrative Narrative: Patient is a 57-year-old woman with history of stage Ib right breast cancer under the care of Dr. Bk Villatoro. She was sent in because of swelling and pain to her right upper extremity. She does complain of mild shortness of breath. She denies chest pain or pleuritic discomfort. She states she had an MRI last week. The MRI with contrast. Access was the left upper extremity and out the right upper extremity. Patient denies headache, visual, ocular auditory symptoms. Patient denies Clio exertion, orthopnea or PND. She denies abdominal pain, nausea vomiting or diarrhea. She also has noted swelling of the left ankle. There is no pain. 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 Knee pain Leg cramps Migraine headache Normal Holter exam Pulmonary embolism Seronegative rheumatoid arthritis Shortness of breath on exertion Shoulder pain Vitamin D deficiency Wears glasses Home Medications lisinopril 40 mg tablet 40 mg PO DAILY hypertension 08/31/16 [History Last Taken 03/21/23] cholecalciferol (vitamin D3) 125 mcg (5,000 unit) tablet (Vitamin D3) 125 mcg PO DAILY 01/14/22 [History Last Taken Unknown] melatonin 12 mg tablet 12 mg PO QHS 01/14/22 [History Last Taken Unknown] sulfasalazine 500 mg tablet 1.5 g PO BID 01/14/22 [History Last Taken Unknown] vitamin E 800 unit capsule 800 unit PO DAILY 01/14/22 [History Last Taken Unknown] pregabalin 75 mg capsule (Lyrica) 75 mg PO QHS 07/14/22 [History Last Taken Unknown] ursodiol 300 mg capsule 300 mg PO BID #180 caps 03/17/23 [Rx Last Taken Unknown] diphenoxylate-atropine 2.5 mg-0.025 mg tablet 2 tab PO Q6H PRN diarrhea 04/21/23 [History Last Taken Unknown] potassium chloride 20 mEq tablet,extended release 20 meq PO BID 04/21/23 [History Last Taken Unknown] prochlorperazine maleate 10 mg tablet 10 mg PO Q6H PRN nausea and vomiting 04/21/23 [History Last Taken Unknown] amitriptyline 100 mg tablet 100 mg PO QHS #90 tabs 05/08/23 [Rx Last Taken Unknown] cholestyramine (with sugar) 4 gram powder for susp in a packet 1 ea PO DAILY 06/02/23 [History Last Taken Unknown] dexamethasone 4 mg tablet mg 06/02/23 [History Last Taken Unknown] olanzapine 5 mg tablet 5 mg PO QHS 06/02/23 [History Last Taken Unknown] omeprazole 40 mg capsule,delayed release 40 mg PO DAILY 06/02/23 [History Last Taken Unknown] rivaroxaban 20 mg tablet (Xarelto) 20 mg PO DAILY 06/02/23 [History Last Taken Unknown] cephalexin 500 mg capsule 500 mg PO Q12 #10 CAPSULES 06/23/23 [Rx Last Taken Unknown] potassium chloride 20 mEq tablet,extended release(part/cryst) (Klor-Con M) 20 meq PO BID 06/23/23 [History Last Taken Unknown] Allergy/AdvReac Type Severity Reaction Status Date / Time No Known Allergies Allergy Verified 07/11/23 13:50 Family History Mother Cancer Hypertension Father Cancer Surgical History History of cholecystectomy History of hand surgery History of hysterectomy History of laparoscopy Hx of breast biopsy Hx of colonoscopy Hx of esophagogastroduodenoscopy Social History household members: none Smoking Status: Former smoker alcohol intake: never substance use type: does not use ROS ROS ED Constitutional Constitutional ED: Denies chills or fever(s) Eyes Eyes: Denies blurry vision or change in vision Cardiovascular Cardiovascular: Denies chest pain, orthopnea, palpitations, paroxysmal nocturnal dyspnea or racing heartbeat Respiratory/Chest Respiratory/Chest: Reports dyspnea; Denies cough, dyspnea on exertion, orthopnea or paroxysmal nocturnal dyspnea Gastrointestinal Gastrointestinal: Denies abdominal pain, nausea or vomiting Genitourinary Genitourinary ED: Denies dysuria, hematuria or urinary frequency Musculoskeletal Musculoskeletal: Denies back pain or neck pain Integumentary Denies rash Neurologic Neurologic: Denies weakness Hematologic/Lymphatic Hematologic/Lymphatic: Denies easy bleeding or easy bruising EXAM Physical Exam Const Vital Signs: 07/11/23 13:50 07/11/23 13:52 Temperature 96.5 F L Temperature Source Temporal Pulse Rate 100 97 Respiratory Rate 14 14 Blood Pressure 150/79 H 150/79 H Blood Pressure Mean 102 102 Pulse Ox 99 100 Oxygen Delivery Method Room Air Room Air Positive well nourished, well developed and obese General Appearance ED: well developed and NAD; Negative for cyanotic or diaphoretic Nutritional Appearance: obese HEENT Reports moist mucous membranes normocephalic and atraumatic Eyes PERRL and EOMs intact bilaterally Neck full ROM and supple Resp normal respiratory effort and clear to auscultation bilaterally Cardio regular rate, regular rhythm, S1 normal heart sound, S2 normal heart sound and no murmurs Extremity Negative for normal to inspection Extremity Narrative: There is swelling the entire right upper extremity. Axillary, median, radial and ulnar function intact. There is no epitrochlear or axillary lymphadenopathy. There is no erythema, warmth or induration. There is no lymphangitis. There is no evidence of trauma. Neuro oriented x3, CN's II-XII intact bilaterally, no focal motor deficits and no sensory deficits noted Sensorium / Orientation: alert Psych mental status grossly normal Skin General Skin Exam: Negative for petechiae Lesions: no lesions Rashes: no rashes MDM MDM MDM Narrative Medical decision making narrative: With history of breast cancer involving the right breast and swelling with discomfort right upper extremity need to evaluate for DVT versus obstructive lymphadenopathy. Patient did have a recent MRI. The MRI revealed no masses in the right chest wall or axillary region. Venous duplex study was ordered. History & Record Review Additional record(s) reviewed:: Prior outpatient record (Outpatient MRI.) and Prior labs Lab Data Attestation: I reviewed the patient's lab results. 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 MCV is 109. Comprehensive metabolic panel is unremarkable. Radiography Diagnostic Testing: Venous duplex study was negative for DVT. There was no enlarged lymph nodes or any evidence of inflammation per carbon plant grinder. Patient was made aware. Labs were ordered. Will then contact Dr. Bk Villatoro Management Discussion w/another healthcare provider: Motion Picture Photographer (Dr. Louie she was informed of the venous duplex study and laboratory studies. 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, Heterozygous MTHFR mutation [id number], AARON (obstructive sleep apnea), Breast cancer, Anemia, macrocytic Instructions: ED Peripheral Edema, Unilateral Prescriptions: No Action pregabalin [Lyrica] 75 mg capsule 75 mg PO QHS sulfasalazine 500 mg Tablet 1.5 g PO BID Rx Instructions: give with food (meal/snack) vitamin E 800 unit Capsule 800 unit PO DAILY cholecalciferol (vitamin D3) [Vitamin D3] 125 mcg (5,000 unit) Tablet 125 mcg PO DAILY melatonin 12 mg Tablet 12 mg PO QHS diphenoxylate-atropine 2.5-0.025 mg tablet 2 tab PO Q6H PRN (Reason: diarrhea) Patient Comments: TAKE 2 TABLETS BY MOUTH EVERY 6 HOURS NEEDED FOR UP TO 14 DAYS potassium chloride 20 mEq tablet extended release 20 meq PO BID Patient Comments: TAKE 1 TABLET BY MOUTH EVERY DAY prochlorperazine maleate 10 mg tablet 10 mg PO Q6H PRN (Reason: nausea and vomiting) Patient Comments: TAKE 1 TABLET BY MOUTH EVERY 6 HOURS NEEDED (FOR CHEMOTHERAPY INDUCED NAUSEA AND VOMITING). cholestyramine (with sugar) 4 gram powder in packet 1 ea PO DAILY olanzapine 5 mg tablet 5 mg PO QHS Patient Comments: TAKE 1 TABLET BY MOUTH DAILY AT BEDTIME. TAKE FOR 4 NIGHTS AFTER EACH CHEMOTHERAPY TREATMENT. dexamethasone 4 mg tablet omeprazole 40 mg capsule,delayed release(DR/EC) 40 mg PO DAILY Patient Comments: TAKE 1 (ONE) CAPSULE BY MOUTH 30-45 MINUTES BEFORE BREAKFAST Xarelto 20 mg tablet 20 mg PO DAILY Patient Comments: TAKE 1 TABLET BY MOUTH EVERY DAY WITH DINNER potassium chloride [Klor-Con M20] 20 mEq tablet,ER particles/crystals 20 meq PO BID Patient Comments: TAKE 1 TABLET BY MOUTH TWICE A DAY cephalexin [cephalexin] 500 mg capsule 500 mg PO Q12 Qty: 10 0RF lisinopril 40 MG tablet 40 mg PO DAILY ursodiol 300 mg capsule 300 mg PO BID Qty: 180 3RF amitriptyline 100 mg tablet 100 mg PO QHS Qty: 90 1RF Primary Care Provider: Noel Snell Referrals: Noel Snell MD [Primary Care Provider] - Bk Villatoro DO [Med Staff - Active Staff] - 1-2 Weeks Disposition Disposition: Home, Self Care
[2023-07-11 15:41] LABS: Absolute Lymphocyte Count 2.16 X10^3/uL (0.83-4.51); Absolute Neutrophil Count 2.3 X10^3/uL (2.0-7.7); Basophil# 0.03 X10^3/uL; Basophil% 0.6 % (0-1); Eosinophil# 0.04 X10^3/uL; Eosinophils% 0.8 % (0-5); Hematocrit 25.3 % (37-47); Hemoglobin 8.5 g/dL (12.0-15.0); Lymphocyte # 2.16 X10^3/ul (0.83-4.51); Lymphocyte % 41.8 % (19-41); Mean Corp Hgb Conc 33.6 g/dL (32-36); Mean Corpuscular Hgb 36.6 pg (27.0-32.0); Mean Corpuscular Volume 109.1 fL (81-99); Mean Platelet Vol. 8.4 fl (6.2-12.0); Monocyte# 0.59 X10^3/uL; Monocyte% 11.4 % (0-10); NRBC Flagged by Analyzer 0 % (0-5); Neutrophil # 2.33 X10^3/uL (2.7-7.7); Platelet Count 394 K/mm3 (150-450); RBC Distribution Width CV 15.4 % (11.6-14.6); RBC Distribution Width SD 59.9 fl (35.1-43.9); Red Blood Count 2.32 M/mm3 (4.2-5.4); White Blood Count 5.2 K/mm3 (4.4-11.0)
[2023-07-11 15:49] VITALS: BP 133/84; PULSE 88; RESP 16; O2SAT 97
[2023-07-11 16:08] LABS: ALB/GLOB Ratio 1.1 RATIO (0.9-2.4); AST(SGOT) 26 U/L (15-37); Alanine Aminotransfer ALT/SGPT 30 U/L (13-56); Albumin, Serum 3.3 g/dL (3.2-5.0); Alkaline Phosphatase 74 U/L (45-117); Anion Gap 8 (5-15); BUN 11 mg/dL (7-18); BUN/Creat Ratio 12.6 RATIO (10-20); Calcium,Total 7.7 mg/dL (8.5-10.1); Chloride 106 mmol/L (98-107); Creatinine, Serum 0.88 mg/dL (0.55-1.02); EST Glomerular Filtration Rate 71 mL/min (>60); Est Glom Filt Rate - Afr Amer 86 mL/min (>60); Estimated Creatinine Clearance 86.71 ml/min; Glucose 104 mg/dL (74-106); Potassium 3.6 mmol/L (3.5-5.1); Protein, Total 6.3 g/dL (6.4-8.2); Sodium Level 141 mmol/L (136-145)
[2023-07-11 16:26] VITALS: BP 133/84; PULSE 88; RESP 17; TEMP 36.6; O2SAT 97
== END 2023-07-11 16:32 | disposition home or self-care (01) ==
PROVIDERS: Emergency Provider Emergency Medicine; PCP Family Medicine; Visit Provider Emergency Medicine
DX: I89.0 Lymphedema, not elsewhere classified (principal); C50.919 Malignant neoplasm of unspecified site of unspecified female breast; E83.119 Hemochromatosis, unspecified; R06.02 Shortness of breath; D53.9 Nutritional anemia, unspecified; G47.33 Obstructive sleep apnea (adult) (pediatric); D64.81 Anemia due to antineoplastic chemotherapy; T45.1X5A Adverse effect of antineoplastic and immunosuppressive drugs, initial encounter; I10 Essential (primary) hypertension; E66.9 Obesity, unspecified; Z79.01 Long term (current) use of anticoagulants; Z79.899 Other long term (current) drug therapy; Z87.891 Personal history of nicotine dependence
CPT/HCPCS: 80053; 85025; 93971; 99284; A4216

== ENCOUNTER → 2023-07-18 | Outpatient (CLI) | payer BC, SELFPAY ==
[2023-07-18 13:04] LABS: Vitamin D,25 Hydroxy 43.6 ng/mL
[2023-07-18 16:52] LABS: Hemoglobin A1c 4.4 % (3.8-5.6)
== END | disposition home or self-care (01) ==
LOC: MFPLAB 11:10
PROVIDERS: PCP Family Medicine; Visit Provider Family Medicine
DX: E55.9 Vitamin D deficiency, unspecified (principal); R73.02 Impaired glucose tolerance (oral)
CPT/HCPCS: 36415; 82306; 83036

== ENCOUNTER → 2023-07-20 | Outpatient (CLI) | payer BC, SELFPAY ==
[2023-07-20 17:55] LABS: Magnesium 1.4 mg/dL (1.6-2.6)
== END | disposition home or self-care (01) ==
LOC: MFPLAB 14:31
PROVIDERS: PCP Family Medicine; Visit Provider Family Medicine
DX: E83.42 Hypomagnesemia (principal)
CPT/HCPCS: 36415; 83735

== ENCOUNTER 2023-07-25 15:16 | Observation (INO) | payer BC, SELFPAY ==
[2023-07-25] VITALS (13 sets, daily range): BP systolic 114–143; BP diastolic 59–76; PULSE 82–99; RESP 15–18; TEMP 36.4–37.3; O2SAT 92–99; BMI 36.3
--- NOTE | 2023-07-25 | IMM_PTH ---
PATIENT: SCOTT PALOMINO LOC: MS3 U#:[id number] AGE/SX: 57/F ROOM: [facility] [place] RE07/25/[address]: Dr. Shaina Weston MD : 1965 BED: 1 DIS: 07/26/2023 SPEC #: [id number] RECD: 07/27/23 14:18 STATUS: SOUMorris REQ #: [id number] KEVIN: 07/25/23 00:[address]: Shaina Weston DEPT: IMMUNOHISTOCHEMISTRY RECD BY: Nolberto Christopher ENTERED: 07/27/23 14:18 SP TYPE: IMMUNO OTHR DR: Dr. Noel Snell MD Tissues: A - Breast, NOS D - Breast, NOS Procedures: CK7 (add) Pankeratin (initial) Pankeratin (add) PHYSICIAN & INSTITUTION [place] [id number] SPECIMEN INFORMATION: Tissue Source: A- Right breast sentinel lymph node/tissue, D- Right axillary node contents Clinical Info: Breast cancer, Pulmonary emboli Specimen Number: [id number] CPT code: 16032m4, 14398s70 METHODOLOGY: Deparaffinized sections of prefer/formalin-fixed tissue or PAP/DQ stained slides are incubated with monoclonal/polyclonal antibodies/oligonucleotide probes. Localization is made via biotin free immunoperoxidase method. Appropriate controls are performed and reacted as expected. Results on target cell population are indicated in the following table: RESULTS: ANTIBODY / CLONE RESULT Block A 1 AE1-3 (AE1/AE3/PCK26) negative CK7 (OV-TL12/30) negative Block A 2 AE1-3 (AE1/AE3/PCK26) negative CK7 (OV-TL12/30) negative Block A 3 AE1-3 (AE1/AE3/PCK26) negative CK7 (OV-TL12/30) negative Block D 1 AE1-3 (AE1/AE3/PCK26) negative CK7 (OV-TL12/30) negative Block D2 AE1-3 (AE1/AE3/PCK26) negative CK7 (OV-TL12/30) negative Block D 3 AE1-3 (AE1/AE3/PCK26) negative CK7 (OV-TL12/30) negative Block D 4 AE1-3 (AE1/AE3/PCK26) negative CK7 (OV-TL12/30) negative Block D5 AE1-3 (AE1/AE3/PCK26) negative CK7 (OV-TL12/30) negative Block D 6 AE1-3 (AE1/AE3/PCK26) negative CK7 (OV-TL12/30) negative Block D 7 AE1-3 (AE1/AE3/PCK26) negative CK7 (OV-TL12/30) negative Block D 8 AE1-3 (AE1/AE3/PCK26) negative CK7 (OV-TL12/30) negative Block D 9 AE1-3 (AE1/AE3/PCK26) negative CK7 (OV-TL12/30) negative Block D 10 AE1-3 (AE1/AE3/PCK26) negative CK7 (OV-TL12/30) negative Block D 11 AE1-3 (AE1/AE3/PCK26) negative CK7 (OV-TL12/30) negative These tests were developed and their performance characteristics determined by [facility]. They may not have been cleared or approved by the U.S. Food and Drug Administration. The FDA has determined that such clearance or approval is not necessary. The above immunohistochemical/dualISH markers are ordered and reviewed by the Pathologist. INTERPRETATION: A. Breast cancer sentinel lymph node/tissue: Two out of two lymph nodes, negative for metastatic carcinoma. D. Right axillary node contents: Ten out of ten lymph nodes, negative for metastatic carcinoma. SJ/mr 07/28/23
--- NOTE | 2023-07-25 07:19 | NM_ITS ---
PROCEDURE: NUCLEAR MEDICINE Injection [place] Node - RIGHT breast(s). REASON FOR EXAM: Female, 57 years old. Right breast cancer. TECHNIQUE: [place] node localization using radionuclide methods of the RIGHT breast(s) was performed following subcutaneous administration of mCi of of sulfur colloid Tc-99m. COMPARISON STUDIES : NM - None. CR - Not available for review at this time. CT - Not available for review at this time. MR - Not available for review at this time. US - Not available for review at this time. FINDINGS: 1.2 mCi of technetium labeled sulfur colloid was injected in 4 equal aliquots in the right periareolar region. NM/Lymph Node Injection Only IMPRESSION: 1.2 mCi of technetium labeled sulfur colloid was injected in 4 equal aliquots in the right periareolar region for sentinel node imaging.. Electronically Signed: Mario Alberto Sesay MD at 8:22 EDT ,
[2023-07-25] MEDS: Lactated Ringers 1,000 ML 15 ML IV ×2 (07:45→15:25)
--- NOTE | 2023-07-25 08:38 | HP.PCM_ITS ---
History and Physical Date of Admission: 07/25/23 Date of Service: 07/12/23 MR#: [id number] Acct: [id number] Name: SCOTT ODEN Rep #: [id number] : 1965 Provider: Dr. Shaina Weston MD Age/Sex: 57/F Location: [facility] Status: Signed Intake Vital Signs 06/22/2412:16 07/10/2412:50 07/12/2411:46 Height 5 ft 6.14 in 5 ft 6 in 5 ft 6 in Weight: 227 lb BMI 36.6 BP 139/71 H Blood Pressure Location Lt brachial Position Sitting Respiration 18 Pulse 97 Pulse Source Monitor Temp 97.3 F L Temp Source Temporal Pulse Oximetry (%) 97 Oxygen Delivery Method room air Intake Visit Reasons: DISCUSS BREAST SURGERY Chief Complaint: discuss breast surgery Accompanied by: Friend Is patient in pain?: No Allergies No Known Allergies Allergy (Verified 07/12/23 12:48) Medications lisinopril 40 mg tablet 40 mg PO DAILY hypertension 08/31/16 [History Confirmed 07/12/23] cholecalciferol (vitamin D3) 125 mcg (5,000 unit) tablet (Vitamin D3) 125 mcg PO DAILY 01/14/22 [History Confirmed 07/12/23] melatonin 12 mg tablet 12 mg PO QHS 01/14/22 [History Confirmed 07/12/23] sulfasalazine 500 mg tablet 1.5 g PO BID 01/14/22 [History Confirmed 07/12/23] vitamin E 800 unit capsule 800 unit PO DAILY 01/14/22 [History Confirmed 07/12/23] pregabalin 75 mg capsule (Lyrica) 75 mg PO QHS 07/14/22 [History Confirmed 07/12/23] ursodiol 300 mg capsule 300 mg PO BID #180 caps 03/17/23 [Rx Confirmed 07/12/23] diphenoxylate-atropine 2.5 mg-0.025 mg tablet 2 tab PO Q6H PRN diarrhea 04/21/23 [History Confirmed 07/12/23] potassium chloride 20 mEq tablet,extended release 20 meq PO BID 04/21/23 [History Confirmed 07/12/23] prochlorperazine maleate 10 mg tablet 10 mg PO Q6H PRN nausea and vomiting 09/07 [History Confirmed 07/12/23] amitriptyline 100 mg tablet 100 mg PO QHS #90 tabs 05/08/23 [Rx Confirmed 07/12/23] cholestyramine (with sugar) 4 gram powder for susp in a packet 1 ea PO DAILY 06/02/23 [History Confirmed 07/12/23] dexamethasone 4 mg tablet mg 06/02/23 [History Confirmed 07/12/23] olanzapine 5 mg tablet 5 mg PO QHS 06/02/23 [History Confirmed 07/12/23] omeprazole 40 mg capsule,delayed release 40 mg PO DAILY 06/02/23 [History Confirmed 07/12/23] rivaroxaban 20 mg tablet (Xarelto) 20 mg PO DAILY 06/02/23 [History Confirmed 07/12/23] cephalexin 500 mg capsule 500 mg PO Q12 #10 CAPSULES 06/23/23 [Rx Confirmed 07/12/23] potassium chloride 20 mEq tablet,extended release(part/cryst) (Klor-Con M) 20 meq PO BID 06/23/23 [History Confirmed 07/12/23] PFSH Medical History Anxiety Arthritis Back pain Cancer CPAP (continuous positive airway pressure) dependence Difficulty swallowing Epigastric pain Former smoker Gastric reflux History of echocardiogram History of hiatal hernia History of stress test History of thyroid nodule Hypertension Injury of head and neck Insomnia Iron overload Jackhammer esophagus Knee pain Leg cramps Migraine headache Normal Holter exam Pulmonary embolism Seronegative rheumatoid arthritis Shortness of breath on exertion Shoulder pain Vitamin D deficiency Wears glasses Surgical History History of cholecystectomy History of hand surgery History of hysterectomy History of laparoscopy Hx of breast biopsy Hx of colonoscopy Hx of esophagogastroduodenoscopy Family History Mother Cancer HypertensionFather Cancer Social History household members: none Smoking Status: Former smoker alcohol intake: never substance use type: does not use HPI HPI HPI: 57-year-old female presents for discussion of surgery due to 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 Patient did complete 5 out of 6 cycles of neoadjuvant chemotherapy but had very bad diarrhea and had a good response on physical exam thus had the MRI done which shows resolution of previous masses in the right breast as well as right axilla?appears to be PCR on imaging. Patient did just noticed some right lower arm swelling below the elbow on Monday. Patient did go to the ER and had ultrasound done which was negative. Patient's last chemotherapy was June 15, 2023 patient did get Herceptin last which she is able to get prior to surgery without any issues. ROS General General: Yes weight change and breast cancer; No appetite, fatigue or colon cancer HEENT HEENT: Yes difficulty swallowing; No eye injury, eye surgery, swollen glands or hoarseness Endo Endocrine: No thyroid disease, diabetes mellitus, thyroid cancer, Hair loss, heat intolerance or cold intolerance Skin Skin: No rash or changing moles Breast Breast: No left breast lump, right breast lump or breast pain Musc Musculoskeletal: Yes back problems, arthritis and rheumatoid arthritis; No gout or joint pain Cardio Cardiovascular: Yes high blood pressure; No murmur, pacemaker, heart disease, atrial fibrillation, heart attack, heart stent, palpitations, shortness of breat with exertion or chest pain Psych Psychiatric: No depression, anxiety or hearing voices Resp Respiratory: No shortness of breath, Yes sleep apnea, No cough, No COPD, No asthma, No emphysema and No wheezing Gastro Gastrointestinal: Yes abdominal pain, No nausea or vomiting, No diarrhea, No constipation, No blood in stool, Yes acid reflux, Yes hemorrhoids, No ulcers, No gallbladder problem and No black,tarry stools Cameron Hematologic: Yes blood thinners, Yes blood disorders, No bleeding, No anemia and Yes blood clots Neuro Neurologic: No numbness and No tingling Exam Const General: cooperative, healthy appearing and no acute distress [facility] Head: normal to inspection Chest Other: Breast inspection: Symmetric bilaterally Right breast: Fibroglandular tissue, no masses on exam?previous masses resolved, no nipple discharge or pain, no change in overlying skin?bedside ultrasound I believe I am able to see the clip in the node which was positive under ultrasound. Left breast: Fibroglandular tissue, no masses on exam, no nipple discharge or pain, no change in overlying skin No axillary or supraclavicular adenopathy bilaterally Resp Effort & Inspection: normal respiratory effort Cardio Rate: regular rate GI Inspection: non-distended Palpation: soft Skin General: no rashes or lesions noted Neuro General: patient oriented x3 Extrem General: no clubbing, cyanosis or edema Psych Affect: normal affect Assessment and Plan Assessment and Plan (1) Breast cancer: Status: Acute (2) Pulmonary emboli: Status: Chronic Plan Patient is currently on Xarelto due to history of PE patient would need to come off that for 3 days prior to surgery. Also plan to have patient go to mammography for trial to see if were able to localize the right axillary lymph node clip as it appears she has had a complete response.--addendum- axillary clip was able to be localized stereotactically. Discussed the procedure stereotactic wire localization right breast lumpectomy x 2, sentinel lymph node biopsy, nuclear tracer, blue dye, excision and localization of right axillary clipped lymph node, possible axillary lymph node dissection. I have told the patient that with all the surgeries that a sentinel lymph node biopsy is required. I have described the procedure of sentinel lymph node biopsy to the patient. I have told the patient that if the biopsy is positive for metastatic disease, then a full axillary lymph node dissection is required. I have told the patient that adjuvant chemotherapy will be required should the lymph nodes reveal metastatic disease. Also, a full lymph node dissection will increase the risk for lymphedema, especially if there are 4 or more lymph nodes positive for metastatic disease and radiation to the axilla is also required--patient swelling to lower right forearm unsure etiology as Doppler was negative. I have told the patient the risks of surgery, including but not limited to: infection, bleeding, scar tissue, seroma and persistent seroma, lymph leak, injury to any blood vessels, injury to any nerves (particularly the long thoracic, the thoracodorsal, and the second intercostal brachial and the resultant sequelae), lymphedema, cosmetic deformity, dysesthesias, wound infe ctions, further surgery (especially if margins are not clear), complications of anesthesia, etc. the patient understands. I have answered all the patient?s questions at this point to her satisfaction and she has no further questions. Shaina Weston M.D. Pager: [phone] [facility] [address] [place] [address], [facility], [address] [place] [address] Office: [phone] Coding Level of Care Code Off vis,est,level 4 Diagnoses Breast cancer C50.919 Pulmonary emboli I26.99 07/14/23 0928 <Electronically signed by Shaina Weston MD> Date Shaina Weston MD
[2023-07-25] MEDS: Cefazolin 2 GM in 0.9% Normal Saline (100mL Bag) 100 ML IV (12:15)
[2023-07-25] MEDS: Isosulfan Blue 1% 5 ML Vial (12:20)
[2023-07-25] MEDS: 0.9% Normal Saline (Pres. free 10 ML Vial (12:21)
--- NOTE | 2023-07-25 12:34 | BI_ITS ---
SURGICAL BREAST SPECIMEN RADIOGRAPH CLINICAL: Document presence of tissue clip marker in biopsy specimen. FINDINGS: Specimen shows presence of tissue clip marker. Electronically Signed: Mario Alberto Sesay MD at 8:37 EDT , BI/Breast Biopsy Specimen IMPRESSION: undefined
--- NOTE | 2023-07-25 12:36 | BI_ITS ---
SURGICAL BREAST SPECIMEN RADIOGRAPH CLINICAL: Document presence of tissue clip marker in biopsy specimen. FINDINGS: Specimen shows presence of tissue clip marker. Electronically Signed: Mario Alberto Sesay MD at 8:37 EDT , BI/Breast Biopsy Specimen IMPRESSION: undefined
--- NOTE | 2023-07-25 12:38 | BI_ITS ---
SURGICAL BREAST SPECIMEN RADIOGRAPH CLINICAL: Document presence of tissue clip marker in biopsy specimen. FINDINGS: Specimen shows presence of tissue clip marker. Electronically Signed: Mario Alberto Sesay MD at 8:38 EDT , BI/Breast Biopsy Specimen IMPRESSION: undefined
--- NOTE | 2023-07-25 13:13 | AXNB_PTH ---
PATIENT: SCOTT PALOMINO LOC: [facility]3 U#:[id number] AGE/SX: 57/F ROOM: [facility] RE07/25/[address]: Dr. Shaina Weston MD : 1965 BED: 1 DIS: 07/26/2023 SPEC #: [id number] RECD: 07/25/23 13:13 STATUS: NEAL ABDULAZIZ #: [id number] KEVIN: 07/25/23 13:[address]: Shaina Weston DEPT: SURGICAL PATHOLOGY RECD BY: Nolberto Christopher ENTERED: 07/26/23 08:09 SP TYPE: AX NODE BX OTHR DR: Dr. Noel Snell MD Tissues: A - Axillary lymph node, NOS B - Right breast, NOS C - Right breast, NOS D - Axillary lymph node, NOS Procedures: Frozen Section (charge) Surgery Specimen Level IV Surgery Specimen Level V HEADER OPERATION: Stereo needle loc right breast lumpectomy x2, blue dye PRE-OP DIAGNOSIS: Breast cancer, Pulmonary emboli TISSUE SUBMITTED: A- Right breast sentinel lymph node/tissue ( sent to mammography at 1302, then sent for frozen section), B- Right breast- retro areolar lumpectomy, short stitch brennan superior, long stitch brennan lateral (sent to mammography at 1329, then sent to pathology), C- Right breast- 9 o'clock lumpectomy, short stitch brennan superior, long stitch brennan lateral ( sent to mammography at 1358, then sent to pathology), D- Right axillary node contents (sent to mammography at 1459, then sent to pathology) FROZEN SECTION DIAGNOSIS A. Right axillary sentinel lymph node, biopsy: Focal lymphoid tissue negatives for carcinoma. / 07/25/23 MICROSCOPIC DIAGNOSIS A. Right breast sentinel lymph node/tissue: Two out of two lymph nodes negative for metastatic carcinoma. Negative for metastatic carcinoma. Previous therapy related changes. See comment. B. Right breast, retroareolar lumpectomy with wire localization: Negative for residual carcinoma. Change consistent with previous biopsy site. Previous therapy related changes. C. Right breast- 9 o'clock, lumpectomy with wire localization x2: Negative for residual carcinoma. Change consistent with previous biopsy site. Previous therapy related changes. Intraductal hyperplasia without atypia. Focal microcalcifications. D. Right axillary lymph nodes contents: 10 out of 10 lymph nodes are negative for metastatic carcinoma. Focal therapy related changes. See comment. / 07/28/23 COMMENT A&D. Immunohistochemistry ([id number]) supports the above diagnosis. BREAST CANCER SUMMARY Procedure - Lumpectomy with wire localization Specimen laterality - Right Invasive tumor: Tumor site - As per clinical information Right breast 6 o'clock and Right breast 9 o'clock Tumor size - No residual carcinoma in the present specimen. previous biopsy specimen ([id number]): - Right breast at 6 o'clock tumor 13mm in greatest length, - Right breast at 9 o'clock tumor 9mm in greatest length. Histologic grade (Jazmín grade): in previous biopsy specimens - [id number] Right breast 6 o'clock and Right breast 9 o'clock, both tumor similar morphology. Glandular/tubular differentiation score - 3 Nuclear pleomorphism score - 3 Mitotic count score - 1 Overall grade - grade 2 (score of 7) Tumor focality - Two foci of tumor (previous biopsy specimen) Ductal carcinoma in situ - Not identified Lobular carcinoma in situ - Not identified Tumor extension: Skin - Not applicable Nipple - Not applicable Skeletal muscle - Not applicable Lymphvascular invasion - Not identified Dermal lymphvascular invasion - Not applicable Treatment effect - In the breast - no residual invasive carcinoma is the breast after presurgical therapy. In lymph node- No lymph node metastasis. Fibrous scaring, histiocytic aggregate and foreign body giant cell reaction, possibly related to prior lymph node metastasis with pathologic complete response Margins: Margins are free of tumor. No residual carcinoma is present. Regional lymph nodes: Number of lymph nodes examined - 12 Number of sentinel lymph nodes examined - 2 Number of lymph nodes with macrometastases, micrometastases or isolated tumor cells - 0 Distant metastases- Not applicable Additional Pathologic Findings - Intraducatal hyperplasia without atypia Ancillary Studies: Previously performed on same tumor ([id number] / [id number]) Right breast at 6 o'clock ER: Positive (25%), dim staining intensity LA: Postitive (65%), dim staining intensity [id number]: Positive (3+) Right breast at 9 o'clock ER: Positive (15%), dim staining intensity LA: Positive (2%) , dim staining intensity Her-[id number]: Positive (3+) Microcalcifications - Present In benign breast tissue Clinical History - Please make reference to previous specimens, right breast 6 o'clock, needle core biopsy with diagnosis of invasive ductal carcinoma and right breast at 9 o'clock, needle core biopsy with diagnosis of invasive ductal carcinoma and [id number] right axillary lymph node, core biopsy and the diagnosis of metastatic carcinoma, consistent with breast primary (the metastatic tumor measures 0.6 cm in greatest length) PATHOLOGIC STAGE: pT0(y) pN0(y) pMx The above summary is in compliance with [employer] (CAP) Cancer Protocols Checklist and [place] [employer] Committee on Cancer (AJCC), Staging Manual, 8th Ed. Case has been reviewed in consultation with Dr. Avelar who concurs with the above diagnosis. IDC:AM MICROSCOPIC DESCRIPTION Slides are reviewed. GROSS DESCRIPTION A. Received fresh for frozen section consultation labeled with the patient's name is a specimen designated Right breast sentinel lymph node tissue. The specimen consists of two irregular fragments of oropeza-yellow fibrofatty tissue. One fragment measure 3.5 x 1.5 x 0.5cm and contains a wire. The specimen measures 3.5 x 2.0 x 0.7cm and also contains a wire. Dissection of the tissue does not reveal a distinct mass lesion. The specimen is sectioned and totally submitted in three cassettes as follows: 1 & 2 - one piece of tissue and 3 - second piece of tissue. AM/mr 07/25/23 B. Received fresh for OR consultation labeled with the patient's name is a specimen designated Right breast lumpectomy. The specimen consists of an oriented fragment of oropeza-yellow fibrofatty tissue contain a wire. The specimen measures 3.4 x 1.5 x 0.6cm. The specimen is inked as follows: anterior - yellow, posterior - black, superior - blue, inferior - green, medial - red and lateral - orange. Serial sections do not reveal a mass lesion. The absence of mass lesion is conveyed to the surgeon intraoperatively. The specimen is serially sectioned and totally submitted in four cassettes after additional fixation. [facility] 07/25/23 C. Received fresh for intraoperative consultation labeled with the patient's name is a specimen designated Right breast 9 o'clock lumpectomy with wire localization x2. The specimen consists of a piece of fibroadipose tissue measuring 4.0 x 3.5 x 1.5cm. The specimen is inked as follows: anterior - yellow, posterior - black, superior - blue, inferior - green, medial - red and lateral - orange. Serial sections do not reveal any obvious mass lesion. The absence of mass lesion is conveyed to the surgeon intraoperatively. The entire specimen is submitted in eight cassettes from lateral to medial margin. Sections will be submitted after additional fixation. [facility] 07/25/23 D. Received in fixative is one container labeled with the patient's name and designated Right axillary lymph node contents. The specimen consists of multiple pieces of yellow adipose tissue containing nodules consistent with lymph nodes measuring in aggregate 10.0 x 5.5 x 3.0cm. Largest lymph node measures 2.5 cm in greatest dimension. Lymph nodes are submitted in entirety. [facility] sections are submitted in eleven cassettes as follows: 1-3- Each cassette containing one lymph node, 4&5- One lymph node, 6&7- One lymph node, 8&9- One lymph node, 10- Multiple lymph nodes, 11- Possible lymph node. [facility] 07/26/23 TC:5 CPT: [id number]
[2023-07-25] MEDS: Bupivacaine 0.25% 30 ML Vial (15:19)
--- NOTE | 2023-07-25 15:23 | OP.PCM_ITS ---
Report of Operation Date of Procedure: 07/25/23 Pre-Operative Diagnosis: Right breast cancer, possible complete pathologic resp onse Post-Operative Diagnosis: Same Surgery/Procedure Performed:: Stereotactic wire localization right breast lumpectomy x 2, injection of Lymphazurin and nuclear tracer, right axillary lymph node dissection and placement of LAVON Surgeon: Shaina Weston customer pricing manager: Feng Gerard Type of Anesthesia: General/Supplemental Anesthesiologist: Feng Gerard Specimen's removed: 1. Right sentinel lymph node, 2. Right retroareolar breast mass/clip, 3. Right 9:00 breast mass/clip, 4 right axillary contents and clip Estimated Blood Loss (mL): 40 cc Description of Procedure: Synoptic Portion: Element Response Options Operation performed with curative intent. Yes Resection was performed within the boundaries of the axillary vein, chest wall (serratus anterior), and latissimus dorsi. Yes Nerves identified and preserved during dissection (select all that apply) Long thoracic nerve; Thoracodorsal nerve; --Branches of the intercostobrachial nerves-identified unable to be preserved Level III nodes were removed. No Patient had stereotactic wire localization right axillary lymph node as well as right breast clips x 2. Each procedure was done similarly. Clips were localized and 15 & -15 degree views were completed. Clip was targeted. Bard wire was placed. Additional views confirmed correct patient. Patient underwent mammography 2 view for localization studies. However it is noted that the more posterior 9:00 clipped wire was quite short of the clip. Patient had an additional stereotactic wire placed in this location. Repeat mammography showed the wire was passed the location of the clip. In AC the breast tissue was injected with TC-9 9 sulfur colloid. >90 minutes later the patient was taken to the operating room and general anesthesia was induced. 5 cc of Lymphazurin 1% blue dye was injected in the 4 quadrants periareolar along with 10 cc of normal saline. This was massaged gently for 5 minutes. The right breast and axilla were prepped and draped in usual sterile fashion. A timeout was completed verifying correct patient, procedure, site, positioning, special equipment prior to beginning procedure. Using ultrasound to ensure that the stereotactic wire was at the clipped node thus did attempt to use ultrasound-guided wire localization for this node as well. Used the Bard wire?placed underneath the what was thought to be the clip. Handheld gamma probe was used to identify the location of the hottest spot in the axilla. Prior to the incision, the counts were 4. However unable to identify any hot nodes or blue nodes but did have some blue lymphatics, but unable to trace to nodes. Thus converted for axillary lymph node dissection. Localization studies were reviewed for the clips and wires. Retroareolar clip incision was at the areolar border at 9:00. Silk suture was placed around the specimen and wire used for traction. Clip was dissected with electrocautery. This was sent to mammography for clip verification. The 9:00 clip incision was radial to minimize dissection to reach both wires. Again a silk suture was placed on the specimen and the wire and used for traction. Specimen was di ssected with electrocautery. Again this was sent to mammography for clip verification. The borders of the axillary vein, latissimus dorsi, serratus anterior are identified. The long thoracic and thoracodorsal nerves are also identified and protected?also attempted to protect the intercostobrachial nerve throughout the dissection. All the nodes within these borders are removed and sent to patho logy. The specimen was oriented and sent to radiology to verify clip node. Clip node was confirmed. The cavities were irrigated with sterile water. Hemostasis was checked. Closed suction drain was brought into the operating field through a separate stab incision and sutured to skin with 3-0 nylon suture. The incision was closed with interrupted 2-0 Vicryl to the simultaneously followed by a subcuticular layer of 4-0 Monocryl and Dermabond the axilla and areolar border, Steri-Strips at 9:00. The wound was dressed and surgical bra placed. The patient tolerated procedure well was taken to the postanesthesia care in stable condition. Complications none
[2023-07-25] MEDS: Pantoprazole Sodium 40 MG in 0.9% Normal Saline (100mL MB+) 100 ML 330 MG IV (17:52)
[2023-07-25] MEDS: Morphine 2 MG/ML Syringe IV (20:46)
[2023-07-25] MEDS: Amitriptyline 100 MG Tablet PO (22:24)
[2023-07-25] MEDS: Pregabalin 75 MG Capsule PO (22:24)
[2023-07-26 01:06] VITALS: BP 118/73; PULSE 90; RESP 15; TEMP 36.6; O2SAT 94
[2023-07-26 04:16] VITALS: BP 120/77; PULSE 93; RESP 15; TEMP 36.6; O2SAT 95
[2023-07-26] MEDS: oxyCODONE 5 MG Tablet PO (04:21)
[2023-07-26 05:00] VITALS: RESP 15
[2023-07-26 07:12] LABS: Absolute Lymphocyte Count 1.85 X10^3/uL (0.83-4.51); Absolute Neutrophil Count 10.6 X10^3/uL (2.0-7.7); Basophil# 0.02 X10^3/uL; Basophil% 0.1 % (0-1); Hematocrit 28.7 % (37-47); Hemoglobin 9.5 g/dL (12.0-15.0); Lymphocyte # 1.85 X10^3/ul (0.83-4.51); Lymphocyte % 13.5 % (19-41); Mean Corp Hgb Conc 33.1 g/dL (32-36); Mean Corpuscular Hgb 34.9 pg (27.0-32.0); Mean Corpuscular Volume 105.5 fL (81-99); Monocyte# 1.19 X10^3/uL; Monocyte% 8.7 % (0-10); NRBC Flagged by Analyzer 0 % (0-5); Neutrophil # 10.59 X10^3/uL (2.7-7.7); Platelet Count 302 K/mm3 (150-450); RBC Distribution Width CV 12.8 % (11.6-14.6); RBC Distribution Width SD 49.3 fl (35.1-43.9); Red Blood Count 2.72 M/mm3 (4.2-5.4); White Blood Count 13.8 K/mm3 (4.4-11.0)
--- NOTE | 2023-07-26 07:29 | PCM.PN.SRG ---
Subjective Subjective Patient is having little soreness in her axilla, LAVON sanguinous, tolerating diet Objective Data Objective Data Vital Signs: Vital Signs Temp Pulse Resp BP Pulse Ox O2 Del Method O2 Flow Rate 97.8 F 93 15 120/77 95 Room Air 3 07/26/23 04:16 07/26/23 04:16 07/26/23 05:00 07/26/23 04:16 07/26/23 04:16 07/26/23 05:00 07/25/23 17:40 Oxygen Flow Rate (L/min) 3 Oxygen Delivery Method Room Air Weight: 224 lb 13.944 oz Body Mass Index (BMI) 36.3 Intake & Output: Intake and Output for Last 24 Hours 07/24/23 07/25/23 07/26/23 23:59 23:59 23:59 Intake Total 1270 / 1570 600 / 600 Output Total 17 / 517 500 / 500 Balance 1253 / 1053 100 / 100 Lab / Micro Data 07/26/23 06:42 Labs: Laboratory Results - last 24 hr 07/26/23 06:42: WBC 13.8 H, RBC 2.72 L, Hgb 9.5 L, Hct 28.7 L, MCV 105.5 H, MCH 34.9 H, MCHC 33.1, RDW Std Deviation 49.3 H, RDW Coeff of Ember 12.8, Plt Count 302, MPV 9.0, Immature Gran % (Auto) 0.700, Neut % (Auto) 77.0 H, Lymph % (Auto) 13.5 L, Gage % (Auto) 8.7, Eos % (Auto) 0.0, Baso % (Auto) 0.1, Absolute Neuts (auto) 10.6 H, Absolute Lymphs (auto) 1.85, Nucleated RBC % 0 Radiography Diagnostic Testing: Radiology Impression [place] Node 07/25/23 07:19 IMPRESSION: 1.2 mCi of technetium labeled sulfur colloid was injected in 4 equal aliquots in the right periareolar region for sentinel node imaging.. Electronically Signed: Mario Alberto Sesay MD at 8:22 EDT , Physical Exam Narrative Right breast incisions healing well clean dry and intact, Dermabond at the area Bolar, Steri-Strips 9:00 radial, Dermabond at the right axillary incision, LAVON sanguinous and lightening up Const oriented x3 and no apparent distress Resp normal respiratory effort Cardio regular rate Assessment & Plan Assessment/Plan (1) S/P lumpectomy, right breast: (2) History of lymph node dissection of right axilla: (3) Invasive ductal carcinoma of breast: PLAN: Plan Patient is doing well incisions healing well. Tolerating regular diet History of PE in 2017 will have patient bridged on Lovenox shots discussed with Dr. Villatoro until drain is removed. Patient will follow-up next Monday for likely drain removal have her hold her Lovenox shot that night Pain control Shaina Weston M.D. Pager: [phone] [facility] [address] [place] [address], [facility], [address] [place] [address] Office: [phone]
[2023-07-26] MEDS: Lisinopril 20 MG Tablet PO (08:04)
[2023-07-26] MEDS: Potassium Chloride Oral Tablet 20 MEQ PO (08:05)
--- NOTE | 2023-07-26 08:06 | DCINST_ITS ---
Discharge Instructions Diet Discharge Diet: Light diet - advance as tolerated Activity Discharge Activity: May Not Drive (while taking narcotic pain medication) and May Not Shower (while drain is in place) Ice area for (Minutes): 15 Lifting Restrictions: no lifting greater than 10 pounds Dressing / Incision Call your doctor if your incision/area has: Continuous Slow Oozing, Sudden Increased Bleeding, Increased Pain/ Swelling, Increased Redness, Foul Smelling Discharge and Swelling at the incision site Call your doctor if you observe: Fever of 101 or Higher Suture Line Care: Avoid Pulling/Pushing and Avoid Pinching/Bending Remove Dressing in: 1 day Follow Up Care Please Follow Up With: Shaina Weston MD When: Please call our office to schedule an appointment for Monday, 08/03. Hold Lovenox on , 08/02 for the Monday appointment in preparation for drain removal. Test Results: Test results from this visit will be discussed in further detail at your follow- up appointment, if applicable. Discharge Plan Admission Admit Date/Time: 07/25/23 15:16 Primary Reason for Your Visit: Right breast lumpectomy for right breast cancer Attending Provider: Shaina Weston Primary Care Provider: Noel Snell Instructions Additional Instructions / Restrictions: Breast Lumpectomy Guidelines Diet ? Start light with soups and soft bland foods. You may advance diet as t olerated. Activity ? You may drive in 3-5 days but not while taking narcotic pain medication. ? I encourage walking. You may go up steps, one at a time. ? Recommend ice for 1st 72 hours after surgery, 15 minutes on, 15 minutes off routine. ? Do not swim or use hot tubs for 2 weeks. ? For comfort, I recommend wearing a supportive surgical bra, sports bra, or a wireless bra. Lifting ? You may lift up to 10 pounds for the first 2 weeks. You may advance to 20 pounds for the next 3 weeks. Dressings/Incision ? You may remove your bulky white gauze tape dressing tomorrow. ? You may shower over plastic dressings. Do NOT tub bathe for 1 week. ? Leave plastic dressings on for 3 days. ? When plastic dressings are removed, you will find steri strips or surgical glue. ? You may remove steri-strips after 1 week. We recommend getting them soaking wet for easier removal. You may also have surgical glue, which will eventually peel off by itself. ? If clothing rubs the area, you may need to reapply a light dressing of gauze and tape to protect the incision. Medications ? Anesthesia used during surgery and pain medications may cause constipation. I recommend initiating on the day of surgery a fiber supplement like, Metamucil, Citrucel, FiberCon, Benefiber, or a generic form of these medications. 1 heaping tablespoon in water daily. You may continue to utilize any bowel regimen or oral laxatives that you routinely take. We also recommend 1 tablespoon of Miralax if difficulty with constipation. ? As long as you are not intolerant to Tylenol, acetaminophen, ibuprofen, Motrin, Advil, Aleve, or similar medications, I would recommend transitioning to these [id number] medicines as soon as possible instead of continued use of narcotic pain medication. Follow up ? You should call [facility] soon after surgery, at [phone] option 1 to make a follow up appointment for 7-10 days after your surgery. Exercises following breast surgery The following stretching exercises should be done two (2) to three (3) repetitions, three times daily to ensure you regain the mobility of the shoulder you had prior to surgery. Begin these stretching exercises the day after surgery. Arm Lifts This is the most important exercise for you to do. While standing (or sitting on the edge of a chair), lift both arms directly over your head. Your goal is to have your elbows ?touching? your ears. Some find it helpful to do this exercise while looking in a mirror. Arm Swings While standing, swing both arms back and forth from the shoulder (like the pendulum of a clock). Attempt to keep the elbows stiff. Increase the distance of the swing each time. Wall Climbing Stand facing a wall with feet close to the wall. Climb the fingertips of both hands up the wall then creep them down again. Attempt to go a little higher each time. If you will be having post-operative radiation therapy following your breast surgery, you will be instructed additional way to do this exercise. It is important to keep the rest of your body active. Deep breaths and coughing are necessary after surgery. You may use stairs and ride in a car. Most people may drive seven days after surgery. Shaving, etc. Be careful when shaving under the arm or putting on deodorant. It is a good idea to look in the mirror while doing either, this is to prevent irritating the incision. Wait to shave until the drain is completely out or per the instruction of your surgeon. Blood draws, injections: It is preferred that you have blood drawn or have an injection in the operative arm. THIS IS A PRECAUTIONARY MEASURE. If it is necessary for you to have blood drawn using this arm, mention that you have had breast surgery and have had lymph nodes removed. Two weeks after surgery you will notice some changes: You may feel discomfort in the armpit and/or down the arm. This is the beginning of the inner tissue healing and at this time, discomfort is normal. Increase you exercise routine and take mild pain medication (Tylenol or acetaminophen). Warm showers may also provide discomfort. At this time, you may notice the incision feels thick and lumpy, this is normal. The scar tissue can be softened by massa ging the area with a mild lotion containing vitamin e or pure lanolin. These products may be purchased over the counter at any pharmacy or grocery store. After several weeks, the scar tissue will soften. Stay aware form perfumed lotions, as the alcohol in them may irritate the skin. If you are having post- operative radiation, do not apply anything to your skin without firs consulting your radiation oncologist. Swelling If you should develop any swelling (collection of fluid) in your arm, hand, near the incision or under your arm, please contact your surgeon. Sometimes, elevating the entire arm on pillows (higher than the level of your heart) will reduce some of the swelling. Do not sleep on your surgical side. This places the area in a dependent position and increases swelling of the breast and chest wall. A small amount of swelling of the breast, chest wall and armpit is normal for the first month after surgery. Going home with a drain: Patients who have undergone breast surgery are sometimes discharged with an external drainage device. The care, emptying and recording of the drainage will be demonstrated to you during your teaching session with the nurse prior to discharge. If you develop a fever over 101 degrees F, increased drainage (more than 240 cc/8 oz) over a 24 hours period or increased pain not controlled by pain medication, please call your doctors office. The amount of fluid that is drained over a 24-hour period will gradually decrease. The color may change from beltre re, to red orange, to straw color. When you return for your post-operative visit roughly four to seven days after surgery it is usually time to remove the drain. You will also be sent home on Lovenox, a once a day blood thinner, to avoid any blood clots following your surgery. You will be following up with Dr. Weston next Monday, 08/03. You will need to stop your Lovenox injection on in preparation for the drain to be removed. Discharge Orders/Prescriptions Prescriptions: New oxycodone 5 mg Tablet 5 mg PO Q6H PRN (Reason: pain) 4 Days Qty: 14 0RF enoxaparin [Lovenox] 40 mg/0.4 mL syringe 40 mg subcut DAILY Qty: 4 0RF Continued pregabalin [Lyrica] 75 mg capsule 75 mg PO QHS sulfasalazine 500 mg Tablet 1.5 g PO BID Hold Instructions: MD Ordered Rx Instructions: give with food (meal/snack) vitamin E 800 unit Capsule 800 unit PO DAILY cholecalciferol (vitamin D3) [Vitamin D3] 125 mcg (5,000 unit) Tablet 125 mcg PO DAILY melatonin 12 mg Tablet 12 mg PO QHS diphenoxylate-atropine 2.5-0.025 mg tablet 2 tab PO Q6H PRN (Reason: diarrhea) Patient Comments: TAKE 2 TABLETS BY MOUTH EVERY 6 HOURS NEEDED FOR UP TO 14 DAYS potassium chloride 20 mEq tablet extended release 20 meq PO BID Patient Comments: TAKE 1 TABLET BY MOUTH EVERY DAY prochlorperazine maleate 10 mg tablet 10 mg PO Q6H PRN (Reason: nausea and vomiting) Patient Comments: TAKE 1 TABLET BY MOUTH EVERY 6 HOURS NEEDED (FOR CHEMOTHERAPY INDUCED NAUSEA AND VOMITING). omeprazole 40 mg capsule,delayed release(DR/EC) 40 mg PO DAILY Patient Comments: TAKE 1 (ONE) CAPSULE BY MOUTH 30-45 MINUTES BEFORE BREAKFAST Slow-Mag 71.5 mg tablet,delayed release (DR/EC) 71.5 mg PO BID Complex B-100 Tablet Extended Release 1 tab PO DAILY lisinopril 40 MG tablet 20 mg PO DAILY ursodiol 300 mg capsule 300 mg PO BID Qty: 180 3RF amitriptyline 100 mg tablet 100 mg PO QHS Qty: 90 1RF Held Xarelto 20 mg tablet 20 mg PO QHS Hold Instructions: Resume on 08/04/23. Patient Comments: TAKE 1 TABLET BY MOUTH EVERY DAY WITH DINNER Referrals / Follow Up: [facility] [[facility] - 08/04/23 (Please call for an appointment ) Disposition Disposition (needs filled in before D/C Order can be placed): Home, Self Care
[2023-07-26] MEDS: Pantoprazole Sodium 40 MG in 0.9% Normal Saline (100mL MB+) 100 ML 330 MG IV (08:08)
[2023-07-26 08:32] VITALS: BP 123/75; PULSE 87; RESP 16; TEMP 36.6; O2SAT 96
--- NOTE | 2023-07-26 09:01 | CASEMGMT ---
CLAIRE CM into pt room, pt with support person present. Discussed lovenox with pt, pt states she has given herself Enbrel in the past and with a review, she feels comfortable giving lovenox to herself. Pt is comfortable with her drain and care of it. Pt denies any homegoing needs at this time. TC to [facility], spoke with Agatha, cost of lovenox is $31.94 and there is no prior auth needed.
[2023-07-26] MEDS: 0.9 % NaCl (Sterile) Posiflush 10 mL IV (09:45)
--- NOTE | 2023-07-26 10:12 | PHA.DC_ITS ---
Pharmacy [facility] has performed discharge medication reconciliation and counseling for this patient. 1. ENOXAPARIN 100MG SC Q12 2. OXYCODONE 5MG PO Q6H PRN PAIN The patient's discharge medication list was reviewed for discrepancies and discrepancies were resolved. The patient was counseled on the following discharge medications and changes in medications for homegoing were reviewed. The Reason for Use, instructions for use, and potential side effects were reviewed for all new medications. The patient's questions regarding all of their medications were answered. The patient was able to verbally demonstrate an understanding of their discharge medications. Medications at Discharge Home Medications lisinopril 40 mg tablet 20 mg PO DAILY hypertension 08/31/16 cholecalciferol (vitamin D3) 125 mcg (5,000 unit) tablet (Vitamin D3) 125 mcg PO DAILY 01/14/22 melatonin 12 mg tablet 12 mg PO QHS 01/14/22 sulfasalazine 500 mg tablet 1.5 g PO BID 01/14/22 vitamin E 800 unit capsule 800 unit PO DAILY 01/14/22 pregabalin 75 mg capsule (Lyrica) 75 mg PO QHS 07/14/22 ursodiol 300 mg capsule 300 mg PO BID #180 caps 03/17/23 diphenoxylate-atropine 2.5 mg-0.025 mg tablet 2 tab PO Q6H PRN diarrhea 04/21/23 potassium chloride 20 mEq tablet,extended release 20 meq PO BID 04/21/23 prochlorperazine maleate 10 mg tablet 10 mg PO Q6H PRN nausea and vomiting 04/21/23 amitriptyline 100 mg tablet 100 mg PO QHS #90 tabs 05/08/23 omeprazole 40 mg capsule,delayed release 40 mg PO DAILY 06/02/23 rivaroxaban 20 mg tablet (Xarelto) 20 mg PO QHS 06/02/23 magnesium chloride 71.5 mg (magnesium chloride) tablet,delayed release (Slow- Mag) 71.5 mg PO BID 07/20/23 vitamin B complex (Complex B-100 tablet,extended release) 1 tab PO DAILY 07/25/23 enoxaparin 100 mg/mL subcutaneous syringe (Lovenox) 100 mg subcut Q12H #16 mL 07/26/23 oxycodone 5 mg tablet 5 mg PO Q6H PRN pain 4 days #14 tabs 07/26/23
== END 2023-07-26 10:31 | disposition home or self-care (01) ==
LOC: SDC 15:36 → MS3 15:36
PROVIDERS: Admitting Provider Surgery; PCP Family Medicine; Referring Provider Surgery; Visit Provider Surgery
PROC: (CPT 19301; principal; 2023-07-25 10:45)
DX: C50.811 Malignant neoplasm of overlapping sites of right female breast (principal); C77.3 Secondary and unspecified malignant neoplasm of axilla and upper limb lymph nodes; I26.99 Other pulmonary embolism without acute cor pulmonale; I10 Essential (primary) hypertension; Z87.891 Personal history of nicotine dependence; Z79.899 Other long term (current) drug therapy; Z79.01 Long term (current) use of anticoagulants; Z92.21 Personal history of antineoplastic chemotherapy; R13.10 Dysphagia, unspecified; K21.9 Gastro-esophageal reflux disease without esophagitis; Z86.718 Personal history of other venous thrombosis and embolism; K44.0 Diaphragmatic hernia with obstruction, without gangrene
CPT/HCPCS: 19301; 38525; 00400; 19281; 19282; 36415; 38792; 76098; 85025; 88305; 88307; 88331; 88341; 88342; 94668; 94762; 96365; 96366; 99221; A4648; A9541; J7120; A4216; G0378; J2405; J3490; Q9968

== ENCOUNTER 2023-11-28 16:30 | Outpatient (RCR) | payer BC, SELFPAY ==
--- NOTE | 2023-08-04 14:11 | HP.OTEVAL ---
Patient's Visit Information Visit Information Visit Information: SCOTT ODEN is a 57 year old F, referred to Occupational Therapy by Dr. Shaina Weston MD, with a diagnosis of breast cancer/ lymphedema. Date of Evaluation: 08/03/23 Occupational Therapist: REGINO Merida/Jeanne, CHT Subjective Subjective: This 57 year old female was seen for OT eval with dx of breast cancer right UE edema/ lymphedema. Pt states she was dx in 2022 with right breast cancer. pt underwent treatments with chemo for 5 treatments followed with MRI then sx. July 25 2023. with drainage tubes and Port placed on her left. pt had 12 lymph nodes removed 0 were positive- pt friend states she had swelling in right UE about 6th treatment swelling . pt arrives today with drain tubes in place- edema in right UE. pt does state her left UE is tender and she has limited ROM. pt with a friend both express getting pt back to her PLOF of IND. Pain right UE: Current Pain Intensity: 5 Pain Intensity Range: 5 ROM ROM Comments: pt can get bilateral UE to 90* flexion ( as pt is not to push past this 90* until the drain tubs are removed on August 09) all other ROM is WNL Lymphedema (Circumferential Measure) MCP: right 20cm left 18.5cm Wrist: right 19cm left 17cm Lower forearm: right 23cm left 21.5cm Largest forearm: right 30.5cm 25.5cm Elbow: right 28cm left 27cm Largest humerus: right 37cm left 36cm Axcillary: right 43cm left 41cm Upper Exremity Comments: pt demo with increase fluid in right UE Sensation Sensation Comments: Denies but states very sensitive on the back of her arm Quick DASH-Disab of Arm,Shoulder& Hand Quick DASH Score: 70.0000 Goals Goal: Patient will demonstrate a 20% reduction in edema by discharge: Yes Goal: Patient will demonstrate adequate knowledge of self-bandaging by the end of the first week.: Yes Goal: Patient will demonstrate adequate knowledge of self-massage by the end of the second week.: Yes Goal: Patient will demonstrate adequate knowledge of skin care and precautions by the end of the first week.: Yes Goal: Patient will demonstrate adequate knowledge of therapeutic exercises by discharge.: Yes Goal: Patient will select an appropriate compression garment and demonstrate adequate knowledge of correct donning technique, care and wearing schedule by discharge.: Yes Goal: Patient will voice understanding of need to replace compression garment every four to six months by discharge.: Yes Goal: Patient will demonstrate ROM WFL by discharge.: Yes Goal:: pt will demo full right shoulder flex and abduction by d/c pt will demo good posture sitting/standing and ambulation Rehabilitation General Assessment: pt arrives 1 weeks and 2 days s/p from right breast lumpectomy with lymph node removal- pt arrives with drain tubes intact but did need ed. to not force her right UE past 90* of shoulder flexion as to not pull drains. Pt demo need for skilled OT services 2x week for 6 weeks to assist pt in decreasing limb size increasing her ROM and ed. on life long mtg of lymphedema- pt and pts friend demo understanding and agree to POC. Rehabilitation Potential: Good Anticipated Interventions Anticipated Interventions: A/AAROM/PROM, Strengthening, Education re Diagnosis, Manual Lymph Drainage, Education re Life-long lymphedema Management, Education re Self-Bandaging Techniques, Education re Skin Care and Precautions, Education re Self Massage Techniques, Education re Correct Donning Tech,Care&Wearing Sched Comp Garments, Caregiver Training and Home Program Other Interventions: oncology rehab Visit Plan Frequency: 2x /Week Duration: 6 Weeks General Plan: drain tube removal August 09- will initiate full shoulder ROM following scar mtg /desensitization get order for compression sleeve and glove fax to [facility] Debbie TEXT: Thank you for the opportunity to evaluate your patient. For Medicare and Medicare HMO plans, please review the plan of care and approve it. It will need to be FAXED BACK to us at [phone] for Medicare purposes. Please let me know if there are questions or concerns regarding this plan of care. Physician Signature: Date:
--- NOTE | 2023-08-08 16:34 | HP.OTEVAL ---
Patient's Visit Information Visit Information Visit Information: SCOTT ODEN is a 57 year old F, referred to Occupational Therapy by Dr. Shaina Weston MD, with a diagnosis of breast cancer/ lymphedema. Date of Evaluation: 08/03/23 Occupational Therapist: Sangita Mayorga, REGINO/Jeanne, CHT Subjective Subjective: This 57 year old female was seen for OT eval with dx of breast cancer right UE edema/ lymphedema. Pt states she was dx in 2022 with right breast cancer. pt underwent treatments with chemo for 5 treatments followed with MRI then sx. July 25 2023. with drainage tubes and Port placed on her left. pt had 12 lymph nodes removed 0 were positive- pt friend states she had swelling in right UE about 6th treatment swelling . pt arrives today with drain tubes in place- edema in right UE. pt does state her left UE is tender and she has limited ROM. pt with a friend both express getting pt back to her PLOF of IND. Pain right UE: Current Pain Intensity: 5 Pain Intensity Range: 5 ROM ROM Comments: pt can get bilateral UE to 90* flexion ( as pt is not to push past this 90* until the drain tubes are removed on August 09) all other ROM is WNL Lymphedema (Circumferential Measure) MCP: right 20cm left 18.5cm Wrist: right 19cm left 17cm Lower forearm: right 23cm left 21.5cm Largest forearm: right 30.5cm 25.5cm Elbow: right 28cm left 27cm Largest humerus: right 37cm left 36cm Axcillary: right 43cm left 41cm Upper Exremity Comments: pt demo with increase fluid in right UE pulling at elbow- feel this will decrease as pts gains ROM - will transition in 2 weeks ( pt fighting yeast infection by right axillary region) to short stretch wrap at night as pt parmjit. Sensation Sensation Comments: Denies but states very sensitive on the back of her arm Quick DASH-Disab of Arm,Shoulder& Hand Quick DASH Score: 70.0000 Goals Goal: Patient will demonstrate a 20% reduction in edema by discharge: Yes Goal: Patient will demonstrate adequate knowledge of self-bandaging by the end of the first week.: Yes Goal: Patient will demonstrate adequate knowledge of self-massage by the end of the second week.: Yes Goal: Patient will demonstrate adequate knowledge of skin care and precautions by the end of the first week.: Yes Goal: Patient will demonstrate adequate knowledge of therapeutic exercises by discharge.: Yes Goal: Patient will select an appropriate compression garment and demonstrate adequate knowledge of correct donning technique, care and wearing schedule by discharge.: Yes Goal: Patient will voice understanding of need to replace compression garment every four to six months by discharge.: Yes Goal: Patient will demonstrate ROM WFL by discharge.: Yes Goal:: pt will demo full right shoulder flex and abduction by d/c pt will demo good posture sitting/standing and ambulation Rehabilitation General Assessment: pt arrives 1 weeks and 2 days s/p from right breast lumpectomy with lymph node removal- pt arrives with drain tubes intact but did need ed. to not force her right UE past 90* of shoulder flexion as to not pull drains. Pt demo need for skilled OT services 2x week for 6 weeks to assist pt in decreasing limb size increasing her ROM and ed. on life long mtg of lymphedema- pt and pts friend demo understanding and agree to POC. Rehabilitation Potential: Good Anticipated Interventions Anticipated Interventions: A/AAROM/PROM, Strengthening, Education re Diagnosis, Manual Lymph Drainage, Education re Life-long lymphedema Management, Education re Self-Bandaging Techniques, Education re Skin Care and Precautions, Education re Self Massage Techniques, Education re Correct Donning Tech,Care&Wearing Sched Comp Garments, Caregiver Training and Home Program Other Interventions: oncology rehab Visit Plan Frequency: 2x /Week Duration: 6 Weeks General Plan: drain tube removal August 09- will initiate full shoulder ROM following scar mtg /desensitization get order for compression sleeve and glove fax to [facility] prices Lewis TEXT: Thank you for the opportunity to evaluate your patient. For Medicare and Medicare HMO plans, please review the plan of care and approve it. It will need to be FAXED BACK to us at [phone] for Medicare purposes. Please let me know if there are questions or concerns regarding this plan of care. Physician Signature: Date:
--- NOTE | 2023-09-05 15:59 | HP.OTREVAL ---
Re-Evaluation Intro: Dr. Shaina Weston MD, It has been my pleasure to treat SCOTT ODEN over the last 7 visits for breast cancer/ lymphedema. Please see the progress note below for an update on the occupational therapy plan of care! Subjective Subjective: pt arrives 4 weeks from initial evaluation for lymphedema- pt is wrapping at night and using compression sleeve during the day- still struggling with control of he lymphedema- pt performing AROM, SMLD and wrapping with min. gains. Objective Objective/Function: left MCP 20cm same left wrist 17.5 reduction from initial eval low forearm 22cm decrease from 23cm Up forearm 31.5cm increase from 30.56cm Hum 37cm same axill 43cm same with pt wrapping arm at night with short stretch wraps and use of compression sleeve pt making min. gains in decreasing limb- pt would benefit from compression pump tactile medical flexitouch with chest piece as she is risk for chest/thoracic edema. pt is receptive to use of pump to assist in mtg. Plan Plan Duration: 6 Weeks Plan: initiate contact for compression pump to increase pts success with lymphedema mtg. Goals Goals Goal: Patient will demonstrate a 20% reduction in edema by discharge: Yes Goal: Patient will demonstrate adequate knowledge of self-bandaging by the end of the first week.: Yes Goal: Patient will demonstrate adequate knowledge of self-massage by the end of the second week.: Yes Goal: Patient will demonstrate adequate knowledge of skin care and precautions by the end of the first week.: Yes Goal: Patient will demonstrate adequate knowledge of therapeutic exercises by discharge.: Yes Goal: Patient will select an appropriate compression garment and demonstrate adequate knowledge of correct donning technique, care and wearing schedule by discharge.: Yes Goal: Patient will voice understanding of need to replace compression garment every four to six months by discharge.: Yes Goal: Patient will demonstrate ROM WFL by discharge.: Yes Goal:: pt will demo full right shoulder flex and abduction by d/c pt will demo good posture sitting/standing and ambulation Patient Goals: Regain Mobility, Regain Strength, Decrease Pain, Decrease Swelling/Stiffness, Use Hand/Wrist/Arm Normally Again, Increase ROM, Learn how to Manage Lymphedema, Learn how to Apply Compression Stockings and Other Anticipated Interventions Anticipated Interventions Anticipated Interventions: A/AAROM/PROM, Strengthening, Education re Diagnosis, Manual Lymph Drainage, Education re Life-long lymphedema Management, Education re Self-Bandaging Techniques, Education re Skin Care and Precautions, Education re Self Massage Techniques, Education re Correct Donning Tech,Care&Wearing Sched Comp Garments, Caregiver Training and Home Program Other Interventions: oncology rehab Re-Evaluation Ending Re-evaluation ending: Please do not hesitate to contact me at [phone] by phone or if you have questions or concerns regarding this new plan of care! Sincerely, Sangita Mayorga, OTR/L, CHT
--- NOTE | 2023-10-30 09:45 | HP.PTEVAL ---
Patient's Visit Information Visit Information Visit Information: SCOTT ODEN is a 58 year old F referred to Physical Therapy by Dr. Shaina Weston MD with a diagnosis of S/P lumpectomy R and Lymphedema, Lymph node dissection. Date of Evaluation: 10/30/23 Physical Therapist: URI Cerna Visit Plan Frequency: 2x /Week Duration: 2 Months Plan: 2X/ week for AT for R arm and shoulder ROM, Strength, general body movement/strength, postural exercises, help with lymphedema swelling with HEP HEP: Shoulder IR with a towel Subjective Subjective: Pt had breast cancer and surgery was in July and she has lymphedema. She had OT with Maria and she has a machine and contraption at night. Maria thought that PT in the pool would be good for it. She is good ROM (it is sore but she is able to do things). Her R arm is super heavy and feeling that she is weak due to that. She is not seeing OT any longer because she received her machine. She has pain now and the in the arm she feels pinching in her upper arm. Her pain is worse at the day goes on. Pain R arm pain: Pain Intensity (Out of 10): 3 Objective Objective: R handed: R tone regulator strength 55 and L 50 Shoulder AROM: R shoulder flexion 145 and L 165 R shoulder ABD 156 and L 180 R shoulder ER 50 and L 60 R shoulder IR T12 and L T6 Shoulder MMT: R shoulder flexion 8.4 and L 10.7 R shoulder abd 8.1 and L 9.3 R shoulder ER 11.1 and L 12.1 R shoulder IR 11.5 and L 11.1 Tight in IR on the R and end range abduction Balance/Special Test Scores Quick DASH Score: 36.3625 Goals Goal 1:: I HEP Goal Time Frame: 6-8 Weeks Goal 2:: Improve R shoulder strength to not feel the arm is so heavy to do ADL's Goal Time Frame: 6-8 Weeks Goal 3:: Improve R shoulder AROM (at the time of the eval: Shoulder AROM: R shoulder flexion 145 and L 165 R shoulder ABD 156 and L 180 R shoulder ER 50 and L 60 R shoulder IR T12 and L T6). Rehabilitation Potential Rehabilitation Potential: Good Anticipated Interventions Patient/Client Instruction: Educate patient on: Condition and Plan of Care For the Purpose of:: To decrease pain, To decrease swelling/inflammation, To increase ROM, To improve nutrient delivery to tissue, To increase oxygenation perfusion, To improve muscle performance and motor function, To improve ability to perform ADL's, To increase tolerance to activity/condition/position, To improve performance and independence with ADL's, To decrease level of supervision to perform tasks, To improve health of tissue and To increase flexibility/ROM Therapeutic Exercise to Include: Strength training, Endurance training, Postural training, Flexibilty training, Neuromotor development, Active ROM and Scapular Strength/Stabilization For the Purpose of:: To decrease pain, To increase ROM, To improve nutrient delivery to tissue, To improve muscle performance and motor function, To improve ability to perform ADL's, To increase tolerance to activity/condition/position, To improve performance and independence with ADL's, To decrease level of supervision to perform tasks, To improve ability of physical actions for home/community/work/leisure, To improve health of tissue, To decrease soft tissue restriction and To increase flexibility/ROM Manual Therapy Techniques to Include: Passive ROM and Soft tissue mobilization For the Purpose of:: To decrease swelling/inflammation, To increase ROM and To improve nutrient delivery to tissue Text: Thank you for the opportunity to evaluate your patient. For Medicare and Medicare HMO plans, please review the plan of care and approve it. It will need to be FAXED BACK to us at [phone] for Medicare purposes. For Medicare only, by signing this I certify the plan of care. Please let me know if there are questions or concerns regarding this plan of care. Physician Signature: Date:
--- NOTE | 2023-12-11 12:06 | HP.PT.NRP ---
Patient Information Patient Information: SCOTT ODEN was seen in my office for initial evaluation on 10/30/23. The following Plan of Care was established for this patient: POC Established Initial Frequency: 2x /Week Initial Duration: 2 Months Anticipated Interventions Patient/Client Instruction: Educate patient on: Condition and Plan of Care For the Purpose of:: To decrease pain, To decrease swelling/inflammation, To increase ROM, To improve nutrient delivery to tissue, To increase oxygenation perfusion, To improve muscle performance and motor function, To improve ability to perform ADL's, To increase tolerance to activity/condition/position, To improve performance and independence with ADL's, To decrease level of supervision to perform tasks, To improve health of tissue and To increase flexibility/ROM Therapeutic Exercise to Include: Strength training, Endurance training, Postural training, Flexibilty training, Neuromotor development, Active ROM and Scapular Strength/Stabilization For the Purpose of:: To decrease pain, To increase ROM, To improve nutrient delivery to tissue, To improve muscle performance and motor function, To improve ability to perform ADL's, To increase tolerance to activity/condition/position, To improve performance and independence with ADL's, To decrease level of supervision to perform tasks, To improve ability of physical actions for home/community/work/leisure, To improve health of tissue, To decrease soft tissue restriction and To increase flexibility/ROM Manual Therapy Techniques to Include: Passive ROM and Soft tissue mobilization For the Purpose of:: To decrease swelling/inflammation, To increase ROM and To improve nutrient delivery to tissue Last Seen Last Seen: This patient was last seen in our office . Pertinent comments regarding their Physical therapy will appear below: DC PT at this time. Pt cancelled all Appts At this point I will be discontinuing this patient from physical therapy. I would be happy to see this patient again in the future if found appropriate by the physician. Thank you! Luz Guthrie, MPT Balance/Gait/Functional tests Balance/Special Test Scores Quick DASH Score: 36.3628
== END 2023-11-28 19:00 | disposition home or self-care (01) ==
LOC: PT 16:30
PROVIDERS: PCP Family Medicine; Referring Provider Surgery; Visit Provider Surgery
DX: C50.911 Malignant neoplasm of unspecified site of right female breast (principal); I89.0 Lymphedema, not elsewhere classified
CPT/HCPCS: 97110; 97113; 97140; 97161; 97166; 97530

== ENCOUNTER → 2023-12-15 | Outpatient (CLI) | payer BC, SELFPAY ==
--- NOTE | 2023-12-15 16:06 | RAD_ITS ---
STUDY: X-RAY CHEST REASON FOR EXAM: Female, 58 years old. cough, bronchitis TECHNIQUE: Frontal and lateral views of the chest. COMPARISON: 06/02/2023. FINDINGS: Stable left indwelling Mediport catheter terminating in the lower SVC. The lungs are clear and expanded. There is no demonstrated pleural abnormality. Normal size heart. Normal mediastinum and kash. Normal visualized pulmonary arteries. Normal visualized aortic arch and descending thoracic aorta. Normal visualized thoracic spine. Normal visualized ribs, clavicles, and shoulders. There is no demonstrated abnormality of the visualized soft tissue structures of the upper abdomen. RAD/Chest PA and Lateral IMPRESSION: No definite acute or significant abnormality seen. Electronically Signed: Joe Calderón MD at 22:53 EDT ,
== END | disposition home or self-care (01) ==
LOC: MTRAD 16:06
PROVIDERS: PCP Family Medicine; Referring Provider Family Medicine; Visit Provider Family Medicine
DX: J20.9 Acute bronchitis, unspecified (principal); R05.9 Cough, unspecified
CPT/HCPCS: 71046

== ENCOUNTER → 2023-12-27 | Outpatient (CLI) | payer BC, SELFPAY ==
[2023-12-27 15:59] LABS: Red Blood Cells-Urine 0 SEEN /hpf (0-5)
[2023-12-27 17:27] LABS: Absolute Lymphocyte Count 1.48 X10^3/uL (0.83-4.51); Absolute Neutrophil Count 3.9 X10^3/uL (2.0-7.7); Basophil# 0.04 X10^3/uL; Basophil% 0.7 % (0-1); Eosinophil# 0.05 X10^3/uL; Eosinophils% 0.8 % (0-5); Hemoglobin 12.2 g/dL (12.0-15.0); Lymphocyte # 1.48 X10^3/ul (0.83-4.51); Lymphocyte % 24.2 % (19-41); Mean Corp Hgb Conc 33.9 g/dL (32-36); Mean Corpuscular Volume 91.4 fL (81-99); Mean Platelet Vol. 8.9 fl (6.2-12.0); Monocyte# 0.61 X10^3/uL; NRBC Flagged by Analyzer 0 % (0-5); Neutrophil # 3.93 X10^3/uL (2.7-7.7); Neutrophil % 64.1 % (47-70); Platelet Count 283 K/mm3 (150-450); RBC Distribution Width CV 13.2 % (11.6-14.6); RBC Distribution Width SD 43.8 fl (35.1-43.9); Red Blood Count 3.94 M/mm3 (4.2-5.4); White Blood Count 6.1 K/mm3 (4.4-11.0)
[2023-12-27 17:31] LABS: Color, Urine Yellow (Yellow); Glucose, Dipstick Normal (Normal); Ketone-Dipstick Negative (Negative); Leukocyte Esterase-Dipstick 25 /ul (Negative); Nitrite-Dipstick Negative (Negative); Occult Blood-Urine Negative /ul (Negative); Protein-Dipstick Negative (Negative); Urine Bilirubin Dipstick Negative (Negative); Urine Clarity Clear (Clear); Urine Urobilinogen Normal (Normal)
[2023-12-27 17:59] LABS: Bacteria 1+ /hpf (None Seen); Mucous, Urine 1+ /hpf (<or=2+); Squamous Epithelial Cells - UA 0-5 SEEN /hpf (5-10); White Blood Cells 0-5 SEEN /hpf (0-5)
[2023-12-27 18:07] LABS: Vitamin D,25 Hydroxy 64.4 ng/mL
[2023-12-27 18:28] LABS: ALB/GLOB Ratio 1.1 RATIO (0.9-2.4); AST(SGOT) 22 U/L (15-37); Alanine Aminotransfer ALT/SGPT 33 U/L (13-56); Albumin, Serum 3.7 g/dL (3.2-5.0); Alkaline Phosphatase 87 U/L (45-117); Anion Gap 6 (5-15); BUN 12 mg/dL (7-18); BUN/Creat Ratio 12.7 RATIO (10-20); Calcium,Total 9.8 mg/dL (8.5-10.1); Chloride 105 mmol/L (98-107); Creatinine, Serum 0.95 mg/dL (0.55-1.02); EST Glomerular Filtration Rate 65 mL/min (>60); Est Glom Filt Rate - Afr Amer 79 mL/min (>60); Globulin 3.5 g/dL (2.2-4.2); Glucose 121 mg/dL (74-106); Potassium 3.3 mmol/L (3.5-5.1); Protein, Total 7.2 g/dL (6.4-8.2); Sodium Level 139 mmol/L (136-145)
[2023-12-27 18:30] LABS: Hemoglobin A1c 4.5 % (3.8-5.6)
== END | disposition home or self-care (01) ==
LOC: MFPLAB 15:56
PROVIDERS: PCP Family Medicine; Visit Provider Family Medicine
DX: R73.02 Impaired glucose tolerance (oral) (principal); I10 Essential (primary) hypertension; E55.9 Vitamin D deficiency, unspecified
CPT/HCPCS: 80053; 81001; 82306; 83036; 85025

== ENCOUNTER → 2024-04-08 | Outpatient (CLI) | payer BC, SELFPAY ==
--- NOTE | 2024-04-08 08:43 | BI_ITS ---
MAMMOGRAPHY - BILATERAL DIAGNOSTIC REASON FOR EXAM: Female, 58 years old. RT BREAST TENDERNESS/FIBROUS TISSUE MEDIAL PERTINENT HISTORY: Non-contributory. TECHNIQUE: Digital examination. Mediolateral oblique (MLO) and craniocaudad (CC) views of both breasts were obtained. CAD: CAD was performed on this study. COMPARISON: None. FINDINGS: Breast Composition: There are scattered areas of fibroglandular density. There are no dominant masses or suspicious calcifications. No other significant abnormalities are identified. BI/DIAG MAMM W/CAD, BILAT IMPRESSION: Stable bilateral diagnostic mammogram. ASSESSMENT CATEGORY: BIRADS Category 1: Negative. A letter regarding these results will be sent to the patient by the facility within 30 days. FOLLOW UP RECOMMENDATION: Yearly follow up mammogram recommended. (A) Approximately 10% of breast cancers are not detected by mammography. A normal mammogram should not delay biopsy of a clinically suspicious abnormality. Electronically Signed: Juan Reddy MD at 9:49 EST ,
== END | disposition home or self-care (01) ==
PROVIDERS: PCP Family Medicine
DX: N64.4 Mastodynia (principal)
CPT/HCPCS: 77062; 77066; G0279

== ENCOUNTER 2024-06-19 12:33 | Day surgery (SDC) | payer BC, SELFPAY ==
--- NOTE | 2024-06-19 11:54 | OP.PCM_ITS ---
Operative Report (Standard) Operative Information Date of Procedure: 06/19/24 Pre-Operative Diagnosis: Lymphedema right upper extremity Post-Operative Diagnosis: Same Surgery/Procedure Performed: Indocyanine green lymphography (ICGL) of RIGHT UPPER EXTREMITY (CPT 02731) field spec: No Type of Anesthesia: Local (2 cc of 1% lidocaine ) RN Documented Start/Stop Times: Operation Date: 06/19/24 14:20 Case Time Into Pre-Op 06/19/24 12:38 Into Room 06/19/24 14:20 Out of Pre-Op 06/19/24 14:20 Procedure Start 06/19/24 14:39 Procedure End 06/19/24 14:56 Anesthesia End 06/19/24 15:00 Out of Room 06/19/24 15:00 Into Phase II Recovery 06/19/24 15:07 Out of Phase II 06/19/24 15:21 Anesthesia Start Procedure Start Time: 14:39 Procedure Stop Time: 14:56 Select all DRAINS/GRAFTS/IMPLANTS that apply: None Estimated Blood Loss: none Specimen collected: No Description of surgery: PROCEDURE REPORT INDOCYANINE GREEN LYMPHOGRAPHY PROCEDURE DATE: 19 June 2024 SURGEON(S)/VOCATIONAL EDUCATION TEACHER(S): Ace Plascencia MD PROCEDURE: Indocyanine green lymphography (ICGL) of RIGHT UPPER EXTREMITY (CPT 42183) Last ICGL date: ICGL niave ? PROCEDURE INDICATIONS: This is a 58 YO FM history and exam findings consistent with Campisi stage II of the RIGHT extremity lymphedema following a RIGHT axillary lymph node dissection for breast cancer treatment. ICG lymphography was offered for definitive diagnosis and severity staging.?? The rational, alternatives, the risks and benefits of the proposed procedure were thoroughly discussed.? The patient expressed clearly understanding of what discussed.? A consent form was signed. ? TECHNIQUE: The patient was taken to the operating room and placed in supine position.? 0.25% indocyanine green solution was injected, 0.1 cc per injection site, with a total of 0.4 cc injected. ? Injections sites: RIGHT Hand- webspaces (two) ?- Radial and ulnar side of wrist Scanning was performed with SPY machine. FINDINGS: Grading of [facility] Stage 3 with few patent lymphatic vessels and extensive dermal backflow in the forearm. There was some linear lymphatic channels noted on the dorsum of the distal forearm that terminated into areas of dermal backflow on the proximal dorsal forearm. In the forearm there were reticular and splash patterns, as well as some small areas of stardust as patterns in the areas of the worst backflow. In the arm there were reticular patterns. IMMEDIATE SCAN (3 minutes) Reach of ICG: To the distal arm Number of linear channels: 4 large in the forearm that ended in dermal backflow in the middle of the forearm Orientation of the linear channels: in line with the axis of the limb Any reticular (tortuous) channels: only in areas of dermal backflow Any collaterals: Unclear Dermal backflow: Yes, in the forearm and the distal arm Improved as compared to the last scan?: N/A What improved?: N/A Surgical Findings: Volar Forearm Ulnar Forearm Radial Forearm Ulnar Forearm Anterior Arm Superior Arm Inferior Arm Posterior Arm Complications Complications: No
--- NOTE | 2024-06-19 11:57 | PCM.HP.STD ---
HPI - General HPI Narrative María Thomas is a 58-year-old female with a history of right breast HER2 positive stage Ia invasive ductal carcinoma, seropositive rheumatoid arthritis, hereditary hemochromatosis, history of pulmonary emboli (currently on Xarelto) who presents today for right upper extremity lymphedema which occurred after axillary lymph node sampling in the treatment of her breast cancer. Patient was referred to me by her occupational therapist Maria Mayorga who has been working with her on total decongestive therapy. In February 2023 a screening mammography demonstrated a 1.3 x 1.5 cm nodule in the retroareolar region of the right breast. She underwent a diagnostic mammogram and there was concern for cancer. A biopsy demonstrated the above-noted cancer. She had a biopsy of the right axillary lymph node basin following 21 March 2023 was positive for metastatic carcinoma (breast primary). She received breast conserving therapy with lumpectomy and right axillary lymph node dissection in July [address] Weston at [facility] (axillary lymph nodes were negative for residual carcinoma, 10 out of 10). She then underwent adjuvant radiotherapy which was completed in September 2023 and also completed adjuvant chemotherapy as well with Herceptin and Perjeta, the final cycle in February 2024. She still has a port in the left upper chest/subclavian just in case. The cancer was weekly positive for estrogen as well and therefore she is on anastrozole. She follows with Dr. Villatoro , [facility] oncology. Ever since the lymph node dissection in 2023, she has been getting worsening right upper extremity lymphedema as evidenced by her symptoms of heaviness and episodic swelling. The swelling has worsened with use and was initially improved with compression but now is more persistent and does not improve is much with compression and is worse at baseline. She reports that she was supposed to have more fitted garments, but has not gotten them yet. She has not had any bouts of cellulitis. She has not had any other interventions other than occupational therapy. Pt is a former smoker who quit in 2017. Pt has a history of blood clots and is on Xarelto. Current Encounter (DATE OF SURGERY H&P UPDATE): I saw and examined the patient this morning in pre-operative holding. We discussed risks and benefits of today's surgery and they would like to proceed. NO CHANGE in health history since last seen and evaluated. Ready to proceed with surgery. [facility] Medical History Pneumonia Osteopenia Liver disease History of frequent headaches History of breast cancer History of blood clots History of arthritis History of environmental allergies Lymphedema Loss of consciousness Syncope Hemochromatosis Cancer Anxiety Shortness of breath on exertion History of stress test Invasive ductal carcinoma of breast Wears glasses Arthritis Injury of head and neck Migraine headache Jackhammer esophagus Difficulty swallowing History of hiatal hernia Gastric reflux Former smoker CPAP (continuous positive airway pressure) dependence Leg cramps Hypertension Normal Holter exam History of echocardiogram Seronegative rheumatoid arthritis History of thyroid nodule Vitamin D deficiency Insomnia Pulmonary embolism Back pain Knee pain Shoulder pain Home Medications ?Medication ?Instructions ?Recorded ?Last Taken ?Type cholecalciferol (vitamin D3) 125 125 mcg PO DAILY 01/14/22 06/19/24 History mcg (5,000 unit) tablet (Vitamin D3) melatonin 12 mg tablet 12 mg PO QHS 01/14/22 06/18/24 History sulfasalazine 500 mg tablet 1.5 g PO BID 01/14/22 Unknown History pregabalin 75 mg capsule (Lyrica) 75 mg PO QHS 07/14/22 06/18/24 History potassium chloride 20 mEq 20 meq PO BID 04/21/23 06/19/24 History tablet,extended release omeprazole 40 mg capsule,delayed 40 mg PO DAILY 06/02/23 06/19/24 History release rivaroxaban 20 mg tablet (Xarelto) 20 mg PO QHS 06/02/23 06/16/24 History Held on 07/26/23. Instructions: Resume on 08/04/23. vitamin B complex (Complex B-100 1 tab PO DAILY 07/25/23 06/19/24 History tablet,extended release) amitriptyline 100 mg tablet 100 mg PO QDAY #90 tabs 02/20/24 06/19/24 Rx anastrozole 1 mg tablet 1 mg PO DAILY 05/09/24 06/19/24 History lisinopril 20 mg tablet 20 mg PO DAILY 05/09/24 06/19/24 History ursodiol 300 mg capsule 300 mg PO BID 05/09/24 Unknown History Held on 06/19/24. Instructions: on hold from [facility] venlafaxine 75 mg capsule,extended 75 mg PO DAILY 05/09/24 06/19/24 History release 24 hr Allergy/AdvReac Type Severity Reaction Status Date / Time No Known Allergies Allergy Verified 06/19/24 12:57 Family History Mother Cancer Hypertension Arthritis Father Cancer Grandfather Alcoholism Sister Asthma Surgical History History of lymph node dissection of right axilla S/P lumpectomy, right breast History of vascular access device History of laparoscopy Hx of breast biopsy Hx of colonoscopy Hx of esophagogastroduodenoscopy History of hand surgery History of cholecystectomy History of hysterectomy Social History household members: none Smoking Status: Former smoker how long ago did patient quit smoking: quit 2016. alcohol intake: never substance use type: does not use additional social history: pt denies vaping,denies marijuana use, denies edibles, denies aspirin and ibuprofen use. pt does have history of blood clots former smoker-quit 2016. Physical Exam Narrative Exam appears unchanged from clinic UPPER EXTREMITIES: Examination of the extremities demonstrates the right upper extremity has lymphedema/swelling that has only slight change/improvement with elevation. There is very clearly a difference between forearms as you can see the tendons on the volar surface of the left forearm but not on the right surface secondary to the swelling. Unable to see veins as well on the right side compared to the left side. Lymphedema (Circumferential Measure) MCP: right 20cm left 18.5cm Wrist: right 19cm left 17cm Lower forearm: right 23cm left 21.5cm Largest forearm: right 30.5cm 25.5cm Elbow: right 28cm left 27cm Largest humerus: right 37cm left 36cm Axillary: right 43cm left 41cm Assessment & Plan Assessment/Plan (1) Lymphedema: PLAN: Patient currently has lymphedema Campisi stage II in the RIGHT upper extremity (only partially improves with elevation), which appears to be more of a physiologic problem at this point but is becoming an issue with deposition/bulk. She may benefit from a physiologic procedure like a lymphovenous anastomoses (LVA) to improve the swelling. I would like to better characterize her lymphedema with a lymphogram in the operating room using the SPY machine. I talked the patient about this and she understands what it would entail (some injections in her hand and wrist of indocyanine green, followed by some picture taking with the machine). We will go over her results of the lymphogram following the procedure, and this can help us make a plan going forward for potential lymphovenous anastomosis. [place] [address]. Her Caprini score 9 for a long surgery, history of blood clots, and previous cancer (LVA would be about 4 hours). She would stay on blood thinner and I would discuss with Dr. Villatoro ahead of time. The patient and I discussed risks and benefits of future surgery in the setting of blood clot history and blood thinner. We will discuss more at our next visit. First step will be for the lymphogram. I talked to her about LVA and how this procedure can help with the intermittent swelling and heaviness. She understands that her condition may get worse over time regardless of whether or not we do anything, and it could get worse and spite of us doing things, and she understands that if it gets worse it is not necessarily because of the surgery not working or at the surgery causing problems (lymphovenous anastomosis is safe and has not been shown to cause worsening of the lymphedema, rather can improve it). She understands risks of bleeding, infection, damage to surrounding structures, and need for post-operative compression. She understands that further down the road if her lymphedema worsens and she begins to get a persistently bulky extremity she may need a debulking procedure like liposuction, but we should try the physiologic treatment first. Another major treatment modality is the total decongestive therapy which she is getting with the lymphedema therapist. She will need to get the better fitting compression garments (discussed). Agree with plan from lymphedema specialist for 1-2 times per week visits with home exercises for decompression. INTERVAL H&P PLAN, DATE OF SURGERY: We will proceed with LYMPHOGRAM TODAY , RIGHT UPPER EXTREMITY
[2024-06-19 12:58] VITALS: BP 122/74; PULSE 89; RESP 17; TEMP 37; O2SAT 97; BMI 37.2
[2024-06-19 14:24] VITALS: BP 141/78; BP 141/88; O2SAT 100; O2SAT 97; O2SAT 98; O2SAT 99
[2024-06-19] MEDS: Lidocaine 1% (20 ml mdv) 20 ML Vial (14:37)
[2024-06-19 15:19] VITALS: BP 114/87; BP 122/74; PULSE 88; RESP 18; TEMP 36.9; O2SAT 99
== END 2024-06-19 15:21 | disposition home or self-care (01) ==
LOC: SDC 12:34 → AC 12:35
PROVIDERS: PCP Family Medicine; Referring Provider Surgery Plastic and Reconstructive Surgery; Visit Provider Surgery Plastic and Reconstructive Surgery
PROC: (CPT 38790; principal; 2024-06-19 14:10)
DX: I89.0 Lymphedema, not elsewhere classified (principal); M05.9 Rheumatoid arthritis with rheumatoid factor, unspecified; C50.919 Malignant neoplasm of unspecified site of unspecified female breast; E83.110 Hereditary hemochromatosis; Z17.0 Estrogen receptor positive status [ER+]; I10 Essential (primary) hypertension; Z79.811 Long term (current) use of aromatase inhibitors; Z79.01 Long term (current) use of anticoagulants; Z79.899 Other long term (current) drug therapy; Z87.891 Personal history of nicotine dependence
CPT/HCPCS: 38790; 75801